=== PATIENT | male | born 1950 | race Hispanic/Latino ===

== ENCOUNTER 2016-08-02 21:54 | Inpatient (IN) | payer MEDICAID ==
[2016-08-02] MEDS ORDERED: Meropenem 1g/NS 100mL IVPB 1 GM/100 ML PIGGYBACK IVPB STA (22:46)
[2016-08-02 23:01] LABS: ADD MANUAL DIFF? NO
[2016-08-02 23:03] LABS: VENOUS BLOOD GAS BASE EXCESS 1.4 mmol/L (0.0-2.0); VENOUS BLOOD PH 7.46 (7.32-7.43)
[2016-08-02 23:09] LABS: BASO # 0.04 K/mm3 (0.0-2.0); BASO % 0.5 % (0.0-3.0); EOS # 0.2 (0.0-0.7); EOS % 2.4 % (1.5-5.0); GRAN % 70.4 % (50.0-68.0); HEMATOCRIT 39.2 % (42.0-52.0); LYMPH # 1.7 (1.2-3.4); LYMPH % 19.7 % (22.0-35.0); MEAN CELL VOLUME 86.9 fL (80.0-105.0); MEAN CORPUSCULAR HEMOGLOBIN 29.3 pg (25.0-35.0); MEAN CORPUSCULAR HGB CONC 33.7 g/dl (31.0-37.0); MEAN PLATELET VOLUME 9.8 fl (7.0-11.0); MONO # 0.6 (0.1-0.6); PLATELET COUNT 282 10^3/uL (120.0-450.0); RED CELL DISTRIBUTION WIDTH 14.2 % (11.5-14.5); WHITE BLOOD COUNT 8.4 10^3/ul (4.5-11.0)
[2016-08-02 23:27] LABS: INR 1.07 (0.93-1.08)
[2016-08-02 23:31] LABS: PH,URINE 6.5 (4.7-8.0); URINE BILIRUBIN NEGATIVE (NEGATIVE); URINE BLOOD MODERATE (NEGATIVE); URINE GLUCOSE (UA) NEGATIVE (NEGATIVE); URINE KETONE NEGATIVE (NEGATIVE); URINE LEUKOCYTE ESTERASE MODERATE Leu/uL (NEGATIVE); URINE PROTEIN 100 mg/dL (<30 mg/dL); URINE UROBILINOGEN 0.2 E.U./dL (<1 E.U./dL)
[2016-08-02 23:34] LABS: ALB/GLOB RATIO 1.1 (1.1-1.8); ALKALINE PHOSPHATASE 83 U/L (38-133); ALT/SGPT 35 U/L (7-56); AST/SGOT 35 U/L (15-59); BILIRUBIN,TOTAL 1.6 mg/dL (0.2-1.3); BLOOD UREA NITROGEN 9 mg/dL (7-21); CALCIUM 9.1 mg/dL (8.4-10.5); CARBON DIOXIDE 23 mmol/L (21-33); CHLORIDE 97 mmol/L (98-107); GFR AFRICAN-AMERICAN > 60; GLUCOSE,RANDOM 152 mg/dL (70-110); MAGNESIUM 1.5 mg/dL (1.7-2.2); POTASSIUM 3.1 mmol/L (3.6-5.0); SODIUM 131 mmol/L (132-148); TOTAL PROTEIN 7.6 g/dL (5.8-8.3)
[2016-08-02 23:39] LABS: URINE APPEARANCE CLOUDY (CLEAR); URINE COLOR YELLOW (YELLOW)
[2016-08-03 00:06] LABS: TROPONIN I 0.21 ng/mL
[2016-08-03 00:07] LABS: PHOSPHOROUS 1.4 mg/dL (2.5-4.5)
[2016-08-03 00:10] LABS: URINE BACTERIA MOD (NEG); URINE EPITHELIAL CELLS 0 - 2 /hpf (0-5); URINE WBC TNTC /hpf (0-6)
--- NOTE | 2016-08-03 00:38 | ED PDOC ---
Arrival/HPI - General Chief Complaint: Fever Time Seen by Provider: 08/02/16 22:39 Historian: Patient - History of Present Illness Narrative History of Present Illness (Text): 08/02/16 22:48 This 66 yo male with pmh chf, cardiomyopathy, htn, stroke, sepsis, presents to this ED c/o feeling very weak since last night. Symptoms worsen this morning, which he was not able to walk due to increasing tiredness. Patient stated he developed a fever. Denies sob, cp, abdominal pain, rash, recet travel, or sick contact. Time/Duration: Other (since last night) Context: Home Past Medical History - Provider Review Nursing Documentation Reviewed: Yes - Infectious Disease Hx of Infectious Diseases: None - Tetanus Immunization Tetanus Immunization: Unknown - Cardiac Hx Cardiac Disorders: Yes Hx Hypertension: Yes - Pulmonary Hx Chronic Obstructive Pulmonary Disease (COPD): No - Neurological Hx Neurological Disorder: Yes HX Cerebrovascular Accident: Yes (CVA/TIA with residual R sided weakness) - HEENT Hx HEENT Disorder: Yes Hx Blind: No Hx Cataracts: No Hx Deafness: Yes (left ear, hearing aid) Hx Difficulty Chewing: No Hx Epistaxis: No Hx Glaucoma: No Hx Macular Degeneration: No Other/Comment: uses eye glasses - Renal Hx Renal Disorder: Yes Hx Renal Failure: Yes - Endocrine/Metabolic Hx Endocrine Disorders: Yes Hx Diabetes Mellitus Type 2: Yes - Hematological/Oncological Hx Blood Disorders: Yes Hx Blood Transfusions: Yes Hx Blood Transfusion Reaction: No - Integumentary Hx Dermatological Disorder: No - Musculoskeletal/Rheumatological Hx Musculoskeletal Disorders: Yes Hx Arthritis: Yes - Gastrointestinal Hx Gastrointestinal Disorders: No Other/Comment: umbilical hernia - Genitourinary/Gynecological Hx Genitourinary Disorders: Yes Hx Hematuria: Yes Hx Incontinence: Yes Hx Prostate Problems: Yes Hx Sexually Transmitted Diseases: No Hx Urinary Tract Infection: Yes - Psychiatric Hx Psychophysiologic Disorder: No Hx Emotional Abuse: No Hx Physical Abuse: No Hx Substance Use: No - Past Surgical History Past Surgical History: Unable to Obtain - Surgical History Hx Cardiac Catheterization: No Hx Coronary Stent: No Hx Orthopedic Surgery: Yes Other/Comment: rt.knee surgery - Anesthesia Hx Anesthesia Reactions: No Hx Malignant Hyperthermia: No - Suicidal Assessment Feels Threatened In Home Enviroment: No Family/Social History - Physician Review Nursing Documentation Reviewed: Yes Family/Social History: No Known Family HX Smoking Status: Former Smoker Hx Alcohol Use: No Hx Substance Use: No Hx Substance Use Treatment: No Allergies/Home Meds Allergies/Adverse Reactions: Allergies salmon Adverse Reaction (Uncoded 01/28/16 15:22) RASH Home Medications: Home Meds Medication Instructions Recorded Confirmed Tamsulosin [Flomax] 0.4 mg PO DAILY 03/08/13 08/03/16 levETIRAcetam [Keppra] 250 mg PO Q12 03/08/13 08/03/16 Sertraline [Zoloft] 100 mg PO DAILY 05/10/15 08/03/16 amLODIPine [Norvasc] 5 mg PO QAM 05/10/15 08/03/16 Review of Systems - Review of Systems Constitutional: Fatigue, Fevers Eyes: Normal. absent: Vision Changes ENT: Normal. absent: Sore Throat Respiratory: Normal. absent: SOB, Cough Cardiovascular: Normal. absent: Chest Pain, Palpitations Gastrointestinal: absent: Abdominal Pain, Nausea, Vomiting Genitourinary Male: Frequency Musculoskeletal: Normal Skin: Normal Neurological: Normal. absent: Headache, Dizziness, Focal Weakness, Gait Changes Endocrine: Normal Hemo/Lymphatic: Normal Psychiatric: Normal Physical Exam Vital Signs Temp Pulse Resp BP Pulse Ox 08/03/16 02:22 100.3 F H 85 16 117/65 93 L 08/03/16 00:45 102.8 F H 08/03/16 00:00 89 16 92 L 08/02/16 23:09 102.8 F H 08/02/16 22:16 100.2 F H 102 H 18 139/104 H 92 L 08/02/16 22:13 100.2 F H 102 H 18 139/104 H 92 L Temperature: Febrile Blood Pressure: Hypertensive Pulse: Tachycardic Respiratory Rate: Normal Appearance: Positive for: Well-Appearing, Non-Toxic, Comfortable Pain Distress: None Mental Status: Positive for: Alert and Oriented X 3 - Systems Exam Head: Present: Atraumatic, Normocephalic Pupils: Present: PERRL Extroacular Muscles: Present: EOMI Conjunctiva: Present: Normal Mouth: Present: Moist Mucous Membranes Neck: Present: Normal Range of Motion Respiratory/Chest: Present: Clear to Auscultation, Good Air Exchange. No: Respiratory Distress, Accessory Muscle Use Cardiovascular: Present: Regular Rate and Rhythm, Normal S1, S2. No: Murmurs Abdomen: Present: Normal Bowel Sounds. No: Tenderness, Distention, Peritoneal Signs Back: Present: Normal Inspection. No: CVA Tenderness Upper Extremity: Present: Normal Inspection, Normal ROM, NORMAL PULSES, Neurovascularly Intact, Capillary Refill < 2s. No: Cyanosis, Edema Lower Extremity: Present: Normal Inspection, NORMAL PULSES, Normal ROM, Capillary Refill < 2 s. No: Edema, CALF TENDERNESS Neurological: Present: GCS=15, CN II-XII Intact, Speech Normal, Motor Func Grossly Intact, Normal Sensory Function Skin: Present: Warm, Dry, Normal Color. No: Rashes Psychiatric: Present: Alert, Oriented x 3 Medical Decision Making ED Course and Treatment: 08/03/16 00:[address] Jesus Pereira regarding symptoms, and labs result. He agrees with admission. Re-evaluation Time: 01:16 Reassessment Condition: Re-examined, Improving,but remains with symptoms - Lab Interpretations Microbiology Results: Microbiology Results 08/02/16 23:00 Blood Blood Culture - Final NO GROWTH AFTER 5 DAYS 08/02/16 23:00 Blood Gram Stain - Final TEST NOT PERFORMED 08/02/16 22:35 Blood Blood Culture - Final NO GROWTH AFTER 5 DAYS 08/02/16 22:35 Blood Gram Stain - Final TEST NOT PERFORMED 08/02/16 23:20 Urine Urine Culture - Final 10-50,000 CFU/ML. MULTIPLE SPECIES. PROBABLE CONTAMINATION. Lab Results: 08/02/16 22:35 08/02/16 22:35 Lab Results 08/02/16 23:20: Urine Color Yellow, Urine Appearance Cloudy, Urine pH 6.5, Ur Specific Pray 1.015, Urine Protein 100 H, Urine Glucose (UA) Negative, Urine Ketones Negative, Urine Blood Moderate H, Urine Nitrate Positive H, Urine Bilirubin Negative, Urine Urobilinogen 0.2, Ur Leukocyte Esterase Moderate H, Urine RBC 2 - 5, Urine WBC Tntc, Ur Epithelial Cells 0 - 2, Urine Bacteria Mod 08/02/16 22:58: pO2 155 H, VBG pH 7.46 H, VBG pCO2 35.0 L, VBG HCO3 24.9, VBG Total CO2 26.0, VBG O2 Sat (Calc) 99.9 H, VBG Base Excess 1.4, VBG Potassium 3.1 L, Glucose 156 H, Lactate 1.5, FiO2 21.0, Sodium 133.0, Chloride 101.0, Venous Blood Potassium 3.1 L 08/02/16 22:35: Sodium 131 L, Potassium 3.1 L, Chloride 97 L, Carbon Dioxide 23 , Anion Gap 14, BUN 9, Creatinine 1.2, Est GFR ( Amer) > 60, Est GFR (Non -Af Amer) > 60, Random Glucose 152 H, Calcium 9.1, Phosphorus 1.4 L*, Magnesium 1.5 L, Total Bilirubin 1.6 H, AST 35, ALT 35, Alkaline Phosphatase 83, Troponin I 0.21 H* D, NT-Pro-B Natriuret Pep 1260 H, Total Protein 7.6, Albumin 4.0, Globulin 3.5, Albumin/Globulin Ratio 1.1 08/02/16 22:35: PT 11.6, INR 1.07, APTT 28.0 08/02/16 22:35: WBC 8.4, RBC 4.51, Hgb 13.2 L, Hct 39.2 L, MCV 86.9, MCH 29.3, MCHC 33.7, RDW 14.2, Plt Count 282, MPV 9.8, Gran % 70.4 H, Lymph % (Auto) 19.7 L, Cameron % (Auto) 7.0 H, Eos % (Auto) 2.4, Baso % (Auto) 0.5, Gran # 5.90, Lymph # 1.7, Cameron # 0.6, Eos # 0.2, Baso # 0.04 I have reviewed the lab results: Yes Interpretation: Abnormal lab values - RAD Interpretation Radiology Orders: 08/02/16 22:40 CHEST PORTABLE [RAD] Stat - EKG Interpretation Interpreted by ED Physician: Yes (Sinus tachycardia with fusion @ 104. LBBB) Type: 12 lead EKG Comparison: No previous EKG avail. - Medication Orders Current Medication Orders: Acetaminophen (Tylenol 325mg Tab) 650 mg PO Q4H PRN PRN Reason: Temp >100.4*F Albuterol Sulfate (Albuterol 0.083% Inhal Nini (2.5 Mg/3 Ml) Ud) 2.5 mg IH [id number] PRN PRN Reason: Shortness of Breath Amlodipine Besylate (Norvasc) 5 mg PO DAILY [facility] Last Admin: 08/07/16 09:50 Dose: 5 mg Aspirin (Aspirin Chewable) 81 mg PO DAILY [facility] Last Admin: 08/07/16 09:49 Dose: 81 mg Atorvastatin Calcium (Lipitor) 40 mg PO DAILY [facility] Last Admin: 08/07/16 09:49 Dose: 40 mg Benzonatate (Tessalon Perles) 100 mg PO TID [facility] Last Admin: 08/07/16 18:11 Dose: 100 mg Carvedilol (Coreg) 3.125 mg PO BID [facility] Last Admin: 08/07/16 18:11 Dose: 3.125 mg Clopidogrel Bisulfate (Plavix) 75 mg PO DAILY [facility] Last Admin: 08/07/16 09:50 Dose: 75 mg Digoxin (Lanoxin) 0.25 mg PO 1400 [facility] Last Admin: 08/07/16 13:28 Dose: 0.25 mg Diphenhydramine HCl (Benadryl) 25 mg IVP Q4H PRN PRN Reason: Allergy symptoms Last Admin: 08/07/16 21:19 Dose: 25 mg Enoxaparin Sodium (Lovenox) 40 mg SC DAILY [facility] PRN Reason: Protocol Last Admin: 08/07/16 09:49 Dose: 40 mg Finasteride (Proscar) 5 mg PO DAILY [facility] Last Admin: 08/07/16 09:50 Dose: 5 mg Furosemide (Lasix) 40 mg PO DAILY [facility] Last Admin: 08/07/16 09:49 Dose: 40 mg Meropenem 1g/NS 100mL IVPB (Meropenem 1g/Ns 100ml Ivpb) 1 gm in 100 mls @ 100 mls/hr IVPB Q12 [facility] PRN Reason: Protocol Stop: 08/10/16 10:01 Last Admin: 08/07/16 21:19 Dose: 100 mls/hr Levetiracetam (Keppra) 250 mg PO Q12 [facility] Last Admin: 08/07/16 21:19 Dose: 250 mg Lisinopril (Zestril) 2.5 mg PO DAILY [facility] Last Admin: 08/07/16 09:50 Dose: 2.5 mg Pantoprazole Sodium (Protonix Ec Tab) 40 mg PO 0630 [facility] Last Admin: 08/08/16 05:41 Dose: 40 mg Potassium Chloride (Klor-Con 10) 10 meq PO BRK [facility] Last Admin: 08/07/16 09:48 Dose: 10 meq Sertraline HCl (Zoloft) 100 mg PO DAILY [facility] Last Admin: 08/07/16 09:50 Dose: 100 mg Discontinued Medications Acetaminophen (Tylenol 325mg Tab) 650 mg PO STAT STA Stop: 08/03/16 00:07 Last Admin: 08/03/16 00:45 Dose: 650 mg Acetaminophen (Tylenol 325mg Tab) 650 mg PO STAT STA Stop: 08/03/16 03:10 Last Admin: 08/03/16 06:35 Dose: Atorvastatin Calcium (Lipitor) 80 mg PO DAILY [facility] Last Admin: 08/06/16 10:09 Dose: 80 mg Clopidogrel Bisulfate (Plavix) Confirm Administered Dose 300 mg .ROUTE .STK-MED ONE Stop: 08/05/16 11:39 Last Admin: 08/05/16 12:03 Dose: 300 mg Diphenhydramine HCl (Benadryl) 25 mg PO ONCE ONE Stop: 08/04/16 00:32 Last Admin: 08/04/16 00:46 Dose: 25 mg Diphenhydramine HCl (Benadryl) 25 mg PO ONCE ONE Stop: 08/04/16 07:17 Last Admin: 08/04/16 07:21 Dose: 25 mg Enoxaparin Sodium (Lovenox) 92 mg SC Q12H [facility] PRN Reason: Protocol Last Admin: 08/05/16 09:40 Dose: 92 mg Enoxaparin Sodium (Lovenox) 30 mg IV STAT STA PRN Reason: Protocol Stop: 08/05/16 11:47 Eptifibatide (Integrilin Bolus) Confirm Administered Dose 40 mg IVP .STK-MED ONE Stop: 08/05/16 11:39 Last Admin: 08/05/16 11:39 Dose: 40 mg Comments: 9ml iv given and 2nd dose 11:49 9ml iv given Fentanyl (Fentanyl) Confirm Administered Dose 100 mcg .ROUTE .STK-MED ONE Stop: 08/05/16 11:03 Last Admin: 08/05/16 11:21 Dose: 100 mcg Comments: 50mcg iv given by dr ayon Meropenem 1g/NS 100mL IVPB (Meropenem 1g/Ns 100ml Ivpb) 1 gm in 100 mls @ 100 mls/hr IVPB STAT STA PRN Reason: Protocol Stop: 08/02/16 23:45 Last Admin: 08/02/16 22:55 Dose: 100 mls/hr Magnesium Sulfate 2 gm/ Sodium (Chloride) 104 mls @ 102 mls/hr IVPB ONCE ONE Stop: 08/03/16 01:53 Last Admin: 08/03/16 02:21 Dose: 102 mls/hr Potassium Phosphate 15 mmole/ (Sodium Chloride) 255 mls @ 42.5 mls/hr IVPB ONCE ONE Stop: 08/03/16 16:27 Last Admin: 08/03/16 11:33 Dose: 42.5 mls/hr Heparin Sodium (Porcine) (Heparin 1000 Units/500 Ml Ns) Confirm Administered Dose 1,500 mls @ ud IV .STK-MED ONE Stop: 08/05/16 10:44 Sodium Chloride (Sodium Chloride 0.9%) 1,000 mls @ 50 mls/hr IV .Q20H [facility] Stop: 08/05/16 22:00 Last Admin: 08/05/16 12:55 Dose: 50 mls/hr Iodixanol (Visipaque 320 Mg/Ml 100 Ml) Confirm Administered Dose 100 ml IV .STK- MED ONE Stop: 08/05/16 12:06 Iohexol (Omnipaque 350 150 Ml) Confirm Administered Dose 150 ml .ROUTE .STK-MED ONE Stop: 08/05/16 10:45 Iohexol (Omnipaque 350mg/Ml 50 Ml) Confirm Administered Dose 50 ml .ROUTE .STK- MED ONE Stop: 08/05/16 12:06 Lidocaine HCl (Lidocaine 2% 20ml Vial) Confirm Administered Dose 20 ml .ROUTE .STK-MED ONE Stop: 08/05/16 10:44 Midazolam HCl (Versed Inj) Confirm Administered Dose 2 mg .ROUTE .STK-MED ONE Stop: 08/05/16 11:03 Last Admin: 08/05/16 11:21 Dose: 2 mg Comments: 1mg iv given by dr ayon Potassium Chloride (Potassium Chloride Oral Soln) 60 meq PO STAT STA Stop: 08/03/16 00:52 Last Admin: 08/03/16 01:30 Dose: 60 meq Potassium Chloride (K-Dur 20 Meq Er Tab) 20 meq PO ONCE ONE Stop: 08/03/16 11:42 Last Admin: 08/03/16 11:51 Dose: 20 meq Potassium Chloride (K-Dur 20 Meq Er Tab) 40 meq PO ONCE ONE Stop: 08/04/16 08:04 Last Admin: 08/04/16 10:44 Dose: 40 meq Potassium Chloride (K-Dur 20 Meq Er Tab) 40 meq PO ONCE ONE Stop: 08/06/16 11:25 Last Admin: 08/06/16 14:08 Dose: 40 meq Disposition/Present on Arrival - Present on Arrival Any Indicators Present on Arrival: No History of DVT/PE: No History of Uncontrolled Diabetes: No Urinary Catheter: No History of Decub. Ulcer: No History Surgical Site Infection Following: None - Disposition Have Diagnosis and Disposition been Completed?: Yes Diagnosis: SIRS (systemic inflammatory response syndrome), Acute cystitis Disposition: HOSPITALIZED Disposition Time: 00:50 Patient Plan: Admission Patient Problems: Current Active Problems Problem Status Onset Acute cystitis Acute SIRS (systemic inflammatory response syndrome) Acute Condition: STABLE
[2016-08-03] MEDS ORDERED: Potassium Chloride 40 mEq/30 ml LIQ UD PO STA (00:51)
[2016-08-03] MEDS ORDERED: Magnesium Sulfate 2 GM in Sodium Chloride 0.9% 100 ML IVPB ONE (00:52)
--- NOTE | 2016-08-03 03:13 | CP.PCM.PN ---
Subjective - Date & Time of Evaluation Date of Evaluation: 08/03/16 Time of Evaluation: 03:10 - Subjective Subjective: S: Patient was seen because Temp was 100.4* down from 101*F, tylenol was requested. He is awake, alert, not in distress. Has no complaints. Medical record was reviewed. O: Last Vital Signs 3 Temp 100.3 F H 08/03/16 02:22 Pulse 85 08/03/16 02:22 Resp 16 08/03/16 02:22 BP 117/65 08/03/16 02:22 Pulse Ox 93 L 08/03/16 02:22 Awake, not in distress. HEENT: both pupils pinpoint unequal. LUNGS:Normal breathing pattern. A:Fever P:Fever w/u has been done. On antibiotic. Tylenol 650 mg PO x 1 and prn q4h. Objective - Vital Signs/Intake and Output Vital Signs (last 24 hours): Temp Pulse Resp BP Pulse Ox 100.3 F H 85 16 117/65 93 L 08/03/16 02:22 08/03/16 02:22 08/03/16 02:22 08/03/16 02:22 08/03/16 02:22 - Labs Labs: PT 11.6 Seconds (9.9-11.8) 08/02/16 22:35 INR 1.07 (0.93-1.08) 08/02/16 22:35 APTT 28.0 Seconds (23.7-30.8) 08/02/16 22:35
[2016-08-03 03:37] VITALS: BMI 29.1
[2016-08-03] MEDS: Meropenem 1g/NS 100mL IVPB 1 GM/100 ML PIGGYBACK IVPB SCH ×2 (09:32→21:38)
[2016-08-03] MEDS: Enoxaparin 100 mg Syringe SC SCH ×2 (09:32→21:36)
--- NOTE | 2016-08-03 09:47 | CON ---
DATE: 08/03/2016 Cardiology consultation (for Dr. House). HISTORY OF PRESENT ILLNESS: The patient is a 66-year-old male who presents with fatigue and inabilit y to stand. PAST MEDICAL HISTORY: Notable for severe dilated cardiomyopathy. His ejection fraction last measured was 22%. Stress test done last year revealed multiple defects consistent with coronary artery disease. In addition, he suffers from hypertension as well as hypercholesterolemia. He denies chest pain, denies shortness of breath. SOCIAL HISTORY: The patient lives at home with his daughter. REVIEW OF SYSTEMS: Reviewed in detail. Other than his fatigue and inability to stand, no other card iac symptomatology is noted. The patient does have a history of CVA. PHYSICAL EXAMINATION: VITAL SIGNS: Blood pressure is 110/67, heart rate is in the 70s, temperature is 100.4. NECK: Negative JVD. LUNGS: Decreased breath sounds bilaterally. HEART: Reveals S1, S2. EXTREMITIES: Without edema. EKG shows left bundle branch block. LABORATORY DATA: Hemoglobin is 13. Chemistries: Troponin is 0.21. ProBNP is greater than 1000. IMPRESSION: 1. Non-ST elevation myocardial infarction. 2. Ischemic dilated cardiomyopathy. 3. Diabetes mellitus. 4. History of cerebrovascular accident. 5. Hypokalemia. PLAN: 1. Given these findings, we will start the patient on subcutaneous full dose Lovenox. 2. Aspirin has been added to his regimen. 3. Given his elevated temperature, infection needs to be ruled out. Once his infection is under con trol, will discuss with Dr. House about the patient's need for possible cardiac catheterization. Luis Hdez MD cc: [id number] TT: 08/03/2016 09:46:46 Confirmation # [id number] Dictation # [id number] [place]
[2016-08-03] MEDS ORDERED: Potassium Phosphate 15 MMOLE in Sodium Chloride 0.9% 250 ML IVPB ONE (10:28)
[2016-08-03] MEDS ORDERED: Albuterol 0.083% Inhal Sol (2.5 mg/3 mL) UD IH PRN (10:46)
[2016-08-03 10:50] LABS: ADD MANUAL DIFF? NO
[2016-08-03 10:54] LABS: BASO # 0.06 K/mm3 (0.0-2.0); BASO % 0.7 % (0.0-3.0); EOS # 0.3 (0.0-0.7); EOS % 3.5 % (1.5-5.0); GRAN # 5.69 (1.4-6.5); GRAN % 61.8 % (50.0-68.0); LYMPH # 1.9 (1.2-3.4); LYMPH % 21.1 % (22.0-35.0); MEAN CELL VOLUME 88.5 fL (80.0-105.0); MEAN CORPUSCULAR HEMOGLOBIN 29.6 pg (25.0-35.0); MEAN CORPUSCULAR HGB CONC 33.5 g/dl (31.0-37.0); MEAN PLATELET VOLUME 9.7 fl (7.0-11.0); MONO # 1.2 (0.1-0.6); MONO % 12.9 % (1.0-6.0); PLATELET COUNT 260 10^3/uL (120.0-450.0); RED CELL DISTRIBUTION WIDTH 14.5 % (11.5-14.5); WHITE BLOOD COUNT 9.2 10^3/ul (4.5-11.0)
[2016-08-03 11:03] LABS: ALB/GLOB RATIO 1.2 (1.1-1.8); ALKALINE PHOSPHATASE 73 U/L (38-133); ALT/SGPT 37 U/L (7-56); AST/SGOT 34 U/L (15-59); BILIRUBIN,TOTAL 1.4 mg/dL (0.2-1.3); BLOOD UREA NITROGEN 11 mg/dL (7-21); CALCIUM 9.1 mg/dL (8.4-10.5); CARBON DIOXIDE 25 mmol/L (21-33); CHLORIDE 102 mmol/L (98-107); GFR AFRICAN-AMERICAN > 60; GLUCOSE,RANDOM 150 mg/dL (70-110); MAGNESIUM 2.1 mg/dL (1.7-2.2); PHOSPHOROUS 2.5 mg/dL (2.5-4.5); POTASSIUM 3.4 mmol/L (3.6-5.0); SODIUM 135 mmol/L (132-148); TOTAL PROTEIN 6.9 g/dL (5.8-8.3)
--- NOTE | 2016-08-03 11:15 | CP.PCM.CON ---
History of Present Illness - History of Present Illness History of Present Illness: 66 year old male with PMH of HTN, CVA, DM, obesity with BMI 32, history of prostate problems, history of UTI's, arthritis, S/P right knee surgery was brought in to [facility] because of fatigue and generalized weakness for the past 2 days. The patient also developed subjective fever and chills yesterday. He complains of increased urinary frequency and suprapubic tenderness, no flank tenderness, no abdominal pain, no nausea or vomiting, no headache or dizziness, no chest pain, no SOB, no cough or rhinorrhea, no sore throat. In the ED, urinalysis showed pyuria and patient also was febrile - Infectious diseases consult is requested to further evaluate and manage. Review of Systems - Review of Systems All systems: reviewed and no additional remarkable complaints except (as per HPI ) Past Patient History - Infectious Disease Hx of Infectious Diseases: None - Tetanus Immunizations Tetanus Immunization: Unknown - Past Medical History & Family History Past Medical History?: Yes - Past Social History Smoking Status: Former Smoker - CARDIAC Hx Cardiac Disorders: Yes Hx Hypertension: Yes - PULMONARY Hx Chronic Obstructive Pulmonary Disease (COPD): No - NEUROLOGICAL Hx Neurological Disorder: Yes HX Cerebrovascular Accident: Yes (CVA/TIA with residual R sided weakness) - HEENT Hx HEENT Problems: Yes Hx Blind: No Hx Cataracts: No Hx Deafness: Yes (left ear, hearing aid) Hx Difficulty Chewing: No Hx Epistaxis: No Hx Glaucoma: No Hx Macular Degeneration: No Other/Comment: uses eye glasses - RENAL Hx Chronic Kidney Disease: Yes Hx Pyelonephritis: Yes Hx Renal Failure: Yes - ENDOCRINE/METABOLIC Hx Endocrine Disorders: Yes Hx Diabetes Mellitus Type 2: No - HEMATOLOGICAL/ONCOLOGICAL Hx Blood Disorders: Yes - INTEGUMENTARY Hx Dermatological Problems: No - MUSCULOSKELETAL/RHEUMATOLOGICAL Hx Falls: Yes - GASTROINTESTINAL Hx Gastrointestinal Disorders: No Other/Comment: umbilical hernia - GENITOURINARY/GYNECOLOGICAL Hx Genitourinary Disorders: Yes Hx Hematuria: Yes Hx Incontinence: Yes Hx Prostate Problems: Yes Hx Sexually Transmitted Disorders: No Hx Urinary Tract Infection: Yes - PSYCHIATRIC Hx Psychophysiologic Disorder: No Hx Emotional Abuse: No Hx Physical Abuse: No - SURGICAL HISTORY Hx Surgeries: Yes Hx Cardiac Catheterization: No Hx Coronary Stent: No Hx Orthopedic Surgery: Yes Other/Comment: rt.knee surgery - ANESTHESIA Hx Anesthesia Reactions: No Hx Malignant Hyperthermia: No Meds Allergies/Adverse Reactions: Allergies Allergy/AdvReac Type Severity Reaction Status Date / Time salmon AdvReac RASH Uncoded 01/28/16 15:22 - Medications Medications: Current Medications Acetaminophen (Tylenol 325mg Tab) 650 mg PO Q4H PRN PRN Reason: Temp >100.4*F Aspirin (Aspirin Chewable) 81 mg PO DAILY [facility] Enoxaparin Sodium (Lovenox) 92 mg SC Q12H [facility] PRN Reason: Protocol Physical Exam - Constitutional Appears: Non-toxic, No Acute Distress - Head Exam Head Exam: NORMAL INSPECTION - ENT Exam ENT Exam: Mucous Membranes Moist - Neck Exam Neck exam: Negative for: Lymphadenopathy, Meningismus - Respiratory Exam Respiratory Exam: Decreased Breath Sounds - Cardiovascular Exam Cardiovascular Exam: +S1, +S2 - GI/Abdominal Exam GI & Abdominal Exam: Soft, Tenderness (over the suprapubic area). absent: Distended, Firm, Guarding, Rigid Results - Vital Signs Recent Vital Signs: Last Vital Signs Temp 99.0 F 08/03/16 06:52 Pulse 71 08/03/16 06:53 Resp 20 08/03/16 06:52 BP 110/67 08/03/16 06:52 Pulse Ox 94 L 08/03/16 06:52 - Labs Result Diagrams: 08/03/16 10:49 08/02/16 22:35 Assessment & Plan - Assessment and Plan (Free Text) Plan: Assessment Systemic Inflammatory Response Syndrome (fever and tachycardia), consider sepsis secondary to urinary tract infection HTN CVA DM obesity with BMI 32 history of prostate problems history of UTI's arthritis S/P right knee surgery Plan Started patient on Merrem pending blood cx, urine cx; will also check PCT and PSA levels Will follow clinically
--- NOTE | 2016-08-03 11:31 | CP.PCM.HP ---
<Kalie Bennett - Last Filed: 08/03/16 12:02> History of Present Illness - History of Present Illness History of Present Illness: cc: cannot get up to walk 66 yo M w/ PMHx of CVA, cardiomyopathy, HTN, sepsis, nephrolithiasis, seizure, presents with 2 days of global weakness, with weakness worsening this morning. Pt usually walks with a cane. Also reports fever at home which measured 102 F. Pt denies LOU, cough, chest pain, sore throat, neck pain, SOB, abdominal pain. Reports non-bloody vomiting three times over past two days, diarrhea the past few days, with a frequency of twice per day, and is unable to say if said stools were bloody. Reports pain with voiding. PMHx: CVA, cardiomyopathy, HTN, sepsis, nephrolithiasis, Anxiety, and seizure Sxhx: bladder stone removal Allergies: NKDA, salmon allergy medicatons: As per MAR social: former smoker, denies ETOH and illicit drugs Present on Admission - Present on Admission Any Indicators Present on Admission: No Review of Systems - Review of Systems All systems: reviewed and no additional remarkable complaints except - Constitutional Constitutional: Fatigue, Fever - Cardiovascular Cardiovascular: absent: Chest Pain, Chest Pain at Rest - Respiratory Respiratory: absent: Cough, Dyspnea - Gastrointestinal Gastrointestinal: Diarrhea, Vomiting. absent: Abdominal Pain - Genitourinary Genitourinary: Dysuria Past Patient History - Infectious Disease Hx of Infectious Diseases: None - Tetanus Immunizations Tetanus Immunization: Unknown - Past Medical History & Family History Past Medical History?: Yes - Past Social History Smoking Status: Former Smoker - CARDIAC Hx Cardiac Disorders: Yes Hx Hypertension: Yes - PULMONARY Hx Chronic Obstructive Pulmonary Disease (COPD): No - NEUROLOGICAL Hx Neurological Disorder: Yes HX Cerebrovascular Accident: Yes (CVA/TIA with residual R sided weakness) - HEENT Hx HEENT Problems: Yes Hx Blind: No Hx Cataracts: No Hx Deafness: Yes (left ear, hearing aid) Hx Difficulty Chewing: No Hx Epistaxis: No Hx Glaucoma: No Hx Macular Degeneration: No Other/Comment: uses eye glasses - RENAL Hx Chronic Kidney Disease: Yes Hx Pyelonephritis: Yes Hx Renal Failure: Yes - ENDOCRINE/METABOLIC Hx Endocrine Disorders: Yes Hx Diabetes Mellitus Type 2: No - HEMATOLOGICAL/ONCOLOGICAL Hx Blood Disorders: Yes - INTEGUMENTARY Hx Dermatological Problems: No - MUSCULOSKELETAL/RHEUMATOLOGICAL Hx Falls: Yes - GASTROINTESTINAL Hx Gastrointestinal Disorders: No Other/Comment: umbilical hernia - GENITOURINARY/GYNECOLOGICAL Hx Genitourinary Disorders: Yes Hx Hematuria: Yes Hx Incontinence: Yes Hx Prostate Problems: Yes Hx Sexually Transmitted Disorders: No Hx Urinary Tract Infection: Yes - PSYCHIATRIC Hx Psychophysiologic Disorder: No Hx Emotional Abuse: No Hx Physical Abuse: No - SURGICAL HISTORY Hx Surgeries: Yes Hx Cardiac Catheterization: No Hx Coronary Stent: No Hx Orthopedic Surgery: Yes Other/Comment: rt.knee surgery - ANESTHESIA Hx Anesthesia Reactions: No Hx Malignant Hyperthermia: No Meds Allergies/Adverse Reactions: Allergies Allergy/AdvReac Type Severity Reaction Status Date / Time salmon AdvReac RASH Uncoded 01/28/16 15:22 Physical Exam - Constitutional Appears: No Acute Distress - Head Exam Head Exam: ATRAUMATIC, NORMOCEPHALIC - Eye Exam Eye Exam: EOMI, Normal appearance Pupil Exam: NORMAL ACCOMODATION, PERRL - ENT Exam ENT Exam: Mucous Membranes Moist, Normal Exam - Respiratory Exam Respiratory Exam: Clear to Auscultation Bilateral, NORMAL BREATHING PATTERN - Cardiovascular Exam Cardiovascular Exam: +S1, +S2. absent: Bradycardia - GI/Abdominal Exam GI & Abdominal Exam: Soft. absent: Tenderness - Exam External exam: absent: Ecchymosis, Erythema - Extremities Exam Extremities exam: Positive for: pedal pulses present. Negative for: pedal edema - Back Exam Back exam: absent: CVA tenderness (L), CVA tenderness (R) - Neurological Exam Neurological exam: Alert - Skin Skin Exam: Intact, Normal Color Results - Vital Signs Recent Vital Signs: Last Vital Signs Temp 99.0 F 08/03/16 06:52 Pulse 71 08/03/16 06:53 Resp 20 08/03/16 06:52 BP 110/67 08/03/16 06:52 Pulse Ox 94 L 08/03/16 06:52 - Labs Result Diagrams: 08/03/16 10:49 08/03/16 10:49 Labs: Laboratory Results - last 24 hr 08/03/16 08/03/16 09:04 10:49 WBC 9.2 RBC 4.52 Hgb 13.4 L Hct 40.0 L MCV 88.5 MCH 29.6 MCHC 33.5 RDW 14.5 Plt Count 260 MPV 9.7 Gran % 61.8 Lymph % (Auto) 21.1 L Humphreys % (Auto) 12.9 H Eos % (Auto) 3.5 Baso % (Auto) 0.7 Gran # 5.69 Lymph # 1.9 Humphreys # 1.2 H Eos # 0.3 Baso # 0.06 Influenza Typ A,B (EIA) Negative for flu a/b Assessment & Plan - Assessment and Plan (Free Text) Plan: 66 yo M w/ PMHx of CVA, cardiomyopathy, HTN, sepsis, nephrolithiasis, seizure, presented with 2 days of weakness, fever, and pain upon urination. U/A is positive for leukocyte esterase and nitrites, CXR is clear. Initial troponin is .21, and EKG is with L axis deviation and widened qrs intervals. Sepsis 2/2 UTI: tachycardia of 102 initially, and tmax of 102.8 F overnight. No leukocytosis present U/A is positive for leukocyte esterase and nitrites merropenem q12 Pending Ucx and Bcx ID consult, help appreciated NSTEMI vs demand ischemia Previous ECHO with EF of 22 on 01/30/2016 ECHO ordered initial troponin .21, and two following ASA 81 lovenox 92 mg sc q 12 Cardiology consult, help appreciated cardiomyopathy: digoxin .25, CVA: clopidogrel 75 HTN: Home medications continued: norvasc 5, coreg 3.125, lisinopril 2.5 mg HLD: Lipitor 80 BPH: procar 5 Pt indicated his wish to not be resuscitated nor intubated, and indicated understanding of the outcomes of such a decision. PPx measures: tylenol PRN, protonix, ASA and lovenox <Breonna IBARRA,[facility] - Last Filed: 08/03/16 15:15> Results - Vital Signs Recent Vital Signs: Last Vital Signs Temp 97.4 F L 08/03/16 12:00 Pulse 67 08/03/16 12:00 Resp 19 08/03/16 12:00 BP 123/76 08/03/16 12:00 Pulse Ox 94 L 08/03/16 06:52 - Labs Result Diagrams: 08/03/16 10:49 08/03/16 10:49 Labs: Laboratory Results - last 24 hr 08/03/16 08/03/16 08/03/16 09:04 10:49 10:49 WBC 9.2 RBC 4.52 Hgb 13.4 L Hct 40.0 L MCV 88.5 MCH 29.6 MCHC 33.5 RDW 14.5 Plt Count 260 MPV 9.7 Gran % 61.8 Lymph % (Auto) 21.1 L Humphreys % (Auto) 12.9 H Eos % (Auto) 3.5 Baso % (Auto) 0.7 Gran # 5.69 Lymph # 1.9 Humphreys # 1.2 H Eos # 0.3 Baso # 0.06 Sodium 135 Potassium 3.4 L Chloride 102 Carbon Dioxide 25 Anion Gap 11 BUN 11 Creatinine 1.1 Est GFR ( Amer) > 60 Est GFR (Non-Af Amer) > 60 Random Glucose 150 H Calcium 9.1 Phosphorus 2.5 Magnesium 2.1 Total Bilirubin 1.4 H AST 34 ALT 37 Alkaline Phosphatase 73 Lactate Dehydrogenase Total Creatine Kinase Total Protein 6.9 Albumin 3.7 Globulin 3.2 Albumin/Globulin Ratio 1.2 Prostate Specific Ag Digoxin Influenza Typ A,B (EIA) Negative for flu a/b 08/03/16 08/03/16 08/03/16 10:49 11:56 14:15 WBC RBC Hgb Hct MCV MCH MCHC RDW Plt Count MPV Gran % Lymph % (Auto) Humphreys % (Auto) Eos % (Auto) Baso % (Auto) Gran # Lymph # Humphreys # Eos # Baso # Sodium Potassium Chloride Carbon Dioxide Anion Gap BUN Creatinine Est GFR ( Amer) Est GFR (Non-Af Amer) Random Glucose Calcium Phosphorus Magnesium Total Bilirubin AST ALT Alkaline Phosphatase Lactate Dehydrogenase 380 Total Creatine Kinase 136 Total Protein Albumin Globulin Albumin/Globulin Ratio Prostate Specific Ag 0.2 Digoxin 1.2 Influenza Typ A,B (EIA) Attending/Attestation - Attestation I have personally seen and examined this patient.: Yes I have fully participated in the care of the patient.: Yes I have reviewed all pertinent clinical information: Yes Notes (Text): 08/03/16 15:06 Patient was seen and examined with center medical and lab director .Agreed with resident assessment and plan. 65 year old male with past medical history of Anxiety, CVA, CHF,Cardiomyopathy EF 22%, PVD, Nephrolithiasis HTN, and seizure is admitted with fever , weakness found to have sepsis due to UTI and elevated troponin, no chest pain suggestive of NSEMI due to demand ischemia.Patient has been started on anticoagulation by cardiology, we will restart ASA/Plavix/Statin and coreg, we will monitor in tele, we will get serial troponin and 2D Echo.Patient is euvolemic at this time, will continue current medication for systolic CHF. Issue of DNR and DNI was discussed with him.Patient wants to be DNR and DNI.He will be DNR and DNI during his stay in the hospital. Management plan was discussed in detail with patient Education was provided.
[2016-08-03] MEDS ORDERED: Potassium Chloride 20 mEq ER Tab PO ONE (11:41)
--- NOTE | 2016-08-03 12:57 | CARD ---
APPROVED REPORT EKG Measurement Heart [id number] <Conclusion> Sinus tachycardia with fusion complexes Possible Left atrial enlargement Left axis deviation Left bundle branch block Abnormal ECG
[2016-08-03] MEDS: Digoxin 250 mcg (0.25 mg) Tab PO SCH (14:17)
--- NOTE | 2016-08-03 14:35 | RAD ---
HISTORY: Sepsis Patient COMPARISON: 01/28/2016 FINDINGS: LUNGS: No active pulmonary disease. PLEURA: No significant pleural effusion identified, no pneumothorax apparent. CARDIOVASCULAR: Normal. OSSEOUS STRUCTURES: No significant abnormalities. VISUALIZED UPPER ABDOMEN: Normal. OTHER FINDINGS: None. IMPRESSION: No active disease.
[2016-08-03 15:06] LABS: TROPONIN I 1.09 ng/mL
[2016-08-03 22:43] LABS: TROPONIN I 0.86 ng/mL
[2016-08-04] MEDS: Pantoprazole 40 mg EC Tab PO SCH (06:24)
[2016-08-04 06:44] LABS: ADD MANUAL DIFF? NO
[2016-08-04 06:52] LABS: BASO # 0.05 K/mm3 (0.0-2.0); BASO % 0.6 % (0.0-3.0); EOS # 0.6 (0.0-0.7); EOS % 6.4 % (1.5-5.0); GRAN # 6.02 (1.4-6.5); GRAN % 69.4 % (50.0-68.0); HEMATOCRIT 38.6 % (42.0-52.0); LYMPH # 1.3 (1.2-3.4); LYMPH % 15.4 % (22.0-35.0); MEAN CELL VOLUME 88.5 fL (80.0-105.0); MEAN CORPUSCULAR HEMOGLOBIN 28.9 pg (25.0-35.0); MEAN CORPUSCULAR HGB CONC 32.6 g/dl (31.0-37.0); MEAN PLATELET VOLUME 9.7 fl (7.0-11.0); MONO # 0.7 (0.1-0.6); MONO % 8.2 % (1.0-6.0); PLATELET COUNT 238 10^3/uL (120.0-450.0); RED CELL DISTRIBUTION WIDTH 14.6 % (11.5-14.5); WHITE BLOOD COUNT 8.7 10^3/ul (4.5-11.0)
[2016-08-04 07:00] LABS: ALB/GLOB RATIO 1.1 (1.1-1.8); ALKALINE PHOSPHATASE 75 U/L (38-133); ALT/SGPT 36 U/L (7-56); AST/SGOT 41 U/L (15-59); BILIRUBIN,TOTAL 1.3 mg/dL (0.2-1.3); BLOOD UREA NITROGEN 10 mg/dL (7-21); CALCIUM 8.9 mg/dL (8.4-10.5); CARBON DIOXIDE 27 mmol/L (21-33); CHLORIDE 104 mmol/L (98-107); GFR AFRICAN-AMERICAN > 60; GLUCOSE,RANDOM 104 mg/dL (70-110); PHOSPHOROUS 2.7 mg/dL (2.5-4.5); POTASSIUM 3.5 mmol/L (3.6-5.0); SODIUM 138 mmol/L (132-148)
[2016-08-04] MEDS ORDERED: Potassium Chloride 20 mEq ER Tab PO ONE (08:03)
--- NOTE | 2016-08-04 08:05 | CP.PCM.PN ---
<Jesus Luna - Last Filed: 08/04/16 13:41> Subjective - Date & Time of Evaluation Date of Evaluation: 08/04/16 Time of Evaluation: 08:05 - Subjective Subjective: Medicine Progress note. Dr. Ravi Pt seen and examined at bedside. Febrile overnight with Tmax 102.8F. Denies any current complaints. Also c/o itchiness. No CP/SOB. No N/V/D, no abd pain. No new complaints. Tolerating diet. Objective - Vital Signs/Intake and Output Vital Signs (last 24 hours): Temp Pulse Resp BP Pulse Ox 97.6 F 70 20 129/90 95 08/04/16 06:00 08/04/16 06:00 08/04/16 06:00 08/04/16 06:00 08/04/16 06:00 Intake and Output: 08/04/16 08/04/16 06:59 18:59 Intake Total 1550 Output Total 1350 Balance 200 - Medications Medications: Current Medications Acetaminophen (Tylenol 325mg Tab) 650 mg PO Q4H PRN PRN Reason: Temp >100.4*F Albuterol Sulfate (Albuterol 0.083% Inhal Nini (2.5 Mg/3 Ml) Ud) 2.5 mg IH [id number] PRN PRN Reason: Shortness of Breath Amlodipine Besylate (Norvasc) 5 mg PO DAILY [facility] Last Admin: 08/03/16 11:46 Dose: 5 mg Aspirin (Aspirin Chewable) 81 mg PO DAILY [facility] Last Admin: 08/03/16 09:32 Dose: 81 mg Atorvastatin Calcium (Lipitor) 80 mg PO DAILY [facility] Benzonatate (Tessalon Perles) 100 mg PO TID [facility] Last Admin: 08/03/16 17:40 Dose: 100 mg Carvedilol (Coreg) 3.125 mg PO BID [facility] Last Admin: 08/03/16 17:41 Dose: 3.125 mg Clopidogrel Bisulfate (Plavix) 75 mg PO DAILY [facility] Digoxin (Lanoxin) 0.25 mg PO 1400 [facility] Last Admin: 08/03/16 14:17 Dose: 0.25 mg Enoxaparin Sodium (Lovenox) 92 mg SC Q12H [facility] PRN Reason: Protocol Last Admin: 08/03/16 21:36 Dose: 92 mg Finasteride (Proscar) 5 mg PO DAILY [facility] Last Admin: 08/03/16 11:47 Dose: 5 mg Furosemide (Lasix) 40 mg PO DAILY [facility] Meropenem 1g/NS 100mL IVPB (Meropenem 1g/Ns 100ml Ivpb) 1 gm in 100 mls @ 100 mls/hr IVPB Q12 [facility] PRN Reason: Protocol Stop: 08/10/16 10:01 Last Admin: 08/03/16 21:38 Dose: 100 mls/hr Levetiracetam (Keppra) 250 mg PO Q12 [facility] Last Admin: 08/03/16 21:36 Dose: 250 mg Lisinopril (Zestril) 2.5 mg PO DAILY [facility] Pantoprazole Sodium (Protonix Ec Tab) 40 mg PO 0630 [facility] Last Admin: 08/04/16 06:24 Dose: 40 mg Potassium Chloride (K-Dur 20 Meq Er Tab) 40 meq PO ONCE ONE Stop: 08/04/16 08:04 Sertraline HCl (Zoloft) 100 mg PO DAILY [facility] - Labs Labs: 08/04/16 06:00 08/04/16 06:00 PT 11.6 Seconds (9.9-11.8) 08/02/16 22:35 INR 1.07 (0.93-1.08) 08/02/16 22:35 APTT 28.0 Seconds (23.7-30.8) 08/02/16 22:35 - Constitutional Appears: Well, No Acute Distress - Head Exam Head Exam: ATRAUMATIC, NORMAL INSPECTION, NORMOCEPHALIC - Eye Exam Eye Exam: EOMI, Normal appearance. absent: Scleral icterus - ENT Exam ENT Exam: Mucous Membranes Moist - Respiratory Exam Respiratory Exam: Clear to Ausculation Bilateral, NORMAL BREATHING PATTERN. absent: Wheezes - Cardiovascular Exam Cardiovascular Exam: RRR, +S1, +S2. absent: JVD - GI/Abdominal Exam GI & Abdominal Exam: Soft. absent: Distended, Guarding, Tenderness - Extremities Exam Extremities Exam: Normal Inspection. absent: Calf Tenderness - Neurological Exam Neurological Exam: Alert, Awake, Oriented x3 - Psychiatric Exam Psychiatric exam: Normal Affect, Normal Mood - Skin Skin Exam: Dry, Intact, Normal Color, Warm Additional comments: Dry, scaly skin noted throughout Assessment and Plan - Assessment and Plan (Free Text) Assessment: 66yo M with PMHx of CVA, cardiomyopathy, HTN, nephrolithiasis, seizure, presented with 2 days of weakness, fever, and pain upon urination. 1. Sepsis 2/2 UTI Tmax 102.8F No Leukocytosis UA is positive for leukocyte esterase and nitrites meropenem q12 Urine Cx NGTD Blood Cx NGTD ID Following, Dr. Todd, help appreciated 2. NSTEMI Previous ECHO with EF of 22 on 01/30/2016 f/u ECHO ordered Troponin with high of 1.09 ASA 81 lovenox 92 mg sc q 12 Plavix 75 Daily Cardiology consult, Dr. Hdez, help appreciated 3. Hx of Cardiomyopathy Previous ECHO w/ EF 22% digoxin .25 Amlodipine 4. hx of HTN Home medications continued: norvasc 5, coreg 3.125, lisinopril 2.5 mg 5. Hx of HLD Lipitor 80 6. Hx of BPH procar 5 7. PPx protonix lovenox Discussed case with Dr. Breonna Luna PGY1 [phone] <Breonna IBARRA,[facility] - Last Filed: 08/04/16 13:59> Objective - Vital Signs/Intake and Output Vital Signs (last 24 hours): Temp Pulse Resp BP Pulse Ox 97.5 F L 54 L 20 122/70 95 08/04/16 12:00 08/04/16 12:00 08/04/16 12:00 08/04/16 12:00 08/04/16 06:00 Intake and Output: 08/04/16 08/04/16 06:59 18:59 Intake Total 1550 Output Total 1350 Balance 200 - Medications Medications: Current Medications Acetaminophen (Tylenol 325mg Tab) 650 mg PO Q4H PRN PRN Reason: Temp >100.4*F Albuterol Sulfate (Albuterol 0.083% Inhal Nini (2.5 Mg/3 Ml) Ud) 2.5 mg IH [id number] PRN PRN Reason: Shortness of Breath Amlodipine Besylate (Norvasc) 5 mg PO DAILY [facility] Last Admin: 08/04/16 10:42 Dose: 5 mg Aspirin (Aspirin Chewable) 81 mg PO DAILY [facility] Last Admin: 08/04/16 10:39 Dose: 81 mg Atorvastatin Calcium (Lipitor) 80 mg PO DAILY [facility] Last Admin: 08/04/16 10:41 Dose: 80 mg Benzonatate (Tessalon Perles) 100 mg PO TID [facility] Last Admin: 08/04/16 13:40 Dose: 100 mg Carvedilol (Coreg) 3.125 mg PO BID [facility] Last Admin: 08/04/16 10:39 Dose: 3.125 mg Clopidogrel Bisulfate (Plavix) 75 mg PO DAILY [facility] Last Admin: 08/04/16 10:42 Dose: 75 mg Digoxin (Lanoxin) 0.25 mg PO 1400 [facility] Last Admin: 08/04/16 13:40 Dose: Not Given Enoxaparin Sodium (Lovenox) 92 mg SC Q12H [facility] PRN Reason: Protocol Last Admin: 08/04/16 10:41 Dose: 92 mg Finasteride (Proscar) 5 mg PO DAILY [facility] Last Admin: 08/04/16 10:42 Dose: 5 mg Furosemide (Lasix) 40 mg PO DAILY [facility] Last Admin: 08/04/16 10:40 Dose: 40 mg Meropenem 1g/NS 100mL IVPB (Meropenem 1g/Ns 100ml Ivpb) 1 gm in 100 mls @ 100 mls/hr IVPB Q12 [facility] PRN Reason: Protocol Stop: 08/10/16 10:01 Last Admin: 08/04/16 10:41 Dose: 100 mls/hr Levetiracetam (Keppra) 250 mg PO Q12 [facility] Last Admin: 08/04/16 10:40 Dose: 250 mg Lisinopril (Zestril) 2.5 mg PO DAILY [facility] Last Admin: 08/04/16 10:42 Dose: 2.5 mg Pantoprazole Sodium (Protonix Ec Tab) 40 mg PO 0630 [facility] Last Admin: 08/04/16 06:24 Dose: 40 mg Potassium Chloride (Klor-Con 10) 10 meq PO BRK [facility] Last Admin: 08/04/16 13:40 Dose: 10 meq Sertraline HCl (Zoloft) 100 mg PO DAILY [facility] Last Admin: 08/04/16 10:43 Dose: 100 mg - Labs Labs: 08/04/16 06:00 08/04/16 06:00 PT 11.6 Seconds (9.9-11.8) 08/02/16 22:35 INR 1.07 (0.93-1.08) 08/02/16 22:35 APTT 28.0 Seconds (23.7-30.8) 08/02/16 22:35 Attending/Attestation - Attestation I have personally seen and examined this patient.: Yes I have fully participated in the care of the patient.: Yes I have reviewed all pertinent clinical information, including history, physical exam and plan: Yes Notes (Text): 08/04/16 13:55 Patient was seen and examined with medical coordinator pesticide use .Agreed with resident assessment and plan. 65 year old male with past medical history of Anxiety, CVA, CHF,Cardiomyopathy EF 22%, PVD, Nephrolithiasis HTN, and seizure was admitted yesterday with fever , weakness found to have sepsis due to UTI and elevated troponin, never had any chest pain , suggestive of NSEMI due to demand ischemia. Patient has been started on anticoagulation by cardiology, Patient is also on ASA/Plavix/Statin and coreg, Patient is on Meropenem, for Sepsis due to UTI as per ID.Cultures are negative so far. Patient is DNR/DNI Prognosis is poor. Management plan was discussed in detail with patient Education was provided.
[2016-08-04] MEDS: Enoxaparin 100 mg Syringe SC SCH ×2 (10:41→21:23)
[2016-08-04] MEDS: Meropenem 1g/NS 100mL IVPB 1 GM/100 ML PIGGYBACK IVPB SCH ×2 (10:41→21:23)
[2016-08-04] MEDS: Digoxin 250 mcg (0.25 mg) Tab PO SCH (13:40)
[2016-08-04] MEDS: Potassium Chloride 10 mEq ER Tab PO SCH (13:40)
--- NOTE | 2016-08-04 19:06 | CP.PCM.PN ---
Subjective - Date & Time of Evaluation Date of Evaluation: 08/04/16 Time of Evaluation: 09:50 - Subjective Subjective: Comfortable in bed, not in distress, afebrile, no fevers overnight. Objective - Vital Signs/Intake and Output Vital Signs (last 24 hours): Temp Pulse Resp BP Pulse Ox 97.4 F L 65 19 113/74 93 L 08/04/16 16:38 08/04/16 18:00 08/04/16 16:38 08/04/16 17:26 08/04/16 16:38 Intake and Output: 08/04/16 08/05/16 18:59 06:59 Intake Total 560 Output Total 1850 Balance -1290 - Medications Medications: Current Medications Acetaminophen (Tylenol 325mg Tab) 650 mg PO Q4H PRN PRN Reason: Temp >100.4*F Albuterol Sulfate (Albuterol 0.083% Inhal Nini (2.5 Mg/3 Ml) Ud) 2.5 mg IH [id number] PRN PRN Reason: Shortness of Breath Amlodipine Besylate (Norvasc) 5 mg PO DAILY [facility] Last Admin: 08/04/16 10:42 Dose: 5 mg Aspirin (Aspirin Chewable) 81 mg PO DAILY [facility] Last Admin: 08/04/16 10:39 Dose: 81 mg Atorvastatin Calcium (Lipitor) 80 mg PO DAILY [facility] Last Admin: 08/04/16 10:41 Dose: 80 mg Benzonatate (Tessalon Perles) 100 mg PO TID [facility] Last Admin: 08/04/16 17:28 Dose: 100 mg Carvedilol (Coreg) 3.125 mg PO BID [facility] Last Admin: 08/04/16 17:26 Dose: Not Given Clopidogrel Bisulfate (Plavix) 75 mg PO DAILY [facility] Last Admin: 08/04/16 10:42 Dose: 75 mg Digoxin (Lanoxin) 0.25 mg PO 1400 [facility] Last Admin: 08/04/16 13:40 Dose: Not Given Enoxaparin Sodium (Lovenox) 92 mg SC Q12H [facility] PRN Reason: Protocol Last Admin: 08/04/16 10:41 Dose: 92 mg Finasteride (Proscar) 5 mg PO DAILY [facility] Last Admin: 08/04/16 10:42 Dose: 5 mg Furosemide (Lasix) 40 mg PO DAILY [facility] Last Admin: 08/04/16 10:40 Dose: 40 mg Meropenem 1g/NS 100mL IVPB (Meropenem 1g/Ns 100ml Ivpb) 1 gm in 100 mls @ 100 mls/hr IVPB Q12 [facility] PRN Reason: Protocol Stop: 08/10/16 10:01 Last Admin: 08/04/16 10:41 Dose: 100 mls/hr Levetiracetam (Keppra) 250 mg PO Q12 [facility] Last Admin: 08/04/16 10:40 Dose: 250 mg Lisinopril (Zestril) 2.5 mg PO DAILY [facility] Last Admin: 08/04/16 10:42 Dose: 2.5 mg Pantoprazole Sodium (Protonix Ec Tab) 40 mg PO 0630 [facility] Last Admin: 08/04/16 06:24 Dose: 40 mg Potassium Chloride (Klor-Con 10) 10 meq PO BRK [facility] Last Admin: 08/04/16 13:40 Dose: 10 meq Sertraline HCl (Zoloft) 100 mg PO DAILY [facility] Last Admin: 08/04/16 10:43 Dose: 100 mg - Labs Labs: 08/04/16 06:00 08/04/16 06:00 PT 11.6 Seconds (9.9-11.8) 08/02/16 22:35 INR 1.07 (0.93-1.08) 08/02/16 22:35 APTT 28.0 Seconds (23.7-30.8) 08/02/16 22:35 - Constitutional Appears: Non-toxic, No Acute Distress - Head Exam Head Exam: NORMAL INSPECTION - ENT Exam ENT Exam: Mucous Membranes Moist - Neck Exam Neck Exam: absent: Lymphadenopathy, Meningismus - Respiratory Exam Respiratory Exam: Decreased Breath Sounds - Cardiovascular Exam Cardiovascular Exam: +S1, +S2 - GI/Abdominal Exam GI & Abdominal Exam: Soft. absent: Tenderness Assessment and Plan - Assessment and Plan (Free Text) Plan: Assessment Systemic Inflammatory Response Syndrome (fever and tachycardia), consider sepsis secondary to urinary tract infection HTN CVA DM obesity with BMI 32 history of prostate problems history of UTI's arthritis S/P right knee surgery Plan continue Merrem pending final blood cx, urine cx results (so far negative); PCT and PSA levels are normal Will follow clinically
--- NOTE | 2016-08-04 23:31 | PN ---
DATE: 08/04/2016 FOLLOWUP The patient denies chest pain at this time. PHYSICAL EXAMINATION: VITAL SIGNS: Blood pressure 122/70, heart rate ____4, temperature 97.5, respirations 20. HEENT: Normocephalic. NECK: No JVD. CHEST: Absent breath sounds at the bases. HEART: S1, S2 regular. EXTREMITIES: 1-2+ pitting edema. LABORATORIES: Hemoglobin and hematocrit 12.6 and 38.6. White count and platelet counts are within n ormal limits. Today's SMA-7 is within normal limits except for potassium of 3.5. Two troponins are elevated at 1.09 and 0.86. EKG revealed sinus tachycardia with left bundle-branch block. Echocardiographic study in 01/2016 revealed severely impaired ejection fraction with anteroapical hyp okinesis. Ejection fraction estimated at 22%. ASSESSMENT: 1. Status post myocardial infarction. 2. Ischemic cardiomyopathy. 3. History of cerebrovascular accident. 4. Mild anemia. 5. Hypokalemia. RECOMMENDATIONS: Continue current aspirin 81 mg once a day, Coreg 3.125 mg ____ a day, Keppra 250 mg twice a day, Lanoxin 0.25 mg once a day, Lasix at 40 mg intravenously ____ a day, Lipitor at 80 mg o nce a day, therapeutic subcutaneous Lovenox at 92 mg twice a day, IV ____ at 1 gram q. 12 hours, Norv asc 5 mg once a day, Plavix 75 mg once a day. The case will be transferred to Dr. House by tomorrow, and decision of coronary intervention will be discussed with the primary car construction superintendent. Jesus Ramey MD cc: [id number] TT: 08/04/2016 14:05:24 Confirmation # [id number] Dictation # [id number]
[2016-08-04] MEDS: DiphenhydrAMINE 50 mg/ml Inj IVP PRN (23:52)
[2016-08-05 06:19] LABS: ADD MANUAL DIFF? NO
[2016-08-05 06:27] LABS: BASO # 0.03 K/mm3 (0.0-2.0); BASO % 0.4 % (0.0-3.0); EOS # 0.5 (0.0-0.7); EOS % 6.7 % (1.5-5.0); GRAN # 4.91 (1.4-6.5); GRAN % 65.8 % (50.0-68.0); LYMPH # 1.3 (1.2-3.4); MEAN CELL VOLUME 89.4 fL (80.0-105.0); MEAN CORPUSCULAR HEMOGLOBIN 29.2 pg (25.0-35.0); MEAN CORPUSCULAR HGB CONC 32.6 g/dl (31.0-37.0); MEAN PLATELET VOLUME 9.9 fl (7.0-11.0); MONO # 0.7 (0.1-0.6); MONO % 9.1 % (1.0-6.0); PLATELET COUNT 251 10^3/uL (120.0-450.0); RED CELL DISTRIBUTION WIDTH 14.9 % (11.5-14.5); WHITE BLOOD COUNT 7.5 10^3/ul (4.5-11.0)
[2016-08-05] MEDS: Pantoprazole 40 mg EC Tab PO SCH (06:45)
[2016-08-05 07:10] LABS: ALB/GLOB RATIO 1.1 (1.1-1.8); ALKALINE PHOSPHATASE 76 U/L (38-133); ALT/SGPT 37 U/L (7-56); AST/SGOT 36 U/L (15-59); BILIRUBIN,TOTAL 1.3 mg/dL (0.2-1.3); BLOOD UREA NITROGEN 11 mg/dL (7-21); CALCIUM 8.8 mg/dL (8.4-10.5); CARBON DIOXIDE 26 mmol/L (21-33); CHLORIDE 103 mmol/L (98-107); GFR AFRICAN-AMERICAN > 60; GLUCOSE,RANDOM 105 mg/dL (70-110); MAGNESIUM 1.9 mg/dL (1.7-2.2); PHOSPHOROUS 2.6 mg/dL (2.5-4.5); POTASSIUM 3.7 mmol/L (3.6-5.0); SODIUM 138 mmol/L (132-148); TOTAL PROTEIN 6.8 g/dL (5.8-8.3)
[2016-08-05] MEDS: Potassium Chloride 10 mEq ER Tab PO SCH (08:54)
[2016-08-05] MEDS: Meropenem 1g/NS 100mL IVPB 1 GM/100 ML PIGGYBACK IVPB SCH ×2 (09:30→21:44)
[2016-08-05] MEDS: Enoxaparin 100 mg Syringe SC SCH (09:40)
[2016-08-05] MEDS ORDERED: Lidocaine 2% Inj (20ml) ONE (10:43)
[2016-08-05] MEDS ORDERED: Midazolam 2 MG/2 ML VIAL ONE (11:02)
[2016-08-05] MEDS ORDERED: Eptifibatide 20 mg/10mL Inj IVP ONE (11:38)
[2016-08-05] MEDS ORDERED: Enoxaparin 30 mg Syringe IV STA (11:46)
[2016-08-05] MEDS ORDERED: Iodixanol 320 MG/ML 100 ML BOTTLE IV ONE (12:05)
[2016-08-05] MEDS ORDERED: Iohexol 350mgl/ml 50 ML ONE (12:05)
[2016-08-05] MEDS ORDERED: Sodium Chloride 0.9% 1,000 ML IV SCH (12:15)
[2016-08-05] MEDS: Digoxin 250 mcg (0.25 mg) Tab PO SCH (13:22)
--- NOTE | 2016-08-05 13:26 | PN ---
DATE: 08/05/2016 REASON FOR CONSULTATION AND FOLLOWUP: Cardiac evaluation, positive troponin, history of CVA, history of CHF, history of cardiomyopathy, history of carotid artery stenosis, admitted with sepsis syndrome, 102 fever, generalized weakness , and positive troponin, [id number] myocardial infarction. BRIEF CLINICAL HISTORY: This is a 66-year-old male with a past medical history of CVA with right-sided weakness, cardiomyopathy, walks with a cane, history of hypertension, history of obesity, admitted with feeling weak, generalized weakness, walks with a cane and also 102 fever. The patient also made troponin positive, multiple troponin samples positive, and admission showed 0.21, ____ 1.09, 0.86 with a normal BUN and creatinine. So far, blood cultures are negative. Family was informed. Discussed with the patient risks and benefits. The patient will proceed for cardiac catheterization. PHYSICAL EXAMINATION: VITAL SIGNS: Temperature afebrile, heart 76, blood pressure 120 /76. HEENT: PERRLA. Extraocular muscles intact. NECK: Supple. No carotid bruits. No thyromegaly. CHEST: Clear to auscultation. HEART: S1, S2 regular. ABDOMEN: Soft. EXTREMITIES: Clubbing and cyanosis negative. LABORATORY DATA: Blood workup as follows: WBC 7.5, hemoglobin 12.4, hematocrit 38.0, platelet count 251. Chemistry shows sodium 130, potassium 3.7 , chloride 103, carbon dioxide 26, anion gap of 13, BUN 11, creatinine 1.1. IMPRESSION: Non-ST segment myocardial infarction, coronary artery disease, history of cerebrovascular accident, history of carotid artery duplex scan on shows occluded left carotid artery 40-59%. Right coronary artery is totally occluded. The patient was seen at the last time, and medical treatment recommended. The patient's last echo 06/26/2015 shows ejection fraction 55%, atrial septal aneurysm, hyperlipidemia, hypertension, obesity, [id number] myocardial infarction. The patient underwent left heart catheterization after a lengthy discussion done with the daughter risks, benefits, alternatives. High risk because of the stroke and plaque in the aorta. So the patient underwent left heart and stenting of the mid LAD with a drug-eluting stent. Hospital course remained uneventful. RECOMMENDATION: Continue aspirin, continue Plavix, continue Coreg, continue dig , continue atorvastatin. We will continue ROYCE inhibitor. We will get echo to assess LV function. We will follow with you. Thank you, Dr. López/ for providing the opportunity in taking care of the patient. Irma Bedoya MD cc: [id number] TT: 08/05/2016 13:03:53 Confirmation # [id number] Dictation # [id number] 08/05/2016 12:24:47 ROMAN
--- NOTE | 2016-08-05 15:13 | CP.PCM.PN ---
Subjective - Date & Time of Evaluation Date of Evaluation: 08/05/16 Time of Evaluation: 09:20 - Subjective Subjective: Comfortable in bed, not in distress, no dysuria currently. Objective - Vital Signs/Intake and Output Vital Signs (last 24 hours): Temp Pulse Resp BP Pulse Ox 97.5 F L 45 L 187 H 118/64 93 L 08/05/16 06:00 08/05/16 14:38 08/05/16 13:05 08/05/16 13:05 08/04/16 16:38 Intake and Output: 08/05/16 08/05/16 06:59 18:59 Intake Total 240 0 Output Total 600 1300 Balance -360 -1300 - Medications Medications: Current Medications Acetaminophen (Tylenol 325mg Tab) 650 mg PO Q4H PRN PRN Reason: Temp >100.4*F Albuterol Sulfate (Albuterol 0.083% Inhal Nini (2.5 Mg/3 Ml) Ud) 2.5 mg IH [id number] PRN PRN Reason: Shortness of Breath Amlodipine Besylate (Norvasc) 5 mg PO DAILY [facility] Last Admin: 08/05/16 09:28 Dose: 5 mg Aspirin (Aspirin Chewable) 81 mg PO DAILY [facility] Last Admin: 08/05/16 09:28 Dose: 81 mg Atorvastatin Calcium (Lipitor) 80 mg PO DAILY [facility] Last Admin: 08/05/16 09:31 Dose: 80 mg Benzonatate (Tessalon Perles) 100 mg PO TID [facility] Last Admin: 08/05/16 13:22 Dose: 100 mg Carvedilol (Coreg) 3.125 mg PO BID [facility] Last Admin: 08/05/16 09:31 Dose: 3.125 mg Clopidogrel Bisulfate (Plavix) 75 mg PO DAILY [facility] Last Admin: 08/05/16 09:28 Dose: 75 mg Digoxin (Lanoxin) 0.25 mg PO 1400 [facility] Last Admin: 08/05/16 13:22 Dose: Not Given Diphenhydramine HCl (Benadryl) 25 mg IVP Q4H PRN PRN Reason: Allergy symptoms Last Admin: 08/04/16 23:52 Dose: 25 mg Enoxaparin Sodium (Lovenox) 40 mg SC DAILY [facility] PRN Reason: Protocol Finasteride (Proscar) 5 mg PO DAILY [facility] Last Admin: 08/05/16 09:31 Dose: 5 mg Furosemide (Lasix) 40 mg PO DAILY [facility] Last Admin: 08/05/16 09:31 Dose: 40 mg Meropenem 1g/NS 100mL IVPB (Meropenem 1g/Ns 100ml Ivpb) 1 gm in 100 mls @ 100 mls/hr IVPB Q12 [facility] PRN Reason: Protocol Stop: 08/10/16 10:01 Last Admin: 08/05/16 09:30 Dose: 100 mls/hr Sodium Chloride (Sodium Chloride 0.9%) 1,000 mls @ 50 mls/hr IV .Q20H [facility] Stop: 08/05/16 22:00 Last Admin: 08/05/16 12:55 Dose: 50 mls/hr Levetiracetam (Keppra) 250 mg PO Q12 [facility] Last Admin: 08/05/16 09:31 Dose: 250 mg Lisinopril (Zestril) 2.5 mg PO DAILY [facility] Last Admin: 08/05/16 09:32 Dose: 2.5 mg Pantoprazole Sodium (Protonix Ec Tab) 40 mg PO 0630 [facility] Last Admin: 08/05/16 06:45 Dose: 40 mg Potassium Chloride (Klor-Con 10) 10 meq PO BRK [facility] Last Admin: 08/05/16 08:54 Dose: 10 meq Sertraline HCl (Zoloft) 100 mg PO DAILY [facility] Last Admin: 08/04/16 10:43 Dose: 100 mg - Labs Labs: 08/05/16 06:00 08/05/16 06:00 PT 11.6 Seconds (9.9-11.8) 08/02/16 22:35 INR 1.07 (0.93-1.08) 08/02/16 22:35 APTT 28.0 Seconds (23.7-30.8) 08/02/16 22:35 - Constitutional Appears: Non-toxic, No Acute Distress - Head Exam Head Exam: NORMAL INSPECTION - ENT Exam ENT Exam: Mucous Membranes Moist - Neck Exam Neck Exam: absent: Lymphadenopathy, Meningismus - Respiratory Exam Respiratory Exam: Decreased Breath Sounds - Cardiovascular Exam Cardiovascular Exam: +S1, +S2 - GI/Abdominal Exam GI & Abdominal Exam: Soft. absent: Tenderness Assessment and Plan - Assessment and Plan (Free Text) Plan: Assessment Systemic Inflammatory Response Syndrome (fever and tachycardia), consider sepsis secondary to urinary tract infection HTN CVA DM obesity with BMI 32 history of prostate problems history of UTI's arthritis S/P right knee surgery Plan continue Merrem day 3; urine cx show probable contamination, blood cx are negative; PCT and PSA levels are normal; should complete 5-7 days of antibiotics Will follow clinically
--- NOTE | 2016-08-05 16:22 | CP.PCM.PN ---
<Kalie Bennett - Last Filed: 08/05/16 18:13> Subjective - Date & Time of Evaluation Date of Evaluation: 08/05/16 Time of Evaluation: 07:40 - Subjective Subjective: Pt seen and evaluated at bedside. Pt denies current chest pain, SOB, fever, urinary changes. Afebrile overnight. Objective - Vital Signs/Intake and Output Vital Signs (last 24 hours): Temp Pulse Resp BP Pulse Ox 97.5 F L 54 L 18 118/70 93 L 08/05/16 06:00 08/05/16 15:50 08/05/16 15:50 08/05/16 15:50 08/04/16 16:38 Intake and Output: 08/05/16 08/05/16 06:59 18:59 Intake Total 240 0 Output Total 600 1300 Balance -360 -1300 - Medications Medications: Current Medications Acetaminophen (Tylenol 325mg Tab) 650 mg PO Q4H PRN PRN Reason: Temp >100.4*F Albuterol Sulfate (Albuterol 0.083% Inhal Nini (2.5 Mg/3 Ml) Ud) 2.5 mg IH [id number] PRN PRN Reason: Shortness of Breath Amlodipine Besylate (Norvasc) 5 mg PO DAILY [facility] Last Admin: 08/05/16 09:28 Dose: 5 mg Aspirin (Aspirin Chewable) 81 mg PO DAILY [facility] Last Admin: 08/05/16 09:28 Dose: 81 mg Atorvastatin Calcium (Lipitor) 80 mg PO DAILY [facility] Last Admin: 08/05/16 09:31 Dose: 80 mg Benzonatate (Tessalon Perles) 100 mg PO TID [facility] Last Admin: 08/05/16 13:22 Dose: 100 mg Carvedilol (Coreg) 3.125 mg PO BID [facility] Last Admin: 08/05/16 09:31 Dose: 3.125 mg Clopidogrel Bisulfate (Plavix) 75 mg PO DAILY [facility] Last Admin: 08/05/16 09:28 Dose: 75 mg Digoxin (Lanoxin) 0.25 mg PO 1400 [facility] Last Admin: 08/05/16 13:22 Dose: Not Given Diphenhydramine HCl (Benadryl) 25 mg IVP Q4H PRN PRN Reason: Allergy symptoms Last Admin: 08/04/16 23:52 Dose: 25 mg Enoxaparin Sodium (Lovenox) 40 mg SC DAILY [facility] PRN Reason: Protocol Finasteride (Proscar) 5 mg PO DAILY [facility] Last Admin: 08/05/16 09:31 Dose: 5 mg Furosemide (Lasix) 40 mg PO DAILY [facility] Last Admin: 08/05/16 09:31 Dose: 40 mg Meropenem 1g/NS 100mL IVPB (Meropenem 1g/Ns 100ml Ivpb) 1 gm in 100 mls @ 100 mls/hr IVPB Q12 [facility] PRN Reason: Protocol Stop: 08/10/16 10:01 Last Admin: 08/05/16 09:30 Dose: 100 mls/hr Sodium Chloride (Sodium Chloride 0.9%) 1,000 mls @ 50 mls/hr IV .Q20H [facility] Stop: 08/05/16 22:00 Last Admin: 08/05/16 12:55 Dose: 50 mls/hr Levetiracetam (Keppra) 250 mg PO Q12 [facility] Last Admin: 08/05/16 09:31 Dose: 250 mg Lisinopril (Zestril) 2.5 mg PO DAILY [facility] Last Admin: 08/05/16 09:32 Dose: 2.5 mg Pantoprazole Sodium (Protonix Ec Tab) 40 mg PO 0630 [facility] Last Admin: 08/05/16 06:45 Dose: 40 mg Potassium Chloride (Klor-Con 10) 10 meq PO BRK [facility] Last Admin: 08/05/16 08:54 Dose: 10 meq Sertraline HCl (Zoloft) 100 mg PO DAILY [facility] Last Admin: 08/04/16 10:43 Dose: 100 mg - Labs Labs: 08/05/16 06:00 08/05/16 06:00 PT 11.6 Seconds (9.9-11.8) 08/02/16 22:35 INR 1.07 (0.93-1.08) 08/02/16 22:35 APTT 28.0 Seconds (23.7-30.8) 08/02/16 22:35 - Constitutional Appears: Non-toxic, No Acute Distress - Head Exam Head Exam: ATRAUMATIC, NORMOCEPHALIC - Eye Exam Eye Exam: EOMI, Normal appearance - ENT Exam ENT Exam: Mucous Membranes Moist, Normal Exam - Respiratory Exam Respiratory Exam: Clear to Ausculation Bilateral, NORMAL BREATHING PATTERN - Cardiovascular Exam Cardiovascular Exam: Bradycardia, +S1, +S2 - GI/Abdominal Exam GI & Abdominal Exam: Soft. absent: Tenderness - Exam External exam: absent: Ecchymosis, Erythema - Extremities Exam Extremities Exam: absent: Pedal Edema, Tenderness - Back Exam Back Exam: absent: CVA tenderness (L), CVA tenderness (R) - Skin Skin Exam: Intact, Normal Color Assessment and Plan - Assessment and Plan (Free Text) Plan: 66yo M with PMHx of CVA, cardiomyopathy, HTN, nephrolithiasis, seizure, presented with 2 days of weakness, fever, and pain upon urination. Sepsis 2/2 UTI afebrile overnight No Leukocytosis UA is positive for leukocyte esterase and nitrites meropenem q12 Urine Cx NG 48h Blood Cx NG 48h ID Following, Dr. Todd, help appreciated NSTEMI Previous ECHO with EF of 22 on 01/30/2016 f/u ECHO ordered Troponin with high of 1.09 ASA 81 lovenox 92 mg sc q 12 Plavix 75 Daily Cardiology consult cardiac cath today Hx of Cardiomyopathy Previous ECHO w/ EF 22% digoxin .25 Amlodipine hx of HTN Home medications continued: norvasc 5, coreg 3.125, lisinopril 2.5 mg Hx of HLD Lipitor 80 Hx of BPH procar 5 Possible sleep apnea Bipap prn during HS PPx protonix lovenox <Carmella López - Last Filed: 08/06/16 06:44> Objective - Vital Signs/Intake and Output Vital Signs (last 24 hours): Temp Pulse Resp BP Pulse Ox 98.6 F 64 18 102/63 94 L 08/06/16 06:00 08/06/16 06:00 08/06/16 06:00 08/06/16 06:00 08/06/16 06:00 Intake and Output: 08/05/16 08/06/16 18:59 06:59 Intake Total 0 150 Output Total 1300 600 Balance -1300 -450 - Medications Medications: Current Medications Acetaminophen (Tylenol 325mg Tab) 650 mg PO Q4H PRN PRN Reason: Temp >100.4*F Albuterol Sulfate (Albuterol 0.083% Inhal Nini (2.5 Mg/3 Ml) Ud) 2.5 mg IH [id number] PRN PRN Reason: Shortness of Breath Amlodipine Besylate (Norvasc) 5 mg PO DAILY [facility] Last Admin: 08/05/16 09:28 Dose: 5 mg Aspirin (Aspirin Chewable) 81 mg PO DAILY [facility] Last Admin: 08/05/16 09:28 Dose: 81 mg Atorvastatin Calcium (Lipitor) 80 mg PO DAILY [facility] Last Admin: 08/05/16 09:31 Dose: 80 mg Benzonatate (Tessalon Perles) 100 mg PO TID [facility] Last Admin: 08/05/16 17:44 Dose: 100 mg Carvedilol (Coreg) 3.125 mg PO BID [facility] Last Admin: 08/05/16 17:43 Dose: 3.125 mg Clopidogrel Bisulfate (Plavix) 75 mg PO DAILY [facility] Last Admin: 08/05/16 09:28 Dose: 75 mg Digoxin (Lanoxin) 0.25 mg PO 1400 [facility] Last Admin: 08/05/16 13:22 Dose: Not Given Diphenhydramine HCl (Benadryl) 25 mg IVP Q4H PRN PRN Reason: Allergy symptoms Last Admin: 08/04/16 23:52 Dose: 25 mg Enoxaparin Sodium (Lovenox) 40 mg SC DAILY [facility] PRN Reason: Protocol Finasteride (Proscar) 5 mg PO DAILY [facility] Last Admin: 08/05/16 09:31 Dose: 5 mg Furosemide (Lasix) 40 mg PO DAILY [facility] Last Admin: 08/05/16 09:31 Dose: 40 mg Meropenem 1g/NS 100mL IVPB (Meropenem 1g/Ns 100ml Ivpb) 1 gm in 100 mls @ 100 mls/hr IVPB Q12 [facility] PRN Reason: Protocol Stop: 08/10/16 10:01 Last Admin: 08/05/16 21:44 Dose: 100 mls/hr Levetiracetam (Keppra) 250 mg PO Q12 [facility] Last Admin: 08/05/16 21:44 Dose: 250 mg Lisinopril (Zestril) 2.5 mg PO DAILY [facility] Last Admin: 08/05/16 09:32 Dose: 2.5 mg Pantoprazole Sodium (Protonix Ec Tab) 40 mg PO 0630 [facility] Last Admin: 08/06/16 05:31 Dose: 40 mg Potassium Chloride (Klor-Con 10) 10 meq PO BRK [facility] Last Admin: 08/05/16 08:54 Dose: 10 meq Sertraline HCl (Zoloft) 100 mg PO DAILY [facility] Last Admin: 08/04/16 10:43 Dose: 100 mg - Labs Labs: 08/05/16 18:25 08/05/16 18:25 PT 11.6 Seconds (9.9-11.8) 08/02/16 22:35 INR 1.07 (0.93-1.08) 08/02/16 22:35 APTT 28.0 Seconds (23.7-30.8) 08/02/16 22:35 Attending/Attestation - Attestation I have personally seen and examined this patient.: Yes I have fully participated in the care of the patient.: Yes I have reviewed all pertinent clinical information, including history, physical exam and plan: Yes Notes (Text): 08/05/16 66 year old male with past medical history of CVA, CHF, nephrolithiasis, hypertension and recurrent UTI who presented with fever. He was admitted for sepsis secondary to UTI. Continue with iv antibiotics as per ID. He was also found to have NSTEMI with elevated cardiac enzymes. Cardiology is following the patient and plan is for cardiac cath today. Continue with aspirin, plavix, statin and coreg. Continue with bipap hs at night. Recommend outpatient sleep study. Patient is DNR/DNI. Carmella López MD Hospitalist.
--- NOTE | 2016-08-05 17:47 | CARD ---
APPROVED REPORT Procedure(s) performed: Left Heart Catheterization PTCA with Stenting of Mid LAD with HUMA HISTORY The patient is a 66 year-old male with a history of : previous CHF, renal failure without dialysis, previous CVA remote >= 2 weeks, peripheral vascular disease, tobacco history() : The patient is a former smoker , hypertension , cerebrovascular disease remote >= 2 weeks, Hx of of multiple CVAs right sided weakness, occluded right Internal carotid artery, heavy atheromatous plaque in arch of aorta by MAURICIO 2012, admitted with sepsis and NSTEMI.. INDICATION The indication(s) include : non-STEMI . CASE TECHNIQUE The patient was brought urgently to the Cardiac Catheterization Laboratory in a fasting state and was prepped and draped in a sterile manner. The right femoral groin was infiltrated with 2% Lidocaine subcutaneous anesthesia. A 6 Fr x 11 cm Peyton sheath was inserted into the right femoral artery without difficulty. Coronary angiography was performed using coronary diagnostic catheters. The left coronary system was accessed and visualized with a Diagnostic ,6 Fr JL 4 catheter. The right coronary system was accessed and visualized with a Diagnostic ,6 Fr JR 4 catheter. The left ventricle was accessed and visualized with a 6 Fr Pigtail catheter. Left ventricular/Aortic Valve gradient assessed on pullback. Left ventriculogram was performed in SUAZO projection. Closure device was deployed with a 6 Fr Angio-Seal without any complications. The patient tolerated the procedure well and there were no complications associated with the procedure. Vessel Analysis The patient's coronary anatomy is co-dominant. The left main coronary artery is a medium size vessel with diffuse calcification noted throughout this vessel and without significant stenosis. The left main bifurcates to the left anterior descending and circumflex. The left anterior descending artery is a medium size vessel with diffuse calcification noted throughout this vessel and with significant stenosis. There is a 80% stenosis in the mid segment. with ulcerated plaque The first diagonal branch is a medium size vessel with diffuse calcification noted throughout this vessel and without significant stenosis. The circumflex artery is a large size vessel with diffuse calcification noted throughout this vessel and without significant stenosis. There is a 40% stenosis in the proximal segment. The first obtuse marginal branch is a size vessel with diffuse calcification noted throughout this vessel and without significant stenosis. The second obtuse marginal branch is a small size vessel with diffuse calcification noted throughout this vessel and without significant stenosis. The third obtuse marginal branch is a medium size vessel with diffuse calcification noted throughout this vessel and without significant stenosis. The left posterior descending artery is a medium size vessel with diffuse calcification noted throughout this vessel and without significant stenosis. The right coronary artery is a medium size vessel with diffuse calcification noted throughout this vessel and without significant stenosis. There is a 40-50% stenosis in the proximal segment. Two stenoses The right posterior descending artery is a large size vessel with diffuse calcification noted throughout this vessel and without significant stenosis. Left Ventricle The left ventricle is mild to moderately enlarged in size with mild to moderately decreased contractility. Ischemic and Non-Ischemic cardiomyopathy. The left ventricular ejection fraction is estimated to be 40%. The left ventricular end diastolic pressure is 15 mmHg. There was no gradient across the aortic valve upon pullback. PCI Technique Lesion Anticoagulation was achieved with Lovenox. 30 mg IV, as pt got 92 mg of SQ 2 hours before. Percutaneous coronary intervention was performed on the mid left anterior descending artery segment. The lesion stenosis prior to intervention was 80% with CORETTA 2 flow. A 6 Fr XB 4 Guide Catheter was used to engage the ostium. BALLOON DILATION A Balloon catheter 2.0 x 10 mm Sprinter RX was inserted and inflated up to 10.00atm for 19seconds. STENT DEPLOYMENT A drug-eluting stent 2.75 x 12 mm Resolute HUMA was inserted and inflated up to 11.00atm for 12seconds. Final angiography reveals 0 % stenosis with CORETTA 3 flow. Conclusion Single vessel involving Mid LAD 80%, with ulcerated plaque. Ischemic and Non Ischemic CMP LVEF-40%, EDP-15 mmof Hg. Successful PTCA with HUMA of MId LAD Recommendations Cardiac Rehabilitation Referral Aggressive Medical TherapyCardiac Risk Reduction Program Weight Loss Reduction Program F/U LV Fx assessment in 3-6 months and if remains less than 35% would consider AICD. CC; Dr. Ariana Walker MD.
[2016-08-05 18:28] LABS: ADD MANUAL DIFF? NO
[2016-08-05 18:34] LABS: BASO # 0.04 K/mm3 (0.0-2.0); BASO % 0.6 % (0.0-3.0); EOS # 0.5 (0.0-0.7); EOS % 7.5 % (1.5-5.0); GRAN % 62.8 % (50.0-68.0); HEMATOCRIT 38.6 % (42.0-52.0); LYMPH # 1.3 (1.2-3.4); LYMPH % 19.9 % (22.0-35.0); MEAN CELL VOLUME 89.1 fL (80.0-105.0); MEAN CORPUSCULAR HEMOGLOBIN 29.1 pg (25.0-35.0); MEAN CORPUSCULAR HGB CONC 32.6 g/dl (31.0-37.0); MEAN PLATELET VOLUME 9.5 fl (7.0-11.0); MONO # 0.6 (0.1-0.6); MONO % 9.2 % (1.0-6.0); PLATELET COUNT 240 10^3/uL (120.0-450.0); RED CELL DISTRIBUTION WIDTH 14.7 % (11.5-14.5); WHITE BLOOD COUNT 6.4 10^3/ul (4.5-11.0)
[2016-08-05 18:43] LABS: BLOOD UREA NITROGEN 10 mg/dL (7-21); CARBON DIOXIDE 27 mmol/L (21-33); CHLORIDE 100 mmol/L (98-107); GFR AFRICAN-AMERICAN > 60; GLUCOSE,RANDOM 159 mg/dL (70-110); SODIUM 136 mmol/L (132-148)
--- NOTE | 2016-08-05 20:20 | CARD ---
APPROVED REPORT EKG Measurement Heart [id number] <Conclusion> Sinus bradycardia Left axis deviation Left bundle branch block Abnormal ECG
[2016-08-06] MEDS: Pantoprazole 40 mg EC Tab PO SCH (05:31)
[2016-08-06 06:57] LABS: ADD MANUAL DIFF? NO
[2016-08-06 07:06] LABS: BASO # 0.03 K/mm3 (0.0-2.0); BASO % 0.4 % (0.0-3.0); EOS # 0.5 (0.0-0.7); EOS % 5.9 % (1.5-5.0); GRAN # 5.42 (1.4-6.5); GRAN % 69.4 % (50.0-68.0); HEMATOCRIT 38.1 % (42.0-52.0); LYMPH # 1.2 (1.2-3.4); MEAN CELL VOLUME 89.2 fL (80.0-105.0); MEAN CORPUSCULAR HEMOGLOBIN 29.3 pg (25.0-35.0); MEAN CORPUSCULAR HGB CONC 32.8 g/dl (31.0-37.0); MEAN PLATELET VOLUME 9.9 fl (7.0-11.0); MONO # 0.7 (0.1-0.6); MONO % 9.3 % (1.0-6.0); PLATELET COUNT 259 10^3/uL (120.0-450.0); RED CELL DISTRIBUTION WIDTH 14.9 % (11.5-14.5); WHITE BLOOD COUNT 7.8 10^3/ul (4.5-11.0)
[2016-08-06 07:15] LABS: ALB/GLOB RATIO 1.2 (1.1-1.8); ALKALINE PHOSPHATASE 79 U/L (38-133); ALT/SGPT 40 U/L (7-56); AST/SGOT 44 U/L (15-59); BLOOD UREA NITROGEN 10 mg/dL (7-21); CALCIUM 8.9 mg/dL (8.4-10.5); CARBON DIOXIDE 27 mmol/L (21-33); CHLORIDE 101 mmol/L (95-110); CHOLESTEROL 103 mg/dL (130-200); GFR AFRICAN-AMERICAN > 60; GLUCOSE,RANDOM 107 mg/dL (70-110); MAGNESIUM 1.9 mg/dL (1.7-2.2); PHOSPHOROUS 3.1 mg/dL (2.5-4.5); POTASSIUM 3.8 mmol/L (3.6-5.0); SODIUM 137 mmol/L (132-148); TOTAL PROTEIN 6.9 g/dL (5.8-8.3)
[2016-08-06] MEDS: Potassium Chloride 10 mEq ER Tab PO SCH (08:17)
[2016-08-06] MEDS: DiphenhydrAMINE 50 mg/ml Inj IVP PRN (08:30)
[2016-08-06] MEDS: Meropenem 1g/NS 100mL IVPB 1 GM/100 ML PIGGYBACK IVPB SCH (10:09)
[2016-08-06] MEDS ORDERED: Potassium Chloride 20 mEq ER Tab PO ONE (11:24)
--- NOTE | 2016-08-06 12:01 | PN ---
DATE: 08/06/2016 REASON FOR CONSULTATION AND FOLLOWUP: Cardiac evaluation, troponin, [id number] myocardial infarc tion, status post PTCA of left anterior descending. BRIEF CLINICAL HISTORY: A 66-year-old male with past medical history significant with right-sided we akness who walks with a walker, admitted with generalized weakness, fever, sepsis and [id number] myocardial infarction. Yesterday, patient underwent cardiac catheterization that revealed mid LAD 80 % with ulcerated plaque. The patient underwent PTCA with a drug-eluting stent, laying flat today. D enies any chest pain, shortness of breath, any palpitation. PHYSICAL EXAMINATION: VITAL SIGNS: Temperature afebrile, heart rate 60, blood pressure 111/57. HEENT: PERRLA. Extraocular muscles intact. NECK: Supple. No carotid bruits. No thyromegaly. CHEST: Clear to auscultation. HEART: S1, S2 regular. ABDOMEN: Soft. EXTREMITIES: Clubbing and cyanosis negative. LABORATORY DATA: Blood workup as follows: WBC 7.8, hemoglobin 12.5, hematocrit 38.1, platelet count 259. Chemistry shows sodium , potassium 3.8, chloride 101, carbon dioxide 27, anion gap of 13, BUN 10, creatinine 1.1. Total triglyceride 201, cholesterol 103, LDL 43, HDL 20. TSH 1.0. IMPRESSION: Non-ST segment myocardial infarction, coronary artery disease, acute coronary syndrome, status post percutaneous transluminal coronary angioplasty with a drug-eluting stent of mid left ante rior descending with ulcerated plaque 80% stenosis, history of cerebrovascular accident with right-si ded weakness in 01/2013. At that time, transesophageal echo was done, found to be atherosclerotic pl aque in the arch of aorta, ejection fraction 65%, intraatrial septum was intact. No PFO noted. Brown sesophageal echo dated 01/12/2013. The patient remains on anticoagulation for awhile, 1-2 years. Hi story of hypertension, history of CVA, walks with cane as mentioned, history of occlusion of right in ternal carotid artery and left internal carotid, % stenosis. Medical treatment recommended by Travis Christian. Repeat echo in 11/2015, ejection fraction 55%. Hypertension, hyperlipidemia. RECOMMENDATION: Continue aggressive control of cholesterol. Goal is to keep LDL less than 70, which is now 43. Continue Coreg. Continue digoxin. Continue DVT prophylaxis. Continue aspirin, continue Plavix. We will discontinue telemetry. Continue rehabilitation. Discussed with the daughter. Ajit maoue low dose of ROYCE inhibitor. Upon discharge, patient will be followed as outpatient as well as w [facility] Dr. Temo Pereira. Will follow with you. We will discontinue telemetry. Thank you, Dr. Temo Pereira and Dr. López, for providing the opportunity in taking care of this p atient. Will supplement potassium. Irma Bedoya MD cc: [id number] TT: 08/06/2016 12:01:21 Confirmation # [id number] Dictation # [id number]
--- NOTE | 2016-08-06 13:02 | CARD ---
APPROVED REPORT EXAM: Two-dimensional and M-mode echocardiogram with Doppler and color Doppler. INDICATION MN 2D DIMENSIONS Left Atrium (2D)4.5 (1.6-4.0cm)IVSd1.6 (0.7-1.1cm) LVDd5.6 (3.9-5.9cm)PWd1.5 (0.7-1.1cm) LVDs5.0 (2.5-4.0cm)FS (%) 9.7 % LVEF (%)21.2 (>50%) M-Mode DIMENSIONS Aortic Root3.60 (2.2-3.7cm)Aortic Cusp Exc.1.80 (1.5-2.0cm) Aortic Valve AoV Peak Dwwhtebd450.0cm/Ángela Peak GR.8mmHg Mitral Valve MV E Kyctnlpb22.0cm/sMV A Mlldxwrr60.3cm/sE/A ratio0.5 TDI Lateral E' Peak V7.41cm/sMedial E' Peak V4.29cm/sE/Lateral E'5.5 E/Medial E'9.6 Pulmonary Valve PV Peak Rsjclfti87.4cm/sPV Peak Grad.3mmHg Tricuspid Valve TR Peak Rjkklecc170oi/sRAP FHPEAJSW21ydGsMR Peak Gr.19mmHg [id number] LEFT VENTRICLE The Left Ventricle is borderline dilated. There is mild concentric left ventricular hypertrophy. The systolic function is moderately to severely impaired.EF-20-25% There is Moderate to severe global hypokinesis of the left ventricle. Transmitral Doppler flow pattern is Grade III-reversible restrictive diastolic dysfunction. No left ventricle thrombus noted on this study. There is no ventricular septal defect visualized. There is no left ventricular aneurysm. There is no mass noted in the left ventricle. RIGHT VENTRICLE The right ventricle is normal size. There is normal right ventricular wall thickness. The right ventricular systolic function is normal. ATRIA The left atrium is mildly dilated. The right atrium size is normal. The interatrial septum is intact with no evidence for an atrial septal defect. AORTIC VALVE The aortic valve is normal in structure. No aortic regurgitation is present. There is no aortic valvular stenosis. There is no aortic valvular vegetation. MITRAL VALVE The mitral valve is thickened but opens well. Mitral regurgitation is mild. There is no mitral valve stenosis. There is no evidence of mitral valve prolapse. TRICUSPID VALVE The tricuspid valve leaflets are thickened , but open well. There is mild tricuspid regurgitation.RVSP-29 mmof hg. There is no tricuspid valve stenosis. There is no tricuspid valve prolapse or vegetation. PULMONIC VALVE The pulmonary valve is normal in structure. There is no pulmonic valvular regurgitation. There is no pulmonic valvular stenosis. GREAT VESSELS The aortic root is normal in size. The ascending aorta is normal in size. The pulmonary artery is normal. The IVC is normal in size and collapses >50% with inspiration. PERICARDIAL EFFUSION There is no pleural effusion. There is no pericardial effusion. <Conclusion> The Left Ventricle is borderline dilated. There is mild concentric left ventricular hypertrophy. The systolic function is moderately to severely impaired.EF-20-25% Mitral regurgitation is mild. There is mild tricuspid regurgitation.RVSP-29 mmof hg. The IVC is normal in size and collapses >50% with inspiration. There is no pericardial effusion.
[2016-08-06] MEDS: Digoxin 250 mcg (0.25 mg) Tab PO SCH (13:43)
--- NOTE | 2016-08-06 15:57 | CP.PCM.PN ---
<Kalie Bennett - Last Filed: 08/06/16 16:10> Subjective - Date & Time of Evaluation Date of Evaluation: 08/06/16 Time of Evaluation: 08:50 - Subjective Subjective: Pt seen and evaluated at bedside. Pt currently denies chest pain, palpitations , cough, abdominal pain, N/V. Afebrile overnight. Objective - Vital Signs/Intake and Output Vital Signs (last 24 hours): Temp Pulse Resp BP Pulse Ox 97 F L 56 L 16 98/59 L 94 L 08/06/16 12:00 08/06/16 12:00 08/06/16 12:00 08/06/16 12:00 08/06/16 06:00 Intake and Output: 08/06/16 08/06/16 06:59 18:59 Intake Total 150 Output Total 600 Balance -450 - Medications Medications: Current Medications Acetaminophen (Tylenol 325mg Tab) 650 mg PO Q4H PRN PRN Reason: Temp >100.4*F Albuterol Sulfate (Albuterol 0.083% Inhal Nini (2.5 Mg/3 Ml) Ud) 2.5 mg IH [id number] PRN PRN Reason: Shortness of Breath Amlodipine Besylate (Norvasc) 5 mg PO DAILY [facility] Last Admin: 08/06/16 10:09 Dose: 5 mg Aspirin (Aspirin Chewable) 81 mg PO DAILY [facility] Last Admin: 08/06/16 10:08 Dose: 81 mg Atorvastatin Calcium (Lipitor) 40 mg PO DAILY [facility] Benzonatate (Tessalon Perles) 100 mg PO TID [facility] Last Admin: 08/06/16 13:40 Dose: 100 mg Carvedilol (Coreg) 3.125 mg PO BID [facility] Last Admin: 08/06/16 10:08 Dose: 3.125 mg Clopidogrel Bisulfate (Plavix) 75 mg PO DAILY [facility] Last Admin: 08/06/16 10:10 Dose: 75 mg Digoxin (Lanoxin) 0.25 mg PO 1400 [facility] Last Admin: 08/06/16 13:43 Dose: Not Given Diphenhydramine HCl (Benadryl) 25 mg IVP Q4H PRN PRN Reason: Allergy symptoms Last Admin: 08/06/16 08:30 Dose: 25 mg Enoxaparin Sodium (Lovenox) 40 mg SC DAILY [facility] PRN Reason: Protocol Finasteride (Proscar) 5 mg PO DAILY [facility] Last Admin: 08/06/16 10:10 Dose: 5 mg Furosemide (Lasix) 40 mg PO DAILY [facility] Last Admin: 08/06/16 10:14 Dose: 40 mg Meropenem 1g/NS 100mL IVPB (Meropenem 1g/Ns 100ml Ivpb) 1 gm in 100 mls @ 100 mls/hr IVPB Q12 [facility] PRN Reason: Protocol Stop: 08/10/16 10:01 Last Admin: 08/06/16 10:09 Dose: 100 mls/hr Levetiracetam (Keppra) 250 mg PO Q12 [facility] Last Admin: 08/06/16 10:14 Dose: 250 mg Lisinopril (Zestril) 2.5 mg PO DAILY [facility] Last Admin: 08/06/16 10:10 Dose: 2.5 mg Pantoprazole Sodium (Protonix Ec Tab) 40 mg PO 0630 [facility] Last Admin: 08/06/16 05:31 Dose: 40 mg Potassium Chloride (Klor-Con 10) 10 meq PO BRK [facility] Last Admin: 08/06/16 08:17 Dose: 10 meq Sertraline HCl (Zoloft) 100 mg PO DAILY [facility] Last Admin: 08/06/16 10:11 Dose: 100 mg - Labs Labs: 08/06/16 06:15 08/06/16 06:15 PT 11.6 Seconds (9.9-11.8) 08/02/16 22:35 INR 1.07 (0.93-1.08) 08/02/16 22:35 APTT 28.0 Seconds (23.7-30.8) 08/02/16 22:35 - Constitutional Appears: Non-toxic, No Acute Distress - Head Exam Head Exam: ATRAUMATIC, NORMOCEPHALIC - Eye Exam Eye Exam: EOMI, Normal appearance - Respiratory Exam Respiratory Exam: Clear to Ausculation Bilateral, NORMAL BREATHING PATTERN - Cardiovascular Exam Cardiovascular Exam: +S1, +S2. absent: Tachycardia - GI/Abdominal Exam GI & Abdominal Exam: Soft. absent: Tenderness - Exam External exam: absent: Erythema, Lesions - Extremities Exam Extremities Exam: absent: Pedal Edema, Tenderness - Back Exam Back Exam: absent: CVA tenderness (L), CVA tenderness (R) - Neurological Exam Neurological Exam: Alert, Awake - Skin Skin Exam: Normal Color, Warm Assessment and Plan - Assessment and Plan (Free Text) Plan: 66yo M with PMHx of CVA, cardiomyopathy, HTN, nephrolithiasis, seizure, presented with 2 days of weakness, fever, and pain upon urination. Sepsis 2/2 UTI afebrile overnight No Leukocytosis UA is positive for leukocyte esterase and nitrites meropenem q12 with plan for one week of vantin 200mg PO bid upon D/C, as per discussion with ID Urine Cx NG 72h Blood Cx NG 72h ID Following, Dr. Todd, help appreciated NSTEMI Previous ECHO with EF of 22 on 01/30/2016 Recent ECHO 08/05: mildly dilated LV, mild LVH, EF 20-25, MR mild, mild TR, RSVP 29. IVC collapses 50% w/inspiriation Troponin with high of 1.09 ASA 81 lovenox 40 sc qd Plavix 75 Daily Cardiology consult cardiac cath on 08/05/2016 with new HUMA in mid LAD Hx of Cardiomyopathy Previous ECHO w/ EF 22% Recent ECHO 08/05: mildly dilated LV, mild LVH, EF 20-25, MR mild, mild TR, RSVP 29. IVC collapses 50% w/inspiriation digoxin .25 Amlodipine hx of HTN Home medications continued: norvasc 5, coreg 3.125, lisinopril 2.5 mg Hx of HLD Lipitor 80 Hx of BPH procar 5 Possible sleep apnea Bipap prn during HS PPx protonix lovenox <Carmella López - Last Filed: 08/06/16 16:43> Objective - Vital Signs/Intake and Output Vital Signs (last 24 hours): Temp Pulse Resp BP Pulse Ox 97 F L 56 L 16 98/59 L 94 L 08/06/16 12:00 08/06/16 12:00 08/06/16 12:00 08/06/16 12:00 08/06/16 06:00 Intake and Output: 08/06/16 08/06/16 06:59 18:59 Intake Total 150 Output Total 600 Balance -450 - Medications Medications: Current Medications Acetaminophen (Tylenol 325mg Tab) 650 mg PO Q4H PRN PRN Reason: Temp >100.4*F Albuterol Sulfate (Albuterol 0.083% Inhal Nini (2.5 Mg/3 Ml) Ud) 2.5 mg IH [id number] PRN PRN Reason: Shortness of Breath Amlodipine Besylate (Norvasc) 5 mg PO DAILY [facility] Last Admin: 08/06/16 10:09 Dose: 5 mg Aspirin (Aspirin Chewable) 81 mg PO DAILY [facility] Last Admin: 08/06/16 10:08 Dose: 81 mg Atorvastatin Calcium (Lipitor) 40 mg PO DAILY [facility] Benzonatate (Tessalon Perles) 100 mg PO TID [facility] Last Admin: 08/06/16 13:40 Dose: 100 mg Carvedilol (Coreg) 3.125 mg PO BID [facility] Last Admin: 08/06/16 10:08 Dose: 3.125 mg Clopidogrel Bisulfate (Plavix) 75 mg PO DAILY [facility] Last Admin: 08/06/16 10:10 Dose: 75 mg Digoxin (Lanoxin) 0.25 mg PO 1400 [facility] Last Admin: 08/06/16 13:43 Dose: Not Given Diphenhydramine HCl (Benadryl) 25 mg IVP Q4H PRN PRN Reason: Allergy symptoms Last Admin: 08/06/16 08:30 Dose: 25 mg Enoxaparin Sodium (Lovenox) 40 mg SC DAILY [facility] PRN Reason: Protocol Finasteride (Proscar) 5 mg PO DAILY [facility] Last Admin: 08/06/16 10:10 Dose: 5 mg Furosemide (Lasix) 40 mg PO DAILY [facility] Last Admin: 08/06/16 10:14 Dose: 40 mg Meropenem 1g/NS 100mL IVPB (Meropenem 1g/Ns 100ml Ivpb) 1 gm in 100 mls @ 100 mls/hr IVPB Q12 [facility] PRN Reason: Protocol Stop: 08/10/16 10:01 Last Admin: 08/06/16 10:09 Dose: 100 mls/hr Levetiracetam (Keppra) 250 mg PO Q12 [facility] Last Admin: 08/06/16 10:14 Dose: 250 mg Lisinopril (Zestril) 2.5 mg PO DAILY [facility] Last Admin: 08/06/16 10:10 Dose: 2.5 mg Pantoprazole Sodium (Protonix Ec Tab) 40 mg PO 0630 [facility] Last Admin: 08/06/16 05:31 Dose: 40 mg Potassium Chloride (Klor-Con 10) 10 meq PO BRK [facility] Last Admin: 08/06/16 08:17 Dose: 10 meq Sertraline HCl (Zoloft) 100 mg PO DAILY [facility] Last Admin: 08/06/16 10:11 Dose: 100 mg - Labs Labs: 08/06/16 06:15 08/06/16 06:15 PT 11.6 Seconds (9.9-11.8) 08/02/16 22:35 INR 1.07 (0.93-1.08) 08/02/16 22:35 APTT 28.0 Seconds (23.7-30.8) 08/02/16 22:35 Attending/Attestation - Attestation I have personally seen and examined this patient.: Yes I have fully participated in the care of the patient.: Yes I have reviewed all pertinent clinical information, including history, physical exam and plan: Yes Notes (Text): 08/06/16 16:39 66 year old male with past medical history of CVA, CHF, nephrolithiasis, hypertension and recurrent UTI who presented with fever secondary to UTI sepsis. He was started on iv antibiotics. He has been afebrile now without leukocytosis. Case was discussed with ID; can switch to po vantin upon discharge. He was also found to have NSTEMI. He is on aspirin, plavix, statin and coreg. He is s/p cardiac cath with stent in LAD. Echocardiogram today was reviewed. Will follow up with cardiology recommendations. Continue with bipap hs at night. Recommend outpatient sleep study. PT evaluation was requested today for d/c planning. Patient is DNR/DNI. Carmella López MD Hospitalist.
--- NOTE | 2016-08-06 19:10 | CP.PCM.PN ---
Subjective - Date & Time of Evaluation Date of Evaluation: 08/06/16 Time of Evaluation: 11:00 - Subjective Subjective: Comfortable, afebrile, not in distress. Objective - Vital Signs/Intake and Output Vital Signs (last 24 hours): Temp Pulse Resp BP Pulse Ox 98.6 F 64 18 102/63 94 L 08/06/16 06:00 08/06/16 06:00 08/06/16 06:00 08/06/16 06:00 08/06/16 06:00 Intake and Output: 08/06/16 08/06/16 06:59 18:59 Intake Total 150 Output Total 600 Balance -450 - Medications Medications: Current Medications Acetaminophen (Tylenol 325mg Tab) 650 mg PO Q4H PRN PRN Reason: Temp >100.4*F Albuterol Sulfate (Albuterol 0.083% Inhal Nini (2.5 Mg/3 Ml) Ud) 2.5 mg IH [id number] PRN PRN Reason: Shortness of Breath Amlodipine Besylate (Norvasc) 5 mg PO DAILY [facility] Last Admin: 08/05/16 09:28 Dose: 5 mg Aspirin (Aspirin Chewable) 81 mg PO DAILY [facility] Last Admin: 08/05/16 09:28 Dose: 81 mg Atorvastatin Calcium (Lipitor) 80 mg PO DAILY [facility] Last Admin: 08/05/16 09:31 Dose: 80 mg Benzonatate (Tessalon Perles) 100 mg PO TID [facility] Last Admin: 08/05/16 17:44 Dose: 100 mg Carvedilol (Coreg) 3.125 mg PO BID [facility] Last Admin: 08/05/16 17:43 Dose: 3.125 mg Clopidogrel Bisulfate (Plavix) 75 mg PO DAILY [facility] Last Admin: 08/05/16 09:28 Dose: 75 mg Digoxin (Lanoxin) 0.25 mg PO 1400 [facility] Last Admin: 08/05/16 13:22 Dose: Not Given Diphenhydramine HCl (Benadryl) 25 mg IVP Q4H PRN PRN Reason: Allergy symptoms Last Admin: 08/06/16 08:30 Dose: 25 mg Enoxaparin Sodium (Lovenox) 40 mg SC DAILY [facility] PRN Reason: Protocol Finasteride (Proscar) 5 mg PO DAILY [facility] Last Admin: 08/05/16 09:31 Dose: 5 mg Furosemide (Lasix) 40 mg PO DAILY [facility] Last Admin: 08/05/16 09:31 Dose: 40 mg Meropenem 1g/NS 100mL IVPB (Meropenem 1g/Ns 100ml Ivpb) 1 gm in 100 mls @ 100 mls/hr IVPB Q12 [facility] PRN Reason: Protocol Stop: 08/10/16 10:01 Last Admin: 08/05/16 21:44 Dose: 100 mls/hr Levetiracetam (Keppra) 250 mg PO Q12 [facility] Last Admin: 08/05/16 21:44 Dose: 250 mg Lisinopril (Zestril) 2.5 mg PO DAILY [facility] Last Admin: 08/05/16 09:32 Dose: 2.5 mg Pantoprazole Sodium (Protonix Ec Tab) 40 mg PO 0630 [facility] Last Admin: 08/06/16 05:31 Dose: 40 mg Potassium Chloride (Klor-Con 10) 10 meq PO BRK [facility] Last Admin: 08/06/16 08:17 Dose: 10 meq Sertraline HCl (Zoloft) 100 mg PO DAILY [facility] Last Admin: 08/04/16 10:43 Dose: 100 mg - Labs Labs: 08/06/16 06:15 08/06/16 06:15 PT 11.6 Seconds (9.9-11.8) 08/02/16 22:35 INR 1.07 (0.93-1.08) 08/02/16 22:35 APTT 28.0 Seconds (23.7-30.8) 08/02/16 22:35 - Constitutional Appears: Non-toxic, No Acute Distress - Head Exam Head Exam: NORMAL INSPECTION - Respiratory Exam Respiratory Exam: Decreased Breath Sounds - Cardiovascular Exam Cardiovascular Exam: +S1, +S2 - GI/Abdominal Exam GI & Abdominal Exam: Soft. absent: Tenderness Assessment and Plan - Assessment and Plan (Free Text) Plan: Assessment Systemic Inflammatory Response Syndrome (fever and tachycardia), consider sepsis secondary to urinary tract infection, clinically improving HTN CVA DM obesity with BMI 32 history of prostate problems history of UTI's arthritis S/P right knee surgery Plan continue Merrem day 4; urine cx show probable contamination, blood cx are negative; PCT and PSA levels are normal; should complete 5-7 days of antibiotics - when ready for discharge, can be switched to PO Vantin - discussed with Dr. López
--- NOTE | 2016-08-06 21:35 | CARD ---
APPROVED REPORT EKG Measurement Heart [id number] <Conclusion> Sinus bradycardia Left axis deviation Left bundle branch block Abnormal ECG
[2016-08-07] MEDS: Meropenem 1g/NS 100mL IVPB 1 GM/100 ML PIGGYBACK IVPB SCH ×3 (00:27→21:19)
[2016-08-07] MEDS: DiphenhydrAMINE 50 mg/ml Inj IVP PRN ×2 (00:31→21:19)
[2016-08-07] MEDS: Pantoprazole 40 mg EC Tab PO SCH (05:34)
[2016-08-07 09:02] LABS: ADD MANUAL DIFF? NO
[2016-08-07 09:05] LABS: BASO # 0.03 K/mm3 (0.0-2.0); BASO % 0.4 % (0.0-3.0); EOS # 0.4 (0.0-0.7); EOS % 4.9 % (1.5-5.0); GRAN # 5.31 (1.4-6.5); GRAN % 66.5 % (50.0-68.0); HEMATOCRIT 38.5 % (42.0-52.0); LYMPH # 1.5 (1.2-3.4); LYMPH % 19.3 % (22.0-35.0); MEAN CELL VOLUME 88.9 fL (80.0-105.0); MEAN CORPUSCULAR HEMOGLOBIN 29.6 pg (25.0-35.0); MEAN CORPUSCULAR HGB CONC 33.2 g/dl (31.0-37.0); MEAN PLATELET VOLUME 9.6 fl (7.0-11.0); MONO # 0.7 (0.1-0.6); MONO % 8.9 % (1.0-6.0); PLATELET COUNT 240 10^3/uL (120.0-450.0); RED CELL DISTRIBUTION WIDTH 14.7 % (11.5-14.5)
[2016-08-07 09:16] LABS: ALB/GLOB RATIO 1.1 (1.1-1.8); ALKALINE PHOSPHATASE 79 U/L (38-133); ALT/SGPT 41 U/L (7-56); AST/SGOT 41 U/L (15-59); BLOOD UREA NITROGEN 11 mg/dL (7-21); CALCIUM 9.2 mg/dL (8.4-10.5); CARBON DIOXIDE 25 mmol/L (21-33); CHLORIDE 103 mmol/L (95-110); GFR AFRICAN-AMERICAN > 60; GLUCOSE,RANDOM 111 mg/dL (70-110); PHOSPHOROUS 3.2 mg/dL (2.5-4.5); POTASSIUM 3.9 mmol/L (3.6-5.0); SODIUM 136 mmol/L (132-148); TOTAL PROTEIN 7.3 g/dL (5.8-8.3)
[2016-08-07] MEDS: Potassium Chloride 10 mEq ER Tab PO SCH (09:48)
[2016-08-07] MEDS ORDERED: Enoxaparin 40 mg Syringe SC SCH (10:00)
[2016-08-07] MEDS: Digoxin 250 mcg (0.25 mg) Tab PO SCH (13:28)
[2016-08-07 13:31] VITALS: PULSE 62
--- NOTE | 2016-08-07 14:15 | PN ---
DATE: 08/07/2016 The patient in room 369, bed 2. REASON FOR CONSULTATION AND FOLLOWUP: Non-ST segment elevation myocardial infarction, status post PT CA and stent insertion. HISTORY OF PRESENT ILLNESS: The patient is a 66-year-old male with past medical history significant for right-sided weakness with CVA, walks with a walker, admitted with generalized weakness, fever, se psis, found to have a non-ST segment elevation myocardial infarction. On 08/05 patient had cardiac ca theterization, showed 80% narrowing of LAD with ulcerative plaque for which a drug-eluting stent was inserted. Ejection fraction on cath showed 40%. The patient had echo on 08/06/2016, which showed eje ction fraction of 20%-25% with left ventricular hypertrophy, mild mitral regurgitation, mild tricuspi d regurgitation, RVSP 29 mmHg. The patient lying flat in bed without chest pain, shortness of breath , or palpitation. The patient's detailed cardiovascular history is mentioned in our previous notes a nd consultation, so please refer to that. PHYSICAL EXAMINATION: VITAL SIGNS: Blood pressure 141/71, respirations 20, pulse 58. The patient is afebrile. HEAD: Normocephalic. EYES: Pupils normal. Conjunctivae are normal. NECK: JVP low. Carotids equal. THORAX: AP diameter normal. LUNGS: Clear. CARDIOVASCULAR: S1, S2. ABDOMEN: Soft, nontender, no organomegaly. Bowel sounds normal. EXTREMITIES: No clubbing, no cyanosis. LABORATORY DATA: WBC 8.0, hemoglobin 12.8, hematocrit 38.5, platelets 240. Sodium 136, potassium 3. 9, BUN 11, creatinine 1.0. AST, ALT normal. Total protein and albumin normal. Random glucose 111. 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 PLAN: Measure his ejection fraction. The patient will go for MUGA scan today. In the meantime, he will continue medications, Coreg 3.125 b.i.d., potassium 10 mEq p.o. daily, digoxin 0.25 daily, Lasix 40 mg p.o. daily, Lipitor 40 p.o. daily, Lovenox 40 mg subQ daily, meropenem 1 gram IV q. 12 hours, amlodipine 5 mg daily, Plavix 75 mg daily, lisinopril 2.5 mg daily, aspirin 81 mg daily. We will fol low with you. Irma House MD cc: [id number] TT: 08/07/2016 14:13:58 Confirmation # [id number] Dictation # [id number] rn
--- NOTE | 2016-08-07 15:20 | CARD ---
APPROVED REPORT INDICATION Acute Cystitis,Hypokalemia,Evaluate LV and RV EF PROCEDURE The above named patient recieved 28.4 millicuries of Tc99m tagged red blood cells intravenously. After achieving equilibrium, gated imaging of 16/frame/cycle was performed utillizing Gamma camera interfaced with a digital computer and gated device. Gated imaging was then performed in the left anterior oblique, anterior, and the left lateral projections. Findings Left Ventricle: The quality of the study is good. The left ventricle is mildly enlarged. The right ventricle is normal in size. Wall motion study shows moderate diffuse hypokinesis of the left ventricle. RV wall motion is normal. The right atrium is dynamic. The remainder of the study is unremarkable. Impressions Mild LV dysfunction with diffuse hypokinesis. LVEF = 46%. Normal RV wall motion.
--- NOTE | 2016-08-07 16:02 | CP.PCM.PN ---
<DonaldKalie - Last Filed: 08/07/16 16:04> Subjective - Date & Time of Evaluation Date of Evaluation: 08/07/16 Time of Evaluation: 07:35 - Subjective Subjective: Pt seen and evaluated at bedside. Pt denies any current chest or abdominal pain. Afebrile overnight. Objective - Vital Signs/Intake and Output Vital Signs (last 24 hours): Temp Pulse Resp BP Pulse Ox 97.9 F 58 L 20 141/71 94 L 08/07/16 00:01 08/07/16 09:50 08/07/16 00:01 08/07/16 09:50 08/07/16 00:01 Intake and Output: 08/07/16 08/07/16 06:59 18:59 Intake Total 0 Output Total 400 Balance -400 - Medications Medications: Current Medications Acetaminophen (Tylenol 325mg Tab) 650 mg PO Q4H PRN PRN Reason: Temp >100.4*F Albuterol Sulfate (Albuterol 0.083% Inhal Nini (2.5 Mg/3 Ml) Ud) 2.5 mg IH [id number] PRN PRN Reason: Shortness of Breath Amlodipine Besylate (Norvasc) 5 mg PO DAILY [facility] Last Admin: 08/07/16 09:50 Dose: 5 mg Aspirin (Aspirin Chewable) 81 mg PO DAILY [facility] Last Admin: 08/07/16 09:49 Dose: 81 mg Atorvastatin Calcium (Lipitor) 40 mg PO DAILY [facility] Last Admin: 08/07/16 09:49 Dose: 40 mg Benzonatate (Tessalon Perles) 100 mg PO TID [facility] Last Admin: 08/07/16 13:30 Dose: 100 mg Carvedilol (Coreg) 3.125 mg PO BID [facility] Last Admin: 08/07/16 09:48 Dose: 3.125 mg Clopidogrel Bisulfate (Plavix) 75 mg PO DAILY [facility] Last Admin: 08/07/16 09:50 Dose: 75 mg Digoxin (Lanoxin) 0.25 mg PO 1400 [facility] Last Admin: 08/07/16 13:28 Dose: 0.25 mg Diphenhydramine HCl (Benadryl) 25 mg IVP Q4H PRN PRN Reason: Allergy symptoms Last Admin: 08/07/16 00:31 Dose: 25 mg Enoxaparin Sodium (Lovenox) 40 mg SC DAILY [facility] PRN Reason: Protocol Last Admin: 08/07/16 09:49 Dose: 40 mg Finasteride (Proscar) 5 mg PO DAILY [facility] Last Admin: 08/07/16 09:50 Dose: 5 mg Furosemide (Lasix) 40 mg PO DAILY [facility] Last Admin: 08/07/16 09:49 Dose: 40 mg Meropenem 1g/NS 100mL IVPB (Meropenem 1g/Ns 100ml Ivpb) 1 gm in 100 mls @ 100 mls/hr IVPB Q12 [facility] PRN Reason: Protocol Stop: 08/10/16 10:01 Last Admin: 08/07/16 09:49 Dose: 100 mls/hr Levetiracetam (Keppra) 250 mg PO Q12 [facility] Last Admin: 08/07/16 10:02 Dose: 250 mg Lisinopril (Zestril) 2.5 mg PO DAILY [facility] Last Admin: 08/07/16 09:50 Dose: 2.5 mg Pantoprazole Sodium (Protonix Ec Tab) 40 mg PO 0630 [facility] Last Admin: 08/07/16 05:34 Dose: 40 mg Potassium Chloride (Klor-Con 10) 10 meq PO BRK [facility] Last Admin: 08/07/16 09:48 Dose: 10 meq Sertraline HCl (Zoloft) 100 mg PO DAILY [facility] Last Admin: 08/07/16 09:50 Dose: 100 mg - Labs Labs: 08/07/16 08:45 08/07/16 08:45 PT 11.6 Seconds (9.9-11.8) 08/02/16 22:35 INR 1.07 (0.93-1.08) 08/02/16 22:35 APTT 28.0 Seconds (23.7-30.8) 08/02/16 22:35 - Constitutional Appears: Non-toxic, No Acute Distress - Head Exam Head Exam: ATRAUMATIC, NORMOCEPHALIC - Eye Exam Eye Exam: EOMI, Normal appearance - Respiratory Exam Respiratory Exam: Clear to Ausculation Bilateral, NORMAL BREATHING PATTERN - Cardiovascular Exam Cardiovascular Exam: Bradycardia, +S1, +S2 - GI/Abdominal Exam GI & Abdominal Exam: Soft. absent: Tenderness - Exam External exam: absent: Ecchymosis, Erythema - Extremities Exam Extremities Exam: absent: Pedal Edema, Tenderness - Back Exam Back Exam: absent: CVA tenderness (L), CVA tenderness (R) - Neurological Exam Neurological Exam: Alert, Awake - Skin Skin Exam: Intact, Normal Color Assessment and Plan - Assessment and Plan (Free Text) Plan: 66yo M with PMHx of CVA, cardiomyopathy, HTN, nephrolithiasis, seizure, presented with 2 days of weakness, fever, and pain upon urination. Sepsis 2/2 UTI afebrile overnight No Leukocytosis UA is positive for leukocyte esterase and nitrites meropenem q12 with plan for one week of vantin 200mg PO bid upon D/C, as per discussion with ID Urine Cx NG 96h Blood Cx NG 96h ID Following, Dr. Todd, help appreciated NSTEMI Previous ECHO with EF of 22 on 01/30/2016 Recent ECHO 08/05: mildly dilated LV, mild LVH, EF 20-25, MR mild, mild TR, RSVP 29. IVC collapses 50% w/inspiriation Troponin with high of 1.09 ASA 81 lovenox 40 sc qd Plavix 75 Daily Cardiology consult cardiac cath on 08/05/2016 with new HUMA in mid LAD MUGA scan 08/07: mild LV dysfunction w/ diffuse hypokinesis, LVEF 46% Hx of Cardiomyopathy Previous ECHO w/ EF 22% Recent ECHO 08/05: mildly dilated LV, mild LVH, EF 20-25, MR mild, mild TR, RSVP 29. IVC collapses 50% w/inspiriation digoxin .25 Amlodipine hx of HTN Home medications continued: norvasc 5, coreg 3.125, lisinopril 2.5 mg Hx of HLD Lipitor 80 Hx of BPH procar 5 Possible sleep apnea Bipap prn during HS PPx protonix lovenox <Carmella López - Last Filed: 08/07/16 16:50> Objective - Vital Signs/Intake and Output Vital Signs (last 24 hours): Temp Pulse Resp BP Pulse Ox 97.9 F 58 L 20 141/71 94 L 08/07/16 00:01 08/07/16 09:50 08/07/16 00:01 08/07/16 09:50 08/07/16 00:01 Intake and Output: 08/07/16 08/07/16 06:59 18:59 Intake Total 0 Output Total 400 Balance -400 - Medications Medications: Current Medications Acetaminophen (Tylenol 325mg Tab) 650 mg PO Q4H PRN PRN Reason: Temp >100.4*F Albuterol Sulfate (Albuterol 0.083% Inhal Nini (2.5 Mg/3 Ml) Ud) 2.5 mg IH [id number] PRN PRN Reason: Shortness of Breath Amlodipine Besylate (Norvasc) 5 mg PO DAILY [facility] Last Admin: 08/07/16 09:50 Dose: 5 mg Aspirin (Aspirin Chewable) 81 mg PO DAILY [facility] Last Admin: 08/07/16 09:49 Dose: 81 mg Atorvastatin Calcium (Lipitor) 40 mg PO DAILY [facility] Last Admin: 08/07/16 09:49 Dose: 40 mg Benzonatate (Tessalon Perles) 100 mg PO TID [facility] Last Admin: 08/07/16 13:30 Dose: 100 mg Carvedilol (Coreg) 3.125 mg PO BID [facility] Last Admin: 08/07/16 09:48 Dose: 3.125 mg Clopidogrel Bisulfate (Plavix) 75 mg PO DAILY [facility] Last Admin: 08/07/16 09:50 Dose: 75 mg Digoxin (Lanoxin) 0.25 mg PO 1400 [facility] Last Admin: 08/07/16 13:28 Dose: 0.25 mg Diphenhydramine HCl (Benadryl) 25 mg IVP Q4H PRN PRN Reason: Allergy symptoms Last Admin: 08/07/16 00:31 Dose: 25 mg Enoxaparin Sodium (Lovenox) 40 mg SC DAILY [facility] PRN Reason: Protocol Last Admin: 08/07/16 09:49 Dose: 40 mg Finasteride (Proscar) 5 mg PO DAILY [facility] Last Admin: 08/07/16 09:50 Dose: 5 mg Furosemide (Lasix) 40 mg PO DAILY [facility] Last Admin: 08/07/16 09:49 Dose: 40 mg Meropenem 1g/NS 100mL IVPB (Meropenem 1g/Ns 100ml Ivpb) 1 gm in 100 mls @ 100 mls/hr IVPB Q12 [facility] PRN Reason: Protocol Stop: 08/10/16 10:01 Last Admin: 08/07/16 09:49 Dose: 100 mls/hr Levetiracetam (Keppra) 250 mg PO Q12 [facility] Last Admin: 08/07/16 10:02 Dose: 250 mg Lisinopril (Zestril) 2.5 mg PO DAILY [facility] Last Admin: 08/07/16 09:50 Dose: 2.5 mg Pantoprazole Sodium (Protonix Ec Tab) 40 mg PO 0630 [facility] Last Admin: 08/07/16 05:34 Dose: 40 mg Potassium Chloride (Klor-Con 10) 10 meq PO BRK [facility] Last Admin: 08/07/16 09:48 Dose: 10 meq Sertraline HCl (Zoloft) 100 mg PO DAILY [facility] Last Admin: 08/07/16 09:50 Dose: 100 mg - Labs Labs: 08/07/16 08:45 08/07/16 08:45 PT 11.6 Seconds (9.9-11.8) 08/02/16 22:35 INR 1.07 (0.93-1.08) 08/02/16 22:35 APTT 28.0 Seconds (23.7-30.8) 08/02/16 22:35 Attending/Attestation - Attestation I have personally seen and examined this patient.: Yes I have fully participated in the care of the patient.: Yes I have reviewed all pertinent clinical information, including history, physical exam and plan: Yes Notes (Text): 08/07/16 16:46 66 year old male with past medical history of CVA, CHF, nephrolithiasis, hypertension and recurrent UTI who presented with fever secondary to UTI sepsis. He was started on iv antibiotics and is now afebrile without leukocytosis. She is on meropenem which can be switched to po vantin upon discharge as per ID. He was also found to have NSTEMI. He is on aspirin, plavix, statin and coreg. He is s/p cardiac cath with stent in LAD. Echocardiogram was reviewed. MUGA scan was ordered for today. Cardiology is following. Continue with bipap hs at night. Recommend outpatient sleep study. PT is following the patient for deconditioned state. Currently they are recommending DORA/TCU. However patient and daughter are requesting home w/ services. Continue with physical therapy. D/c planning if cleared by cardiology and PT. Patient is DNR/DNI. Carmella López MD Hospitalist.
[2016-08-08] MEDS: Pantoprazole 40 mg EC Tab PO SCH (05:41)
[2016-08-08 08:08] VITALS: BP 124/74; PULSE 50; RESP 18; TEMP 97.6; O2SAT 96
--- NOTE | 2016-08-08 11:40 | PN ---
DATE: 08/08/2016 The patient in room 369, bed 2. REASON FOR CONSULTATION AND FOLLOWUP: [id number] elevation myocardial infarction, status post PT CA and stent insertion. HISTORY OF PRESENT ILLNESS: The patient is a 66-year-old male with past medical history significant for right-sided weakness with CVA, walks with a walker, admitted with generalized weakness, fever, se psis. Found to have [id number] elevation myocardial infarction. On 08/05/2016, patient had cardiac catheterization that showed 80% narrowing of LAD with ulcerated pl aque for which a drug-eluting stent was inserted. Ejection fraction on cath showed 40%. The patient had echo on 08/06/2016 which showed ejection fraction of 20-25% with left ventricular hyp ertrophy, mild mitral regurgitation, mild tricuspid regurgitation, RVSP 29 mmHg. The patient had MUGA scan 08/07/2016 which showed LV ejection fraction of 46%, which is more close to what we saw on the cardiac catheterization. The patient lying flat in bed without chest pain, shortness of breath, or palpitation. The patient's detailed cardiac workup and history is mentioned in our consult and previous notes, so please refer to them. PHYSICAL EXAMINATION: VITAL SIGNS: Blood pressure 124/74, respirations 18, pulse 50, temperature 97.6. HEAD: Normocephalic. EYES: Pupils normal. Conjunctivae are slightly pale. NECK: JVP low. Carotid equal. THORAX: AP diameter normal. LUNGS: Clear. CARDIOVASCULAR: S1, S2. ABDOMEN: Soft. No tenderness, no organomegaly. Bowel sounds normal. EXTREMITIES: No clubbing, no cyanosis. LABORATORY DATA: WBC 8.0, hemoglobin 12.8, hematocrit 38.5, platelet 240. Sodium 136, potassium 3.9 , BUN 11, creatinine 1.0. Calcium, phosphorus, magnesium, total bilirubin, AST, ALT normal. Total p rotein and albumin normal. DIAGNOSES: [id number] elevation myocardial infarction, status post drug-eluting stent in left an terior descending coronary artery; cardiomyopathy. MUGA scan 08/07/2016 showed LV ejection fraction 46%, while on cardiac catheterization ejection fraction of 40%. History of atherosclerotic plaque in the arch of aorta, transesophageal echocardiogram on 01/12/2013. Hypertension, history of occlusion of right internal carotid artery, old cerebrovascular accident, cardiomyopathy with mildly reduced l eft ventricular systolic function. PLAN: To continue present therapy with Coreg 3.125 b.i.d., digoxin 0.25 daily, potassium 10 mEq doreen y, Lasix 40 mg p.o. daily, Lipitor 40 daily, Lovenox 40 mg subQ daily. The patient also getting anti biotic, Plavix 75 mg daily, lisinopril 2.5 mg daily, aspirin 81 mg daily. Irma House MD cc: [phone] TT: 08/08/2016 11:39:41 Confirmation # [id number] Dictation # [id number] mn
--- NOTE | 2016-08-08 16:37 | CP.PCM.DIS ---
<DonaldKalie - Last Filed: 09/02/16 06:06> Provider - Provider Date of Admission: 08/03/16 01:10 Attending physician: Carmella López MD Primary care physician: Jesus Pereira MD Consults: DRs. Campos and Harsh Time Spent in preparation of Discharge (in minutes): 35 Hospital Course - Lab Results Lab Results: Micro Results 08/05/16 20:42 Urine Urine Culture - Final No Growth (<1,000 CFU/ML) Most Recent Lab Values WBC 8.0 10^3/ul (4.5-11.0) 08/07/16 08:45 RBC 4.33 10^6/uL (3.5-6.1) 08/07/16 08:45 Hgb 12.8 gm/dL (14.0-18.0) L 08/07/16 08:45 Hct 38.5 % (42.0-52.0) L 08/07/16 08:45 MCV 88.9 fL (80.0-105.0) 08/07/16 08:45 MCH 29.6 pg (25.0-35.0) 08/07/16 08:45 MCHC 33.2 g/dl (31.0-37.0) 08/07/16 08:45 RDW 14.7 % (11.5-14.5) H 08/07/16 08:45 Plt Count 240 10^3/uL (120.0-450.0) 08/07/16 08:45 MPV 9.6 fl (7.0-11.0) 08/07/16 08:45 Gran % 66.5 % (50.0-68.0) 08/07/16 08:45 Lymph % (Auto) 19.3 % (22.0-35.0) L 08/07/16 08:45 [place] % (Auto) 8.9 % (1.0-6.0) H 08/07/16 08:45 Eos % (Auto) 4.9 % (1.5-5.0) 08/07/16 08:45 Baso % (Auto) 0.4 % (0.0-3.0) 08/07/16 08:45 Gran # 5.31 (1.4-6.5) 08/07/16 08:45 Lymph # 1.5 (1.2-3.4) 08/07/16 08:45 [place] # 0.7 (0.1-0.6) H 08/07/16 08:45 Eos # 0.4 (0.0-0.7) 08/07/16 08:45 Baso # 0.03 K/mm3 (0.0-2.0) 08/07/16 08:45 PT 11.6 Seconds (9.9-11.8) 08/02/16 22:35 INR 1.07 (0.93-1.08) 08/02/16 22:35 APTT 28.0 Seconds (23.7-30.8) 08/02/16 22:35 pO2 155 mm/Hg (30-55) H 08/02/16 22:58 VBG pH 7.46 (7.32-7.43) H 08/02/16 22:58 VBG pCO2 35.0 (40-60) L 08/02/16 22:58 VBG HCO3 24.9 mmol/l (21-28) 08/02/16 22:58 VBG Total CO2 26.0 mmol.L (22-28) 08/02/16 22:58 VBG O2 Sat (Calc) 99.9 % (40-65) H 08/02/16 22:58 VBG Base Excess 1.4 mmol/L (0.0-2.0) 08/02/16 22:58 VBG Potassium 3.1 mmol/L (3.6-5.2) L 08/02/16 22:58 Sodium 133.0 mmol/L (132-148) 08/02/16 22:58 Chloride 101.0 mmol/L (98-107) 08/02/16 22:58 Glucose 156 mg/dl (75-110) H 08/02/16 22:58 Lactate 1.5 mmol/L (0.7-2.1) 08/02/16 22:58 FiO2 21.0 % 08/02/16 22:58 Sodium 136 mmol/L (132-148) 08/07/16 08:45 Potassium 3.9 mmol/L (3.6-5.0) 08/07/16 08:45 Chloride 103 mmol/L (95-110) 08/07/16 08:45 Carbon Dioxide 25 mmol/L (21-33) 08/07/16 08:45 Anion Gap 12 (10-20) 08/07/16 08:45 BUN 11 mg/dL (7-21) 08/07/16 08:45 Creatinine 1.0 mg/dL (0.5-1.4) 08/07/16 08:45 Est GFR ( Amer) > 60 08/07/16 08:45 Est GFR (Non-Af Amer) > 60 08/07/16 08:45 Random Glucose 111 mg/dL (70-110) H 08/07/16 08:45 Hemoglobin A1c 8.4 % (4.2-6.5) H D 08/06/16 06:15 Calcium 9.2 mg/dL (8.4-10.5) 08/07/16 08:45 Phosphorus 3.2 mg/dL (2.5-4.5) 08/07/16 08:45 Magnesium 2.0 mg/dL (1.7-2.2) 08/07/16 08:45 Total Bilirubin 1.0 mg/dL (0.2-1.3) 08/07/16 08:45 AST 41 U/L (15-59) 08/07/16 08:45 ALT 41 U/L (7-56) 08/07/16 08:45 Alkaline Phosphatase 79 U/L (38-133) 08/07/16 08:45 Lactate Dehydrogenase 371 U/L (333-699) 08/03/16 22:00 Total Creatine Kinase 127 U/L (35-230) 08/03/16 22:00 Troponin I 0.86 ng/mL H* D 08/03/16 22:00 NT-Pro-B Natriuret Pep 1260 pg/mL (0-450) H 08/02/16 22:35 Total Protein 7.3 g/dL (5.8-8.3) 08/07/16 08:45 Albumin 3.9 g/dL (3.0-4.8) 08/07/16 08:45 Globulin 3.4 gm/dL 08/07/16 08:45 Albumin/Globulin Ratio 1.1 (1.1-1.8) 08/07/16 08:45 Triglycerides 201 mg/dL (35-160) H 08/06/16 06:15 Cholesterol 103 mg/dL (130-200) L 08/06/16 06:15 LDL Cholesterol Direct 43 mg/dL (0-129) 08/06/16 06:15 HDL Cholesterol 20 mg/dL (29-60) L 08/06/16 06:15 Prostate Specific Ag 0.2 ng/mL (0.00-2.5) 08/03/16 11:56 Procalcitonin 0.14 NG/ML (0.19-0.49) L 08/03/16 09:51 TSH 3rd Generation 1.0 MIU/ml (0.46-4.68) 08/06/16 06:15 Venous Blood Potassium 3.1 mmol/L (3.6-5.2) L 08/02/16 22:58 Urine Color Yellow (YELLOW) 08/02/16 23:20 Urine Appearance Cloudy (CLEAR) 08/02/16 23:20 Urine pH 6.5 (4.7-8.0) 08/02/16 23:20 Ur Specific [place] 1.015 (1.005-1.035) 08/02/16 23:20 Urine Protein 100 mg/dL (<30 mg/dL) H 08/02/16 23:20 Urine Glucose (UA) Negative mg/dL (NEGATIVE) 08/02/16 23:20 Urine Ketones Negative mg/dL (NEGATIVE) 08/02/16 23:20 Urine Blood Moderate (NEGATIVE) H 08/02/16 23:20 Urine Nitrate Positive (NEGATIVE) H 08/02/16 23:20 Urine Bilirubin Negative (NEGATIVE) 08/02/16 23:20 Urine Urobilinogen 0.2 E.U./dL (<1 E.U./dL) 08/02/16 23:20 Ur Leukocyte Esterase Moderate [place]/uL (NEGATIVE) H 08/02/16 23:20 Urine RBC 2 - 5 /hpf (0-2) 08/02/16 23:20 Urine WBC Tntc /hpf (0-6) 08/02/16 23:20 Ur Epithelial Cells 0 - 2 /hpf (0-5) 08/02/16 23:20 Urine Bacteria Mod (NEG) 08/02/16 23:20 Digoxin 1.2 ng/mL (0.8-2.0) 08/03/16 10:49 Influenza Typ A,B (EIA) Negative for flu a/b (NEGATIVE) 08/03/16 09:04 - Hospital Course Hospital Course: 66 year old male with past medical history of CVA, CHF, nephrolithiasis, hypertension and recurrent UTI who presented with fever secondary to UTI sepsis. Initial pulse of 102. On U/A, moderate urine bacteria, and leukocyte esterase. Tmax 102.8F. Telemetry inpatient admission for SIRS, acute cystitis , hypokalemia, and hypomagnesemia. Pt administered iv antibiotics, and patient was afebrile without leukocytosis most of admission except initial period. Bcxs negative and Ucx negative. NSTEMI diagnosed, with troponin series having a high of 1.09. Pt adminstered aspirin, plavix, statin and coreg, and cardiology consulted. Echocardiogram was reviewed from 01/2016, EF 22. Repeat echo showed EF of 20-25% with mild MR , TR, IVC collapsing 50+% with inspiration. Underwent cardiac cath with stent in LAD. MUGA scan showed EF of 40%. Pt discharged in stable condition with following instructions: You are discharged home to have home physical therapy. Please see you primary care provider within a week. Outpatient sleep study is recommended. Please continue your home medications with the exception of lipitor; the dose of lipitor was changed to 40 mg by mouth daily. New medication of Vantin 200 mg by mouth twice daily for one week is also given as a prescription. Please return to the emergency department for worsening of symptoms. Discharge Exam - Additional Findings Additional findings: - Constitutional Appears: Non-toxic, No Acute Distress - Head Exam Head Exam: ATRAUMATIC, NORMOCEPHALIC - Eye Exam Eye Exam: EOMI, Normal appearance - Respiratory Exam Respiratory Exam: Clear to Ausculation Bilateral, NORMAL BREATHING PATTERN - Cardiovascular Exam Cardiovascular Exam: Bradycardia, +S1, +S2 - GI/Abdominal Exam GI & Abdominal Exam: Soft. absent: Tenderness - Exam External exam: absent: Ecchymosis, Erythema - Extremities Exam Extremities Exam: absent: Pedal Edema, Tenderness - Back Exam Back Exam: absent: CVA tenderness (L), CVA tenderness (R) - Neurological Exam Neurological Exam: Alert, Awake - Skin Skin Exam: Intact, Normal Color Discharge Plan - Discharge Medications Prescriptions: Atorvastatin [Lipitor] 40 mg PO DAILY #14 tab Cefpodoxime [Vantin] 200 mg PO BID #14 tab - Follow Up Plan Condition: STABLE Disposition: HOME/ ROUTINE Instructions: Urinary Tract Infection in Children (DC), Sepsis (GEN) Additional Instructions: You are discharged home to have home physical therapy. Please see you primary care provider within a week. Outpatient sleep study is recommended. Please continue your home medications with the exception of lipitor; the dose of lipitor was changed to 40 mg by mouth daily. New medication of Vantin 200 mg by mouth twice daily for one week is also given as a prescription. Please return to the emergency department for worsening of symptoms. Referrals: Jesus Pereira MD [Primary Care Provider] - <Carmella López - Last Filed: 09/02/16 06:59> Provider - Provider Date of Admission: 08/03/16 01:10 Attending physician: Carmella López MD Primary care physician: Jesus Pereira MD Hospital Course - Lab Results Lab Results: Micro Results 08/05/16 20:42 Urine Urine Culture - Final No Growth (<1,000 CFU/ML) Most Recent Lab Values WBC 8.0 10^3/ul (4.5-11.0) 08/07/16 08:45 RBC 4.33 10^6/uL (3.5-6.1) 08/07/16 08:45 Hgb 12.8 gm/dL (14.0-18.0) L 08/07/16 08:45 Hct 38.5 % (42.0-52.0) L 08/07/16 08:45 MCV 88.9 fL (80.0-105.0) 08/07/16 08:45 MCH 29.6 pg (25.0-35.0) 08/07/16 08:45 MCHC 33.2 g/dl (31.0-37.0) 08/07/16 08:45 RDW 14.7 % (11.5-14.5) H 08/07/16 08:45 Plt Count 240 10^3/uL (120.0-450.0) 08/07/16 08:45 MPV 9.6 fl (7.0-11.0) 08/07/16 08:45 Gran % 66.5 % (50.0-68.0) 08/07/16 08:45 Lymph % (Auto) 19.3 % (22.0-35.0) L 08/07/16 08:45 [place] % (Auto) 8.9 % (1.0-6.0) H 08/07/16 08:45 Eos % (Auto) 4.9 % (1.5-5.0) 08/07/16 08:45 Baso % (Auto) 0.4 % (0.0-3.0) 08/07/16 08:45 Gran # 5.31 (1.4-6.5) 08/07/16 08:45 Lymph # 1.5 (1.2-3.4) 08/07/16 08:45 [place] # 0.7 (0.1-0.6) H 08/07/16 08:45 Eos # 0.4 (0.0-0.7) 08/07/16 08:45 Baso # 0.03 K/mm3 (0.0-2.0) 08/07/16 08:45 PT 11.6 Seconds (9.9-11.8) 08/02/16 22:35 INR 1.07 (0.93-1.08) 08/02/16 22:35 APTT 28.0 Seconds (23.7-30.8) 08/02/16 22:35 pO2 155 mm/Hg (30-55) H 08/02/16 22:58 VBG pH 7.46 (7.32-7.43) H 08/02/16 22:58 VBG pCO2 35.0 (40-60) L 08/02/16 22:58 VBG HCO3 24.9 mmol/l (21-28) 08/02/16 22:58 VBG Total CO2 26.0 mmol.L (22-28) 08/02/16 22:58 VBG O2 Sat (Calc) 99.9 % (40-65) H 08/02/16 22:58 VBG Base Excess 1.4 mmol/L (0.0-2.0) 08/02/16 22:58 VBG Potassium 3.1 mmol/L (3.6-5.2) L 08/02/16 22:58 Sodium 133.0 mmol/L (132-148) 08/02/16 22:58 Chloride 101.0 mmol/L (98-107) 08/02/16 22:58 Glucose 156 mg/dl (75-110) H 08/02/16 22:58 Lactate 1.5 mmol/L (0.7-2.1) 08/02/16 22:58 FiO2 21.0 % 08/02/16 22:58 Sodium 136 mmol/L (132-148) 08/07/16 08:45 Potassium 3.9 mmol/L (3.6-5.0) 08/07/16 08:45 Chloride 103 mmol/L (95-110) 08/07/16 08:45 Carbon Dioxide 25 mmol/L (21-33) 08/07/16 08:45 Anion Gap 12 (10-20) 08/07/16 08:45 BUN 11 mg/dL (7-21) 08/07/16 08:45 Creatinine 1.0 mg/dL (0.5-1.4) 08/07/16 08:45 Est GFR ( Amer) > 60 08/07/16 08:45 Est GFR (Non-Af Amer) > 60 08/07/16 08:45 Random Glucose 111 mg/dL (70-110) H 08/07/16 08:45 Hemoglobin A1c 8.4 % (4.2-6.5) H D 08/06/16 06:15 Calcium 9.2 mg/dL (8.4-10.5) 08/07/16 08:45 Phosphorus 3.2 mg/dL (2.5-4.5) 08/07/16 08:45 Magnesium 2.0 mg/dL (1.7-2.2) 08/07/16 08:45 Total Bilirubin 1.0 mg/dL (0.2-1.3) 08/07/16 08:45 AST 41 U/L (15-59) 08/07/16 08:45 ALT 41 U/L (7-56) 08/07/16 08:45 Alkaline Phosphatase 79 U/L (38-133) 08/07/16 08:45 Lactate Dehydrogenase 371 U/L (333-699) 08/03/16 22:00 Total Creatine Kinase 127 U/L (35-230) 08/03/16 22:00 Troponin I 0.86 ng/mL H* D 08/03/16 22:00 NT-Pro-B Natriuret Pep 1260 pg/mL (0-450) H 08/02/16 22:35 Total Protein 7.3 g/dL (5.8-8.3) 08/07/16 08:45 Albumin 3.9 g/dL (3.0-4.8) 08/07/16 08:45 Globulin 3.4 gm/dL 08/07/16 08:45 Albumin/Globulin Ratio 1.1 (1.1-1.8) 08/07/16 08:45 Triglycerides 201 mg/dL (35-160) H 08/06/16 06:15 Cholesterol 103 mg/dL (130-200) L 08/06/16 06:15 LDL Cholesterol Direct 43 mg/dL (0-129) 08/06/16 06:15 HDL Cholesterol 20 mg/dL (29-60) L 08/06/16 06:15 Prostate Specific Ag 0.2 ng/mL (0.00-2.5) 08/03/16 11:56 Procalcitonin 0.14 NG/ML (0.19-0.49) L 08/03/16 09:51 TSH 3rd Generation 1.0 MIU/ml (0.46-4.68) 08/06/16 06:15 Venous Blood Potassium 3.1 mmol/L (3.6-5.2) L 08/02/16 22:58 Urine Color Yellow (YELLOW) 08/02/16 23:20 Urine Appearance Cloudy (CLEAR) 08/02/16 23:20 Urine pH 6.5 (4.7-8.0) 08/02/16 23:20 Ur Specific [place] 1.015 (1.005-1.035) 08/02/16 23:20 Urine Protein 100 mg/dL (<30 mg/dL) H 08/02/16 23:20 Urine Glucose (UA) Negative mg/dL (NEGATIVE) 08/02/16 23:20 Urine Ketones Negative mg/dL (NEGATIVE) 08/02/16 23:20 Urine Blood Moderate (NEGATIVE) H 08/02/16 23:20 Urine Nitrate Positive (NEGATIVE) H 08/02/16 23:20 Urine Bilirubin Negative (NEGATIVE) 08/02/16 23:20 Urine Urobilinogen 0.2 E.U./dL (<1 E.U./dL) 08/02/16 23:20 Ur Leukocyte Esterase Moderate [place]/uL (NEGATIVE) H 08/02/16 23:20 Urine RBC 2 - 5 /hpf (0-2) 08/02/16 23:20 Urine WBC Tntc /hpf (0-6) 08/02/16 23:20 Ur Epithelial Cells 0 - 2 /hpf (0-5) 08/02/16 23:20 Urine Bacteria Mod (NEG) 08/02/16 23:20 Digoxin 1.2 ng/mL (0.8-2.0) 08/03/16 10:49 Influenza Typ A,B (EIA) Negative for flu a/b (NEGATIVE) 08/03/16 09:04 Attending/Attestation - Attestation I have personally seen and examined this patient.: Yes I have fully participated in the care of the patient.: Yes I have reviewed all pertinent clinical information, including history, physical exam and plan: Yes Notes (Text): 09/02/16 06:56 66 year old male with past medical history of CVA, CHF, nephrolithiasis, hypertension and recurrent UTI who presented with fever secondary to UTI sepsis. He was started on iv antibiotics. His symptoms improved and he was cleared for discharge on po vantin as per ID. He was also found to have NSTEMI. He was on aspirin, plavix, statin and coreg. He was followed by cardiology. He had cardiac cath with stent in LAD. Echocardiogram was reviewed which was then followed up with a MUGA scan which were reviewed. PT had recommended DORA/TCU. However patient and daughter refused and wanted to be discharged home with home services. Patient is discharged home with home services to follow up with his pmd. Recommend outpatient sleep study. Carmella Lóepz MD Hospitalist.
--- NOTE | 2016-08-08 18:01 | CP.PCM.PN ---
Subjective - Date & Time of Evaluation Date of Evaluation: 08/08/16 Time of Evaluation: 11:40 - Subjective Subjective: Comfortable, afebrile, not in distress. Objective - Vital Signs/Intake and Output Vital Signs (last 24 hours): Temp Pulse Resp BP Pulse Ox 97.6 F 50 L 18 124/74 96 08/08/16 08:06 08/08/16 08:06 08/08/16 08:06 08/08/16 08:06 08/08/16 08:06 Intake and Output: 08/08/16 08/08/16 06:59 18:59 Intake Total 780 700 Output Total 700 1000 Balance 80 -300 - Medications Medications: Current Medications Acetaminophen (Tylenol 325mg Tab) 650 mg PO Q4H PRN PRN Reason: Temp >100.4*F Albuterol Sulfate (Albuterol 0.083% Inhal Nini (2.5 Mg/3 Ml) Ud) 2.5 mg IH [id number] PRN PRN Reason: Shortness of Breath Amlodipine Besylate (Norvasc) 5 mg PO DAILY [facility] Last Admin: 08/07/16 09:50 Dose: 5 mg Aspirin (Aspirin Chewable) 81 mg PO DAILY [facility] Last Admin: 08/07/16 09:49 Dose: 81 mg Atorvastatin Calcium (Lipitor) 40 mg PO DAILY [facility] Last Admin: 08/07/16 09:49 Dose: 40 mg Benzonatate (Tessalon Perles) 100 mg PO TID [facility] Last Admin: 08/07/16 18:11 Dose: 100 mg Carvedilol (Coreg) 3.125 mg PO BID [facility] Last Admin: 08/07/16 18:11 Dose: 3.125 mg Clopidogrel Bisulfate (Plavix) 75 mg PO DAILY [facility] Last Admin: 08/07/16 09:50 Dose: 75 mg Digoxin (Lanoxin) 0.25 mg PO 1400 [facility] Last Admin: 08/07/16 13:28 Dose: 0.25 mg Diphenhydramine HCl (Benadryl) 25 mg IVP Q4H PRN PRN Reason: Allergy symptoms Last Admin: 08/07/16 21:19 Dose: 25 mg Enoxaparin Sodium (Lovenox) 40 mg SC DAILY [facility] PRN Reason: Protocol Last Admin: 08/07/16 09:49 Dose: 40 mg Finasteride (Proscar) 5 mg PO DAILY [facility] Last Admin: 08/07/16 09:50 Dose: 5 mg Furosemide (Lasix) 40 mg PO DAILY [facility] Last Admin: 08/07/16 09:49 Dose: 40 mg Meropenem 1g/NS 100mL IVPB (Meropenem 1g/Ns 100ml Ivpb) 1 gm in 100 mls @ 100 mls/hr IVPB Q12 [facility] PRN Reason: Protocol Stop: 08/10/16 10:01 Last Admin: 08/07/16 21:19 Dose: 100 mls/hr Levetiracetam (Keppra) 250 mg PO Q12 [facility] Last Admin: 08/07/16 21:19 Dose: 250 mg Lisinopril (Zestril) 2.5 mg PO DAILY [facility] Last Admin: 08/07/16 09:50 Dose: 2.5 mg Pantoprazole Sodium (Protonix Ec Tab) 40 mg PO 0630 [facility] Last Admin: 08/08/16 05:41 Dose: 40 mg Potassium Chloride (Klor-Con 10) 10 meq PO BRK [facility] Last Admin: 08/07/16 09:48 Dose: 10 meq Sertraline HCl (Zoloft) 100 mg PO DAILY [facility] Last Admin: 08/07/16 09:50 Dose: 100 mg - Labs Labs: 08/07/16 08:45 08/07/16 08:45 PT 11.6 Seconds (9.9-11.8) 08/02/16 22:35 INR 1.07 (0.93-1.08) 08/02/16 22:35 APTT 28.0 Seconds (23.7-30.8) 08/02/16 22:35 - Constitutional Appears: Non-toxic, No Acute Distress - Head Exam Head Exam: NORMAL INSPECTION - ENT Exam ENT Exam: Mucous Membranes Moist - Neck Exam Neck Exam: absent: Lymphadenopathy, Meningismus - Respiratory Exam Respiratory Exam: Decreased Breath Sounds - Cardiovascular Exam Cardiovascular Exam: +S1, +S2 - GI/Abdominal Exam GI & Abdominal Exam: Soft. absent: Tenderness Assessment and Plan - Assessment and Plan (Free Text) Plan: Assessment Systemic Inflammatory Response Syndrome (fever and tachycardia), consider sepsis secondary to urinary tract infection, clinically improving HTN CVA DM obesity with BMI 32 history of prostate problems history of UTI's arthritis S/P right knee surgery Plan continue Merrem day 6; urine cx show probable contamination, blood cx are negative; PCT and PSA levels are normal; should complete 5-7 days of antibiotics - when ready for discharge, can be switched to PO Vantin to complete therapy - discussed with Dr. López previously
== END 2016-08-08 20:12 | disposition home or self-care (01) | DRG 581 ==
LOC: ED 21:54 → ERH 08-03 01:10 → 2RNO 08-03 02:47 → 2RSO 08-05 12:34 → 3RNO 08-07 06:58
PROVIDERS: ADMIT Student in an Organized Health Care Education/Training Program; ATTEND Internal Medicine
PROC: 027034Z Dilation of Coronary Artery, One Artery with Drug-eluting Intraluminal Device, Percutaneous Approach (ICD-10-PCS; principal; 2016-08-05)
PROC: 4A023N7 Measurement of Cardiac Sampling and Pressure, Left Heart, Percutaneous Approach (ICD-10-PCS; 2016-08-05)
PROC: B211YZZ Fluoroscopy of Multiple Coronary Arteries using Other Contrast (ICD-10-PCS; 2016-08-05)
PROC: B215YZZ Fluoroscopy of Left Heart using Other Contrast (ICD-10-PCS; 2016-08-05)
DX: A41.9 Sepsis, unspecified organism (principal); I21.4 Non-ST elevation (NSTEMI) myocardial infarction; I42.0 Dilated cardiomyopathy; I50.9 Heart failure, unspecified; E11.22 Type 2 diabetes mellitus with diabetic chronic kidney disease; I13.0 Hypertensive heart and chronic kidney disease with heart failure and stage 1 through stage 4 chronic kidney disease, or unspecified chronic kidney disease; N18.9 Chronic kidney disease, unspecified; E87.6 Hypokalemia; I08.1 Rheumatic disorders of both mitral and tricuspid valves; R32 Unspecified urinary incontinence; I65.22 Occlusion and stenosis of left carotid artery; R56.9 Unspecified convulsions; N30.00 Acute cystitis without hematuria; D64.9 Anemia, unspecified; E66.9 Obesity, unspecified; E78.00 Pure hypercholesterolemia, unspecified; E78.5 Hyperlipidemia, unspecified; H91.90 Unspecified hearing loss, unspecified ear; I25.10 Atherosclerotic heart disease of native coronary artery without angina pectoris; I25.2 Old myocardial infarction; I25.82 Chronic total occlusion of coronary artery; I25.5 Ischemic cardiomyopathy; Z79.02 Long term (current) use of antithrombotics/antiplatelets; I73.9 Peripheral vascular disease, unspecified; M19.90 Unspecified osteoarthritis, unspecified site; N40.0 Benign prostatic hyperplasia without lower urinary tract symptoms; Z66 Do not resuscitate; Z68.32 Body mass index [BMI] 32.0-32.9, adult; Z79.82 Long term (current) use of aspirin; Z79.899 Other long term (current) drug therapy; Z87.440 Personal history of urinary (tract) infections; Z87.442 Personal history of urinary calculi; Z87.891 Personal history of nicotine dependence; Z95.5 Presence of coronary angioplasty implant and graft; I44.7 Left bundle-branch block, unspecified; Z91.013 Allergy to seafood; I69.351 Hemiplegia and hemiparesis following cerebral infarction affecting right dominant side

== ENCOUNTER 2016-11-19 11:05 | Inpatient (IN) | payer MEDICAID ==
[2016-11-19 11:15] VITALS: BMI 29.9
[2016-11-19] MEDS ORDERED: cefTRIAXone 1 gm 1 GM/100 ML BAG IVPB STA (11:32)
[2016-11-19] MEDS ORDERED: Sodium Chloride 0.9% 1,000 ML IV SCH (11:45)
[2016-11-19 11:49] LABS: BASO # 0.01 K/mm3 (0.0-2.0); BASO % 0.1 % (0.0-3.0); EOS # 0.1 (0.0-0.7); EOS % 0.8 % (1.5-5.0); GRAN # 12.03 (1.4-6.5); GRAN % 84.5 % (50.0-68.0); HEMATOCRIT 38.9 % (42.0-52.0); LYMPH # 0.9 (1.2-3.4); MEAN CELL VOLUME 87.2 fl (80.0-105.0); MEAN CORPUSCULAR HEMOGLOBIN 29.8 pg (25.0-35.0); MEAN CORPUSCULAR HGB CONC 34.2 g/dl (31.0-37.0); MEAN PLATELET VOLUME 9.7 fl (7.0-11.0); MONO # 1.2 (0.1-0.6); MONO % 8.6 % (1.0-6.0); RED CELL DISTRIBUTION WIDTH 14.2 % (11.5-14.5); WHITE BLOOD COUNT 14.2 10^3/ul (4.5-11.0)
--- NOTE | 2016-11-19 11:54 | ED PDOC ---
Arrival/HPI - General Chief Complaint: Back Pain Time Seen by Provider: 11/19/16 11:09 - History of Present Illness Narrative History of Present Illness (Text): 11/19/16 11:49 66 M w/ PMHx significant for renal stones, CKD and pyelonephritis presents with c/o left lower back pain, dark urine of two days duration and a fever of 102F at home. Patient's daughter is at bedside also contributing to history. Patient states that the pain in his left lower back is sharp, non-radiating, and is of 6/10 severity. Laying on his R side or sitting up makes it better, laying flat makes it worse. Patient denies dysuria and frequency, but states that he usually urinates more frequently, as he is on Lasix. Patient states that the fever started this morning. Patient's daughter states he is weaker than usual. Pt further admits to n/v of two days duration, has not passed a BM in two days. Patient denies CP and sob, palpitations, headache, dizziness, or a heavy pulse. No further complaints. Of note, patient had a CVA in the past, and per daughter has residual deficits from the stroke including speech deficits and R sided weakness and sensory deficits. (Joseph Lehman) Past Medical History - Provider Review Nursing Documentation Reviewed: Yes - Infectious Disease Hx of Infectious Diseases: None - Tetanus Immunization Tetanus Immunization: Unknown - Cardiac Hx Cardiac Disorders: Yes Hx HI: Yes (stents) Hx Hypertension: Yes Other/Comment: cardiomyopathy - Pulmonary Hx Chronic Obstructive Pulmonary Disease (COPD): No - Neurological Hx Neurological Disorder: Yes HX Cerebrovascular Accident: Yes (CVA/TIA with residual R sided weakness) - HEENT Hx HEENT Disorder: Yes Hx Blind: No Hx Cataracts: No Hx Deafness: Yes (left ear, hearing aid) Hx Difficulty Chewing: No Hx Epistaxis: No Hx Glaucoma: No Hx Macular Degeneration: No Other/Comment: uses eye glasses - Renal Hx Renal Disorder: Yes Hx Kidney Stones: Yes Hx Renal Failure: Yes - Endocrine/Metabolic Hx Endocrine Disorders: Yes Hx Diabetes Mellitus Type 2: Yes - Hematological/Oncological Hx Blood Disorders: Yes Hx Blood Transfusions: Yes Hx Blood Transfusion Reaction: No - Integumentary Hx Dermatological Disorder: No - Musculoskeletal/Rheumatological Hx Musculoskeletal Disorders: Yes Hx Arthritis: Yes - Gastrointestinal Hx Gastrointestinal Disorders: No Other/Comment: umbilical hernia - Genitourinary/Gynecological Hx Genitourinary Disorders: Yes Hx Hematuria: Yes Hx Incontinence: Yes Hx Prostate Problems: Yes Hx Sexually Transmitted Diseases: No Hx Urinary Tract Infection: Yes - Psychiatric Hx Psychophysiologic Disorder: No Hx Emotional Abuse: No Hx Physical Abuse: No Hx Substance Use: No - Past Surgical History Past Surgical History: Unable to Obtain - Surgical History Hx Cardiac Catheterization: Yes (stents) Hx Coronary Stent: No Hx Orthopedic Surgery: Yes Other/Comment: rt.knee surgery - Anesthesia Hx Anesthesia: Yes Hx Anesthesia Reactions: No Hx Malignant Hyperthermia: No - Suicidal Assessment Feels Threatened In Home Enviroment: No Family/Social History - Physician Review Nursing Documentation Reviewed: Yes Family/Social History: Hypertension Smoking Status: Former Smoker Hx Alcohol Use: No Hx Substance Use: No Hx Substance Use Treatment: No Allergies/Home Meds Allergies/Adverse Reactions: Allergies salmon Adverse Reaction (Uncoded 11/19/16 11:20) RASH Home Medications: Home Meds Medication Instructions Recorded Confirmed Tamsulosin [Flomax] 0.4 mg PO DAILY 03/08/13 11/19/16 levETIRAcetam [Keppra] 250 mg PO Q12 03/08/13 11/19/16 Sertraline [Zoloft] 100 mg PO DAILY 05/10/15 11/19/16 Atorvastatin [Lipitor] 80 mg PO DAILY 11/19/16 11/19/16 Diclofenac Sodium [Diclozor] 1 appful TD DAILY 11/19/16 11/19/16 Finasteride [Proscar] 1 tab PO DAILY 11/19/16 11/19/16 Review of Systems - Physician Review All systems were reviewed & negative as marked: Yes - Review of Systems Constitutional: Fatigue, Fevers. absent: Weight Change, Night Sweats Eyes: Normal. absent: Vision Changes, Photophobia ENT: Normal. absent: Sore Throat, Rhinorrhea, Epistaxis Respiratory: Normal. absent: SOB, Cough, Wheezing Cardiovascular: Normal. absent: Chest Pain, Palpitations, WILKINS Gastrointestinal: Constipation, Nausea, Vomiting. absent: Stool Changes, Hematochezia, Food Intolerance Genitourinary Male: Hematuria, Urinary Output Changes. absent: Normal Musculoskeletal: Back Pain (complains more of flank pain in left lower back). absent: Normal, Arthralgias, Neck Pain Skin: Normal. absent: Rash, Pruritis, Skin Lesions Neurological: Normal. absent: Headache, Dizziness, Focal Weakness Endocrine: Normal. absent: Diaphoresis, Polydipsia Hemo/Lymphatic: Normal. absent: Adenopathy, Easy Bleeding Psychiatric: Normal. absent: Anxiety, Depression Physical Exam Vital Signs Reviewed: Yes Temperature: Afebrile Blood Pressure: Hypotensive Pulse: Regular Respiratory Rate: Normal Appearance: Positive for: Well-Appearing, Non-Toxic, Comfortable Pain Distress: None Mental Status: Positive for: Alert and Oriented X 3 - Systems Exam Head: Present: Atraumatic, Normocephalic. No: Tenderness, Contusion Pupils: Present: PERRL. No: Sluggish, Non-Reactive, Pinpoint Extroacular Muscles: Present: EOMI. No: Gaze Palsy, Entrapment Conjunctiva: Present: Normal. No: Injected, Icteric Ears: Present: Normal, NORMAL TM, Normal Canal. No: TM Bulging, TM Perf Mouth: Present: Moist Mucous Membranes, Normal Lips, Normal Tounge, Normal Teeth. No: Dry, Drooling Pharnyx: Present: Normal. No: ERYTHEMA, EXUDATE, TONSILS ENLARGED, Peritonsilar Swelling, Muffled/Hoarse Voice Nose (External): Present: Atraumatic. No: Abrasion, Laceration Neck: Present: Normal Range of Motion. No: MIDLINE TENDERNESS, Paraspinal Tenderness Respiratory/Chest: Present: Clear to Auscultation, Good Air Exchange. No: Respiratory Distress, Accessory Muscle Use, Wheezes, Rales, Rhonchi Cardiovascular: Present: Regular Rate and Rhythm, Normal S1, S2. No: Murmurs, Irregular Rhythm, Rub, Gallop Abdomen: Present: Normal Bowel Sounds. No: Tenderness, Distention, Peritoneal Signs, Rebound, Guarding Genitourinary Male: Present: Normal External Genitalia, Circumcised Penis. No: Lesions, Penile Discharge Back: Present: Normal Inspection, CVA Tenderness. No: Midline Tenderness, Paraspinal Tenderness, Pain with Leg Raise Upper Extremity: Present: Normal Inspection, Normal ROM, NORMAL PULSES. No: Cyanosis, Edema Lower Extremity: Present: Normal Inspection, NORMAL PULSES, Normal ROM. No: Edema, CALF TENDERNESS, Cyanosis Neurological: Present: GCS=15, CN II-XII Intact. No: Speech Normal (patient has residual deficits from a R sided stroke), Normal Sensory Function (R sided decreased sensation) Skin: Present: Warm, Normal Color. No: Rashes, Diaphoretic Psychiatric: Present: Alert, Oriented x 3, Normal Insight, Normal Concentration. No: Suicidal Ideation, Homicidal Ideation Medical Decision Making - Lab Interpretations I have reviewed the lab results: Yes (see MDM for pertinent lab results) - RAD Interpretation Unstacker: ED Physician, Radiologist ED Course and Treatment: Assessed 11/19/16 12:00 Impression: 66 M w/ PMHx pertinent for past pyelonephritis, sepsis, and nephrolithiasis c/o 2 days duration of L lower flank pain, hematuria, and decreased urination. Hypotensive with leukocytosis in ER, febrile at home Plan - CT Abd/Pelvis, CXR - CMP, CBC, Lactic acid - Urinalysis, Urine Cx - Rocephin 1 gm STAT, Maintenance fluids at 100 mLs/hr, 2L bolus over 1 hour - Toradol for pain - BP 75/41 - Reassess Reassessed 11/19/16 12:50 - Patient's pain improved with Toradol - CT Abd shows perinephric swelling indicative of pyelonephritis. Renal mass cannot be ruled out - CXR no acute disease - CMP shows decreased K+, slightly elevated Creatinine - K+ replenished, Mg replenished - CBC shows leukocytosis - Case d/w PMD, Dr. Pereira: patient is usually admitted to hospitalist service, but he appreciates the call - Case d/w Dr. López, Hospitalist, advises us to reassess patient to see if his hypotension responds to the fluids - if not, consider ICU evaluation Reassessed 11/19/16 13:17 - Patient's BP is 92/50 after 100 mL's of fluid. Is responding to fluids Reassessed 11/19/16 13:37 - Patient's BP is 110/45 after 200 mL's of fluid. Is responding well to fluids - Case d/w Dr. López, accepted admission to his service on telemetry. (Joseph Lehman) 11/19/16 14:50 Patient seen and examined with resident Came up with treatment and disposition plan with resident (Karlos Dennison) - Lab Interpretations Lab Results: 11/19/16 11:30 11/19/16 11:30 Lab Results 11/19/16 12:15: pO2 41, VBG pH 7.41, VBG pCO2 44.0, VBG HCO3 27.9, VBG Total CO2 29.3 H, VBG O2 Sat (Calc) 82.5 H, VBG Base Excess 2.7 H, VBG Potassium 3.5 L , Glucose 209 H, Lactate 1.5, FiO2 21.0, Sodium 135.0, Chloride 97.0 L, Venous Blood Potassium 3.5 L 11/19/16 11:30: Sodium 137, Potassium 3.1 L, Chloride 97 L, Carbon Dioxide 26, Anion Gap 17, BUN 19, Creatinine 1.6 H, Est GFR ( Amer) 53, Est GFR (Non- Af Amer) 44, Random Glucose 198 H, Calcium 9.3, Total Bilirubin 1.9 H, AST 32, ALT 25, Alkaline Phosphatase 85, Total Protein 7.7, Albumin 4.0, Globulin 3.8, Albumin/Globulin Ratio 1.1, Lipase 68 11/19/16 11:30: WBC 14.2 H D, RBC 4.46, Hgb 13.3 L, Hct 38.9 L, MCV 87.2, MCH 29.8, MCHC 34.2, RDW 14.2, Plt Count 218, MPV 9.7, Gran % 84.5 H, Lymph % (Auto ) 6.0 L, Pratt % (Auto) 8.6 H, Eos % (Auto) 0.8 L, Baso % (Auto) 0.1, Gran # 12.03 H, Lymph # 0.9 L, Pratt # 1.2 H, Eos # 0.1, Baso # 0.01 - RAD Interpretation Radiology Orders: 11/19/16 11:26 ABD & PELVIS W/O PO OR IV CONT [CT] Stat 11/19/16 12:06 CHEST PORTABLE [RAD] Stat - Medication Orders Current Medication Orders: Sodium Chloride (Sodium Chloride 0.9%) 1,000 mls @ 100 mls/hr IV .Q10H NIURKA Potassium Chloride (Potassium Chloride 20 Meq/100 Ml) 20 meq in 100 mls @ 50 mls/hr IVPB Q2H [facility] Stop: 11/19/16 16:14 Last Admin: 11/19/16 13:43 Dose: 50 mls/hr Discontinued Medications Ceftriaxone Sodium (Rocephin 1 Gram Ivpb) 1 gm in 100 mls @ 200 mls/hr IVPB STAT STA PRN Reason: Protocol Stop: 11/19/16 12:01 Last Admin: 11/19/16 12:20 Dose: 200 mls/hr Sodium Chloride (Sodium Chloride 0.9%) 1,000 mls @ 999 mls/hr IV .Q1H1M STA Stop: 11/19/16 13:03 Sodium Chloride (Sodium Chloride 0.9%) 2,000 mls @ 1,999 mls/hr IV .Q1H1M STA Stop: 11/19/16 13:03 Last Admin: 11/19/16 12:21 Dose: 1,999 mls/hr Magnesium Sulfate/Dextrose (Magnesium Sulfate 1 Gm/100 Ml D5w) 1 gm in 100 mls @ 100 mls/hr IVPB ONCE ONE Stop: 11/19/16 13:07 Ketorolac Tromethamine (Toradol) 15 mg IVP STAT STA Stop: 11/19/16 12:45 Last Admin: 11/19/16 14:18 Dose: 15 mg Disposition/Present on Arrival - Present on Arrival Any Indicators Present on Arrival: No History of DVT/PE: No History of Uncontrolled Diabetes: No Urinary Catheter: No History of Decub. Ulcer: No History Surgical Site Infection Following: None - Disposition Have Diagnosis and Disposition been Completed?: Yes Disposition Time: 13:46 Patient Plan: Admission - Disposition Diagnosis: Pyelonephritis Disposition: HOSPITALIZED Patient Problems: Current Active Problems Problem Status Onset Pyelonephritis Acute Condition: FAIR
[2016-11-19 12:00] LABS: ALB/GLOB RATIO 1.1 (1.1-1.8); BILIRUBIN,TOTAL 1.9 mg/dL (0.2-1.3); CALCIUM 9.3 mg/dL (8.4-10.5); POTASSIUM 3.1 mmol/L (3.6-5.0); TOTAL PROTEIN 7.7 g/dL (5.8-8.3)
[2016-11-19] MEDS ORDERED: Sodium Chloride 0.9% 1,000 ML IV STA (12:03)
[2016-11-19] MEDS ORDERED: Sodium Chloride 0.9% 2,000 ML IV STA (12:07)
[2016-11-19] MEDS ORDERED: Magnesium Sulfate 1 gm in D5W 1 GM/100 ML BAG IVPB ONE (12:08)
[2016-11-19 12:25] LABS: VENOUS BLOOD GAS BASE EXCESS 2.7 mmol/L (0.0-2.0); VENOUS BLOOD PH 7.41 (7.32-7.43)
--- NOTE | 2016-11-19 12:39 | CT ---
PROCEDURE: CT Abdomen and Pelvis without intravenous contrast HISTORY: flank pain COMPARISON: 01/28/2016 TECHNIQUE: Without contrast.. Contrast Dose: Radiation dose: Total exam DLP = 1336 mGy-cm. This CT exam was performed using one or more of the following dose reduction techniques: Automated exposure control, adjustment of the mA and/or kV according to patient size, and/or use of iterative reconstruction technique. FINDINGS: LOWER THORAX: Unremarkable. LIVER: Unremarkable. No gross lesion or ductal dilatation. Fatty infiltration GALLBLADDER AND BILE DUCTS: Unremarkable. PANCREAS: Unremarkable. No gross lesion or ductal dilatation. SPLEEN: Unremarkable. ADRENALS: Unremarkable. No mass. KIDNEYS AND URETERS: There is increase perinephric stranding around the left kidney. This is of uncertain etiology. This could be due to pyelonephritis. As seen previously the renal pelvis has an irregular spiculated contour which is probably due to chronic inflammation or scarring. However a neoplastic lesion cannot be excluded. The right kidney is unremarkable VASCULATURE: Unremarkable. No aortic aneurysm. BOWEL: Unremarkable. No obstruction. No gross mural thickening. There is diverticulosis of the sigmoid colon APPENDIX: Unremarkable. Normal appendix. PERITONEUM: Unremarkable. No free fluid. No free air. LYMPH NODES: Unremarkable. No enlarged lymph nodes. BLADDER: Unremarkable. REPRODUCTIVE: Unremarkable. BONES: No acute fracture. OTHER FINDINGS: There is atrophy and fatty replacement of the left iliopsoas muscle. This finding is unchanged IMPRESSION: Increase perinephric stranding around the left kidney, possible pyelonephritis. Chronic scarring and irregularity of the contour of the left renal pelvis.
--- NOTE | 2016-11-19 12:41 | RAD ---
HISTORY: sepsis COMPARISON: 08/03/2016 FINDINGS: LUNGS: No active pulmonary disease. PLEURA: No significant pleural effusion identified, no pneumothorax apparent. CARDIOVASCULAR: Mild cardiomegaly. Mild aortic tortuosity OSSEOUS STRUCTURES: No significant abnormalities. VISUALIZED UPPER ABDOMEN: Normal. OTHER FINDINGS: None. IMPRESSION: No active disease.
--- NOTE | 2016-11-19 15:01 | CP.PCM.HP ---
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 The patient states he has had achy 5/10 pain in the suprapubic region for the past 3 days. The pain radiates to his back and he came in because the pain was not improving. He took Tylenol for the pain but it did not help. The patient also stated he had a fever at home, and had some blood in his urine. He also complains of pain while urinating, trouble starting a stream, and having a weak stream. He also complains of nausea and said that he vomited today. The vomit was food particles. The patient also states he has pain in his right ear. He denies any chest pain, SOB, dizziness, loss of vision , hearing changes, chills, weight loss. Present on Admission - Present on Admission Any Indicators Present on Admission: No History of DVT/PE: No History of Uncontrolled Diabetes: No Urinary Catheter: No Decubitus Ulcer Present: No Review of Systems - Constitutional Constitutional: Fever. absent: Chills, Headache, Night Sweats, Weight Loss - EENT Eyes: absent: Change in Vision Ears: Decreased Hearing, Ear Pain. absent: Dizziness Nose/Mouth/Throat: absent: Neck Pain - Cardiovascular Cardiovascular: absent: Chest Pain, Dyspnea on Exertion, Lightheadedness, Palpitations - Respiratory Respiratory: absent: Dyspnea, Dyspnea on Exertion - Gastrointestinal Gastrointestinal: Abdominal Pain, Vomiting. absent: Diarrhea Additional comments: vomit was food - Genitourinary Genitourinary: Difficulty Urinating, Dysuria, Flank Pain, Voiding Freq/Small Amts Additional comments: left flank pain - Musculoskeletal Musculoskeletal: Muscle Weakness - Integumentary Integumentary: Rash - Neurological Neurological: absent: Dizziness, Numbness, Headaches, Loss of Vision - Endocrine Endocrine: absent: Palpitations Past Patient History - Infectious Disease Hx of Infectious Diseases: None - Tetanus Immunizations Tetanus Immunization: Unknown - Past Medical History & Family History Past Medical History?: Yes - Past Social History Smoking Status: Former Smoker - CARDIAC Hx Cardiac Disorders: Yes Hx Congestive Heart Failure: Yes Hx Heart Attack: Yes (stents) Hx Hypertension: Yes Other/Comment: cardiomyopathy - PULMONARY Hx Chronic Obstructive Pulmonary Disease (COPD): No - NEUROLOGICAL Hx Neurological Disorder: Yes HX Cerebrovascular Accident: Yes (CVA/TIA with residual R sided weakness and slurred speech) - HEENT Hx HEENT Problems: Yes Hx Blind: No Hx Cataracts: No Hx Deafness: Yes (left ear, hearing aid) Hx Difficulty Chewing: No Hx Epistaxis: No Hx Glaucoma: No Hx Macular Degeneration: No Other/Comment: uses eye glasses - RENAL Hx Chronic Kidney Disease: Yes Hx Kidney Stones: Yes Hx Renal Failure: Yes - ENDOCRINE/METABOLIC Hx Endocrine Disorders: Yes Hx Diabetes Mellitus Type 2: Yes - HEMATOLOGICAL/ONCOLOGICAL Hx Blood Disorders: Yes Hx Blood Transfusions: Yes Hx Blood Transfusion Reaction: No - INTEGUMENTARY Hx Dermatological Problems: No - MUSCULOSKELETAL/RHEUMATOLOGICAL Hx Musculoskeletal Disorders: Yes Hx Arthritis: Yes - GASTROINTESTINAL Hx Gastrointestinal Disorders: No Other/Comment: umbilical hernia - GENITOURINARY/GYNECOLOGICAL Hx Genitourinary Disorders: Yes Hx Hematuria: Yes Hx Incontinence: Yes Hx Prostate Problems: Yes Hx Sexually Transmitted Disorders: No Hx Urinary Tract Infection: Yes - PSYCHIATRIC Hx Psychophysiologic Disorder: No Hx Emotional Abuse: No Hx Physical Abuse: No Hx Substance Use: No - SURGICAL HISTORY Hx Cardiac Catheterization: Yes (stents) Hx Coronary Stent: No Hx Orthopedic Surgery: Yes Other/Comment: rt.knee surgery - ANESTHESIA Hx Anesthesia: Yes Hx Anesthesia Reactions: No Hx Malignant Hyperthermia: No Meds Allergies/Adverse Reactions: Allergies Allergy/AdvReac Type Severity Reaction Status Date / Time salmon AdvReac RASH Uncoded 11/19/16 11:20 Physical Exam - Constitutional Appears: No Acute Distress - Head Exam Head Exam: ATRAUMATIC, NORMAL INSPECTION - Eye Exam Eye Exam: Normal appearance - Respiratory Exam Respiratory Exam: Clear to Auscultation Bilateral, NORMAL BREATHING PATTERN. absent: Rales, Stridor - Cardiovascular Exam Cardiovascular Exam: REGULAR RHYTHM, +S1, +S2. absent: Systolic Murmur - GI/Abdominal Exam GI & Abdominal Exam: Normal Bowel Sounds - Extremities Exam Additional comments: decreased strength in right arm and leg - Back Exam Back exam: CVA tenderness (L) - Neurological Exam Neurological exam: Alert, Oriented x3 - Skin Skin Exam: Abrasion Additional comments: abrasion on left lower carnes Results - Vital Signs Recent Vital Signs: Last Vital Signs Temp 97.8 F 11/19/16 11:14 Pulse 84 11/19/16 11:14 Resp 18 11/19/16 11:14 BP 75/41 L 11/19/16 11:14 Pulse Ox 92 L 11/19/16 11:14 - Labs Result Diagrams: 11/19/16 11:30 11/19/16 11:30 Assessment & Plan - Assessment and Plan (Free Text) Assessment: 66 yo male with PMH of Nephrolithiasis, recurrent UTIs, CHF, CAD with stent, 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 Plan: 1. Sepsis (pylonephritis as a possible source) -patient meets 2/4 SIRS criteria ( hypotension on arrival, leukocytosis) -pt had CT done showing pylonephritis -UA obtained showed blood possibly from passed stone and leukocyte esterase -ID consulted -ED was consulted, and administered one dose of Rocephin -Nephrology consulted for positive UA 2. Hypokalemia -Started repletion -will continue to monitor 3. KAROLINE -likely prerenal, patient is voiding, so doubt postrenal -urine NA, creatinine and uric acid ordered to determine if intrinsic cause -IV hydration at 60 per hour 4. HTN -hold HTN medicine due to hypotension 5. CAD with Stent -hold arb and beta sergey -continue Lipitor -started on heart healthy diet 6. CVA History with right sided residual weakness and slurred speech. -continue aspirin and plavix 7. CHF -last MUGA scan in july showed 40% EF -hold Lasix for hypotension -continue digoxin 8. GI prophylaxis - famotidine 9. BPH -continue home meds 10. DVT prophylaxis -heparin 11. seizures -continue keppra 12. Anxiety -continue home medications Decision To Admit - Pt Status Changed To: Hospital Disposition Of: Inpatient Admission - Admit Certification Admit to Inpatient:: After my assessment, the patient will require hospitalization for at least two midnights. This is because of the severity of symptoms shown, intensity of services needed, and/or the medical risk in this patient being treated as an outpatient. - . Bed Request Type: Telemetry <Carmella López - Last Filed: 11/19/16 18:01> Results - Vital Signs Recent Vital Signs: Last Vital Signs Temp 97.8 F 11/19/16 11:14 Pulse 55 L 11/19/16 16:42 Resp 22 11/19/16 16:42 BP 127/65 11/19/16 16:42 Pulse Ox 96 11/19/16 16:42 - Labs Result Diagrams: 11/19/16 11:30 11/19/16 11:30 Labs: Laboratory Results - last 24 hr 11/19/16 15:10 Urine Color Light red Urine Appearance Cloudy Urine pH 6.0 Ur Specific [place] 1.020 Urine Protein 100 H Urine Glucose (UA) Negative Urine Ketones Trace H Urine Blood Large H Urine Nitrate Negative Urine Bilirubin Negative Urine Urobilinogen 0.2 Ur Leukocyte Esterase Moderate H Urine RBC 5 - 10 Urine WBC Tntc Ur Epithelial Cells 10 - 12 Urine Bacteria Few Attending/Attestation - Attestation I have personally seen and examined this patient.: Yes I have fully participated in the care of the patient.: Yes I have reviewed all pertinent clinical information: Yes Notes (Text): 11/19/16 17:50 66 year old male with past medical history of nephrolithiasis, recurrent UTI, CAD, CVA, and hypertension who presents with dysuria and left flank pain. States he had fever at home though afebrile here. Initially he was hypotensive which improved iv fluid bolus. UA is positive for leukocyte esterase. CT abd/pelvis is positive for pyelonephritis. Continue with iv antibiotics. Ucx/Bcx are pending. ID and urology evaluation is requested. Continue with IVF for KAROLINE. Will hold his bp medications given initial presentation of hypotension. He is on aspirin, plavix and statin for history of CAD and CVA. Will replete and repeat potassium. Carmella López MD Hospitalist.
[2016-11-19 15:22] LABS: URINE BILIRUBIN NEGATIVE (NEGATIVE); URINE BLOOD LARGE (NEGATIVE); URINE GLUCOSE (UA) NEGATIVE (NEGATIVE); URINE KETONE TRACE mg/dL (NEGATIVE); URINE LEUKOCYTE ESTERASE MODERATE Leu/uL (NEGATIVE); URINE PROTEIN 100 mg/dL (<30 mg/dL); URINE UROBILINOGEN 0.2 E.U./dL (<1 E.U./dL)
[2016-11-19 15:24] LABS: URINE APPEARANCE CLOUDY (CLEAR); URINE COLOR LIGHT RED (YELLOW)
[2016-11-19 15:27] LABS: URINE BACTERIA FEW (NEG); URINE WBC TNTC /hpf (0-6)
[2016-11-19] MEDS: Cefepime IV 2 gm in NS 2 GM/100 ML BAG IVPB SCH (16:24)
[2016-11-19] MEDS: Sodium Chloride 0.9% 1,000 ML IV SCH (16:25)
[2016-11-19] MEDS ORDERED: Oxycodone/Acetaminophen 5/325 mg Tab PO ONE (17:23)
[2016-11-19 18:33] LABS: INR 1.09 (0.93-1.08); PARTIAL THROMBOPLASTIN TIME 35.5 Seconds (23.7-30.8)
[2016-11-19] MEDS ORDERED: Pneumococcal 23-Valent Vaccine IM ONE (20:29)
--- NOTE | 2016-11-19 22:51 | CARD ---
APPROVED REPORT EKG Measurement Heart [id number] CT 208P44 [id number] <Conclusion> Normal sinus rhythm with sinus arrhythmia Left axis deviation Left bundle branch block Abnormal ECG
[2016-11-20 07:00] LABS: BASO # 0.02 K/mm3 (0.0-2.0); BASO % 0.2 % (0.0-3.0); EOS # 0.2 (0.0-0.7); EOS % 2.1 % (1.5-5.0); GRAN # 6.87 (1.4-6.5); GRAN % 80.2 % (50.0-68.0); HEMATOCRIT 34.1 % (42.0-52.0); LYMPH # 0.8 (1.2-3.4); LYMPH % 9.2 % (22.0-35.0); MEAN CELL VOLUME 88.1 fl (80.0-105.0); MEAN CORPUSCULAR HEMOGLOBIN 28.7 pg (25.0-35.0); MEAN CORPUSCULAR HGB CONC 32.6 g/dl (31.0-37.0); MEAN PLATELET VOLUME 9.6 fl (7.0-11.0); MONO # 0.7 (0.1-0.6); MONO % 8.3 % (1.0-6.0); RED CELL DISTRIBUTION WIDTH 14.5 % (11.5-14.5); WHITE BLOOD COUNT 8.6 10^3/ul (4.5-11.0)
[2016-11-20 07:11] LABS: ALKALINE PHOSPHATASE 65 U/L (38-126); ALT/SGPT 38 U/L (7-56); AST/SGOT 27 U/L (17-59); BILIRUBIN,TOTAL 0.9 mg/dL (0.2-1.3); BLOOD UREA NITROGEN 15 mg/dL (7-21); CALCIUM 8.2 mg/dL (8.4-10.5); CARBON DIOXIDE 24 mmol/L (21-33); CHLORIDE 106 mmol/L (98-107); GFR AFRICAN-AMERICAN > 60; GLUCOSE,RANDOM 117 mg/dL (70-110); SODIUM 138 mmol/L (132-148); TOTAL PROTEIN 6.3 g/dL (5.8-8.3)
[2016-11-20] MEDS ORDERED: Magnesium Sulfate 2 GM in Sodium Chloride 0.9% 100 ML IVPB ONE (09:10)
[2016-11-20] MEDS: Cefepime IV 2 gm in NS 2 GM/100 ML BAG IVPB SCH ×2 (11:55→21:15)
--- NOTE | 2016-11-20 14:19 | CP.PCM.PN ---
<Jeovanny Thomas - Last Filed: 11/20/16 18:28> Subjective - Date & Time of Evaluation Date of Evaluation: 11/20/16 Time of Evaluation: 07:30 - Subjective Subjective: Internal Medicine Progress note Patient seen and evaluated this morning at bedside. No events reported overnight. Patient said his suprapubic and flank pain had decreased. Patient also stated that his left shoulder was hurting. Objective - Vital Signs/Intake and Output Vital Signs (last 24 hours): Temp Pulse Resp BP Pulse Ox 98.5 F 63 14 176/95 H 96 11/20/16 12:00 11/20/16 14:00 11/20/16 12:00 11/20/16 12:00 11/20/16 06:00 Intake and Output: 11/20/16 11/20/16 06:59 18:59 Intake Total 817 300 Output Total 900 600 Balance -83 -300 - Medications Medications: Current Medications Aspirin (Aspirin Chewable) 81 mg PO DAILY [facility] Last Admin: 11/20/16 11:12 Dose: 81 mg Atorvastatin Calcium (Lipitor) 40 mg PO DAILY [facility] Last Admin: 11/20/16 11:13 Dose: 40 mg Clopidogrel Bisulfate (Plavix) 75 mg PO DAILY [facility] Last Admin: 11/20/16 11:17 Dose: 75 mg Digoxin (Lanoxin) 0.25 mg PO 1400 [facility] Famotidine (Pepcid) 40 mg PO HS [facility] Last Admin: 11/19/16 21:48 Dose: 40 mg Finasteride (Proscar) 5 mg PO DAILY [facility] Last Admin: 11/20/16 12:03 Dose: 5 mg Heparin Sodium (Porcine) (Heparin) 5,000 units SC Q12 [facility] PRN Reason: Protocol Last Admin: 11/20/16 11:12 Dose: 5,000 units Cefepime HCl (Maxipime 2gm) 2 gm in 100 mls @ 100 mls/hr IVPB Q12 [facility] PRN Reason: Protocol Stop: 11/24/16 15:13 Last Admin: 11/20/16 11:55 Dose: 100 mls/hr Levetiracetam (Keppra) 250 mg PO Q12 [facility] Last Admin: 11/20/16 11:13 Dose: 250 mg Ondansetron HCl (Zofran Inj) 4 mg IVP Q4H PRN PRN Reason: Nausea/Vomiting Tamsulosin HCl (Flomax) 0.4 mg PO DAILY [facility] Last Admin: 11/20/16 11:12 Dose: 0.4 mg - Labs Labs: 11/20/16 06:20 11/20/16 06:20 PT 11.8 Seconds (9.9-11.8) 11/19/16 18:17 INR 1.09 (0.93-1.08) H 11/19/16 18:17 APTT 35.5 Seconds (23.7-30.8) H 11/19/16 18:17 - Constitutional Appears: No Acute Distress - Head Exam Head Exam: ATRAUMATIC, NORMAL INSPECTION, NORMOCEPHALIC - Eye Exam Eye Exam: Normal appearance - Respiratory Exam Respiratory Exam: NORMAL BREATHING PATTERN - Cardiovascular Exam Cardiovascular Exam: REGULAR RHYTHM, +S1. 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 He is currently being worked up for pyelonephritis. Plan: 1. Sepsis (pylonephritis as a possible source) -patient meets 2/4 SIRS criteria ( hypotension on arrival, leukocytosis) -pt had CT done showing pylonephritis -UA obtained showed blood possibly from passed stone and leukocyte esterase -ID consulted -HIV test ordered -ED was consulted, and administered one dose of Rocephin -Nephrology consulted for positive UA -hypotension has resolved, hold fluids and asses tomorrow. -Urology consulted, will perform cystoscopy tomorrow -Cardio consulted for clearance for cystoscopy -will make NPO is cleared for cystoscopy 2. Hypokalemia -continue repletion -will continue to monitor 3. KAROLINE -likely prerenal, patient is voiding, so doubt postrenal -urine NA, creatinine and uric acid pending review 4. HTN -hold HTN medicine due to hypotension 5. CAD with Stent -hold arb and beta sergey -continue Lipitor -started on heart healthy diet 6. CVA History with right sided residual weakness and slurred speech. -continue aspirin and plavix 7. CHF -last MUGA scan in july showed 40% EF -continue holding lasix -continue digoxin 8. GI prophylaxis - famotidine 9. BPH -continue home meds -PSA level ordered by ID 10. DVT prophylaxis -heparin 11. seizures -continue keppra 12. Anxiety -continue home medications <Carmella López - Last Filed: 11/20/16 18:41> Objective - Vital Signs/Intake and Output Vital Signs (last 24 hours): Temp Pulse Resp BP Pulse Ox 98.5 F 63 14 176/95 H 96 11/20/16 12:00 11/20/16 14:00 11/20/16 12:00 11/20/16 12:00 11/20/16 06:00 Intake and Output: 11/20/16 11/20/16 06:59 18:59 Intake Total 817 300 Output Total 900 600 Balance -83 -300 - Medications Medications: Current Medications Aspirin (Aspirin Chewable) 81 mg PO DAILY [facility] Last Admin: 11/20/16 11:12 Dose: 81 mg Atorvastatin Calcium (Lipitor) 40 mg PO DAILY [facility] Last Admin: 11/20/16 11:13 Dose: 40 mg Clopidogrel Bisulfate (Plavix) 75 mg PO DAILY [facility] Last Admin: 11/20/16 11:17 Dose: 75 mg Digoxin (Lanoxin) 0.25 mg PO 1400 [facility] Last Admin: 11/20/16 15:18 Dose: 0.25 mg Famotidine (Pepcid) 40 mg PO HS [facility] Last Admin: 11/19/16 21:48 Dose: 40 mg Finasteride (Proscar) 5 mg PO DAILY [facility] Last Admin: 11/20/16 12:03 Dose: 5 mg Heparin Sodium (Porcine) (Heparin) 5,000 units SC Q12 [facility] PRN Reason: Protocol Last Admin: 11/20/16 11:12 Dose: 5,000 units Cefepime HCl (Maxipime 2gm) 2 gm in 100 mls @ 100 mls/hr IVPB Q12 [facility] PRN Reason: Protocol Stop: 11/24/16 15:13 Last Admin: 11/20/16 11:55 Dose: 100 mls/hr Levetiracetam (Keppra) 250 mg PO Q12 [facility] Last Admin: 11/20/16 11:13 Dose: 250 mg Ondansetron HCl (Zofran Inj) 4 mg IVP Q4H PRN PRN Reason: Nausea/Vomiting Potassium Chloride (K-Dur 20 Meq Er Tab) 40 meq PO ONCE ONE Stop: 11/20/16 21:01 Tamsulosin HCl (Flomax) 0.4 mg PO DAILY [facility] Last Admin: 11/20/16 11:12 Dose: 0.4 mg - Labs Labs: 11/20/16 06:20 11/20/16 06:20 PT 11.8 Seconds (9.9-11.8) 11/19/16 18:17 INR 1.09 (0.93-1.08) H 11/19/16 18:17 APTT 35.5 Seconds (23.7-30.8) H 11/19/16 18:17 Attending/Attestation - Attestation I have personally seen and examined this patient.: Yes I have fully participated in the care of the patient.: Yes I have reviewed all pertinent clinical information, including history, physical exam and plan: Yes Notes (Text): 11/20/16 18:38 66 year old male with past medical history of nephrolithiasis, recurrent UTI, CAD, CVA, and hypertension who presented with dysuria and left flank pain. He was hypotensive in ER which responded to iv bolus. He had KAROLINE has well with improved with iv fluids. UA is positive for hematuria and leukocyte esterase. CT abd/pelvis is positive for pyelonephritis. Ucx/Bcx are pending. Continue with iv antibiotics are per ID. Urology evaluation as requested. Plan for possible cystoscopy as per urology. He is on aspirin, plavix and statin for history of CAD, recent NSTEMI and CVA. Cardiology evaluation was requested as above. He complains of left shoulder pain. Shoulder xray was ordered. Carmella López MD Hospitalist.
--- NOTE | 2016-11-20 14:37 | RAD ---
PROCEDURE: Radiographs of the Left Shoulder HISTORY: Shoulder Pain COMPARISON: No prior. FINDINGS: BONES: Normal. No fracture. JOINTS: Normal. Glenohumeral and acromioclavicular joints preserved. No osteoarthritis. SOFT TISSUES: Normal. OTHER FINDINGS: None. IMPRESSION: Normal radiographs of the left shoulder.
--- NOTE | 2016-11-20 14:39 | CP.PCM.CON ---
History of Present Illness - History of Present Illness History of Present Illness: 66 year old male with PMH of HTN, CVA, DM, history of prostate problems, history of UTI's, arthritis, S/P right knee surgery was admitted last in [facility] because of UTI in July 2016. He had been doing well since then until about 2 days ago, when the patient started having dysuria and suprapubic discomfort. He was also complaining of subjective fevers. He had some nausea but no vomiting, has some left flank pain, no chest pain, no SOB, no headache or dizziness, no diarrhea. In the ED, urinalysis was done which showed pyuria. Infectious Diseases consult is requested to further evaluate and manage. Review of Systems - Review of Systems All systems: reviewed and no additional remarkable complaints except (as per HPI ) Past Patient History - Infectious Disease Hx of Infectious Diseases: None - Tetanus Immunizations Tetanus Immunization: Unknown - Past Medical History & Family History Past Medical History?: Yes - Past Social History Smoking Status: Former Smoker - CARDIAC Hx Cardiac Disorders: Yes (mi) Hx Congestive Heart Failure: Yes Hx Hypercholesterolemia: Yes Hx Hypertension: Yes Other/Comment: cardiomyopathy - PULMONARY Hx Chronic Obstructive Pulmonary Disease (COPD): No Hx Sleep Apnea: (pt denies) - NEUROLOGICAL Hx Neurological Disorder: Yes HX Cerebrovascular Accident: Yes (CVA/TIA with residual R sided weakness and slurred speech) Hx Seizures: Yes (on kepra for prevention) - HEENT Hx HEENT Problems: Yes Hx Blind: No Hx Cataracts: No Hx Deafness: Yes (left ear, hearing aid) Hx Difficulty Chewing: No Hx Epistaxis: No Hx Glaucoma: No Hx Macular Degeneration: No Other/Comment: uses eye glasses - RENAL Hx Chronic Kidney Disease: Yes Hx Kidney Stones: Yes Hx Renal Failure: Yes - ENDOCRINE/METABOLIC Hx Endocrine Disorders: Yes Hx Diabetes Mellitus Type 2: Yes - HEMATOLOGICAL/ONCOLOGICAL Hx Blood Disorders: Yes Hx Anemia: Yes (blood transfusion) - INTEGUMENTARY Other/Comment: b/l lower extremity dry red scratch aquino, multiple tatoos - MUSCULOSKELETAL/RHEUMATOLOGICAL Hx Musculoskeletal Disorders: Yes (r sie weakness) Hx Arthritis: Yes Hx Falls: Yes (past) Hx Unsteady Gait: Yes (cane walker w/ch) - GASTROINTESTINAL Other/Comment: umbilical hernia - GENITOURINARY/GYNECOLOGICAL Hx Genitourinary Disorders: Yes Hx Hematuria: Yes Hx Incontinence: Yes Hx Prostate Problems: Yes Hx Sexually Transmitted Disorders: No Hx Urinary Tract Infection: Yes Other/Comment: bladder stone removed from prostate as per pt - PSYCHIATRIC Hx Psychophysiologic Disorder: No Hx Depression: Yes Hx Emotional Abuse: No Hx Physical Abuse: No Hx Substance Use: No - SURGICAL HISTORY Hx Cardiac Catheterization: Yes (stents) Hx Coronary Stent: No Hx Orthopedic Surgery: Yes Other/Comment: rt.knee surgery acl - ANESTHESIA Hx Anesthesia: Yes Hx Anesthesia Reactions: No Hx Malignant Hyperthermia: No Meds Allergies/Adverse Reactions: Allergies Allergy/AdvReac Type Severity Reaction Status Date / Time salmon AdvReac RASH Uncoded 11/19/16 11:20 - Medications Medications: Current Medications Aspirin (Aspirin Chewable) 81 mg PO DAILY [facility] Atorvastatin Calcium (Lipitor) 40 mg PO DAILY [facility] Last Admin: 11/19/16 16:24 Dose: 40 mg Clopidogrel Bisulfate (Plavix) 75 mg PO DAILY [facility] Digoxin (Lanoxin) 0.25 mg PO 1400 [facility] Famotidine (Pepcid) 40 mg PO HS [facility] Finasteride (Proscar) 1 mg PO DAILY [facility] Heparin Sodium (Porcine) (Heparin) 5,000 units SC Q12 [facility] PRN Reason: Protocol Sodium Chloride (Sodium Chloride 0.9%) 1,000 mls @ 60 mls/hr IV .[id number] [facility] Last Admin: 11/19/16 16:25 Dose: 60 mls/hr Cefepime HCl (Maxipime 2gm) 2 gm in 100 mls @ 100 mls/hr IVPB Q12 [facility] PRN Reason: Protocol Stop: 11/24/16 15:13 Last Admin: 11/19/16 16:24 Dose: 100 mls/hr Levetiracetam (Keppra) 250 mg PO Q12 [facility] Ondansetron HCl (Zofran Inj) 4 mg IVP Q4H PRN PRN Reason: Nausea/Vomiting Pneumococcal Polyvalent Vaccine (Pneumovax 23 Vaccine) 0.5 ml IM .ONCE ONE Stop: 11/19/16 20:30 Sertraline HCl (Zoloft) 100 mg PO DAILY [facility] Tamsulosin HCl (Flomax) 0.4 mg PO DAILY [facility] Physical Exam - Constitutional Appears: Non-toxic, No Acute Distress - Head Exam Head Exam: NORMAL INSPECTION - ENT Exam ENT Exam: Mucous Membranes Moist - Neck Exam Neck exam: Negative for: Lymphadenopathy, Meningismus - Respiratory Exam Respiratory Exam: Decreased Breath Sounds - Cardiovascular Exam Cardiovascular Exam: +S1, +S2 - GI/Abdominal Exam GI & Abdominal Exam: Soft. absent: Tenderness Results - Vital Signs Recent Vital Signs: Last Vital Signs Temp 97.8 F 11/19/16 20:07 Pulse 55 L 11/19/16 20:07 Resp 22 11/19/16 20:07 BP 127/65 11/19/16 20:07 Pulse Ox 96 11/19/16 16:42 - Labs Result Diagrams: 11/20/16 06:20 11/20/16 06:20 Labs: Laboratory Results - last 24 hr 11/19/16 11/19/16 15:10 18:17 PT 11.8 INR 1.09 H APTT 35.5 H Urine Color Light red Urine Appearance Cloudy Urine pH 6.0 Ur Specific [place] 1.020 Urine Protein 100 H Urine Glucose (UA) Negative Urine Ketones Trace H Urine Blood Large H Urine Nitrate Negative Urine Bilirubin Negative Urine Urobilinogen 0.2 Ur Leukocyte Esterase Moderate H Urine RBC 5 - 10 Urine WBC Tntc Ur Epithelial Cells 10 - 12 Urine Bacteria Few Assessment & Plan - Assessment and Plan (Free Text) Plan: Assessment sepsis secondary to urinary tract infection with pyelonephritis on the left HTN CVA DM obesity with BMI 32 history of prostate problems history of UTI's arthritis S/P right knee surgery Plan based on previous cultures, started patient on Cefepime pending blood and urine cx will monitor clinically would recommend Urology evaluation check HIV status
[2016-11-20] MEDS: Digoxin 250 mcg (0.25 mg) Tab PO SCH (15:18)
[2016-11-20] MEDS ORDERED: Potassium Chloride 20 mEq ER Tab PO ONE ×2 (17:42→21:00)
[2016-11-20] MEDS: Sodium Chloride 0.9% 1,000 ML IV SCH (21:59)
--- NOTE | 2016-11-21 03:02 | CON ---
DATE: 11/20/2016 SERVICE: Cardiology. REASON FOR CONSULTATION: Preop evaluation, risk stratification for possible cystoscopy and urological procedure preop evaluation. History of coronary artery disease. BRIEF CLINICAL HISTORY: This is a 66-year-old male with a past medical history significant for nephrolithiasis, recurrent UTI, congestive heart failure, seizure disorder, anxiety disorder, CAD with stent when the patient presented with non-STEMI recently, history of CVA with right-sided residual weakness, came to the emergency room after being brought by the daughter who believed that the patient had urinary tract infection. The patient was complaining of abdominal pain and pain in lumbar region radiating to the suprapubic area. Denies any chest pain. Denies any shortness of breath. Denies any palpitations. Denies any fever or chills. PAST MEDICAL HISTORY: Significant for anxiety disorder, arthritis, history of CVA, history of CHF, carotid artery occlusion, seizure disorder, TIA, right-sided weakness, history of non-STEMI on 08/03/2016 followed by cardiac cath and PTCA. Past history is also significant for diabetes, hypertension, and hyperlipidemia. PREVIOUS CARDIAC WORKUP FOLLOWS: The patient had cardiac catheterization on 08/05/2016 when the patient presented with non-STEMI that showed single-vessel CAD, mid LAD 80% with ulcerated plaque, ischemic non-STEMI with cardiomyopathy, ejection fraction 40%, EDP was in the range of 15. Successful PTCA with HUMA of mid LAD was done at that time. Medical treatment recommended. The patient had right carotid artery occlusion and medical treatment was recommended by Dr. Christian on 06/28/2015. History of CVA with left-sided hemiparesis, paretic stroke in the past. The patient had echocardiography on 06/26/2015 that showed ejection fraction of 55%, LV function was normal, atrioseptal aneurysm, trace mitral regurg. The carotid artery duplex scan on 07/12/2015 showed proximal ICA 40% to 59% stenosis and possible occlusion of the proximal RCA, 1 to 2 cm from the origin. CURRENT MEDICATIONS: The patient is taking Keppra, Norvasc, Flomax, Zoloft, Plavix 75 mg, aspirin 81 mg, atorvastatin. ALLERGIES: SALMON. REVIEW OF SYSTEMS: As per HPI. PHYSICAL EXAMINATION VITAL SIGNS: Temperature afebrile, heart rate is 60 and blood pressure 137/73. HEENT EXAM: PERRLA, intact. NECK: Supple. No carotid bruit or thyromegaly. CHEST: Clear to auscultation. HEART: S1 and S2 regular. ABDOMEN: Soft. EXTREMITIES: Clubbing and cyanosis negative. LABORATORY DATA: Blood workup as follows: WBC 8.6, hemoglobin 11.2, hematocrit 34.1 and platelet count 188. Chemistry shows sodium 130, potassium 3, chloride 106, carbon dioxide 24, anion gap of 15, BUN 11, creatinine 1.1. EKG shows normal sinus, left bundle branch block, left axis deviation. IMPRESSION: History of [id number] myocardial infarction, history of coronary artery disease, mid left anterior descending drug-eluting stent, 08/03/2016; nonischemic cardiomyopathy, diabetes; hypertension; hyperlipidemia; bedridden; admitted with urinary tract infection. RECOMMENDATIONS: Continue antibiotics. Since the patient is less than 4 months, we suggest to continue aspirin, Plavix. If the patient needs cystoscopy, the patient can go on aspirin and Plavix though risk of bleeding would be high, but at the same time, holding aspirin and Plavix is high risk for stent thrombosis converting the patient into delayed stent thrombosis. Discussed with the patient, discussed with Dr. López taking care of the patient. We will follow with you. The patient is cleared to go for endoscopy if needed, but on aspirin and Plavix, we will the patient is cleared to go for procedure under general anesthesia without no evidence of GA, no evidence of ischemia or arrhythmia or congestive heart failure, but the patient needs to be continued on aspirin and Plavix. Follow with you. Irma Bedoya MD
[2016-11-21 07:14] LABS: BASO # 0.01 K/mm3 (0.0-2.0); BASO % 0.1 % (0.0-3.0); EOS # 0.2 (0.0-0.7); EOS % 2.8 % (1.5-5.0); GRAN # 4.82 (1.4-6.5); GRAN % 71.3 % (50.0-68.0); HEMATOCRIT 34.2 % (42.0-52.0); LYMPH % 15.2 % (22.0-35.0); MEAN CELL VOLUME 87.7 fl (80.0-105.0); MEAN CORPUSCULAR HEMOGLOBIN 28.5 pg (25.0-35.0); MEAN CORPUSCULAR HGB CONC 32.5 g/dl (31.0-37.0); MONO # 0.7 (0.1-0.6); MONO % 10.6 % (1.0-6.0); RED CELL DISTRIBUTION WIDTH 14.4 % (11.5-14.5); WHITE BLOOD COUNT 6.8 10^3/ul (4.5-11.0)
[2016-11-21 07:22] LABS: ALKALINE PHOSPHATASE 68 U/L (38-126); ALT/SGPT 37 U/L (7-56); AST/SGOT 32 U/L (17-59); BILIRUBIN,TOTAL 0.8 mg/dL (0.2-1.3); BLOOD UREA NITROGEN 12 mg/dL (7-21); CALCIUM 8.8 mg/dL (8.4-10.5); CARBON DIOXIDE 23 mmol/L (21-33); CHLORIDE 108 mmol/L (98-107); CHOLESTEROL 93 mg/dL (130-200); GFR AFRICAN-AMERICAN > 60; GLUCOSE,RANDOM 119 mg/dL (70-110); MAGNESIUM 2.1 mg/dL (1.7-2.2); PHOSPHOROUS 1.9 mg/dL (2.5-4.5); POTASSIUM 3.9 mmol/L (3.6-5.0); SODIUM 140 mmol/L (132-148); TOTAL PROTEIN 6.7 g/dL (5.8-8.3)
[2016-11-21] MEDS: Cefepime IV 2 gm in NS 2 GM/100 ML BAG IVPB SCH ×2 (11:00→21:26)
--- NOTE | 2016-11-21 13:53 | CP.PCM.PN ---
<Jeovanny Thomas - Last Filed: 11/21/16 13:55> Subjective - Date & Time of Evaluation Date of Evaluation: 11/21/16 Time of Evaluation: 07:40 - Subjective Subjective: Internal Medicine Progress Note Patient seen and evaluated this morning at bedside. No events reported overnight. Patient stated his suprapubic and flank pain is still present and same intensity. Patient had no other complaints. Objective - Vital Signs/Intake and Output Vital Signs (last 24 hours): Temp Pulse Resp BP Pulse Ox 98.3 F 54 L 26 H 149/76 93 L 11/21/16 12:52 11/21/16 12:52 11/21/16 12:52 11/21/16 12:52 11/21/16 12:52 Intake and Output: 11/21/16 11/21/16 06:59 18:59 Intake Total 100 Output Total 1300 Balance -1200 - Medications Medications: Current Medications Aspirin (Aspirin Chewable) 81 mg PO DAILY [facility] Last Admin: 11/21/16 10:59 Dose: Not Given Atorvastatin Calcium (Lipitor) 40 mg PO DAILY [facility] Last Admin: 11/21/16 10:59 Dose: 40 mg Clopidogrel Bisulfate (Plavix) 75 mg PO DAILY [facility] Last Admin: 11/21/16 10:59 Dose: 75 mg Digoxin (Lanoxin) 0.25 mg PO 1400 [facility] Last Admin: 11/20/16 15:18 Dose: 0.25 mg Famotidine (Pepcid) 40 mg PO HS [facility] Last Admin: 11/20/16 21:14 Dose: 40 mg Finasteride (Proscar) 5 mg PO DAILY [facility] Last Admin: 11/21/16 11:00 Dose: 5 mg Heparin Sodium (Porcine) (Heparin) 5,000 units SC Q12 [facility] PRN Reason: Protocol Last Admin: 11/21/16 11:08 Dose: Not Given Cefepime HCl (Maxipime 2gm) 2 gm in 100 mls @ 100 mls/hr IVPB Q12 [facility] PRN Reason: Protocol Stop: 11/24/16 15:13 Last Admin: 11/21/16 11:00 Dose: 100 mls/hr Levetiracetam (Keppra) 250 mg PO Q12 [facility] Last Admin: 11/21/16 10:59 Dose: 250 mg Ondansetron HCl (Zofran Inj) 4 mg IVP Q4H PRN PRN Reason: Nausea/Vomiting Tamsulosin HCl (Flomax) 0.4 mg PO DAILY [facility] Last Admin: 11/21/16 10:59 Dose: 0.4 mg - Labs Labs: 11/21/16 06:15 11/21/16 06:15 PT 11.8 Seconds (9.9-11.8) 11/19/16 18:17 INR 1.09 (0.93-1.08) H 11/19/16 18:17 APTT 35.5 Seconds (23.7-30.8) H 11/19/16 18:17 - Head Exam Head Exam: ATRAUMATIC, NORMAL INSPECTION, NORMOCEPHALIC - Eye Exam Eye Exam: Normal appearance - Respiratory Exam Respiratory Exam: Clear to Ausculation Bilateral, NORMAL BREATHING PATTERN - Cardiovascular Exam Cardiovascular Exam: REGULAR RHYTHM, +S1, +S2 - Neurological Exam Neurological Exam: Alert, Oriented x3 - Psychiatric Exam Psychiatric exam: Normal Mood Assessment and Plan - Assessment and Plan (Free Text) Assessment: 66 yo male with PMH of Nephrolithiasis, recurrent UTIs, CHF, seizures, anxiety, CAD with stent placement, CVA with residual right sided weakness and slurred speech, and HTN is brought to the ED by his daughter because she believed him to have a urine infection. He is currently being worked up for pyelonephritis. Plan: 1. Sepsis (pylonephritis as a possible source) -patient meets 2/4 SIRS criteria ( hypotension on arrival, leukocytosis) -BP is 137/68 stable -pt had CT done showing pylonephritis -UA obtained showed blood possibly from passed stone and leukocyte esterase -ID consulted -HIV test pending -ED was consulted, and administered one dose of Rocephin -Urology consulted, will perform cystoscopy today -Cardio consulted and gave clearance for cystoscopy -Patient NPO since midnight 2. Hypokalemia -Potassium is 3.9 -will continue to monitor 3. KAROLINE -likely prerenal, patient is voiding, so doubt postrenal -urine NA, creatinine and uric acid pending review 4. HTN -holding HTN medicine due to hypotension 5. CAD with Stent -hold arb and beta sergey -continue Lipitor -started on heart healthy diet 6. CVA History with right sided residual weakness and slurred speech. -continue aspirin and plavix 7. CHF -last MUGA scan in july showed 40% EF -continue holding lasix -continue digoxin 8. GI prophylaxis - famotidine 9. BPH -continue home meds -PSA level ordered by ID 10. DVT prophylaxis -heparin 11. seizures -continue keppra 12. Anxiety -continue home medications <Carmella López - Last Filed: 11/21/16 14:41> Objective - Vital Signs/Intake and Output Vital Signs (last 24 hours): Temp Pulse Resp BP Pulse Ox 98.3 F 54 L 26 H 149/76 93 L 11/21/16 12:52 11/21/16 12:52 11/21/16 12:52 11/21/16 12:52 11/21/16 12:52 Intake and Output: 11/21/16 11/21/16 06:59 18:59 Intake Total 100 Output Total 1300 Balance -1200 - Medications Medications: Current Medications Aspirin (Aspirin Chewable) 81 mg PO DAILY [facility] Last Admin: 11/21/16 10:59 Dose: Not Given Atorvastatin Calcium (Lipitor) 40 mg PO DAILY [facility] Last Admin: 11/21/16 10:59 Dose: 40 mg Clopidogrel Bisulfate (Plavix) 75 mg PO DAILY [facility] Last Admin: 11/21/16 10:59 Dose: 75 mg Digoxin (Lanoxin) 0.25 mg PO 1400 [facility] Last Admin: 11/20/16 15:18 Dose: 0.25 mg Famotidine (Pepcid) 40 mg PO HS [facility] Last Admin: 11/20/16 21:14 Dose: 40 mg Finasteride (Proscar) 5 mg PO DAILY [facility] Last Admin: 11/21/16 11:00 Dose: 5 mg Heparin Sodium (Porcine) (Heparin) 5,000 units SC Q12 [facility] PRN Reason: Protocol Last Admin: 11/21/16 11:08 Dose: Not Given Cefepime HCl (Maxipime 2gm) 2 gm in 100 mls @ 100 mls/hr IVPB Q12 [facility] PRN Reason: Protocol Stop: 11/24/16 15:13 Last Admin: 11/21/16 11:00 Dose: 100 mls/hr Levetiracetam (Keppra) 250 mg PO Q12 [facility] Last Admin: 11/21/16 10:59 Dose: 250 mg Ondansetron HCl (Zofran Inj) 4 mg IVP Q4H PRN PRN Reason: Nausea/Vomiting Tamsulosin HCl (Flomax) 0.4 mg PO DAILY [facility] Last Admin: 11/21/16 10:59 Dose: 0.4 mg - Labs Labs: 11/21/16 06:15 11/21/16 06:15 PT 11.8 Seconds (9.9-11.8) 11/19/16 18:17 INR 1.09 (0.93-1.08) H 11/19/16 18:17 APTT 35.5 Seconds (23.7-30.8) H 11/19/16 18:17 Attending/Attestation - Attestation I have personally seen and examined this patient.: Yes I have fully participated in the care of the patient.: Yes I have reviewed all pertinent clinical information, including history, physical exam and plan: Yes Notes (Text): 11/21/16 14:40 66 year old male with past medical history of nephrolithiasis, recurrent UTI, CAD, CVA, and hypertension who presented with dysuria and left flank pain. He was hypotensive in ER which responded to iv bolus. He had KAROLINE has well with improved with iv fluids. UA is positive for hematuria and leukocyte esterase. Ucx is growing gram negative rods. CT abd/pelvis showed pyelonephritis. Continue with iv antibiotics are per ID. Urology evaluation was appreciated. Plan was for possible cystoscopy per urology. He is on aspirin, plavix and statin for history of CAD, recent NSTEMI and CVA. Cardiology evaluation was appreciated who recommended to continue with aspirin and plavix for now. PT evaluation is requested. Carmella López MD Hospitalist.
[2016-11-21] MEDS ORDERED: Iohexol 240 (50 ml) ONE (14:22)
--- NOTE | 2016-11-21 14:36 | PCM.URO ---
Urology Progress Note - Subjective Abdominal Pain: Yes Flank Pain: Yes (infection) - Objective Lab Studies: Reviewed (see dictated note, but briefly, no procedures for now if pt continues clinical improvement will try to avoid procedure because of medical condition) Lab Results Last 24 Hours: Laboratory Results - last 24 hr 11/20/16 11/21/16 11/21/16 06:20 06:15 06:15 WBC 6.8 D RBC 3.90 Hgb 11.1 L Hct 34.2 L MCV 87.7 MCH 28.5 MCHC 32.5 RDW 14.4 Plt Count 207 MPV 10.0 Gran % 71.3 H Lymph % (Auto) 15.2 L [place] % (Auto) 10.6 H Eos % (Auto) 2.8 Baso % (Auto) 0.1 Gran # 4.82 Lymph # 1.0 L [place] # 0.7 H Eos # 0.2 Baso # 0.01 Sodium 140 Potassium 3.9 Chloride 108 H Carbon Dioxide 23 Anion Gap 13 BUN 12 Creatinine 1.0 Est GFR ( Amer) > 60 Est GFR (Non-Af Amer) > 60 Random Glucose 119 H Hemoglobin A1c Calcium 8.8 Phosphorus 1.9 L Magnesium 2.1 Total Bilirubin 0.8 AST 32 ALT 37 Alkaline Phosphatase 68 Total Protein 6.7 Albumin 3.3 Globulin 3.4 Albumin/Globulin Ratio 1.0 L Triglycerides 222 H Cholesterol 93 L LDL Cholesterol Direct 44 HDL Cholesterol 17 L TSH 3rd Generation HIV 1&2 Ag/Ab, 4th Gen Nonreactive 11/21/16 11/21/16 06:15 06:15 WBC RBC Hgb Hct MCV MCH MCHC RDW Plt Count MPV Gran % Lymph % (Auto) [place] % (Auto) Eos % (Auto) Baso % (Auto) Gran # Lymph # [place] # Eos # Baso # Sodium Potassium Chloride Carbon Dioxide Anion Gap BUN Creatinine Est GFR ( Amer) Est GFR (Non-Af Amer) Random Glucose Hemoglobin A1c 7.9 H Calcium Phosphorus Magnesium Total Bilirubin AST ALT Alkaline Phosphatase Total Protein Albumin Globulin Albumin/Globulin Ratio Triglycerides Cholesterol LDL Cholesterol Direct HDL Cholesterol TSH 3rd Generation 1.00 HIV 1&2 Ag/Ab, 4th Gen Intake & Output: Intake & Output 11/20/16 11/21/16 11/21/16 18:59 06:59 18:59 Intake Total 300 100 Output Total 600 1300 Balance -300 -1200 Weight 201 lb Intake: IV 100 Right Antecubital 100 Oral 300 Output: Urine 600 1300 Urine, Voided 600 1300 Other: # Bowel Movements 0 Vital Signs: Vital Signs - 24 hr 11/20/16 11/20/16 11/21/16 18:00 22:00 00:00 Temperature 98.7 F 99 F Pulse Rate 70 57 L 65 Respiratory 20 20 Rate Blood Pressure 158/79 H 147/84 O2 Sat by Pulse 94 L 94 L Oximetry 11/21/16 11/21/16 11/21/16 02:00 06:00 11:50 Temperature 98 F 98.3 F Pulse Rate 55 L 58 L 55 L Respiratory 20 19 Rate Blood Pressure 137/68 124/72 O2 Sat by Pulse 93 L Oximetry 11/21/16 12:52 Temperature 98.3 F Pulse Rate 54 L Respiratory 26 H Rate Blood Pressure 149/76 O2 Sat by Pulse 93 L Oximetry
[2016-11-21] MEDS: Digoxin 250 mcg (0.25 mg) Tab PO SCH (15:38)
--- NOTE | 2016-11-21 19:25 | PN ---
REASON FOR CONSULTATION: Followup preop evaluation, risk stratification for possible cystoscopy and for urological procedure, acute pyelonephritis, history of PTCA on 08/05/2016. SUBJECTIVE: The patient denies any chest pain, shortness of breath, any palpitation, but complains of lower abdominal pain and pain in the lumbar area. OBJECTIVE: GENERAL: Lying flat on the bed, not in apparent distress. VITAL SIGNS: Temperature afebrile, heart rate 54, blood pressure 149/76. HEENT: PERRLA. Extraocular muscles are intact. NECK: Supple. No carotid bruit or thyromegaly. CHEST: Clear to auscultation. HEART: S1 and S2 regular. ABDOMEN: Soft. EXTREMITIES: Clubbing and cyanosis negative. LABORATORY DATA: Blood workup as follows: WBC 6.8, hemoglobin 11.8, hematocrit 34.2, platelet count 207. Chemistry shows sodium 140, potassium 3.9, chloride 108, carbon dioxide 23, anion gap of 13, BUN 12, creatinine 1.0. Total protein 6.3, albumin 3.3, albumin-globulin ratio 1.1. Triglycerides 222, cholesterol 93, LDL 44, HDL 70. IMPRESSION: Acute pyelonephritis, history of coronary artery disease, status post percutaneous transluminal coronary angioplasty of left anterior descending artery after non-ST elevation myocardial infarction on 08/05/2012 with percutaneous transluminal coronary angioplasty with drug-eluting stent in the mid left anterior descending, history of right coronary artery occlusion seen by Dr. Christian and medical treatment recommended, 40% to 59% proximal right coronary artery stenosis. RECOMMENDATIONS: The patient is cleared from Cardiology point of view to go for a cystoscopy while the patient is on aspirin and Plavix because it is 3 months from the drug-eluting stent. We will discuss with in taking care of Nahid Dubosenabeel. Consider discontinuing telemetry. Irma Bedoya MD
--- NOTE | 2016-11-21 20:54 | PN ---
DATE: 11/21/2016 SUBJECTIVE: The patient was seen earlier this morning. No acute distress. Nontoxic. PHYSICAL EXAMINATION: VITAL SIGNS: Temperature is 97, blood pressure is 140/80, respiratory rate of 18, heart rate of 55. HEENT: Unremarkable. NECK: Supple. LUNGS: Decreased breath sounds. HEART: Normal S1, S2. ABDOMEN: Soft. LABORATORY DATA: Reveals a white count of 6.8, hemoglobin 11, platelets of 207. Chemistries reveals the BUN of 12, creatinine of 1.0. Urinalysis is noted. Serology is noted. HIV is negative. Microbiology reveals urine cultures Gram-negative rods and a repeat urine culture has a Gram-negative rods. The blood cultures have no growth at 48 hours. MEDICATIONS: The patient is on cefepime. ASSESSMENT AND PLAN: This is a 66-year-old male admitted with Gram-negative rods and urinary tract infection with left-sided pyelonephritis and hypertension, cerebrovascular accident, diabetes, obesity with a BMI of 32, history of prostate disease, currently on cefepime pending identification and sensitivity of Gram-negative rods. We will make further recommendations upon availability of that. Abilio Campos MD
[2016-11-21] MEDS ORDERED: Oxycodone/Acetaminophen 5/325 mg Tab PO STA (22:42)
[2016-11-22 03:06] VITALS: RESP 20
[2016-11-22 07:01] VITALS: O2SAT 92
[2016-11-22 07:28] LABS: BASO # 0.02 K/mm3 (0.0-2.0); BASO % 0.3 % (0.0-3.0); EOS # 0.5 (0.0-0.7); EOS % 7.5 % (1.5-5.0); GRAN # 4.53 (1.4-6.5); GRAN % 66.5 % (50.0-68.0); HEMATOCRIT 36.6 % (42.0-52.0); MEAN CELL VOLUME 88.4 fl (80.0-105.0); MEAN CORPUSCULAR HEMOGLOBIN 28.7 pg (25.0-35.0); MEAN CORPUSCULAR HGB CONC 32.5 g/dl (31.0-37.0); MEAN PLATELET VOLUME 9.7 fl (7.0-11.0); MONO # 0.7 (0.1-0.6); MONO % 10.7 % (1.0-6.0); RED CELL DISTRIBUTION WIDTH 14.4 % (11.5-14.5); WHITE BLOOD COUNT 6.8 10^3/ul (4.5-11.0)
[2016-11-22 07:40] LABS: ALB/GLOB RATIO 0.9 (1.1-1.8); ALKALINE PHOSPHATASE 76 U/L (38-126); ALT/SGPT 34 U/L (7-56); AST/SGOT 34 U/L (17-59); BILIRUBIN,TOTAL 0.9 mg/dL (0.2-1.3); BLOOD UREA NITROGEN 15 mg/dL (7-21); CALCIUM 9.1 mg/dL (8.4-10.5); CARBON DIOXIDE 25 mmol/L (21-33); CHLORIDE 105 mmol/L (95-110); GFR AFRICAN-AMERICAN > 60; GLUCOSE,RANDOM 117 mg/dL (70-110); POTASSIUM 3.8 mmol/L (3.6-5.0); SODIUM 141 mmol/L (132-148); TOTAL PROTEIN 7.1 g/dL (5.8-8.3)
--- NOTE | 2016-11-22 08:41 | PCM.URO ---
Urology Progress Note - Subjective Abdominal Pain: Yes - Objective Lab Studies: Reviewed (gu plans for now are continued treatment and no procedures full note to be dictated) Lab Results Last 24 Hours: Laboratory Results - last 24 hr 11/20/16 11/21/16 11/22/16 06:20 06:15 06:45 WBC 6.8 RBC 4.14 Hgb 11.9 L Hct 36.6 L MCV 88.4 MCH 28.7 MCHC 32.5 RDW 14.4 Plt Count 220 MPV 9.7 Gran % 66.5 Lymph % (Auto) 15.0 L [place] % (Auto) 10.7 H Eos % (Auto) 7.5 H Baso % (Auto) 0.3 Gran # 4.53 Lymph # 1.0 L [place] # 0.7 H Eos # 0.5 Baso # 0.02 Sodium Potassium Chloride Carbon Dioxide Anion Gap BUN Creatinine Est GFR ( Amer) Est GFR (Non-Af Amer) Random Glucose Hemoglobin A1c 7.9 H Calcium Total Bilirubin AST ALT Alkaline Phosphatase Total Protein Albumin Globulin Albumin/Globulin Ratio HIV 1&2 Ag/Ab, 4th Gen Nonreactive 11/22/16 06:45 WBC RBC Hgb Hct MCV MCH MCHC RDW Plt Count MPV Gran % Lymph % (Auto) [place] % (Auto) Eos % (Auto) Baso % (Auto) Gran # Lymph # [place] # Eos # Baso # Sodium 141 Potassium 3.8 Chloride 105 Carbon Dioxide 25 Anion Gap 15 BUN 15 Creatinine 1.1 Est GFR ( Amer) > 60 Est GFR (Non-Af Amer) > 60 Random Glucose 117 H Hemoglobin A1c Calcium 9.1 Total Bilirubin 0.9 AST 34 ALT 34 Alkaline Phosphatase 76 Total Protein 7.1 Albumin 3.4 Globulin 3.7 Albumin/Globulin Ratio 0.9 L HIV 1&2 Ag/Ab, 4th Gen Intake & Output: Intake & Output 11/21/16 11/22/16 11/22/16 18:59 06:59 18:59 Intake Total 720 Output Total 1100 Balance -380 Intake: Oral 720 Output: Urine 1100 Urine, Voided 1100 Other: # Voids Urine, Voided 3 # Bowel Movements 0 Vital Signs: Vital Signs - 24 hr 11/21/16 11/21/16 11/21/16 11:50 12:52 14:00 Temperature 98.3 F 98.3 F Pulse Rate 55 L 54 L 53 L Respiratory 19 26 H Rate Blood Pressure 124/72 149/76 O2 Sat by Pulse 93 L Oximetry 11/21/16 11/21/16 11/21/16 15:37 16:31 18:00 Temperature 97.4 F L Pulse Rate 55 L 57 L Respiratory 18 Rate Blood Pressure 143/78 148/88 O2 Sat by Pulse 96 Oximetry 11/21/16 11/22/16 11/22/16 22:00 00:00 02:00 Temperature 99.0 F Pulse Rate 56 L 52 L 57 L Respiratory 20 Rate Blood Pressure 130/71 O2 Sat by Pulse Oximetry 11/22/16 06:00 Temperature 98.0 F Pulse Rate 50 L Respiratory 20 Rate Blood Pressure O2 Sat by Pulse 92 L Oximetry
[2016-11-22] MEDS: Cefepime IV 2 gm in NS 2 GM/100 ML BAG IVPB SCH ×2 (09:22→21:11)
--- NOTE | 2016-11-22 13:18 | PN ---
DATE: REASON FOR CONSULTATION: Preop evaluation, risk stratification for cystoscopy and for urological procedure, admitted with acute pyelonephritis, history of PTCA of LAD on 08/05/2016, on Plavix. SUBJECTIVE: The patient denies any chest pain, shortness of breath, any palpitations. The abdominal pain is also decreasing and less pain in the kidney area. OBJECTIVE GENERAL: Lying flat in the bed. Sleepy but waking up, denies any chest pain, shortness of breath, or any palpitations. Denies any abdominal examination. VITAL SIGNS: Temperature is afebrile, heart rate is 50, blood pressure 130/71. HEENT: PERRLA. Eyes, extraocular muscles intact. NECK: Supple. No carotid bruit. No thyromegaly. CHEST: Clear to auscultation. HEART: S1, S2. Regular. ABDOMEN: Soft. EXTREMITIES: No clubbing, cyanosis, or edema. LABORATORY DATA: WBC 6.8, hemoglobin 11.9, hematocrit 36.6, platelets of 220. Chemistries shows sodium of 141, potassium 3.8, chloride 105, bicarbonate 25, anion gap of 15, BUN 15, creatinine 1.1. IMPRESSION: This is a 66-year-old male with past medical history significant for [id number] myocardial infarction status post PTCA of mid LAD with drug-eluting stent on 08/05/2016 when the patient admitted with non-ST elevation myocardial infarction, showed ulcerative plaque of 80% and was stented. Ejection fraction was 40%, repeat was in the range of 50% who was admitted this time with pyelonephritis probably stone and the pain in the lumbar area. History of right carotid artery occlusion, medical treatment was recommended by Dr. Christian. History of left carotid artery 49% occlusion, trace to mild mitral regurgitation. The patient's echocardiography showed ejection fraction 20% to 25%. No LV aneurysm noted. No ventricular septal defect noted. Mild severe global hypokinesis, ejection fraction 20% to 25% dated 08/06/2016. Prior to that, the patient had another echo on 01/30/2016 that showed anteroseptal apical hypokinesis. Ejection fraction at that time calculated was also 22%. The patient had later on repeat MUGA scan done on 08/07/2016 that showed an ejection fraction of 46%. Diffuse LV hypokinesis noted. RECOMMENDATIONS: Discussed with Dr. López the patient needs serial endoscopy. The patient can go while on aspirin, Plavix. Aspirin and Plavix should not be held because of recent history of PTCA of LAD on 08/05/2016. Continue aspirin, continue Plavix, continue DVT prophylaxis, continue digoxin, continue atorvastatin, we will continue amlodipine. We will discontinue telemetry. As mentioned last ejection fraction by MUGA is 46%. At this time, the patient does not need any AICD. We will discontinue telemetry. Thank you Dr. López for opportunity in taking care of the patient from cardiac point of view. No further cardiac workup is planned or warranted. If urological procedures are done, the patient is going to be discharged. Followup as outpatient. Irma Bedoya MD
[2016-11-22] MEDS: Digoxin 250 mcg (0.25 mg) Tab PO SCH (14:13)
[2016-11-22 14:15] VITALS: PULSE 75
[2016-11-22 14:29] VITALS: BP 136/82; PULSE 60; TEMP 97.7
--- NOTE | 2016-11-22 15:53 | CP.PCM.DIS ---
Provider - Provider Date of Admission: 11/19/16 13:46 Attending physician: Carmella López MD Primary care physician: NO PRIMARY CARE PROVIDER Time Spent in preparation of Discharge (in minutes): 33 Hospital Course - Lab Results Lab Results: Micro Results 11/19/16 15:10 Urine Urine Culture - Final Pseudomonas Aeruginosa 11/20/16 02:00 Urine,Clean Catch Urine Culture - Final Gram Negative [place] Most Recent Lab Values WBC 6.8 10^3/ul (4.5-11.0) 11/22/16 06:45 RBC 4.14 10^6/uL (3.5-6.1) 11/22/16 06:45 Hgb 11.9 g/dL (14.0-18.0) L 11/22/16 06:45 Hct 36.6 % (42.0-52.0) L 11/22/16 06:45 MCV 88.4 fl (80.0-105.0) 11/22/16 06:45 MCH 28.7 pg (25.0-35.0) 11/22/16 06:45 MCHC 32.5 g/dl (31.0-37.0) 11/22/16 06:45 RDW 14.4 % (11.5-14.5) 11/22/16 06:45 Plt Count 220 10^3/uL (120.0-450.0) 11/22/16 06:45 MPV 9.7 fl (7.0-11.0) 11/22/16 06:45 Gran % 66.5 % (50.0-68.0) 11/22/16 06:45 Lymph % (Auto) 15.0 % (22.0-35.0) L 11/22/16 06:45 [place] % (Auto) 10.7 % (1.0-6.0) H 11/22/16 06:45 Eos % (Auto) 7.5 % (1.5-5.0) H 11/22/16 06:45 Baso % (Auto) 0.3 % (0.0-3.0) 11/22/16 06:45 Gran # 4.53 (1.4-6.5) 11/22/16 06:45 Lymph # 1.0 (1.2-3.4) L 11/22/16 06:45 [place] # 0.7 (0.1-0.6) H 11/22/16 06:45 Eos # 0.5 (0.0-0.7) 11/22/16 06:45 Baso # 0.02 K/mm3 (0.0-2.0) 11/22/16 06:45 PT 11.8 Seconds (9.9-11.8) 11/19/16 18:17 INR 1.09 (0.93-1.08) H 11/19/16 18:17 APTT 35.5 Seconds (23.7-30.8) H 11/19/16 18:17 pO2 41 mm/Hg (30-55) 11/19/16 12:15 VBG pH 7.41 (7.32-7.43) 11/19/16 12:15 VBG pCO2 44.0 (40-60) 11/19/16 12:15 VBG HCO3 27.9 mmol/l (21-28) 11/19/16 12:15 VBG Total CO2 29.3 mmol.L (22-28) H 11/19/16 12:15 VBG O2 Sat (Calc) 82.5 % (40-65) H 11/19/16 12:15 VBG Base Excess 2.7 mmol/L (0.0-2.0) H 11/19/16 12:15 VBG Potassium 3.5 mmol/L (3.6-5.2) L 11/19/16 12:15 Sodium 135.0 mmol/L (132-148) 11/19/16 12:15 Chloride 97.0 mmol/L (98-107) L 11/19/16 12:15 Glucose 209 mg/dl (75-110) H 11/19/16 12:15 Lactate 1.5 mmol/L (0.7-2.1) 11/19/16 12:15 FiO2 21.0 % 11/19/16 12:15 Sodium 141 mmol/L (132-148) 11/22/16 06:45 Potassium 3.8 mmol/L (3.6-5.0) 11/22/16 06:45 Chloride 105 mmol/L (95-110) 11/22/16 06:45 Carbon Dioxide 25 mmol/L (21-33) 11/22/16 06:45 Anion Gap 15 (10-20) 11/22/16 06:45 BUN 15 mg/dL (7-21) 11/22/16 06:45 Creatinine 1.1 mg/dL (0.5-1.4) 11/22/16 06:45 Est GFR ( Amer) > 60 11/22/16 06:45 Est GFR (Non-Af Amer) > 60 11/22/16 06:45 Random Glucose 117 mg/dL (70-110) H 11/22/16 06:45 Hemoglobin A1c 7.9 % (4.2-6.5) H 11/21/16 06:15 Calcium 9.1 mg/dL (8.4-10.5) 11/22/16 06:45 Phosphorus 1.9 mg/dL (2.5-4.5) L 11/21/16 06:15 Magnesium 2.1 mg/dL (1.7-2.2) 11/21/16 06:15 Total Bilirubin 0.9 mg/dL (0.2-1.3) 11/22/16 06:45 AST 34 U/L (17-59) 11/22/16 06:45 ALT 34 U/L (7-56) 11/22/16 06:45 Alkaline Phosphatase 76 U/L (38-126) 11/22/16 06:45 Total Protein 7.1 g/dL (5.8-8.3) 11/22/16 06:45 Albumin 3.4 g/dL (3.0-4.8) 11/22/16 06:45 Globulin 3.7 gm/dL 11/22/16 06:45 Albumin/Globulin Ratio 0.9 (1.1-1.8) L 11/22/16 06:45 Triglycerides 222 mg/dL (35-160) H 11/21/16 06:15 Cholesterol 93 mg/dL (130-200) L 11/21/16 06:15 LDL Cholesterol Direct 44 mg/dL (0-129) 11/21/16 06:15 HDL Cholesterol 17 mg/dL (29-60) L 11/21/16 06:15 Lipase 68 U/L (23-300) 11/19/16 11:30 Prostate Specific Ag 1.1 ng/mL (0.00-2.5) 11/20/16 06:00 TSH 3rd Generation 1.00 mIU/mL (0.46-4.68) 11/21/16 06:15 Venous Blood Potassium 3.5 mmol/L (3.6-5.2) L 11/19/16 12:15 Urine Color Light red (YELLOW) 11/19/16 15:10 Urine Appearance Cloudy (CLEAR) 11/19/16 15:10 Urine pH 6.0 (4.7-8.0) 11/19/16 15:10 Ur Specific [place] 1.020 (1.005-1.035) 11/19/16 15:10 Urine Protein 100 mg/dL (<30 mg/dL) H 11/19/16 15:10 Urine Glucose (UA) Negative mg/dL (NEGATIVE) 11/19/16 15:10 Urine Ketones Trace mg/dL (NEGATIVE) H 11/19/16 15:10 Urine Blood Large (NEGATIVE) H 11/19/16 15:10 Urine Nitrate Negative (NEGATIVE) 11/19/16 15:10 Urine Bilirubin Negative (NEGATIVE) 11/19/16 15:10 Urine Urobilinogen 0.2 E.U./dL (<1 E.U./dL) 11/19/16 15:10 Ur Leukocyte Esterase Moderate [place]/uL (NEGATIVE) H 11/19/16 15:10 Urine RBC 5 - 10 /hpf (0-2) 11/19/16 15:10 Urine WBC Tntc /hpf (0-6) 11/19/16 15:10 Ur Epithelial Cells 10 - 12 /hpf (0-5) 11/19/16 15:10 Urine Bacteria Few (NEG) 11/19/16 15:10 Ur Random Creatinine 119 mg/dL 11/20/16 02:00 Ur Random Sodium 36 meq/L 11/20/16 02:00 Ur Random Uric Acid 52.4 mg/dL 11/20/16 02:00 HIV 1&2 Ag/Ab, 4th Gen Nonreactive (Nonreactive) 11/20/16 06:20 Discharge Exam - Head Exam Head Exam: ATRAUMATIC, NORMAL INSPECTION, NORMOCEPHALIC Discharge Plan - Discharge Medications Prescriptions: Ciprofloxacin [Cipro] 500 mg PO BID #12 tab - Follow Up Plan Condition: FAIR Disposition: HOME/ ROUTINE Instructions: Urinary Tract Infection in Women (DC), Urinary Tract Infection in Men (DC), Dysuria (GEN) Additional Instructions: 1) Please follow up with PMD or [facility] clinic within one week of discharge. 2) Patient to be sent home with VNA. 3) Patient to take prescribed medications as directed. 4) Patient to come to the nearest ED if symptoms persist or worsen. Referrals: PCP,NO [Primary Care Provider] -
--- NOTE | 2016-11-22 20:26 | CP.PCM.PN ---
Subjective - Date & Time of Evaluation Date of Evaluation: 11/22/16 Time of Evaluation: 09:35 - Subjective Subjective: Comfortable, no fevers, not in distress. Objective - Vital Signs/Intake and Output Vital Signs (last 24 hours): Temp Pulse Resp BP Pulse Ox 98.0 F 50 L 20 130/71 92 L 11/22/16 06:00 11/22/16 06:00 11/22/16 06:00 11/22/16 00:00 11/22/16 06:00 Intake and Output: 11/22/16 11/22/16 06:59 18:59 Intake Total 720 Output Total 1100 Balance -380 - Medications Medications: Current Medications Acetaminophen (Tylenol 325mg Tab) 650 mg PO Q6H PRN PRN Reason: Pain, moderate (4-7) Last Admin: 11/21/16 21:27 Dose: 650 mg Amlodipine Besylate (Norvasc) 5 mg PO DAILY [facility] Last Admin: 11/21/16 15:37 Dose: 5 mg Aspirin (Aspirin Chewable) 81 mg PO DAILY [facility] Last Admin: 11/21/16 10:59 Dose: Not Given Atorvastatin Calcium (Lipitor) 40 mg PO DAILY [facility] Last Admin: 11/21/16 10:59 Dose: 40 mg Clopidogrel Bisulfate (Plavix) 75 mg PO DAILY [facility] Last Admin: 11/21/16 10:59 Dose: 75 mg Digoxin (Lanoxin) 0.25 mg PO 1400 [facility] Last Admin: 11/21/16 15:38 Dose: 0.25 mg Famotidine (Pepcid) 40 mg PO HS [facility] Last Admin: 11/21/16 21:26 Dose: 40 mg Finasteride (Proscar) 5 mg PO DAILY [facility] Last Admin: 11/21/16 11:00 Dose: 5 mg Heparin Sodium (Porcine) (Heparin) 5,000 units SC Q12 [facility] PRN Reason: Protocol Last Admin: 11/21/16 21:26 Dose: 5,000 units Cefepime HCl (Maxipime 2gm) 2 gm in 100 mls @ 100 mls/hr IVPB Q12 [facility] PRN Reason: Protocol Stop: 11/24/16 15:13 Last Admin: 11/21/16 21:26 Dose: 100 mls/hr Levetiracetam (Keppra) 250 mg PO Q12 [facility] Last Admin: 11/21/16 21:26 Dose: 250 mg Ondansetron HCl (Zofran Inj) 4 mg IVP Q4H PRN PRN Reason: Nausea/Vomiting Tamsulosin HCl (Flomax) 0.4 mg PO DAILY [facility] Last Admin: 11/21/16 10:59 Dose: 0.4 mg - Labs Labs: 11/22/16 06:45 11/22/16 06:45 PT 11.8 Seconds (9.9-11.8) 11/19/16 18:17 INR 1.09 (0.93-1.08) H 11/19/16 18:17 APTT 35.5 Seconds (23.7-30.8) H 11/19/16 18:17 - Constitutional Appears: Non-toxic, No Acute Distress - Head Exam Head Exam: NORMAL INSPECTION - Respiratory Exam Respiratory Exam: Decreased Breath Sounds - Cardiovascular Exam Cardiovascular Exam: +S1, +S2 - GI/Abdominal Exam GI & Abdominal Exam: Soft. absent: Tenderness Assessment and Plan - Assessment and Plan (Free Text) Plan: Assessment sepsis secondary to urinary tract infection with pyelonephritis on the left with Pseudomonas HTN CVA DM obesity with BMI 32 history of prostate problems history of UTI's arthritis S/P right knee surgery Plan on Cefepime day 3; should complete 10 days total antibiotics
--- NOTE | 2016-11-23 14:14 | CP.PCM.DIS ---
<Guadalupe Odom - Last Filed: 11/23/16 14:21> Provider - Provider Date of Admission: 11/19/16 13:46 Attending physician: Carmella López MD Primary care physician: NO PRIMARY CARE PROVIDER Consults: ID: Dr Todd Urologist: Dr Medina Cardio: Dr Bedoya. Time Spent in preparation of Discharge (in minutes): 50 Diagnosis - Discharge Diagnosis (1) Pseudomonas urinary tract infection Status: Acute (2) Pyelonephritis Status: Acute (3) Prerenal acute renal failure Status: Resolved (4) Sepsis Status: Resolved (5) Diabetes Status: Chronic (6) BPH (benign prostatic hyperplasia) Status: Chronic (7) Chronic kidney disease (CKD) Status: Chronic Priority: Medium (8) Hematuria Status: Resolved (9) CVA (cerebrovascular accident) Status: Chronic Priority: Medium (10) Hypertension Status: Chronic (11) Hypokalemia Status: Resolved (12) Hypophosphatemia Status: Resolved Hospital Course - Lab Results Lab Results: Micro Results 11/19/16 15:10 Urine Urine Culture - Final Pseudomonas Aeruginosa 11/20/16 02:00 Urine,Clean Catch Urine Culture - Final Gram Negative [place] Most Recent Lab Values WBC 6.8 10^3/ul (4.5-11.0) 11/22/16 06:45 RBC 4.14 10^6/uL (3.5-6.1) 11/22/16 06:45 Hgb 11.9 g/dL (14.0-18.0) L 11/22/16 06:45 Hct 36.6 % (42.0-52.0) L 11/22/16 06:45 MCV 88.4 fl (80.0-105.0) 11/22/16 06:45 MCH 28.7 pg (25.0-35.0) 11/22/16 06:45 MCHC 32.5 g/dl (31.0-37.0) 11/22/16 06:45 RDW 14.4 % (11.5-14.5) 11/22/16 06:45 Plt Count 220 10^3/uL (120.0-450.0) 11/22/16 06:45 MPV 9.7 fl (7.0-11.0) 11/22/16 06:45 Gran % 66.5 % (50.0-68.0) 11/22/16 06:45 Lymph % (Auto) 15.0 % (22.0-35.0) L 11/22/16 06:45 [place] % (Auto) 10.7 % (1.0-6.0) H 11/22/16 06:45 Eos % (Auto) 7.5 % (1.5-5.0) H 11/22/16 06:45 Baso % (Auto) 0.3 % (0.0-3.0) 11/22/16 06:45 Gran # 4.53 (1.4-6.5) 11/22/16 06:45 Lymph # 1.0 (1.2-3.4) L 11/22/16 06:45 [place] # 0.7 (0.1-0.6) H 11/22/16 06:45 Eos # 0.5 (0.0-0.7) 11/22/16 06:45 Baso # 0.02 K/mm3 (0.0-2.0) 11/22/16 06:45 PT 11.8 Seconds (9.9-11.8) 11/19/16 18:17 INR 1.09 (0.93-1.08) H 11/19/16 18:17 APTT 35.5 Seconds (23.7-30.8) H 11/19/16 18:17 pO2 41 mm/Hg (30-55) 11/19/16 12:15 VBG pH 7.41 (7.32-7.43) 11/19/16 12:15 VBG pCO2 44.0 (40-60) 11/19/16 12:15 VBG HCO3 27.9 mmol/l (21-28) 11/19/16 12:15 VBG Total CO2 29.3 mmol.L (22-28) H 11/19/16 12:15 VBG O2 Sat (Calc) 82.5 % (40-65) H 11/19/16 12:15 VBG Base Excess 2.7 mmol/L (0.0-2.0) H 11/19/16 12:15 VBG Potassium 3.5 mmol/L (3.6-5.2) L 11/19/16 12:15 Sodium 135.0 mmol/L (132-148) 11/19/16 12:15 Chloride 97.0 mmol/L (98-107) L 11/19/16 12:15 Glucose 209 mg/dl (75-110) H 11/19/16 12:15 Lactate 1.5 mmol/L (0.7-2.1) 11/19/16 12:15 FiO2 21.0 % 11/19/16 12:15 Sodium 141 mmol/L (132-148) 11/22/16 06:45 Potassium 3.8 mmol/L (3.6-5.0) 11/22/16 06:45 Chloride 105 mmol/L (95-110) 11/22/16 06:45 Carbon Dioxide 25 mmol/L (21-33) 11/22/16 06:45 Anion Gap 15 (10-20) 11/22/16 06:45 BUN 15 mg/dL (7-21) 11/22/16 06:45 Creatinine 1.1 mg/dL (0.5-1.4) 11/22/16 06:45 Est GFR ( Amer) > 60 11/22/16 06:45 Est GFR (Non-Af Amer) > 60 11/22/16 06:45 Random Glucose 117 mg/dL (70-110) H 11/22/16 06:45 Hemoglobin A1c 7.9 % (4.2-6.5) H 11/21/16 06:15 Calcium 9.1 mg/dL (8.4-10.5) 11/22/16 06:45 Phosphorus 1.9 mg/dL (2.5-4.5) L 11/21/16 06:15 Magnesium 2.1 mg/dL (1.7-2.2) 11/21/16 06:15 Total Bilirubin 0.9 mg/dL (0.2-1.3) 11/22/16 06:45 AST 34 U/L (17-59) 11/22/16 06:45 ALT 34 U/L (7-56) 11/22/16 06:45 Alkaline Phosphatase 76 U/L (38-126) 11/22/16 06:45 Total Protein 7.1 g/dL (5.8-8.3) 11/22/16 06:45 Albumin 3.4 g/dL (3.0-4.8) 11/22/16 06:45 Globulin 3.7 gm/dL 11/22/16 06:45 Albumin/Globulin Ratio 0.9 (1.1-1.8) L 11/22/16 06:45 Triglycerides 222 mg/dL (35-160) H 11/21/16 06:15 Cholesterol 93 mg/dL (130-200) L 11/21/16 06:15 LDL Cholesterol Direct 44 mg/dL (0-129) 11/21/16 06:15 HDL Cholesterol 17 mg/dL (29-60) L 11/21/16 06:15 Lipase 68 U/L (23-300) 11/19/16 11:30 Prostate Specific Ag 1.1 ng/mL (0.00-2.5) 11/20/16 06:00 TSH 3rd Generation 1.00 mIU/mL (0.46-4.68) 11/21/16 06:15 Venous Blood Potassium 3.5 mmol/L (3.6-5.2) L 11/19/16 12:15 Urine Color Light red (YELLOW) 11/19/16 15:10 Urine Appearance Cloudy (CLEAR) 11/19/16 15:10 Urine pH 6.0 (4.7-8.0) 11/19/16 15:10 Ur Specific [place] 1.020 (1.005-1.035) 11/19/16 15:10 Urine Protein 100 mg/dL (<30 mg/dL) H 11/19/16 15:10 Urine Glucose (UA) Negative mg/dL (NEGATIVE) 11/19/16 15:10 Urine Ketones Trace mg/dL (NEGATIVE) H 11/19/16 15:10 Urine Blood Large (NEGATIVE) H 11/19/16 15:10 Urine Nitrate Negative (NEGATIVE) 11/19/16 15:10 Urine Bilirubin Negative (NEGATIVE) 11/19/16 15:10 Urine Urobilinogen 0.2 E.U./dL (<1 E.U./dL) 11/19/16 15:10 Ur Leukocyte Esterase Moderate [place]/uL (NEGATIVE) H 11/19/16 15:10 Urine RBC 5 - 10 /hpf (0-2) 11/19/16 15:10 Urine WBC Tntc /hpf (0-6) 09/05/17 15:10 Ur Epithelial Cells 10 - 12 /hpf (0-5) 11/19/16 15:10 Urine Bacteria Few (NEG) 11/19/16 15:10 Ur Random Creatinine 119 mg/dL 11/20/16 02:00 Ur Random Sodium 36 meq/L 11/20/16 02:00 Ur Random Uric Acid 52.4 mg/dL 11/20/16 02:00 HIV 1&2 Ag/Ab, 4th Gen Nonreactive (Nonreactive) 11/20/16 06:20 - Hospital Course Hospital Course: Patient is a 66 y/o with PMH of nephrolithiasis, recurrent UTIs, CHF, seizures, anxiety, CAD with stent placement, recent NSTEMI, 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 In the ED, patient was initially hypotensive, however responded to IV hydration. UA revealed UTI with gross hematuria. Patient also had CT abdomen and pelvis which revealed left sided pyelonephritis. Blood work revealed leukocytosis, however afebrile. Patient was admitted to [facility] and started on IV cefepime as per ID. Bcx revealed no growth, urine culture revealed pseudomona with multi drug resistance, but sensitive to floroquinolones and cefepime. Furthermore, urology was consulted due to recurrent UTIs and gross hematuria, however recommended no intervention at this time due to resolution of hematuria. Cardiology was consulted, and recommended against discontinuation of anticoagulation. Patient had karoilne on ckd on presentation which resolved with iv hydration. Patient also had electrolytes abnormalities and was repleted. Patient was seen by PT, recommended home with service versus TCU, however patient and patient's daughter preferred to go home with services. Patient to be discharged home with cipro for 6 more days. Patient will follow up with urology as outpatient. Diet: heart healthy diet Activity: as tolerated, home with VNS service. - Date & Time of H&P Date of H&P: 11/19/16 Time of H&P: 15:01 Discharge Exam - Head Exam Head Exam: ATRAUMATIC, NORMAL INSPECTION, NORMOCEPHALIC - Eye Exam Eye Exam: EOMI, Normal appearance, PERRL. absent: Scleral icterus Pupil Exam: NORMAL ACCOMODATION - ENT Exam ENT Exam: Mucous Membranes Moist - Neck Exam Neck exam: Full Rom, Normal Inspection - Respiratory Exam Respiratory Exam: Clear to PA & Lateral, NORMAL BREATHING PATTERN, UNREMARKABLE. absent: Rales, Rhonchi, Wheezes, Respiratory Distress, Stridor - Cardiovascular Exam Cardiovascular Exam: REGULAR RHYTHM, RRR, +S1, +S2. absent: Bradycardia, Tachycardia, Gallop, Irregular Rhythm, JVD, Rubs, Systolic Murmur - GI/Abdominal Exam GI & Abdominal Exam: Normal Bowel Sounds, Unremarkable. absent: Distended, Firm , Guarding, Rigid, Soft, Tenderness Additional comments: Obese abdomen. - Extremities Exam Extremities exam: pedal edema - Back Exam Back exam: NORMAL INSPECTION - Neurological Exam Neurological exam: Alert, CN II-XII Intact, Oriented x3 - Psychiatric Exam Psychiatric exam: Normal Affect, Normal Mood - Skin Skin Exam: Dry, Intact, Normal Color, Warm Discharge Plan - Discharge Medications Prescriptions: Ciprofloxacin [Cipro] 500 mg PO BID #12 tab - Follow Up Plan Condition: FAIR Disposition: HOME/ ROUTINE Instructions: Urinary Tract Infection in Men (DC), Dysuria (GEN) Additional Instructions: 1) Please follow up with PMD or [facility] within one week of discharge. 2) Patient to be sent home with VNA. 3) Patient to take prescribed medications as directed. 4) Patient to come to the nearest ED if symptoms persist or worsen. Referrals: PCP,NO [Primary Care Provider] - <Breonna [facility]BARRA,[facility] - Last Filed: 11/23/16 15:33> Provider - Provider Date of Admission: 11/19/16 13:46 Attending physician: Carmella López MD Primary care physician: NO PRIMARY CARE PROVIDER Hospital Course - Lab Results Lab Results: Micro Results 11/19/16 15:10 Urine Urine Culture - Final Pseudomonas Aeruginosa 11/20/16 02:00 Urine,Clean Catch Urine Culture - Final Gram Negative [place] Most Recent Lab Values WBC 6.8 10^3/ul (4.5-11.0) 11/22/16 06:45 RBC 4.14 10^6/uL (3.5-6.1) 11/22/16 06:45 Hgb 11.9 g/dL (14.0-18.0) L 11/22/16 06:45 Hct 36.6 % (42.0-52.0) L 11/22/16 06:45 MCV 88.4 fl (80.0-105.0) 11/22/16 06:45 MCH 28.7 pg (25.0-35.0) 11/22/16 06:45 MCHC 32.5 g/dl (31.0-37.0) 11/22/16 06:45 RDW 14.4 % (11.5-14.5) 11/22/16 06:45 Plt Count 220 10^3/uL (120.0-450.0) 11/22/16 06:45 MPV 9.7 fl (7.0-11.0) 11/22/16 06:45 Gran % 66.5 % (50.0-68.0) 11/22/16 06:45 Lymph % (Auto) 15.0 % (22.0-35.0) L 11/22/16 06:45 [place] % (Auto) 10.7 % (1.0-6.0) H 11/22/16 06:45 Eos % (Auto) 7.5 % (1.5-5.0) H 11/22/16 06:45 Baso % (Auto) 0.3 % (0.0-3.0) 11/22/16 06:45 Gran # 4.53 (1.4-6.5) 11/22/16 06:45 Lymph # 1.0 (1.2-3.4) L 11/22/16 06:45 [place] # 0.7 (0.1-0.6) H 11/22/16 06:45 Eos # 0.5 (0.0-0.7) 11/22/16 06:45 Baso # 0.02 K/mm3 (0.0-2.0) 11/22/16 06:45 PT 11.8 Seconds (9.9-11.8) 11/19/16 18:17 INR 1.09 (0.93-1.08) H 11/19/16 18:17 APTT 35.5 Seconds (23.7-30.8) H 11/19/16 18:17 pO2 41 mm/Hg (30-55) 11/19/16 12:15 VBG pH 7.41 (7.32-7.43) 11/19/16 12:15 VBG pCO2 44.0 (40-60) 11/19/16 12:15 VBG HCO3 27.9 mmol/l (21-28) 11/19/16 12:15 VBG Total CO2 29.3 mmol.L (22-28) H 11/19/16 12:15 VBG O2 Sat (Calc) 82.5 % (40-65) H 11/19/16 12:15 VBG Base Excess 2.7 mmol/L (0.0-2.0) H 11/19/16 12:15 VBG Potassium 3.5 mmol/L (3.6-5.2) L 11/19/16 12:15 Sodium 135.0 mmol/L (132-148) 11/19/16 12:15 Chloride 97.0 mmol/L (98-107) L 11/19/16 12:15 Glucose 209 mg/dl (75-110) H 11/19/16 12:15 Lactate 1.5 mmol/L (0.7-2.1) 11/19/16 12:15 FiO2 21.0 % 11/19/16 12:15 Sodium 141 mmol/L (132-148) 11/22/16 06:45 Potassium 3.8 mmol/L (3.6-5.0) 11/22/16 06:45 Chloride 105 mmol/L (95-110) 11/22/16 06:45 Carbon Dioxide 25 mmol/L (21-33) 11/22/16 06:45 Anion Gap 15 (10-20) 11/22/16 06:45 BUN 15 mg/dL (7-21) 11/22/16 06:45 Creatinine 1.1 mg/dL (0.5-1.4) 11/22/16 06:45 Est GFR ( Amer) > 60 11/22/16 06:45 Est GFR (Non-Af Amer) > 60 11/22/16 06:45 Random Glucose 117 mg/dL (70-110) H 11/22/16 06:45 Hemoglobin A1c 7.9 % (4.2-6.5) H 11/21/16 06:15 Calcium 9.1 mg/dL (8.4-10.5) 11/22/16 06:45 Phosphorus 1.9 mg/dL (2.5-4.5) L 11/21/16 06:15 Magnesium 2.1 mg/dL (1.7-2.2) 11/21/16 06:15 Total Bilirubin 0.9 mg/dL (0.2-1.3) 11/22/16 06:45 AST 34 U/L (17-59) 11/22/16 06:45 ALT 34 U/L (7-56) 11/22/16 06:45 Alkaline Phosphatase 76 U/L (38-126) 11/22/16 06:45 Total Protein 7.1 g/dL (5.8-8.3) 11/22/16 06:45 Albumin 3.4 g/dL (3.0-4.8) 11/22/16 06:45 Globulin 3.7 gm/dL 11/22/16 06:45 Albumin/Globulin Ratio 0.9 (1.1-1.8) L 11/22/16 06:45 Triglycerides 222 mg/dL (35-160) H 11/21/16 06:15 Cholesterol 93 mg/dL (130-200) L 11/21/16 06:15 LDL Cholesterol Direct 44 mg/dL (0-129) 11/21/16 06:15 HDL Cholesterol 17 mg/dL (29-60) L 11/21/16 06:15 Lipase 68 U/L (23-300) 11/19/16 11:30 Prostate Specific Ag 1.1 ng/mL (0.00-2.5) 11/20/16 06:00 TSH 3rd Generation 1.00 mIU/mL (0.46-4.68) 11/21/16 06:15 Venous Blood Potassium 3.5 mmol/L (3.6-5.2) L 11/19/16 12:15 Urine Color Light red (YELLOW) 11/19/16 15:10 Urine Appearance Cloudy (CLEAR) 11/19/16 15:10 Urine pH 6.0 (4.7-8.0) 11/19/16 15:10 Ur Specific [place] 1.020 (1.005-1.035) 11/19/16 15:10 Urine Protein 100 mg/dL (<30 mg/dL) H 11/19/16 15:10 Urine Glucose (UA) Negative mg/dL (NEGATIVE) 11/19/16 15:10 Urine Ketones Trace mg/dL (NEGATIVE) H 11/19/16 15:10 Urine Blood Large (NEGATIVE) H 11/19/16 15:10 Urine Nitrate Negative (NEGATIVE) 11/19/16 15:10 Urine Bilirubin Negative (NEGATIVE) 11/19/16 15:10 Urine Urobilinogen 0.2 E.U./dL (<1 E.U./dL) 11/19/16 15:10 Ur Leukocyte Esterase Moderate [place]/uL (NEGATIVE) H 11/19/16 15:10 Urine RBC 5 - 10 /hpf (0-2) 11/19/16 15:10 Urine WBC Tntc /hpf (0-6) 11/19/16 15:10 Ur Epithelial Cells 10 - 12 /hpf (0-5) 11/19/16 15:10 Urine Bacteria Few (NEG) 11/19/16 15:10 Ur Random Creatinine 119 mg/dL 11/20/16 02:00 Ur Random Sodium 36 meq/L 11/20/16 02:00 Ur Random Uric Acid 52.4 mg/dL 11/20/16 02:00 HIV 1&2 Ag/Ab, 4th Gen Nonreactive (Nonreactive) 11/20/16 06:20 Attending/Attestation - Attestation I have personally seen and examined this patient.: Yes I have fully participated in the care of the patient.: Yes I have reviewed all pertinent clinical information, including history, physical exam and plan: Yes Notes (Text): 11/23/16 15:27 Patient was seen and examined with medical coding auditor. Agreed with resident assessment and plan. 66 year old male with past medical history of nephrolithiasis, recurrent UTI, CAD, CVA, and hypertension who presented with dysuria and left flank pain. He was hypotensive in ER which responded to IV bolus. He had KAROLINE has well with improved with iv fluids. He was found to have sepsis due to pyelonephritis. Patient Urine cultures grew Pseudomonas auregonosa , case was discussed with ID and patient antibiotics will be changed to oral ciprofloxacin at the time of discharge.His CHF medications were resumed at the time of discharge.He is euvolemic at the time of discharge. He is on aspirin, plavix and statin for history of CAD, recent NSTEMI and CVA. Patient was evaluated by PT prior to discharge.He is discharged home with home health services. Management plan was discussed in detail with patient Education was provided.
== END 2016-11-22 22:41 | disposition home or self-care (01) | DRG 584 ==
LOC: ED 11:05 → ERH 13:46 → 2RSO 16:57 → 3RNO 11-22 15:52
PROVIDERS: ADMIT Internal Medicine; ATTEND Internal Medicine
DX: A41.9 Sepsis, unspecified organism (principal); N10 Acute pyelonephritis; N17.9 Acute kidney failure, unspecified; E11.22 Type 2 diabetes mellitus with diabetic chronic kidney disease; I13.0 Hypertensive heart and chronic kidney disease with heart failure and stage 1 through stage 4 chronic kidney disease, or unspecified chronic kidney disease; I50.9 Heart failure, unspecified; E87.6 Hypokalemia; N18.9 Chronic kidney disease, unspecified; I65.21 Occlusion and stenosis of right carotid artery; B96.5 Pseudomonas (aeruginosa) (mallei) (pseudomallei) as the cause of diseases classified elsewhere; I69.351 Hemiplegia and hemiparesis following cerebral infarction affecting right dominant side; I25.10 Atherosclerotic heart disease of native coronary artery without angina pectoris; I69.328 Other speech and language deficits following cerebral infarction; N40.0 Benign prostatic hyperplasia without lower urinary tract symptoms; F41.9 Anxiety disorder, unspecified; G40.909 Epilepsy, unspecified, not intractable, without status epilepticus; I25.5 Ischemic cardiomyopathy; R31.0 Gross hematuria; E78.00 Pure hypercholesterolemia, unspecified; E78.5 Hyperlipidemia, unspecified; E83.39 Other disorders of phosphorus metabolism; M19.90 Unspecified osteoarthritis, unspecified site; H91.92 Unspecified hearing loss, left ear; E66.9 Obesity, unspecified; Z68.32 Body mass index [BMI] 32.0-32.9, adult; I25.2 Old myocardial infarction; Z87.440 Personal history of urinary (tract) infections; Z79.82 Long term (current) use of aspirin; Z79.02 Long term (current) use of antithrombotics/antiplatelets; Z95.5 Presence of coronary angioplasty implant and graft; Z97.4 Presence of external hearing-aid; Z87.891 Personal history of nicotine dependence

== ENCOUNTER 2017-12-09 15:43 | Inpatient (IN) | payer MEDICARE, MEDICAID ==
--- NOTE | 2017-12-09 15:52 | ED PDOC ---
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 Pt. stated that he woke up with chest pain mid sternal yesterday morning, woke up today with fever 104F, associated with productive coughing and chest pain, took tylenol prior to arrival but no aspirin, starting to have hiccups as well, no palpitation, no night sweat, no dizziness, no tearing chest pain, no change in vision, no other medical or psychological complaints. Past Medical History - Provider Review Nursing Documentation Reviewed: Yes - Infectious Disease Hx of Infectious Diseases: None - Tetanus Immunization Tetanus Immunization: Unknown - Cardiac Hx Cardiac Disorders: Yes (mi) Hx Congestive Heart Failure: Yes Hx Hypertension: Yes - Pulmonary Hx Chronic Obstructive Pulmonary Disease (COPD): No Hx Sleep Apnea: (pt denies) - Neurological HX Cerebrovascular Accident: Yes (CVA/TIA with residual R sided weakness and slurred speech) - HEENT Hx HEENT Disorder: Yes Hx Blind: No Hx Cataracts: No Hx Deafness: Yes (left ear, hearing aid) Hx Difficulty Chewing: No Hx Epistaxis: No Hx Glaucoma: No Hx Macular Degeneration: No Other/Comment: uses eye glasses - Renal Hx Renal Failure: Yes - Endocrine/Metabolic Hx Diabetes Mellitus Type 2: Yes - Hematological/Oncological Hx Blood Disorders: Yes Hx Anemia: Yes (blood transfusion) - Integumentary Other/Comment: b/l lower extremity dry red scratch aquino, multiple tatoos - Musculoskeletal/Rheumatological Hx Arthritis: Yes - Gastrointestinal Other/Comment: umbilical hernia - Genitourinary/Gynecological Hx Genitourinary Disorders: Yes Hx Hematuria: Yes Hx Incontinence: Yes Hx Prostate Problems: Yes Hx Sexually Transmitted Diseases: No Hx Urinary Tract Infection: Yes Other/Comment: bladder stone removed from prostate as per pt - Psychiatric Hx Psychophysiologic Disorder: No Hx Depression: Yes Hx Emotional Abuse: No Hx Physical Abuse: No Hx Substance Use: No - Past Surgical History Past Surgical History: Unable to Obtain - Surgical History Hx Cardiac Catheterization: Yes (stents) Hx Coronary Stent: No Hx Orthopedic Surgery: Yes Other/Comment: rt.knee surgery acl - Anesthesia Hx Anesthesia: Yes Hx Anesthesia Reactions: No Hx Malignant Hyperthermia: No - Suicidal Assessment Feels Threatened In Home Enviroment: No Family/Social History - Physician Review Nursing Documentation Reviewed: Yes Family/Social History: Unknown Family HX Smoking Status: Former Smoker Hx Alcohol Use: No Hx Substance Use: No Hx Substance Use Treatment: No Allergies/Home Meds Allergies/Adverse Reactions: Allergies salmon Adverse Reaction (Uncoded 12/09/17 15:56) RASH Home Medications: Home Meds Medication Instructions Recorded Confirmed Tamsulosin [Flomax] 0.4 mg PO DAILY 03/08/13 12/09/17 levETIRAcetam [Keppra] 250 mg PO Q12 03/08/13 12/09/17 Sertraline [Zoloft] 100 mg PO DAILY 05/10/15 12/09/17 Atorvastatin [Lipitor] 80 mg PO DAILY 11/19/16 12/09/17 Finasteride [Proscar] 1 tab PO DAILY 11/19/16 12/09/17 Review of Systems - Review of Systems Constitutional: Fatigue, Fevers Eyes: absent: Vision Changes ENT: absent: Hearing Changes Respiratory: Cough, Sputum, Wheezing. absent: SOB Cardiovascular: Chest Pain Gastrointestinal: absent: Abdominal Pain, Nausea, Vomiting Skin: absent: Rash, Pruritis Neurological: absent: Headache, Dizziness Psychiatric: absent: Anxiety, Depression, Suicidal Ideation Physical Exam Vital Signs Reviewed: Yes Vital Signs Temp Pulse Pulse Resp BP BP Pulse Ox 12/09/17 19:30 61 23 105/48 L 94 L 12/09/17 18:19 98.6 F 91 H 21 91/34 L 96 12/09/17 16:19 98.3 F 78 18 95/59 L 94 L 12/09/17 16:05 82 95/59 L Temperature: Afebrile Blood Pressure: Hypotensive Pulse: Regular Respiratory Rate: Tachypneic Appearance: Positive for: Well-Appearing, Non-Toxic, Ill-Appearing Pain Distress: Mild Mental Status: Positive for: Alert and Oriented X 3 - Systems Exam Head: Present: Atraumatic, Normocephalic Pupils: Present: PERRL Extroacular Muscles: Present: EOMI Conjunctiva: Present: Normal Mouth: Present: Moist Mucous Membranes Neck: Present: Normal Range of Motion Respiratory/Chest: Present: Clear to Auscultation, Good Air Exchange, Wheezes, Decreased Breath Sounds, Rhonchi. No: Respiratory Distress, Accessory Muscle Use, Rales, Retracting, Tachypneic, Tender to Palpation Cardiovascular: Present: Regular Rate and Rhythm, Normal S1, S2. No: Murmurs Abdomen: No: Tenderness, Distention, Peritoneal Signs Back: Present: Normal Inspection Upper Extremity: Present: Normal Inspection. No: Cyanosis, Edema Lower Extremity: Present: Normal Inspection. No: Edema Neurological: Present: GCS=15, CN II-XII Intact, Motor Func Grossly Intact, Memory Normal, Other (Rt. sided weakness and slurred speech(residual from previous stroke as per daughter and patient, not worsened)) Skin: Present: Warm, Dry, Normal Color. No: Rashes Psychiatric: Present: Alert, Oriented x 3, Normal Insight, Normal Concentration Medical Decision Making ED Course and Treatment: 12/09/17 15:51 -labs/bnp/cardiac enzyme/ua -ekg -cxr -IVF/aspirin/duoneb/pepcid -oxygen 2L (hypoxic around 90%) -electronic device monitor 12/09/17 17:44 -EKG: NSR @ 83 BPM, chronic lt. bundle branch block, no acute ST or T wave changes compared with previous ekg. -Chest X-Ray show no active disease cardiomegally -Labs show no acute findings except wbc 14.3 (Blood cultures and IV rocephine ordered) -Mag 1.6 (mgsul 1gm ordered) -BNP 2000 from 1268 -Trop is 0.06 from 0.86, needs trending -Dimer is elevated around 577 -Digoxin is 0.5 (low), subtherapeutic -rapid flu is negative. -Urinalysis show +UTI (IV rocephine ordered) -HEART score is 6, need admission -WELLS critieria is 3 -Pt. complaining about hiccups, not improved with pepcid, tried conservative methods and failed, thorazine 50mg IM ordered. -Pt. is still hypoxic around 88-92%, CTA ordered with elevated 12/09/17 20:35 -CTA show No evidence of pulmonary embolic disease to the main pulmonary arteries or their main branches. No consolidation or atelectasis. Chronic changes within the lungs suspected. Advanced atherosclerotic changes with a prominent calcification of the coronary arteries. Mild aneurysmal dilatation of the descending thoracic aorta with a proximally 4.2 cm. Enlarged liver. Small gallstones present. Mild compression deformity lower thoracic vertebral body. Close clinical correlation is advised. (discussed with the daughter and provided her copy as well for her and the patient). -IV solumedrol 125mg ordered, he has smoking history, COPD? 12/09/17 21:05 -I discussed the case with the admitting team Dr. Caro and the medical r esident about the labs/radiology results and treatment, they will follow up on any pending labs/radiology studies. - Lab Interpretations Lab Results: 12/09/17 16:42 12/09/17 16:42 Lab Results 12/09/17 17:15: PT 13.8 H, INR 1.21, APTT 29.8, D-Dimer, Quantitative 577 H 12/09/17 16:42: Digoxin 0.5 L 12/09/17 16:42: WBC 14.3 H D, RBC 4.88, Hgb 14.0 D, Hct 41.3 L, MCV 84.6 D, MCH 28.7, MCHC 33.9, RDW 14.5, Plt Count 224, MPV 9.3, Gran % 75.1 H, Lymph % (Auto) 12.1 L, [place] % (Auto) 12.3 H, Eos % (Auto) 0.3 L, Baso % (Auto) 0.2, Gran # 10.74 H, Lymph # (Auto) 1.7, [place] # (Auto) 1.8 H, Eos # (Auto) 0.1, Baso # (Auto) 0.03 12/09/17 16:42: Sodium 135, Chloride 97 L, Potassium 4.0, Carbon Dioxide 25, Anion Gap 18, BUN 24 H, Creatinine 1.5, Est GFR ( Amer) 57, Est GFR (Non- Af Amer) 47, Random Glucose 167 H, Calcium 9.3, Magnesium 1.6 L, Total Bilirubin 1.6 H, AST 37, ALT 25, Alkaline Phosphatase 87, Lactate Dehydrogenase 469, Total Creatine Kinase 89, Troponin I 0.06 D, NT-Pro-B Natriuret Pep 2000 H, Total Protein 8.4 H, Albumin 4.4, Globulin 4.0, Albumin/Globulin Ratio 1.1 12/09/17 16:40: pO2 69 H, VBG pH 7.37, VBG pCO2 45.0, VBG HCO3 26.0, VBG Total CO2 27.4, VBG O2 Sat (Calc) 95.1 H, VBG Base Excess 0.3, VBG Potassium 4.0, Sodium 133.0, Chloride 98.0, Glucose 169 H, Lactate 1.5, FiO2 21.0, Venous Blood Potassium 4.0 12/09/17 16:35: Urine Color Dark yellow, Urine Appearance Slight-cloudy, Urine pH 6.0, Ur Specific [place] 1.020, Urine Protein 30 H, Urine Glucose (UA) Negative, Urine Ketones Negative, Urine Blood Moderate H, Urine Nitrate Positive H, Urine Bilirubin Negative, Urine Urobilinogen 0.2, Ur Leukocyte Esterase Large H, Urine RBC 1 - 3, Urine WBC 25 - 30, Ur Epithelial Cells 1 - 3, Urine Bacteria Many 12/09/17 16:35: Influenza Typ A,B (EIA) Negative for flu a/b I have reviewed the lab results: Yes - RAD Interpretation Narrative RAD Interpretations (Text): 12/09/17 20:12 History: Chest pain. Cough. Possible PE. Comparison: None Technique: CT examination of the chest with intravenous contrast. CT examination of the chest was obtained with 150 mL low osmolar contrast using thin axial sections. Images were reconstructed in the coronal and sagittal plan es. There is no consolidation or atelectasis or pleural effusion. There is scarring of the lower lungs. There is minimal pleural thickening bilaterally. Heart is mildly enlarged. There is advanced atherosclerotic change involving the throacic aorta and coronary arteries. There is no pulmonary embolic disease to the main pulmonary arteries or their main branches. There is no definite hilar or medi astinal lymphadenopathy. Note is made of mild aneurysmal dilatation of the proximal abdominal aorta with a diameter of approximately 4.2 cm. The central pulmonary arteries also appear enlarged. There is mild compression deformity of the lower thoracic vertebral body. Views of the upper abdomen demonstrate and enlarged liver. Gallstones are noted. Impression: No evidence of pulmonary embolic disease to the main pulmonary arteries or their main branches. No consolidation or atelectasis. Chronic changes within the lungs suspected. Advanced atherosclerotic changes with a prominent calcification of the coronary arteries. Mild aneurysmal dilatation of the descending thoracic aorta with a proximally 4.2 cm. Enlarged liver. Small gallstones present. Mild compression deformity lower thoracic vertebral body. Close clinical correlation is advised. Electronically signed on Dec 09, 2017 8:12:23 PM EDT by: Alex Pérez M.D., Certified by [facility], Diagnostic Radiology. Radiology Orders: 12/09/17 16:05 CHEST PORTABLE [RAD] Stat 12/09/17 18:06 ANGIO CHEST PE PROTOCOL [CT] Stat Brake Assembler: Radiologist - EKG Interpretation Interpreted by ED Physician: Yes - Medication Orders Current Medication Orders: Discontinued Medications Albuterol/Ipratropium (Duoneb 3 Mg/0.5 Mg (3 Ml) Ud) 3 ml IH STAT STA Stop: 12/09/17 16:06 Last Admin: 12/09/17 16:46 Dose: 3 ml Albuterol/Ipratropium (Duoneb 3 Mg/0.5 Mg (3 Ml) Ud) 3 ml IH STAT STA Stop: 12/09/17 16:09 Last Admin: 12/09/17 17:21 Dose: 3 ml Aspirin (Aspirin) 325 mg PO STAT STA Stop: 12/09/17 16:06 Last Admin: 12/09/17 16:46 Dose: 325 mg Chlorpromazine (Thorazine) 50 mg IM STAT STA; Protocol Stop: 12/09/17 17:42 Last Admin: 12/09/17 18:07 Dose: 50 mg IM Administration Charges Document 12/09/17 18:07 [employer] CAKE DECORATOR (Rec: 12/09/17 18:07 [employer] CAKE DECORATOR [facility]-[id number]) Injection Site MAR Injection Site Left Deltoid Charges for Administration # of IM Administrations 1 Famotidine (Pepcid) 20 mg IVP STAT STA Stop: 12/09/17 17:03 Last Admin: 12/09/17 17:21 Dose: 20 mg IVP Administration Document 12/09/17 17:21 [employer] CAKE DECORATOR (Rec: 12/09/17 17:21 [employer] DECORATOR [facility]-[id number]) Charges for Administration # of IVP Administrations 1 Ceftriaxone Sodium (Rocephin 1 Gram Ivpb) 1 gm in 100 mls @ 200 mls/hr IVPB STAT STA; Protocol Stop: 12/09/17 17:26 Last Admin: 12/09/17 17:22 Dose: 200 mls/hr eMAR Start Stop Document 12/09/17 17:22 [employer] CA[employer] DECORATOR (Rec: 12/09/17 17:22 [employer] CAKE DECORATOR [id number]) Intravenous Solution Start Date 12/09/17 Start Time 17:22 Magnesium Sulfate/Dextrose (Magnesium Sulfate 1 Gm/100 Ml D5w) 1 gm in 100 mls @ 100 mls/hr IVPB ONCE ONE Stop: 12/09/17 18:40 Last Admin: 12/09/17 18:06 Dose: 100 mls/hr eMAR Start Stop Document 12/09/17 18:06 [employer] DECORATOR (Rec: 12/09/17 18:07 [employer] CA[employer] DECORATOR [id number]) Intravenous Solution Start Date 12/09/17 Start Time 18:07 Methylprednisolone (Solu-Medrol) 125 mg IVP STAT STA Stop: 12/09/17 20:36 Last Admin: 12/09/17 21:05 Dose: 125 mg IVP Administration Document 12/09/17 21:05 CNR (Rec: 12/09/17 21:05 CNR [id number]) Charges for Administration # of IVP Administrations 1 - PA / PHARMACY TECHNICIAN ASSISTANT / Resident Statement MD/DO has reviewed & agrees with the documentation as recorded. Disposition/Present on Arrival - Present on Arrival Any Indicators Present on Arrival: No History of DVT/PE: No History of Uncontrolled Diabetes: No Urinary Catheter: No History of Decub. Ulcer: No History Surgical Site Infection Following: None - Disposition Have Diagnosis and Disposition been Completed?: Yes Diagnosis: Chest pain, Elevated troponin, UTI (urinary tract infection), Leukocytosis (leucocytosis), Hypoxic, Hypomagnesemia, Aneurysm Disposition: HOSPITALIZED Disposition Time: 17:47 Patient Plan: Admission, Observation, Telemetry Patient Problems: Current Active Problems Problem Status Onset Aneurysm Acute Chest pain Acute Elevated troponin Acute Hypomagnesemia Acute Hypoxic Acute Leukocytosis (leucocytosis) Acute UTI (urinary tract infection) Acute Condition: GUARDED
[2017-12-09 15:57] VITALS: BMI 33.7
[2017-12-09] MEDS ORDERED: Albuterol-Ipratrop 3 mg / 0.5 (3 ml) UD IH STA ×2 (16:05→16:08)
--- NOTE | 2017-12-09 16:25 | RAD ---
HISTORY: cough/fever/chest pain COMPARISON: Chest x-ray performed 11/19/16 TECHNIQUE: Chest, one view. FINDINGS: Examination limited by habitus. LUNGS: No focal consolidation. Please note that chest x-ray has limited sensitivity for the detection of pulmonary masses. PLEURA: No significant pleural effusion identified. No definite pneumothorax . CARDIOVASCULAR: Borderline cardiomegaly. Ectatic aorta. OSSEOUS STRUCTURES: Degenerative changes. VISUALIZED UPPER ABDOMEN: Unremarkable. OTHER FINDINGS: None. IMPRESSION: Borderline cardiomegaly. Ectatic aorta.
[2017-12-09 16:47] LABS: VENOUS BLOOD GAS BASE EXCESS 0.3 mmol/L (0.0-2.0); VENOUS BLOOD GAS PO2 69 mm/Hg (30-55); VENOUS BLOOD PH 7.37 (7.32-7.43)
[2017-12-09 16:50] LABS: BASO # 0.03 K/mm3 (0.0-2.0); BASO % 0.2 % (0.0-3.0); EOS # 0.1 (0.0-0.7); EOS % 0.3 % (1.5-5.0); GRAN # 10.74 (1.4-6.5); GRAN % 75.1 % (50.0-68.0); LYMPH # 1.7 (1.2-3.4); LYMPH % 12.1 % (22.0-35.0); MEAN CELL VOLUME 84.6 fl (80.0-105.0); MEAN CORPUSCULAR HEMOGLOBIN 28.7 pg (25.0-35.0); MEAN CORPUSCULAR HGB CONC 33.9 g/dl (31.0-37.0); MEAN PLATELET VOLUME 9.3 fl (7.0-11.0); MONO # 1.8 (0.1-0.6); MONO % 12.3 % (1.0-6.0); RBC 4.88 10^6/uL (3.5-6.1); RED CELL DISTRIBUTION WIDTH 14.5 % (11.5-14.5); WHITE BLOOD COUNT 14.3 10^3/ul (4.5-11.0)
[2017-12-09 16:52] LABS: URINE APPEARANCE SLIGHT-CLOUDY (CLEAR); URINE BILIRUBIN NEGATIVE (NEGATIVE); URINE BLOOD MODERATE (NEGATIVE); URINE COLOR DARK YELLOW (YELLOW); URINE GLUCOSE (UA) NEGATIVE (NEGATIVE); URINE LEUKOCYTE ESTERASE LARGE Leu/uL (NEGATIVE); URINE PROTEIN 30 mg/dL (<30 mg/dL); URINE UROBILINOGEN 0.2 E.U./dL (<1 E.U./dL)
[2017-12-09] MEDS ORDERED: cefTRIAXone 1 gm 1 GM/100 ML BAG IVPB STA (16:57)
[2017-12-09 17:04] LABS: ALB/GLOB RATIO 1.1 (1.1-1.8); ALBUMIN 4.4 g/dL (3.0-4.8); CALCIUM 9.3 mg/dL (8.4-10.5)
[2017-12-09 17:16] LABS: TROPONIN I 0.06 ng/mL
[2017-12-09 17:18] LABS: URINE BACTERIA MANY (NEG); URINE WBC 25 - 30 /hpf (0-6)
[2017-12-09] MEDS ORDERED: Magnesium Sulfate 1 gm in D5W 1 GM/100 ML BAG IVPB ONE (17:41)
[2017-12-09 18:04] LABS: INR 1.21; PARTIAL THROMBOPLASTIN TIME 29.8 Seconds (25.1-36.5); PROTHROMBIN TIME 13.8 SECONDS (9.4-12.5)
[2017-12-09] MEDS ORDERED: Iodixanol 320 mg/ml 150 ml Bottle IV ONE (18:31)
--- NOTE | 2017-12-09 22:46 | CP.PCM.HP ---
<Tanja Church - Last Filed: 12/10/17 03:15> History of Present Illness - History of Present Illness History of Present Illness: HISTORY & PHYSICAL NOTE FOR HOSPITALIST TEAM Tanja Church D.O. PGY-1 CC: Chest pain, generalized weakness, fever 67 y/o M with PMH of CHF with last known EF= 46% (MUGA), CAD s/p stent (LAD 07/2016), recurrent UTIs, nephrolithiasis, prostatectomy, CVA with residual R sided weakness, seizures, HTN, HLD presents to ED with complaints of sharp substernal chest pressure without associated diophoresis, nausea or vomiting that had presented earlier this morning and subsequently resolved upon presentation to ED. Pt also complains of generalized weakness with trouble standing up, fevers, and chills. As per daughter, who is present at bedside, reports her father had a fever of 104 this am that had decreased with tylenol. She reports pt has had similar symptoms every time he has a UTI. Daughter reports he has had cough and congestion and "chest rattling" since yesterday, however has not had shortness of breath. Pt is normally able to walk with a cane with assistance, however has not been able to do so due to weakness since his CV A. Upon interview, pt was lethargic and wouldn't provide a detailed history, much of history provided by daughter. He reports he doesn't feel well and admits to chills. He denies chest pain, palpitations, shortness of breath, diaphoresis, nausea, vomiting, headache, dizziness, constipation, diarrhea. PMH: CHF, CAD, Recurrent UTIs, CVA, Seizures, HTN, HLD PSH: Suprapubic prostatectomy (2014), lithotripsy, multiple cystoscopies SH: Former smoker, All: [place] (rash) Hosp: 2017 (sepsis) FH: Mother: stroke (75y/o), Father: Abdominal aneurysm (71 y/o) Meds: See MAY. Reviewed. CTA chest (faxed) 12/09/17:"No evidence of pulmonary embolic disease to the main pulmonary arteries or their main branches. No consolidation or atelectasis. Chronic changes within the lungs suspected. Advanced atherosclerotic changes with a prominent calcification of the coronary arteries. Mild aneurysmal dilatation of the descending thoracic aorta with a approximately 4.2cm. Enlarged liver. Small gallstones present. Mild compression deformity lower thoracic vertebral body. Close clinical correlation is advised" Present on Admission - Present on Admission Any Indicators Present on Admission: No Review of Systems - Review of Systems Review of Systems: as per HPI Past Patient History - Infectious Disease Hx of Infectious Diseases: None - Tetanus Immunizations Tetanus Immunization: Unknown - Past Medical History & Family History Past Medical History?: Yes - Past Social History Smoking Status: Former Smoker - CARDIAC Hx Cardiac Disorders: Yes (mi) Hx Congestive Heart Failure: Yes Hx Hypertension: Yes - PULMONARY Hx Chronic Obstructive Pulmonary Disease (COPD): No Hx Sleep Apnea: (pt denies) - NEUROLOGICAL HX Cerebrovascular Accident: Yes (CVA/TIA with residual R sided weakness and slurred speech) - HEENT Hx HEENT Problems: Yes Hx Blind: No Hx Cataracts: No Hx Deafness: Yes (left ear, hearing aid) Hx Difficulty Chewing: No Hx Epistaxis: No Hx Glaucoma: No Hx Macular Degeneration: No Other/Comment: uses eye glasses - RENAL Hx Renal Failure: Yes - ENDOCRINE/METABOLIC Hx Diabetes Mellitus Type 2: Yes - HEMATOLOGICAL/ONCOLOGICAL Hx Blood Disorders: Yes Hx Anemia: Yes (blood transfusion) - INTEGUMENTARY Other/Comment: b/l lower extremity dry red scratch aquino, multiple tatoos - MUSCULOSKELETAL/RHEUMATOLOGICAL Hx Arthritis: Yes - GASTROINTESTINAL Other/Comment: umbilical hernia - GENITOURINARY/GYNECOLOGICAL Hx Genitourinary Disorders: Yes Hx Hematuria: Yes Hx Incontinence: Yes Hx Prostate Problems: Yes Hx Sexually Transmitted Disorders: No Hx Urinary Tract Infection: Yes Other/Comment: bladder stone removed from prostate as per pt - PSYCHIATRIC Hx Psychophysiologic Disorder: No Hx Depression: Yes Hx Emotional Abuse: No Hx Physical Abuse: No Hx Substance Use: No - SURGICAL HISTORY Hx Cardiac Catheterization: Yes (stents) Hx Coronary Stent: No Hx Orthopedic Surgery: Yes Other/Comment: rt.knee surgery acl - ANESTHESIA Hx Anesthesia: Yes Hx Anesthesia Reactions: No Hx Malignant Hyperthermia: No Meds Allergies/Adverse Reactions: Allergies Allergy/AdvReac Type Severity Reaction Status Date / Time salmon AdvReac RASH Uncoded 12/09/17 21:40 Physical Exam - Constitutional Appears: Non-toxic, No Acute Distress, Chronically Ill - Head Exam Head Exam: NORMAL INSPECTION, NORMOCEPHALIC - Eye Exam Eye Exam: EOMI, Normal appearance, PERRL - ENT Exam ENT Exam: Mucous Membranes Moist, Normal Exam - Neck Exam Neck exam: Positive for: Normal Inspection. Negative for: Meningismus - Respiratory Exam Respiratory Exam: Clear to Auscultation Bilateral, NORMAL BREATHING PATTERN - Cardiovascular Exam Cardiovascular Exam: REGULAR RHYTHM, +S1, +S2 - GI/Abdominal Exam GI & Abdominal Exam: Normal Bowel Sounds, Soft. absent: Distended, Guarding, Tenderness - Extremities Exam Extremities exam: Positive for: normal inspection. Negative for: calf tenderness, pedal edema - Back Exam Back exam: NORMAL INSPECTION - Neurological Exam Neurological exam: Alert, CN II-XII Intact - Expanded Neurological Exam Expanded Speech: Slurred Speech Cranial nerves: EOM's Intact: Normal Neuro motor strength exam: Left Upper Extremity: 4, Right Upper Extremity: 2/1, Left Lower Extremity: 4, Right Lower Extremity: 3 - Psychiatric Exam Psychiatric exam: Normal Affect, Normal Mood - Skin Skin Exam: Dry, Intact, Warm Results - Vital Signs Recent Vital Signs: Last Vital Signs Temp 98.6 F 12/09/17 18:19 Pulse 63 12/09/17 21:49 Resp 16 12/09/17 21:49 BP 104/55 L 12/09/17 21:49 Pulse Ox 94 L 12/09/17 21:49 - Labs Result Diagrams: 12/09/17 16:42 12/09/17 16:42 Labs: Laboratory Results - last 24 hr 12/09/17 12/09/17 12/09/17 16:35 16:35 16:40 WBC RBC Hgb Hct MCV MCH MCHC RDW Plt Count MPV Gran % Lymph % (Auto) [place] % (Auto) Eos % (Auto) Baso % (Auto) Gran # Lymph # (Auto) [place] # (Auto) Eos # (Auto) Baso # (Auto) PT INR APTT D-Dimer, Quantitative pO2 69 H VBG pH 7.37 VBG pCO2 45.0 VBG HCO3 26.0 VBG Total CO2 27.4 VBG O2 Sat (Calc) 95.1 H VBG Base Excess 0.3 VBG Potassium 4.0 Sodium 133.0 Chloride 98.0 Glucose 169 H Lactate 1.5 FiO2 21.0 Potassium Carbon Dioxide Anion Gap BUN Creatinine Est GFR ( Amer) Est GFR (Non-Af Amer) Random Glucose Calcium Magnesium Total Bilirubin AST ALT Alkaline Phosphatase Lactate Dehydrogenase Total Creatine Kinase Troponin I NT-Pro-B Natriuret Pep Total Protein Albumin Globulin Albumin/Globulin Ratio Venous Blood Potassium 4.0 Urine Color Dark yellow Urine Appearance Slight-cloudy Urine pH 6.0 Ur Specific [place] 1.020 Urine Protein 30 H Urine Glucose (UA) Negative Urine Ketones Negative Urine Blood Moderate H Urine Nitrate Positive H Urine Bilirubin Negative Urine Urobilinogen 0.2 Ur Leukocyte Esterase Large H Urine RBC 1 - 3 Urine WBC 25 - 30 Ur Epithelial Cells 1 - 3 Urine Bacteria Many Digoxin Influenza Typ A,B (EIA) Negative for flu a/b 12/09/17 12/09/17 12/09/17 16:42 16:42 16:42 WBC 14.3 H D RBC 4.88 Hgb 14.0 D Hct 41.3 L MCV 84.6 D MCH 28.7 MCHC 33.9 RDW 14.5 Plt Count 224 MPV 9.3 Gran % 75.1 H Lymph % (Auto) 12.1 L [place] % (Auto) 12.3 H Eos % (Auto) 0.3 L Baso % (Auto) 0.2 Gran # 10.74 H Lymph # (Auto) 1.7 [place] # (Auto) 1.8 H Eos # (Auto) 0.1 Baso # (Auto) 0.03 PT INR APTT D-Dimer, Quantitative pO2 VBG pH VBG pCO2 VBG HCO3 VBG Total CO2 VBG O2 Sat (Calc) VBG Base Excess VBG Potassium Sodium 135 Chloride 97 L Glucose Lactate FiO2 Potassium 4.0 Carbon Dioxide 25 Anion Gap 18 BUN 24 H Creatinine 1.5 Est GFR ( Amer) 57 Est GFR (Non-Af Amer) 47 Random Glucose 167 H Calcium 9.3 Magnesium 1.6 L Total Bilirubin 1.6 H AST 37 ALT 25 Alkaline Phosphatase 87 Lactate Dehydrogenase 469 Total Creatine Kinase 89 Troponin I 0.06 D NT-Pro-B Natriuret Pep 2000 H Total Protein 8.4 H Albumin 4.4 Globulin 4.0 Albumin/Globulin Ratio 1.1 Venous Blood Potassium Urine Color Urine Appearance Urine pH Ur Specific [place] Urine Protein Urine Glucose (UA) Urine Ketones Urine Blood Urine Nitrate Urine Bilirubin Urine Urobilinogen Ur Leukocyte Esterase Urine RBC Urine WBC Ur Epithelial Cells Urine Bacteria Digoxin 0.5 L Influenza Typ A,B (EIA) 12/09/17 17:15 WBC RBC Hgb Hct MCV MCH MCHC RDW Plt Count MPV Gran % Lymph % (Auto) [place] % (Auto) Eos % (Auto) Baso % (Auto) Gran # Lymph # (Auto) [place] # (Auto) Eos # (Auto) Baso # (Auto) PT 13.8 H INR 1.21 APTT 29.8 D-Dimer, Quantitative 577 H pO2 VBG pH VBG pCO2 VBG HCO3 VBG Total CO2 VBG O2 Sat (Calc) VBG Base Excess VBG Potassium Sodium Chloride Glucose Lactate FiO2 Potassium Carbon Dioxide Anion Gap BUN Creatinine Est GFR ( Amer) Est GFR (Non-Af Amer) Random Glucose Calcium Magnesium Total Bilirubin AST ALT Alkaline Phosphatase Lactate Dehydrogenase Total Creatine Kinase Troponin I NT-Pro-B Natriuret Pep Total Protein Albumin Globulin Albumin/Globulin Ratio Venous Blood Potassium Urine Color Urine Appearance Urine pH Ur Specific [place] Urine Protein Urine Glucose (UA) Urine Ketones Urine Blood Urine Nitrate Urine Bilirubin Urine Urobilinogen Ur Leukocyte Esterase Urine RBC Urine WBC Ur Epithelial Cells Urine Bacteria Digoxin Influenza Typ A,B (EIA) Assessment & Plan - Assessment and Plan (Free Text) Assessment: 67 y/oM with PMH of CHF with last known EF= 46% (MUGA), CAD s/p stent (LAD 07/2016), recurrent UTIs, nephrolithiasis, prostatectomy, CVA with residual R sided weakness, seizures, HTN, HLD admitted for chest pain with a HEART score of 6, rule-out ACS and UTI with leukocytosis. Initial troponin was 0.06, pt was found to have WBC 14.3 with lactate 1.5, afebrile and was treated with rocephin in ED. He was also found to have elevated d-dimer, and CTA was negative for PE, showed 4.2cm aneurysm of the descending thoracic aorta. Pt admitted to observation. Plan: Urinary tract infection Pt received 1g rocephin in ED. Continue second dose IVPB rocephin for empiric treatment Start NS @60mLs/hr. Pt has elevated BNP, avoid aggressive hydration. f/u procalcitonin, if elevated, consult ID Monitor leukocytosis f/u urine/blood cultures Chest pain Given aspirin 325 in ED. Chest pain resolved upon presentation to ED Initial troponin 0.06. EKG: NSR @ 83 BPM, left bundle branch block, no acute ST or T wave changes compared with previous ekg. Trend EKG & Troponin x 2 q6H CHF BNP: 2000 Continue lasix 40mg IVP qd. Monitor renal function Digoxin subtherapeutic at 0.5. Continue home digoxin KAROLINE Hold lisinopril monitors I/Os continue NS@60cc CAD continue home atorvastatin continue home carvedilol continue home plavix HTN continue home amlodipine HLD continue home atorvastatin Seizures continue home keppra Anxiety continue home sertraline Diet/DVT/GI ppx: HHD/Heparin/protonix Case seen, examined and discussed with attending physician, Dr. Caro. <Suly Caro - Last Filed: 12/10/17 03:33> Results - Vital Signs Recent Vital Signs: Last Vital Signs Temp 97 F L 12/10/17 00:01 Pulse 84 12/10/17 02:00 Resp 18 12/10/17 00:01 BP 93/54 L 12/10/17 00:01 Pulse Ox 93 L 12/10/17 00:01 - Labs Result Diagrams: 12/09/17 16:42 12/09/17 16:42 Labs: Laboratory Results - last 24 hr 12/09/17 12/09/17 12/09/17 16:35 16:35 16:40 WBC RBC Hgb Hct MCV MCH MCHC RDW Plt Count MPV Gran % Lymph % (Auto) [place] % (Auto) Eos % (Auto) Baso % (Auto) Gran # Lymph # (Auto) [place] # (Auto) Eos # (Auto) Baso # (Auto) PT INR APTT D-Dimer, Quantitative pO2 69 H VBG pH 7.37 VBG pCO2 45.0 VBG HCO3 26.0 VBG Total CO2 27.4 VBG O2 Sat (Calc) 95.1 H VBG Base Excess 0.3 VBG Potassium 4.0 Sodium 133.0 Chloride 98.0 Glucose 169 H Lactate 1.5 FiO2 21.0 Potassium Carbon Dioxide Anion Gap BUN Creatinine Est GFR ( Amer) Est GFR (Non-Af Amer) Random Glucose Calcium Magnesium Total Bilirubin AST ALT Alkaline Phosphatase Lactate Dehydrogenase Total Creatine Kinase Troponin I NT-Pro-B Natriuret Pep Total Protein Albumin Globulin Albumin/Globulin Ratio Venous Blood Potassium 4.0 Urine Color Dark yellow Urine Appearance Slight-cloudy Urine pH 6.0 Ur Specific [place] 1.020 Urine Protein 30 H Urine Glucose (UA) Negative Urine Ketones Negative Urine Blood Moderate H Urine Nitrate Positive H Urine Bilirubin Negative Urine Urobilinogen 0.2 Ur Leukocyte Esterase Large H Urine RBC 1 - 3 Urine WBC 25 - 30 Ur Epithelial Cells 1 - 3 Urine Bacteria Many Digoxin Influenza Typ A,B (EIA) Negative for flu a/b 12/09/17 12/09/17 12/09/17 16:42 16:42 16:42 WBC 14.3 H D RBC 4.88 Hgb 14.0 D Hct 41.3 L MCV 84.6 D MCH 28.7 MCHC 33.9 RDW 14.5 Plt Count 224 MPV 9.3 Gran % 75.1 H Lymph % (Auto) 12.1 L [place] % (Auto) 12.3 H Eos % (Auto) 0.3 L Baso % (Auto) 0.2 Gran # 10.74 H Lymph # (Auto) 1.7 [place] # (Auto) 1.8 H Eos # (Auto) 0.1 Baso # (Auto) 0.03 PT INR APTT D-Dimer, Quantitative pO2 VBG pH VBG pCO2 VBG HCO3 VBG Total CO2 VBG O2 Sat (Calc) VBG Base Excess VBG Potassium Sodium 135 Chloride 97 L Glucose Lactate FiO2 Potassium 4.0 Carbon Dioxide 25 Anion Gap 18 BUN 24 H Creatinine 1.5 Est GFR ( Amer) 57 Est GFR (Non-Af Amer) 47 Random Glucose 167 H Calcium 9.3 Magnesium 1.6 L Total Bilirubin 1.6 H AST 37 ALT 25 Alkaline Phosphatase 87 Lactate Dehydrogenase 469 Total Creatine Kinase 89 Troponin I 0.06 D NT-Pro-B Natriuret Pep 2000 H Total Protein 8.4 H Albumin 4.4 Globulin 4.0 Albumin/Globulin Ratio 1.1 Venous Blood Potassium Urine Color Urine Appearance Urine pH Ur Specific [place] Urine Protein Urine Glucose (UA) Urine Ketones Urine Blood Urine Nitrate Urine Bilirubin Urine Urobilinogen Ur Leukocyte Esterase Urine RBC Urine WBC Ur Epithelial Cells Urine Bacteria Digoxin 0.5 L Influenza Typ A,B (EIA) 12/09/17 12/10/17 17:15 00:10 WBC RBC Hgb Hct MCV MCH MCHC RDW Plt Count MPV Gran % Lymph % (Auto) [place] % (Auto) Eos % (Auto) Baso % (Auto) Gran # Lymph # (Auto) [place] # (Auto) Eos # (Auto) Baso # (Auto) PT 13.8 H INR 1.21 APTT 29.8 D-Dimer, Quantitative 577 H pO2 VBG pH VBG pCO2 VBG HCO3 VBG Total CO2 VBG O2 Sat (Calc) VBG Base Excess VBG Potassium Sodium Chloride Glucose Lactate FiO2 Potassium Carbon Dioxide Anion Gap BUN Creatinine Est GFR ( Amer) Est GFR (Non-Af Amer) Random Glucose Calcium Magnesium Total Bilirubin AST ALT Alkaline Phosphatase Lactate Dehydrogenase Total Creatine Kinase Troponin I 0.06 NT-Pro-B Natriuret Pep Total Protein Albumin Globulin Albumin/Globulin Ratio Venous Blood Potassium Urine Color Urine Appearance Urine pH Ur Specific [place] Urine Protein Urine Glucose (UA) Urine Ketones Urine Blood Urine Nitrate Urine Bilirubin Urine Urobilinogen Ur Leukocyte Esterase Urine RBC Urine WBC Ur Epithelial Cells Urine Bacteria Digoxin Influenza Typ A,B (EIA) Attending/Attestation - Attestation I have personally seen and examined this patient.: Yes I have fully participated in the care of the patient.: Yes I have reviewed all pertinent clinical information: Yes Notes (Text): 12/10/17 03:29 Pt was seen with the resident by the bedside. Case discussed in detail. Agree with documentation,assessment and plan of treatment.
[2017-12-09] MEDS ORDERED: Influenza Vaccine 60 mcg/0.5 mL SYR (4YR UP) IM ONE (23:16)
[2017-12-09] MEDS ORDERED: Pneumococcal 23-Valent Vaccine IM ONE (23:16)
[2017-12-09] MEDS: Digoxin 250 mcg (0.25 mg) Tab PO SCH (23:49)
[2017-12-09] MEDS: Sodium Chloride 0.9% 1,000 ML IV SCH (23:50)
[2017-12-10] MEDS ORDERED: Magnesium Oxide 400 mg Tab UD PO ONE (05:00)
[2017-12-10 06:40] LABS: GRAN # 11.21 (1.4-6.5); GRAN % 90.8 % (50.0-68.0); HEMOGLOBIN 13.1 g/dL (14.0-18.0); LYMPH # 0.8 (1.2-3.4); LYMPH % 6.6 % (22.0-35.0); MEAN CORPUSCULAR HEMOGLOBIN 28.5 pg (25.0-35.0); MEAN CORPUSCULAR HGB CONC 33.5 g/dl (31.0-37.0); MEAN PLATELET VOLUME 9.6 fl (7.0-11.0); MONO # 0.3 (0.1-0.6); MONO % 2.6 % (1.0-6.0); PLATELET COUNT 229 10^3/uL (120.0-450.0); RED CELL DISTRIBUTION WIDTH 14.4 % (11.5-14.5); WHITE BLOOD COUNT 12.4 10^3/ul (4.5-11.0)
[2017-12-10 06:45] LABS: CALCIUM 9.3 mg/dL (8.4-10.5)
[2017-12-10 06:50] LABS: TROPONIN I 0.04 ng/mL
--- NOTE | 2017-12-10 07:17 | CARD ---
APPROVED REPORT Date of service: 12/09/2017 EKG Measurement Heart [id number] <Conclusion> Normal sinus rhythm Left bundle branch block
[2017-12-10 07:56] LABS: BAND 1 % (0-2); LYMPHOCYTE 8 % (22.0-35.0); NEUTROPHIL 91 % (50.0-70.0); PLATELET CLUMPS PRESENT; PLATELET ESTIMATE NORMAL (NORMAL)
--- NOTE | 2017-12-10 08:18 | CT ---
Date of service: 12/09/2017 PROCEDURE: CT Chest with contrast (Pulmonary Angiogram) HISTORY: chest pain/cough/hypoxic, r/o pe COMPARISON: None available. TECHNIQUE: Axial computed tomography images were obtained of the chest in the pulmonary arterial phase of enhancement. Coronal and sagittal reformatted images were created and reviewed. Intravenous contrast dose: 150 cc Visipaque 320 Mean Hounsfield value in the main pulmonary artery: 243.79 Radiation dose: Total exam DLP = 596.11 mGy-cm. This CT exam was performed using one or more of the following dose reduction techniques: Automated exposure control, adjustment of the mA and/or kV according to patient size, and/or use of iterative reconstruction technique. FINDINGS: PULMONARY ARTERIES: Unremarkable. No pulmonary embolism. AORTA: No acute findings. No thoracic aortic aneurysm. LUNGS: Unremarkable. No nodule, mass or pulmonary consolidation. PLEURAL SPACES: Unremarkable. No effusion or pneumothorax. HEART: Unremarkable. No cardiomegaly. No significant pericardial effusion. LYMPH NODES: No lymphadenopathy. BONES, CHEST WALL: Unremarkable. No fracture or destructive lesion OTHER FINDINGS: Cholelithiasis without CT evidence of acute cholecystitis. The gallbladder is distended. IMPRESSION: Unremarkable CT pulmonary angiogram. No pulmonary embolus. Concordant results (preliminary interpretation) provided by [facility]. Procedure Completed: 18:58. Preliminary ([facility]) Report: Dictated and Authenticated: 20:13. Final Interpretation: 08:15. December 10, 2017.
--- NOTE | 2017-12-10 08:49 | CP.PCM.PN ---
<Reyna Gaviria - Last Filed: 12/10/17 17:17> Subjective - Date & Time of Evaluation Date of Evaluation: 12/10/17 Time of Evaluation: 09:00 - Subjective Subjective: PGY-1 Reyna Gaviria D.O. Medicine progress note for Dr. Smallwood service: Patient is seen and examined this morning. No over night events reported. Patient is sitting up in bed, no acute distress. He states his chest pain resolved. He denies shortness of breath. He endorses dysuria. Denies hematuria. He reports that he lives with his daughter, Shelley. He cannot recall his medications or pharmacy. Objective - Vital Signs/Intake and Output Vital Signs (last 24 hours): Temp Pulse Resp BP Pulse Ox 98.3 F 94 H 18 94/61 L 92 L 12/10/17 06:00 12/10/17 06:00 12/10/17 06:00 12/10/17 06:00 12/10/17 06:00 Intake and Output: 12/10/17 12/10/17 06:59 18:59 Intake Total 840 Output Total 150 Balance 690 - Medications Medications: Current Medications Amlodipine Besylate (Norvasc) 5 mg PO DAILY [facility] Last Admin: 12/09/17 23:49 Dose: Not Given Atorvastatin Calcium (Lipitor) 80 mg PO DAILY [facility] Carvedilol (Coreg) 3.125 mg PO BID [facility] Last Admin: 12/09/17 23:48 Dose: Not Given Clopidogrel Bisulfate (Plavix) 75 mg PO DAILY [facility] Digoxin (Lanoxin) 0.25 mg PO 1400 [facility] Last Admin: 12/09/17 23:49 Dose: Not Given Finasteride (Proscar) 5 mg PO DAILY [facility] Furosemide (Lasix) 40 mg IVP DAILY [facility] Heparin Sodium (Porcine) (Heparin) 5,000 units SC Q8 [facility]; Protocol Last Admin: 12/10/17 06:01 Dose: 5,000 units Ceftriaxone Sodium (Rocephin 1 Gram Ivpb) 1 gm in 100 mls @ 100 mls/hr IVPB DAILY [facility]; Protocol Sodium Chloride (Sodium Chloride 0.9%) 1,000 mls @ 60 mls/hr IV .[id number] [facility] Last Admin: 12/09/17 23:50 Dose: 60 mls/hr Levetiracetam (Keppra) 250 mg PO Q12 [facility] Last Admin: 12/09/17 23:48 Dose: 250 mg Lisinopril (Zestril) 2.5 mg PO DAILY [facility] Pantoprazole Sodium (Protonix Inj) 40 mg IVP DAILY [facility] Sertraline HCl (Zoloft) 100 mg PO DAILY [facility] Tamsulosin HCl (Flomax) 0.4 mg PO DAILY [facility] - Labs Labs: 12/10/17 06:00 12/10/17 06:00 PT 13.8 SECONDS (9.4-12.5) H 12/09/17 17:15 INR 1.21 12/09/17 17:15 APTT 29.8 Seconds (25.1-36.5) 12/09/17 17:15 - Constitutional Appears: Non-toxic, No Acute Distress - Head Exam Head Exam: ATRAUMATIC, NORMAL INSPECTION - Eye Exam Eye Exam: EOMI, Normal appearance, PERRL - ENT Exam ENT Exam: Mucous Membranes Moist, Normal Exam - Neck Exam Neck Exam: Normal Inspection - Respiratory Exam Respiratory Exam: Decreased Breath Sounds, NORMAL BREATHING PATTERN Additional comments: nasal cannula in place O2 2L - Cardiovascular Exam Cardiovascular Exam: REGULAR RHYTHM. absent: Murmur - GI/Abdominal Exam GI & Abdominal Exam: Soft, Normal Bowel Sounds. absent: Tenderness - Rectal Exam Rectal Exam: Deferred - Extremities Exam Extremities Exam: Normal Inspection. absent: Pedal Edema, Tenderness - Back Exam Back Exam: NORMAL INSPECTION. absent: tenderness - Neurological Exam Neurological Exam: Alert, Awake, CN II-XII Intact, Oriented x3 Neuro motor strength exam: Left Upper Extremity: 5, Right Upper Extremity: 3, Left Lower Extremity: 5, Right Lower Extremity: 2/1 - Psychiatric Exam Psychiatric exam: Normal Affect, Normal Mood - Skin Skin Exam: Dry, Normal Color, Warm Assessment and Plan - Assessment and Plan (Free Text) Assessment: Patient is a 67 yo male with a history of CHF, CAD with stent, CVA with R-sided weakness, recurrent UTIs, prostatectomy, HTN, and HLD who presented to the ED for chest pain. Patient was incidentally found to have a UTI. Plan: Chest pain, resolved - EKG: NSR @ 83 BPM, left bundle branch block, no acute ST or T wave changes compared with previous - Troponins negative x3 - LE Dopplers: no DVT - CTA: no PE, descending thoracic aortic aneurysm 4.2 cm UTI- recurrent - UA: many garcía, large LE, positive nitrate, WBC 25-30 - WBC 12.4 - Procal 0.76 - Lactate 1.5 - Rocephin 1g IV daily - Finasteride 5 mg PO daily - Flomax 0.4 mg PO daily - F/u urine Cx KAROLINE - Hold lisinopril - Strict I/Os - NS @ 60 - Repeat BUN/Cr in AM CHF - BNP 1999 - Echo 07/2016: EF 21% - Lasix 40 mg PO daily- hold due to hypotension - Lisinopril 2.5 mg PO daily- hold due to KAROLINE and hypotension - Carvedilol 3.125 mg PO BID- hold due to hypotension - Digoxin 0.25 mg PO daily - Digoxin level low (0.5) - Cardiology consulted ([facility])- consider EP study/ICD eval CAD - Carvedilol 3.125 mg PO BID- hold due to hypotension - Plavix 75 mg PO daily - Lipitor 80 mg PO daily - Start ASA 81 mg PO daily HTN- presently hypotensive 90s/50s - Amlodipine 5 mg PO daily- hold due to hypotension - Carvedilol 3.125 mg PO BID- hold due to hypotension - Lasix 40 mg PO daily- hold due to hypotension - Lisinopril 2.5 mg PO daily- hold due to KAROLINE and hypotension HLD - Lipitor 80 mg PO daily H/o seizures - Keppra 250 mg PO BID Anxiety - Sertraline 50 mg PO daily IVF: NS @ 60 Diet: heart healthy GI ppx: Protonix 40 mg PO ACB VTE ppx: heparin 5000 unit Q8H Code status: full code Case was discussed with attending, Dr. Tompkins. <Arielle Tompkins R - Last Filed: 12/11/17 17:08> Objective - Vital Signs/Intake and Output Vital Signs (last 24 hours): Temp Pulse Resp BP Pulse Ox 97.9 F 64 18 96/56 L 92 L 12/11/17 12:00 12/11/17 12:00 12/11/17 12:00 12/11/17 12:00 12/11/17 10:50 Intake and Output: 12/11/17 12/11/17 06:59 18:59 Intake Total 720 Output Total 0 Balance 720 - Medications Medications: Current Medications Amlodipine Besylate (Norvasc) 5 mg PO DAILY [facility] Last Admin: 12/11/17 11:19 Dose: Not Given Aspirin (Aspirin Chewable) 81 mg PO DAILY [facility] Last Admin: 12/11/17 11:18 Dose: 81 mg Atorvastatin Calcium (Lipitor) 80 mg PO DAILY [facility] Last Admin: 12/11/17 11:19 Dose: 80 mg Carvedilol (Coreg) 3.125 mg PO BID [facility] Last Admin: 12/11/17 11:18 Dose: Not Given Clopidogrel Bisulfate (Plavix) 75 mg PO DAILY [facility] Last Admin: 12/11/17 11:19 Dose: 75 mg Digoxin (Lanoxin) 0.25 mg PO 1400 [facility] Last Admin: 12/11/17 14:45 Dose: Not Given Docusate Sodium (Colace) 100 mg PO BID [facility] Finasteride (Proscar) 5 mg PO DAILY [facility] Last Admin: 12/11/17 11:19 Dose: 5 mg Furosemide (Lasix) 40 mg IVP DAILY [facility] Heparin Sodium (Porcine) (Heparin) 5,000 units SC Q8 [facility]; Protocol Last Admin: 12/11/17 14:44 Dose: 5,000 units Ceftriaxone Sodium (Rocephin 1 Gram Ivpb) 1 gm in 100 mls @ 100 mls/hr IVPB DAILY [facility]; Protocol Last Admin: 12/11/17 11:19 Dose: 100 mls/hr Levalbuterol HCl (Xopenex) 1.25 mg IH [id number] PRN PRN Reason: Shortness of Breath Levetiracetam (Keppra) 250 mg PO Q12 [facility] Last Admin: 12/11/17 11:18 Dose: 250 mg Lisinopril (Zestril) 2.5 mg PO DAILY [facility] Pantoprazole Sodium (Protonix Ec Tab) 40 mg PO ACB [facility] Last Admin: 12/11/17 08:12 Dose: 40 mg Sertraline HCl (Zoloft) 100 mg PO DAILY [facility] Last Admin: 12/11/17 11:20 Dose: 100 mg Tamsulosin HCl (Flomax) 0.4 mg PO DAILY [facility] Last Admin: 12/11/17 11:18 Dose: 0.4 mg - Labs Labs: 12/11/17 06:30 12/11/17 06:30 PT 13.8 SECONDS (9.4-12.5) H 12/09/17 17:15 INR 1.21 12/09/17 17:15 APTT 29.8 Seconds (25.1-36.5) 12/09/17 17:15 Attending/Attestation - Attestation I have personally seen and examined this patient.: Yes I have fully participated in the care of the patient.: Yes I have reviewed all pertinent clinical information, including history, physical exam and plan: Yes Notes (Text): Patient seen and examined by me at 10:15 AM with resident 12/10/17. Case in cluding HPI, physical exam, and assessment and plan discussed with resident. Agree with above with following additions/corrections. Patient is a 67-year-old male with past medical history significant for CHF, coronary artery disease status post stent, recurrent UTIs, nephrolithiasis, prostatectomy, CVA with residual right-sided weakness, seizures, hypertension, and hyperlipidemia the presented to the emergency room with chest pain, generalized weakness, and fever. Patient states that he is feeling ok. Chest pain has resolved. Patient complains of hiccups that he has had for 2 days. No shortness of breath. No palpitations. No nausea, vomiting, or abdominal pain. No headaches or dizziness. Patient does complain of dysuria and burning with urination. Patient is afebrile. Physical exam: General: Awake and alert lying in bed in no acute distress HEENT: Normocephalic atraumatic. Pupils equal reactive. No scleral icterus. Oropharynx is pink and moist. No pharyngeal erythema or exudate appreciated. Neck is supple. Cardiovascular: Normal rhythm. Normal S1, S2. No murmurs, rubs or gallops a ppreciated Pulmonary: Normal respiratory effort. Decreased breath sounds. No rhonchi, rales or wheezing appreciated. Gastrointestinal: Soft, nondistended. Nontender. Positive bowel sounds all 4 quadrants, no guarding. Musculoskeletal: Moves all extremities, no calf tenderness, no edema appreciat ed. Central nervous system: AAOx3. Positive right upper and lower extremity weakness when compared to left (chronic from previous CVA). Dermatologic: Skin warm and dry. Assessment and plan: Patient is a 67-year-old male with past medical history significant for CHF, coronary artery disease status post stent, recurrent UTIs, nephrolithiasis, prostatectomy, CVA with residual right-sided weakness, seizures, hypertension, and hyperlipidemia the presented to the emergency room with chest pain, generalized weakness, and fever. 1. Chest pain. Resolved. Ischemic cardiomyopathy. Troponins in indeterminate range. Cardiology consulted, recommendations appreciated. EP consult for possible need for life vest vs ICD. Continue asa and plavix. Contiue Lipitor. Coreg held for now secondary to low BP. Contiug digoxin. Home lasix held for now secondary to low BP. 2. UTI. Urine culture pending. Continue Rocephin 3. KAROLINE. Continue IV fluids for now. Follow up repeat labs in AM. 4. Hiccups. Patient given thorazine. Continue to monitor 5. CAD. Continue home plavix, atorvastatin, asa. Coreg on hold for now secondary to low blood pressure. 6. Chronic systolic CHF. Ischemic cardiomyopathy. 2D echo on 08/06/16 per quality inspector showed systolic function is moderately to severely impaired with an EF of 20-25%. Physiology is consulted for possible LifeVest versus ICD placement. Lasix on hold currently secondary to low blood pressure. Coreg on hold secondary to low blood pressure. Patient started on lisinopril. Cardiology following, recommendations appreciated. 7. History of hypertension. Home Norvasc, carvedilol, and Lasix on hold secondary to low blood pressure. We'll restart once blood pressure improves. 8. Hyperlipidemia. Continue Lipitor. 9. History of seizures. Continue Keppra 250mg PO BID 10. Anxiety and depression. Continue Zoloft 50mg PO daily Case discussed in detail with the patient regarding current diagnosis and treatment plan.
--- NOTE | 2017-12-10 09:00 | CARD ---
APPROVED REPORT Date of service: 12/10/2017 EKG Measurement Heart [id number] <Conclusion> Sinus rhythm with 1st degree AVB LBBB
--- NOTE | 2017-12-10 10:35 | US ---
HISTORY: Leg pain and swelling. Evaluate for DVT PHYSICIAN(S): Luis Malcolm MD. TECHNIQUE: Duplex sonography and color-flow Doppler with graded compression were used to evaluate the deep venous systems of both lower extremities. FINDINGS: The visualized deep venous systems of both lower extremities are sonographically normal and compressible. Normal wave forms and augmentation are seen. There is no sonographic evidence for deep venous thrombosis in the visualized segments of both lower extremities. IMPRESSION: No sonographic evidence for deep venous thrombosis in the visualized segments of both lower extremities.
[2017-12-10] MEDS: cefTRIAXone 1 gm 1 GM/100 ML BAG IVPB SCH (11:07)
[2017-12-10] MEDS: Digoxin 250 mcg (0.25 mg) Tab PO SCH (14:03)
--- NOTE | 2017-12-10 15:25 | CON ---
DATE: 12/10/2017 HISTORY OF PRESENT ILLNESS: The patient is a 67-year-old male, who has a history of coronary artery disease, status post coronary artery stenting in the past, history of CVA with residual right-sided weakness and slurring of speech. Presents because of retrosternal chest discomfort, which is steady. The patient was also found to have high fever of 104 degrees Fahrenheit. At this time, the patient denies experiencing chest pain. According to [employer] database in 04/2016, the patient underwent stenting to 80% stenosis of the mid LAD and was found to have cardiomyopathy with ejection fraction estimated at 40%. SOCIAL HISTORY: The patient is the former smoker. He lives with his daughter. MEDICATIONS: Coreg 3.125 mg twice a day, Flomax 0.4 mg once a day, subcutaneous heparin 5000 units every 8 hours, Keppra 250 mg twice a day, Lanoxin 0.25 mg daily, Lasix 40 mg intravenously daily, Lipitor 80 mg once a day, Norvasc 5 mg once a day, Proscar 5 mg once a day, Protonix 40 mg p.o. once a day, Rocephin 1 g intravenously daily, Zestril 2.5 mg once a day. PHYSICAL EXAMINATION GENERAL: The patient is an elderly male, who does not appear to be in any acute distress. VITAL SIGNS: Blood pressure 105/69, heart rate 81, temperature 97.6, respirations 19. HEENT: Normocephalic. CHEST: Diminished breath sounds bilaterally. HEART: S1 and S2 regular and distant. ABDOMEN: Soft. EXTREMITIES: No edema. LABORATORY DATA: SMA-7: Sodium 135, potassium 3.9, chloride 97, CO2 of 23, glucose 272, BUN 35, creatinine 2, troponin 0.06 and 0.04. ProBNP is 2000. Hemoglobin and hematocrit 13.1 and 39.1, white count 12.4. Platelet count 229,000. Digoxin level is 0.5. EKG revealed sinus rhythm with first-degree AV block, left bundle-branch block, which existed last year at the time of his coronary stenting. Echocardiography study from 07/2016 revealed ejection fraction in the range of 20-25%. ASSESSMENT: 1. Chest pain with troponin in the indeterminate range. 2. Ischemic cardiomyopathy. 3. Urinary tract infection. 4. Chronic renal insufficiency. RECOMMENDATIONS: Continue subcutaneous heparin 5000 units every 8 hours. Continue Lasix 40 mg intravenously daily, Lipitor at 80 mg once a day, Plavix 75 mg once a day, IV Rocephin is 1 g daily, Zestril at 2.5 mg daily. EP consult should be considered for possible external vest placement versus an ICD implantation. Jesus Ramey MD
[2017-12-10] MEDS: Sodium Chloride 0.9% 1,000 ML IV SCH ×2 (17:26→19:49)
[2017-12-11 07:27] LABS: BASO # 0.01 K/mm3 (0.0-2.0); BASO % 0.1 % (0.0-3.0); EOS % 0.1 % (1.5-5.0); GRAN # 10.6 (1.4-6.5); GRAN % 81.6 % (50.0-68.0); HEMOGLOBIN 11.2 g/dL (14.0-18.0); LYMPH # 1.3 (1.2-3.4); LYMPH % 10.1 % (22.0-35.0); MEAN CELL VOLUME 84.5 fl (80.0-105.0); MEAN CORPUSCULAR HEMOGLOBIN 27.9 pg (25.0-35.0); MEAN PLATELET VOLUME 9.4 fl (7.0-11.0); MONO # 1.1 (0.1-0.6); MONO % 8.1 % (1.0-6.0); RBC 4.01 10^6/uL (3.5-6.1); RED CELL DISTRIBUTION WIDTH 14.1 % (11.5-14.5)
--- NOTE | 2017-12-11 07:30 | CP.PCM.PN ---
<Reyna Gaviria - Last Filed: 12/11/17 21:31> Subjective - Date & Time of Evaluation Date of Evaluation: 12/11/17 Time of Evaluation: 09:15 - Subjective Subjective: PGY-1 Reyna Gaviria D.O. Medicine progress note for Dr. Smallwood service: Patient is seen and examined this morning. No over night events reported. Patient states that he feels worse since coming to the hospital. His hiccups are persisting. He is complaining of chest congestion and lethargy. He has not had a BM since being in the hospital. He is also expressing some passive wish. Objective - Vital Signs/Intake and Output Vital Signs (last 24 hours): Temp Pulse Resp BP Pulse Ox 98.6 F 80 19 110/65 93 L 12/11/17 06:00 12/11/17 06:00 12/11/17 06:00 12/11/17 06:00 12/11/17 06:00 Intake and Output: 12/11/17 12/11/17 06:59 18:59 Intake Total 720 Output Total 0 Balance 720 - Medications Medications: Current Medications Amlodipine Besylate (Norvasc) 5 mg PO DAILY [facility] Last Admin: 12/10/17 11:05 Dose: Not Given Aspirin (Aspirin Chewable) 81 mg PO DAILY [facility] Last Admin: 12/10/17 17:26 Dose: 81 mg Atorvastatin Calcium (Lipitor) 80 mg PO DAILY [facility] Last Admin: 12/10/17 11:03 Dose: 80 mg Carvedilol (Coreg) 3.125 mg PO BID [facility] Last Admin: 12/10/17 11:06 Dose: Not Given Clopidogrel Bisulfate (Plavix) 75 mg PO DAILY [facility] Last Admin: 12/10/17 11:04 Dose: 75 mg Digoxin (Lanoxin) 0.25 mg PO 1400 [facility] Last Admin: 12/10/17 14:03 Dose: 0.25 mg Finasteride (Proscar) 5 mg PO DAILY [facility] Last Admin: 12/10/17 11:05 Dose: 5 mg Furosemide (Lasix) 40 mg IVP DAILY [facility] Last Admin: 12/10/17 11:07 Dose: Not Given Heparin Sodium (Porcine) (Heparin) 5,000 units SC Q8 [facility]; Protocol Last Admin: 12/11/17 05:03 Dose: 5,000 units Ceftriaxone Sodium (Rocephin 1 Gram Ivpb) 1 gm in 100 mls @ 100 mls/hr IVPB DAILY [facility]; Protocol Last Admin: 12/10/17 11:07 Dose: 100 mls/hr Sodium Chloride (Sodium Chloride 0.9%) 1,000 mls @ 60 mls/hr IV .[id number] [facility] Last Admin: 12/10/17 19:49 Dose: Not Given Levetiracetam (Keppra) 250 mg PO Q12 [facility] Last Admin: 12/10/17 21:16 Dose: 250 mg Lisinopril (Zestril) 2.5 mg PO DAILY [facility] Pantoprazole Sodium (Protonix Ec Tab) 40 mg PO ACB [facility] Sertraline HCl (Zoloft) 100 mg PO DAILY [facility] Last Admin: 12/10/17 11:05 Dose: 100 mg Tamsulosin HCl (Flomax) 0.4 mg PO DAILY [facility] Last Admin: 12/10/17 11:03 Dose: 0.4 mg - Labs Labs: 12/10/17 06:00 12/10/17 06:00 PT 13.8 SECONDS (9.4-12.5) H 12/09/17 17:15 INR 1.21 12/09/17 17:15 APTT 29.8 Seconds (25.1-36.5) 12/09/17 17:15 - Constitutional Appears: No Acute Distress, Unkempt, Older Than Stated Age - Head Exam Head Exam: ATRAUMATIC, NORMAL INSPECTION - Eye Exam Eye Exam: EOMI, Normal appearance - ENT Exam ENT Exam: Mucous Membranes Moist, Normal Exam - Neck Exam Neck Exam: Normal Inspection - Respiratory Exam Respiratory Exam: Decreased Breath Sounds, NORMAL BREATHING PATTERN Additional comments: O2 via NC @ 2L - Cardiovascular Exam Cardiovascular Exam: REGULAR RHYTHM, +S1, +S2 - GI/Abdominal Exam GI & Abdominal Exam: Soft, Normal Bowel Sounds. absent: Tenderness - Rectal Exam Rectal Exam: Deferred - Extremities Exam Extremities Exam: Normal Inspection. absent: Pedal Edema - Back Exam Back Exam: NORMAL INSPECTION - Neurological Exam Neurological Exam: Alert, Awake, CN II-XII Intact Neuro motor strength exam: Left Upper Extremity: 5, Right Upper Extremity: 3, Left Lower Extremity: 5, Right Lower Extremity: 2/1 - Psychiatric Exam Psychiatric exam: Depressed, Flat Affect, Suicidal Ideation (passive wish) - Skin Skin Exam: Dry, Intact, Normal Color, Warm Assessment and Plan - Assessment and Plan (Free Text) Assessment: Patient is a 67 yo male with a history of CHF, CAD with stent, CVA with R-sided weakness, recurrent UTIs, prostatectomy, HTN, and HLD who presented to the ED for chest pain. Patient was incidentally found to have a UTI. Plan: UTI- recurrent - UA: many garcía, large LE, positive nitrate, WBC 25-30 - WBC 13 - Procal 0.76 - Lactate 1.5 - Rocephin 1g IV daily - Finasteride 5 mg PO daily - Flomax 0.4 mg PO daily - F/u urine Cx KAROLINE - Hold lisinopril - Strict I/Os - Repeat BUN/Cr in AM - Nephrology consulted (Bertha) Hypoxia- patient requiring supplemental O2, sat in low 90s - Repeat CXR - Xopenex Q6H PRN Chest pain, resolved - EKG: NSR @ 83 BPM, left bundle branch block, no acute ST or T wave changes compared with previous - Troponins negative x3 - LE Dopplers: no DVT - CTA: no PE, descending thoracic aortic aneurysm 4.2 cm CHF - BNP 1999 - Echo 07/2016: EF 21% - Repeat pending - Lasix 40 mg PO daily - Lisinopril 2.5 mg PO daily- hold due to KAROLINE and hypotension - Carvedilol 3.125 mg PO BID - Digoxin 0.25 mg PO daily - Digoxin level low (0.5) - Cardiology consulted (Karoline)- consider EP study/ICD eval Anxiety- patient now expressing passive wish - Sertraline 50 mg PO daily - Psychiatry consulted CAD - Carvedilol 3.125 mg PO BID - Plavix 75 mg PO daily - Lipitor 80 mg PO daily - ASA 81 mg PO daily HTN- presently hypotensive-normotensive - Amlodipine 5 mg PO daily- hold due to hypotension - Carvedilol 3.125 mg PO BID - Lasix 40 mg PO daily - Lisinopril 2.5 mg PO daily Anemia - B12, folate pending - Iron studies pending - FOBT pending Constipation - Colace 100 mg PO BID - Miralax 17 g PO daily HLD - Lipitor 80 mg PO daily H/o seizures - Keppra 250 mg PO BID IVF: not indicted Diet: heart healthy GI ppx: Protonix 40 mg PO ACB VTE ppx: heparin 5000 unit Q8H Code status: full code Case was discussed with attending, Dr. Tompkins. <Arielle Tompkins R - Last Filed: 12/12/17 16:05> Objective - Vital Signs/Intake and Output Vital Signs (last 24 hours): Temp Pulse Resp BP Pulse Ox 97.1 F L 65 19 108/76 94 L 12/12/17 12:00 12/12/17 12:00 12/12/17 12:00 12/12/17 12:00 12/12/17 06:00 Intake and Output: 12/12/17 12/12/17 06:59 18:59 Intake Total 960 Output Total 600 Balance 360 - Medications Medications: Current Medications Amlodipine Besylate (Norvasc) 5 mg PO DAILY [facility] Last Admin: 12/11/17 11:19 Dose: Not Given Aspirin (Aspirin Chewable) 81 mg PO DAILY [facility] Last Admin: 12/12/17 10:42 Dose: 81 mg Atorvastatin Calcium (Lipitor) 80 mg PO DAILY [facility] Last Admin: 12/12/17 10:42 Dose: 80 mg Carvedilol (Coreg) 3.125 mg PO BID [facility] Last Admin: 12/12/17 10:42 Dose: 3.125 mg Clopidogrel Bisulfate (Plavix) 75 mg PO DAILY [facility] Last Admin: 12/12/17 10:43 Dose: 75 mg Digoxin (Lanoxin) 0.25 mg PO 1400 [facility] Last Admin: 12/12/17 14:06 Dose: 0.25 mg Docusate Sodium (Colace) 100 mg PO BID [facility] Last Admin: 12/12/17 10:43 Dose: 100 mg Finasteride (Proscar) 5 mg PO DAILY [facility] Last Admin: 12/12/17 10:42 Dose: 5 mg Furosemide (Lasix) 40 mg IVP DAILY [facility] Last Admin: 12/12/17 10:43 Dose: 40 mg Heparin Sodium (Porcine) (Heparin) 5,000 units SC Q8 [facility]; Protocol Last Admin: 12/12/17 14:06 Dose: 5,000 units Ceftriaxone Sodium (Rocephin 1 Gram Ivpb) 1 gm in 100 mls @ 100 mls/hr IVPB DAILY [facility]; Protocol Last Admin: 12/12/17 10:42 Dose: 100 mls/hr Levalbuterol HCl (Xopenex) 1.25 mg IH [id number] PRN PRN Reason: Shortness of Breath Levetiracetam (Keppra) 250 mg PO Q12 [facility] Last Admin: 12/12/17 10:42 Dose: 250 mg Lisinopril (Zestril) 2.5 mg PO DAILY [facility] Last Admin: 12/12/17 10:43 Dose: 2.5 mg Pantoprazole Sodium (Protonix Ec Tab) 40 mg PO ACB [facility] Last Admin: 12/12/17 08:16 Dose: 40 mg Polyethylene Glycol (Miralax) 17 gm PO DAILY [facility] Last Admin: 12/12/17 14:07 Dose: Not Given Sennosides (Senokot Tab) 17.2 mg PO HS [facility] Sertraline HCl (Zoloft) 100 mg PO DAILY [facility] Sertraline HCl (Zoloft) 25 mg PO DAILY [facility] Tamsulosin HCl (Flomax) 0.4 mg PO DAILY [facility] Last Admin: 12/12/17 10:42 Dose: 0.4 mg Zaleplon (Sonata) 5 mg PO HS PRN PRN Reason: Insomnia - Labs Labs: 12/12/17 05:30 12/12/17 05:30 PT 13.8 SECONDS (9.4-12.5) H 12/09/17 17:15 INR 1.21 12/09/17 17:15 APTT 29.8 Seconds (25.1-36.5) 12/09/17 17:15 Attending/Attestation - Attestation I have personally seen and examined this patient.: Yes I have fully participated in the care of the patient.: Yes I have reviewed all pertinent clinical information, including history, physical exam and plan: Yes Notes (Text): Patient seen and examined by me at 12PM with resident 12/11/17. Case including HPI, physical exam, and assessment and plan discussed with resident. Agree with above with following additions/corrections. Patient is a 67-year-old male with past medical history significant for CHF, coronary artery disease status post stent, recurrent UTIs, nephrolithiasis, prostatectomy, CVA with residual right-sided weakness, seizures, hypertension, and hyperlipidemia the presented to the emergency room with chest pain, generalized weakness, and fever. Patient states he feels ok. Still with some burning and pain with urination. Patient also still with hiccups but improved. Denies any shortness of breath. No palpitations. No nausea, vomiting, or abdominal pain. No headaches or dizziness. Patient is afebrile. Physical exam: General: Awake and alert lying in bed in no acute distress HEENT: Normocephalic atraumatic. Pupils equal reactive. No scleral icterus. Oropharynx is pink and moist. No pharyngeal erythema or exudate appreciated. Neck is supple. Cardiovascular: Normal rhythm. Normal S1, S2. No murmurs, rubs or gallops appreciated Pulmonary: Normal respiratory effort. Decreased breath sounds. No rhonchi, rales or wheezing appreciated. Gastrointestinal: Soft, nondistended. Nontender. Positive bowel sounds all 4 quadrants, no guarding. Musculoskeletal: Moves all extremities, no calf tenderness, no edema appreciated. Central nervous system: AAOx3. Positive right upper and lower extremity weakness when compared to left (chronic from previous CVA). Dermatologic: Skin warm and dry. Assessment and plan: Patient is a 67-year-old male with past medical history significant for CHF, coronary artery disease status post stent, recurrent UTIs, nephrolithiasis, prostatectomy, CVA with residual right-sided weakness, seizures, hypertension, and hyperlipidemia the presented to the emergency room with chest pain, generalized weakness, and fever. 1. Chest pain. Resolved. Ischemic cardiomyopathy. Troponins in indeterminate range. Cardiology consulted, recommendations appreciated. EP consult for possible need for life vest vs ICD. Continue asa and plavix. Contiue Lipitor. Restarted on Coreg. Continue lisinopril and digoxin. 2. UTI. Urine culture pending. Continue Rocephin 3. KAROLINE. Creatinine downtrending. IV fluids stopped. Nephrology consulted, follow up recommendatoins. Continue to monitor. 4. Hiccups. Patient given thorazine. Continue to monitor 5. CAD. Continue home plavix, atorvastatin, asa. Continue coreg and lisinopril 6. Chronic systolic CHF. Ischemic cardiomyopathy. 2D echo on 08/06/16 per plate mounter showed systolic function is moderately to severely impaired with an EF of 20-25%. Physiology is consulted for possible LifeVest versus ICD placement. Continue Lasix, Coreg, and Lisinopril. Cardiology following, recommendations appreciated. 7. History of hypertension. Continue Lasix, Coreg, and lisinopril 8. Hyperlipidemia. Continue Lipitor. 9. History of seizures. Continue Keppra 250mg PO BID 10. Anxiety and depression. Continue Zoloft 50mg PO daily Case discussed in detail with the patient regarding current diagnosis and treatment plan.
[2017-12-11 07:46] LABS: ALBUMIN 3.4 g/dL (3.0-4.8); CALCIUM 8.7 mg/dL (8.4-10.5)
[2017-12-11] MEDS: Pantoprazole 40 mg EC Tab PO SCH (08:12)
[2017-12-11] MEDS: Sodium Chloride 0.9% 1,000 ML IV SCH (10:41)
[2017-12-11] MEDS: cefTRIAXone 1 gm 1 GM/100 ML BAG IVPB SCH (11:19)
[2017-12-11] MEDS ORDERED: POLYETHYLENE GLYCOL 3350 17 GM/Dose PACKET PO ONE (12:27)
[2017-12-11] MEDS ORDERED: Levalbuterol 1.25 MG/3 ML Inhal Soln UD IH PRN (12:28)
[2017-12-11] MEDS: Digoxin 250 mcg (0.25 mg) Tab PO SCH (14:45)
--- NOTE | 2017-12-11 14:45 | RAD ---
Date of service: 12/11/2017 HISTORY: shortness of breath COMPARISON: Portable chest 12/09/2017. TECHNIQUE: Chest PA and lateral FINDINGS: LUNGS: No active pulmonary disease. PLEURA: No significant pleural effusion identified. No pneumothorax apparent. CARDIOVASCULAR: Normal. OSSEOUS STRUCTURES: No significant abnormalities. VISUALIZED UPPER ABDOMEN: Normal. OTHER FINDINGS: None. IMPRESSION: No interval acute cardiopulmonary disease appreciated.
--- NOTE | 2017-12-11 16:05 | CON ---
DATE: 12/11/2017 REASON FOR CONSULTATION: Acute kidney injury, burning in the urine, altered mental status. HISTORY OF PRESENTING ILLNESS: A 67-year-old male, previously unknown to me. The patient presented to the emergency room on 12/09/2017 with complaints of chest pain, which was midsternal. Also complained of productive cough of 1-day duration. As per the ER note, the next day, the patient woke up with a fever of 104 and hence came to the emergency room. He also complained of some hiccups, abdominal pain, burning in the urine. In the emergency room, he was found to be hypotensive, his blood pressure was 95/59. No fever was recorded. The patient reportedly took some Tylenol prior to presentation. His WBC count was found to be 14,000 with 75% polys. His creatinine was 1.5 at the time of admission. His baseline creatinine is around 1.1. Consultation is requested for acute kidney injury. Jenny Stone MD
--- NOTE | 2017-12-11 18:20 | RAD ---
Date of service: 12/11/2017 HISTORY: kidney stones COMPARISON: No prior. FINDINGS: BOWEL: Constipation without fecal impaction or obstruction. BONES: Normal. OTHER FINDINGS: None. IMPRESSION: No significant or acute findings to account for/ related to the clinical presentation.
--- NOTE | 2017-12-11 20:58 | PN ---
DATE: 12/11/2017 SUBJECTIVE: The patient denies any chest pain. He complains of hiccup. PHYSICAL EXAMINATION VITAL SIGNS: Blood pressure 96/56, heart rate 64, temperature 97.9, respirations 18. HEENT: Normocephalic. CHEST: Clear. HEART: S1 and S2 regular. EXTREMITIES: No edema. LABORATORY DATA: SMA-7: Sodium 136, potassium 3.7, chloride 102, CO2 of 25, glucose 158, BUN 44, creatinine 1.6. Today's hemoglobin and hematocrit 11.2 and 33.9, white count 15. Platelet count 120,000. Blood cultures negative after 24 hours. Urine culture was positive for multiple species suggests to repeat specimen. ASSESSMENT: 1. Chest pain with troponin in the indeterminate range. 2. Ischemic cardiomyopathy. 3. Chronic renal insufficiency. 4. Urinary tract infection. 5. Persistent hiccup ____. RECOMMENDATIONS: Continue aspirin 81 mg once a day, Coreg 3.125 mg twice a day, heparin 5000 units subcutaneous every 8 hours, Keppra 250 mg twice a day, digoxin 0.25 mg daily, Lasix 40 mg intravenously once daily, Lipitor 40 mg once daily, Plavix 75 mg once a day, Norvasc 5 mg once a day, Zestril 2.5 mg once daily, Rocephin 1 g intravenously daily. The patient will be evaluated by radio operator Dr. Nader Walton. Jesus Ramey MD
[2017-12-12 06:39] LABS: BASO # 0.01 K/mm3 (0.0-2.0); BASO % 0.1 % (0.0-3.0); EOS # 0.1 (0.0-0.7); EOS % 0.9 % (1.5-5.0); GRAN # 6.41 (1.4-6.5); HEMOGLOBIN 11.3 g/dL (14.0-18.0); LYMPH # 1.4 (1.2-3.4); LYMPH % 15.9 % (22.0-35.0); MEAN CELL VOLUME 85.5 fl (80.0-105.0); MEAN CORPUSCULAR HEMOGLOBIN 27.8 pg (25.0-35.0); MEAN CORPUSCULAR HGB CONC 32.6 g/dl (31.0-37.0); MEAN PLATELET VOLUME 9.4 fl (7.0-11.0); MONO # 0.9 (0.1-0.6); MONO % 10.1 % (1.0-6.0); RBC 4.06 10^6/uL (3.5-6.1); RED CELL DISTRIBUTION WIDTH 14.2 % (11.5-14.5); WHITE BLOOD COUNT 8.8 10^3/ul (4.5-11.0)
[2017-12-12 07:09] LABS: ALBUMIN 3.2 g/dL (3.0-4.8); ALT/SGPT 27 U/L (7-56); AST/SGOT 17 U/L (17-59); BLOOD UREA NITROGEN 27 mg/dL (7-21); CALCIUM 8.8 mg/dL (8.4-10.5); GFR NON-AFRICAN AMERICAN > 60
[2017-12-12] MEDS: Pantoprazole 40 mg EC Tab PO SCH (08:16)
[2017-12-12] MEDS: cefTRIAXone 1 gm 1 GM/100 ML BAG IVPB SCH (10:42)
[2017-12-12] MEDS ORDERED: Alum-Mag Hydrox-Simethicone Susp (30 mL) PO ONE (10:57)
--- NOTE | 2017-12-12 13:39 | PQF ---
PROVIDER RESPONSE TEXT: Provider was unable to determine a response for this query. REVIEWER QUERY TEXT: CHF Acuity and Type Congestive Heart Failure is documented in the Medical Record. Please document the type and acuity (in cludes probable or suspected) Such as: Type: -- Systolic -- Diastolic -- Combined -- Other, please specify Acuity: -- Acute -- Chronic -- Acute on chronic -- Other, please specify Also please document the underlying cause of the CHF (includes probable or suspected) The patient's Clinical Indicators include: Patient admitted with chest pain, SOB, cough. He has hx CHF, last echo with EF 21% BNP elevated at 1999 on admission. CXR without acute findings. Treated with Lasix. Documentation shows CHF as a diagnosis. Please specify type and acuity. Query created by: Janene Khan on 12/12/2017 1:33 PM Electronically signed by: Carmella López MD 12/12/2017 1:37 PM
--- NOTE | 2017-12-12 13:56 | PN ---
DATE: 12/12/2017 SUBJECTIVE: The patient is experiencing headache. He denies any chest discomfort except at the time of hiccup. PHYSICAL EXAMINATION VITAL SIGNS: Blood pressure 120/80, heart rate 63, temperature 97.4, and respirations 19. HEENT: Normocephalic. CHEST: Bilateral rhonchi. HEART: S1 and S2, regular. EXTREMITIES: No edema. LABORATORY DATA: Hemoglobin and hematocrit 11.3 and 34.7. White count and platelet count are within normal limit. Today's SMA-7 is within normal limit except for glucose of 132 and BUN of 27. Abdominal x-ray performed yesterday revealed no significant or acute findings to account for the related clinical presentation. ASSESSMENT: 1. Chest pain. 2. Ischemic cardiomyopathy. 3. Chronic renal insufficiency. 4. Urinary tract infection. 5. Persistent hiccup. RECOMMENDATIONS: Continue current aspirin 81 mg once a day, Coreg 3.125 mg twice a day, subcutaneous heparin 5000 units every 8 hours, Keppra 250 mg twice a day, Lipitor 80 mg once a day, Plavix 75 mg once a day, Zestril 2.5 mg once a day. Consider oral or IM for persistent hiccup if cleared from the medical point of view. Jesus Ramey MD
[2017-12-12] MEDS: Digoxin 250 mcg (0.25 mg) Tab PO SCH (14:06)
[2017-12-12] MEDS: POLYETHYLENE GLYCOL 3350 17 GM/Dose PACKET PO SCH (14:07)
[2017-12-12 16:09] LABS: URINE BILIRUBIN NEGATIVE (NEGATIVE); URINE BLOOD TRACE-LYSED (NEGATIVE); URINE GLUCOSE (UA) NEGATIVE (NEGATIVE); URINE LEUKOCYTE ESTERASE LARGE Leu/uL (NEGATIVE); URINE PROTEIN NEGATIVE mg/dL (<30 mg/dL)
[2017-12-12 16:10] LABS: URINE APPEARANCE CLEAR (CLEAR); URINE COLOR YELLOW (YELLOW)
--- NOTE | 2017-12-12 16:15 | CP.PCM.PN ---
<Reyna Gaviria - Last Filed: 12/12/17 16:12> Subjective - Date & Time of Evaluation Date of Evaluation: 12/12/17 Time of Evaluation: 07:25 - Subjective Subjective: PGY-1 Reyna Gaviria D.O. Medicine progress note for Dr. Smallwood service: Patient is seen and examined this morning. No over night events reported. Patient still has hiccups. He also has not yet had a BM since being admitted. His breathing had improved. He is not requiring supplemental O2. His chest pain is presently resolved. He continues to have dysuria and urinary frequency. Denies fevers and chills. He is eating well. Objective - Vital Signs/Intake and Output Vital Signs (last 24 hours): Temp Pulse Resp BP Pulse Ox 97.1 F L 65 19 108/76 94 L 12/12/17 12:00 12/12/17 12:00 12/12/17 12:00 12/12/17 12:00 12/12/17 06:00 Intake and Output: 12/12/17 12/12/17 06:59 18:59 Intake Total 960 Output Total 600 Balance 360 - Medications Medications: Current Medications Amlodipine Besylate (Norvasc) 5 mg PO DAILY [facility] Last Admin: 12/11/17 11:19 Dose: Not Given Aspirin (Aspirin Chewable) 81 mg PO DAILY [facility] Last Admin: 12/12/17 10:42 Dose: 81 mg Atorvastatin Calcium (Lipitor) 80 mg PO DAILY [facility] Last Admin: 12/12/17 10:42 Dose: 80 mg Carvedilol (Coreg) 3.125 mg PO BID [facility] Last Admin: 12/12/17 10:42 Dose: 3.125 mg Clopidogrel Bisulfate (Plavix) 75 mg PO DAILY [facility] Last Admin: 12/12/17 10:43 Dose: 75 mg Digoxin (Lanoxin) 0.25 mg PO 1400 [facility] Last Admin: 12/12/17 14:06 Dose: 0.25 mg Docusate Sodium (Colace) 100 mg PO BID [facility] Last Admin: 12/12/17 10:43 Dose: 100 mg Finasteride (Proscar) 5 mg PO DAILY [facility] Last Admin: 12/12/17 10:42 Dose: 5 mg Furosemide (Lasix) 40 mg IVP DAILY [facility] Last Admin: 12/12/17 10:43 Dose: 40 mg Heparin Sodium (Porcine) (Heparin) 5,000 units SC Q8 [facility]; Protocol Last Admin: 12/12/17 14:06 Dose: 5,000 units Ceftriaxone Sodium (Rocephin 1 Gram Ivpb) 1 gm in 100 mls @ 100 mls/hr IVPB DAILY [facility]; Protocol Last Admin: 12/12/17 10:42 Dose: 100 mls/hr Levalbuterol HCl (Xopenex) 1.25 mg IH [id number] PRN PRN Reason: Shortness of Breath Levetiracetam (Keppra) 250 mg PO Q12 [facility] Last Admin: 12/12/17 10:42 Dose: 250 mg Lisinopril (Zestril) 2.5 mg PO DAILY [facility] Last Admin: 12/12/17 10:43 Dose: 2.5 mg Pantoprazole Sodium (Protonix Ec Tab) 40 mg PO ACB [facility] Last Admin: 12/12/17 08:16 Dose: 40 mg Polyethylene Glycol (Miralax) 17 gm PO DAILY [facility] Last Admin: 12/12/17 14:07 Dose: Not Given Sennosides (Senokot Tab) 17.2 mg PO HS [facility] Sertraline HCl (Zoloft) 100 mg PO DAILY [facility] Sertraline HCl (Zoloft) 25 mg PO DAILY [facility] Tamsulosin HCl (Flomax) 0.4 mg PO DAILY [facility] Last Admin: 12/12/17 10:42 Dose: 0.4 mg Zaleplon (Sonata) 5 mg PO HS PRN PRN Reason: Insomnia - Labs Labs: 12/12/17 05:30 12/12/17 05:30 PT 13.8 SECONDS (9.4-12.5) H 12/09/17 17:15 INR 1.21 12/09/17 17:15 APTT 29.8 Seconds (25.1-36.5) 12/09/17 17:15 - Constitutional Appears: No Acute Distress, Unkempt, Older Than Stated Age - Head Exam Head Exam: ATRAUMATIC, NORMAL INSPECTION - Eye Exam Eye Exam: EOMI, Normal appearance - ENT Exam ENT Exam: Mucous Membranes Moist, Normal Exam - Neck Exam Neck Exam: Normal Inspection - Respiratory Exam Respiratory Exam: Decreased Breath Sounds, NORMAL BREATHING PATTERN. absent: Respiratory Distress - Cardiovascular Exam Cardiovascular Exam: REGULAR RHYTHM, +S1, +S2 - GI/Abdominal Exam GI & Abdominal Exam: Soft, Normal Bowel Sounds. absent: Tenderness - Rectal Exam Rectal Exam: Deferred - Back Exam Back Exam: NORMAL INSPECTION - Neurological Exam Neurological Exam: Alert, Awake, CN II-XII Intact Neuro motor strength exam: Left Upper Extremity: 5, Right Upper Extremity: 3, Left Lower Extremity: 5, Right Lower Extremity: 2/1 - Psychiatric Exam Psychiatric exam: Depressed, Flat Affect, Suicidal Ideation (PDW) - Skin Skin Exam: Dry, Intact, Normal Color, Warm Assessment and Plan - Assessment and Plan (Free Text) Assessment: Patient is a 67 yo male with a history of CHF, CAD with stent, CVA with R-sided weakness, recurrent UTIs, prostatectomy, HTN, and HLD who presented to the ED for chest pain. Patient was incidentally found to have a UTI. Plan: UTI- recurrent - UA: many garcía, large LE, positive nitrate, WBC 25-30 - Leukocytosis improved - Afebrile - Procal 0.76 - Lactate 1.5 - Rocephin 1g IV daily - Finasteride 5 mg PO daily - Flomax 0.4 mg PO daily - Urine Cx- multiple species - F/u repeat UA and Cx Systolic CHF - BNP 1999 - Echo 07/2016: EF 21% - Repeat pending - Lasix 40 mg PO daily - Lisinopril 2.5 mg PO daily - Carvedilol 3.125 mg PO BID - Digoxin 0.25 mg PO daily - Digoxin level low (0.5) - Cardiology consulted (Karoline)- consider EP study/ICD eval - EP consulted (Anton) Anxiety- patient now expressing passive wish - 1:1 - Increase sertraline to 100 mg PO daily - Sonata 5 mg PO QHS PRN - Psychiatry consulted Constipation - AXR: negative - Colace 100 mg PO BID - Miralax 17 g PO daily - Senokot 17.2 mg PO QHS Anemia - B12, folate pending - Iron studies pending - FOBT pending KAROLINE, resolved - Strict I/Os - Repeat BUN/Cr in AM - Nephrology consulted (Bertha) Hypoxia, resolved- patient no longer requiring supplemental O2 - Repeat CXR: no active disease, no interval change - Xopenex Q6H PRN Chest pain, resolved - EKG: NSR @ 83 BPM, left bundle branch block, no acute ST or T wave changes compared with previous - Troponins negative x3 - LE Dopplers: no DVT - CTA: no PE, descending thoracic aortic aneurysm 4.2 cm CAD, chronic - Carvedilol 3.125 mg PO BID - Plavix 75 mg PO daily - Lipitor 80 mg PO daily - ASA 81 mg PO daily HTN, chronic- presently hypotensive-normotensive - Amlodipine 5 mg PO daily- hold due to hypotension - Carvedilol 3.125 mg PO BID - Lasix 40 mg PO daily - Lisinopril 2.5 mg PO daily H/o seizures - Keppra 250 mg PO BID H/o CVA- residual R-sided weakness - Plavix 75 mg PO daily - Lipitor 80 mg PO daily - ASA 81 mg PO daily PT- rec DORA IVF: not indicted Diet: heart healthy GI ppx: Protonix 40 mg PO ACB VTE ppx: heparin 5000 unit Q8H Code status: full code Case was discussed with attending, Dr. Tompkins. <Arielle Tompkins R - Last Filed: 12/15/17 13:45> Objective - Vital Signs/Intake and Output Vital Signs (last 24 hours): Temp Pulse Resp BP Pulse Ox 98.1 F 81 19 112/63 96 12/15/17 12:00 12/15/17 12:00 12/15/17 12:00 12/15/17 12:00 12/15/17 06:00 Intake and Output: 12/15/17 12/15/17 06:59 18:59 Intake Total 360 Output Total 400 Balance -40 - Medications Medications: Current Medications Amlodipine Besylate (Norvasc) 5 mg PO DAILY [facility] Last Admin: 12/11/17 11:19 Dose: Not Given Aspirin (Aspirin Chewable) 81 mg PO DAILY [facility] Last Admin: 12/15/17 10:30 Dose: 81 mg Atorvastatin Calcium (Lipitor) 80 mg PO DAILY [facility] Last Admin: 12/15/17 10:31 Dose: 80 mg Baclofen (Lioresal) 5 mg PO TID PRN PRN Reason: Hiccups Last Admin: 12/15/17 13:30 Dose: 5 mg Carvedilol (Coreg) 3.125 mg PO BID [facility] Last Admin: 12/15/17 10:29 Dose: 3.125 mg Cefpodoxime Proxetil (Vantin) 200 mg PO Q12 [facility] Last Admin: 12/15/17 10:29 Dose: 200 mg Clopidogrel Bisulfate (Plavix) 75 mg PO DAILY [facility] Last Admin: 12/15/17 10:39 Dose: 75 mg Digoxin (Lanoxin) 0.25 mg PO 1400 [facility] Last Admin: 12/15/17 13:30 Dose: 0.25 mg Docusate Sodium (Colace) 100 mg PO BID [facility] Last Admin: 12/15/17 10:30 Dose: 100 mg Finasteride (Proscar) 5 mg PO DAILY [facility] Last Admin: 12/15/17 10:29 Dose: 5 mg Furosemide (Lasix) 40 mg PO DAILY [facility] Last Admin: 12/15/17 10:30 Dose: 40 mg Heparin Sodium (Porcine) (Heparin) 5,000 units SC Q8 [facility]; Protocol Last Admin: 12/15/17 13:30 Dose: 5,000 units Levalbuterol HCl (Xopenex) 1.25 mg IH [id number] PRN PRN Reason: Shortness of Breath Levetiracetam (Keppra) 250 mg PO Q12 [facility] Last Admin: 12/15/17 10:30 Dose: 250 mg Lisinopril (Zestril) 2.5 mg PO DAILY [facility] Last Admin: 12/15/17 10:29 Dose: 2.5 mg Pantoprazole Sodium (Protonix Ec Tab) 40 mg PO ACB [facility] Last Admin: 12/15/17 08:29 Dose: 40 mg Polyethylene Glycol (Miralax) 17 gm PO DAILY [facility] Last Admin: 12/15/17 10:36 Dose: Not Given Sennosides (Senokot Tab) 17.2 mg PO HS [facility] Last Admin: 12/14/17 21:12 Dose: 17.2 mg Sertraline HCl (Zoloft) 100 mg PO DAILY [facility] Last Admin: 12/15/17 10:29 Dose: 100 mg Sertraline HCl (Zoloft) 25 mg PO DAILY [facility] Last Admin: 12/15/17 10:32 Dose: Not Given Tamsulosin HCl (Flomax) 0.4 mg PO DAILY [facility] Last Admin: 12/15/17 10:30 Dose: 0.4 mg Zaleplon (Sonata) 5 mg PO HS PRN PRN Reason: Insomnia Last Admin: 12/14/17 21:49 Dose: 5 mg - Labs Labs: 12/15/17 05:30 12/15/17 05:30 PT 13.8 SECONDS (9.4-12.5) H 12/09/17 17:15 INR 1.21 12/09/17 17:15 APTT 29.8 Seconds (25.1-36.5) 12/09/17 17:15 Attending/Attestation - Attestation I have personally seen and examined this patient.: Yes I have fully participated in the care of the patient.: Yes I have reviewed all pertinent clinical information, including history, physical exam and plan: Yes Notes (Text): Patient seen and examined by me at 10:45AM with resident 12/12/17. Case including HPI, physical exam, andassessment and plan discussed with resident. Agree with above with following additions/corrections. Patient is a 67-year-old male with past medical history significant for CHF, coronary artery disease status post stent, recurrent UTIs, nephrolithiasis, prostatectomy, CVA with residual right-sided weakness, seizures, hypertension, and hyperlipidemia the presented to the emergency room with chest pain, generalized weakness, and fever. Patient states he is feeling ok. Complains of hiccups. States they seem to get better when he eats. Patient is still having burning and pain with urination. Denies shortness of breath. No palpitations. No nausea, vomiting, or abdominal pain. No headaches or dizziness. Patient is afebrile. Physical exam: General: Awake and alert lying in bed in no acute distress HEENT: Normocephalic atraumatic. Pupils equal reactive. No scleral icterus. Oropharynx is pink and moist. No pharyngeal erythema or exudate appreciated. Neck is supple. Cardiovascular: Normal rhythm. Normal S1, S2. No murmurs, rubs or gallops appreciated Pulmonary: Normal respiratory effort. Decreased breath sounds. No rhonchi, rales or wheezing appreciated. Gastrointestinal: Soft, nondistended. Nontender. Positive bowel sounds all 4 quadrants, no guarding. Musculoskeletal: Moves all extremities, no calf tenderness, no edema appreciated. Central nervous system: AAOx3. Positive right upper and lower extremity weakness when compared to left (chronic from previous CVA). Dermatologic: Skin warm and dry. Assessment and plan: Patient is a 67-year-old male with past medical history significant for CHF, coronary artery disease status post stent, recurrent UTIs, nephrolithiasis, prostatectomy, CVA with residual right-sided weakness, seizures, hypertension, and hyperlipidemia the presented to the emergency room with chest pain, generalized weakness, and fever. 1. Chest pain. Resolved. Ischemic cardiomyopathy. Troponins in indeterminate range. Cardiology consulted, recommendations appreciated. EP consulted for possible need for life vest vs ICD. Continue asa and plavix. Contiue Lipitor. Continue Coreg, Lisinopril, and digoxin. 2. UTI. Urine contaminated. Repeat ordered. Continue Rocephin 3. KAROLINE. Resolved. IV fluids stopped. Nephrology following, recommendations appreciated. Continue to monitor. 4. Hiccups. Patient was given thorazine. Continue to monitor. 5. CAD. Continue plavix, atorvastatin, asa. Continue coreg and lisinopril 6. Chronic systolic CHF. Ischemic cardiomyopathy. 2D echo on 08/06/16 per traffic observer showed systolic function is moderately to severely impaired with an EF of 20-25%. EP consulted for possible LifeVest versus ICD placement, pending recommendations. Continue Lasix, Coreg, and Lisinopril. Cardiology following, recommendations appreciated. 7. History of hypertension. Continue Lasix, Coreg, and lisinopril 8. Hyperlipidemia. Continue Lipitor. 9. History of seizures. Continue Keppra 250mg PO BID 10. Anxiety and depression. Continue Zoloft 50mg PO daily. Patient passively mentioned wanting to today. Pyschiatry consulted, follow up recommendations Case discussed in detail with the patient regarding current diagnosis and treatment plan.All questions answered.
[2017-12-12 16:26] LABS: URINE BACTERIA TRACE (NEG); URINE RBC 0 - 2 /hpf (0-2)
--- NOTE | 2017-12-12 18:35 | PN ---
DATE: 12/12/2017 SUBJECTIVE: The patient is seen lying in bed. He appears comfortable, but is having very frequent hiccups. He denies any chest pain. He denies any shortness of breath. He denies any abdominal pain. PHYSICAL EXAMINATION: GENERAL: Elderly male lying in bed. VITAL SIGNS: Blood pressure 108/76, heart rate 65, respiratory rate 18, and temperature 97.1. HEENT: Normocephalic, atraumatic, positive pallor. NECK: Supple, no JVD. LUNGS: Bilateral equal air entry, bilateral equal expansion. CARDIAC: S1 and S2, regular rate and rhythm, no murmur, no rub. ABDOMEN: Obese, distended, soft, nontender, bowel sounds present. EXTREMITIES: No lower extremity edema. INTAKE AND OUTPUT: 960/600 LABORATORY DATA: WBC 8.8, hemoglobin 11, hematocrit 35, and platelets 219. Sodium 138, potassium 3.9, chloride 103, CO2 of 26. BUN 27, creatinine 1.1. Glucose 132. Calcium 8.8, phosphorus 3.2, magnesium 2.1. Albumin 3.2. Blood culture, no growth. Urine culture, 50,000, 100,000 species multiple organisms. Abdominal x-ray, constipation without fecal impaction or obstruction. No kidney stones seen. CURRENT MEDICATIONS: Aspirin, Colace, Coreg 3.125 b.i.d., Flomax, Keppra, digoxin, Lasix, Lipitor, MiraLax, amlodipine, Plavix, Proscar, Rocephin, Xopenex, Zestril, Zoloft, and sertraline. ASSESSMENT: 1. Acute kidney injury, resolved, largely prerenal azotemia in the setting of urinary tract infection. 2. Mild hypokalemia. 3. History of nephrolithiasis, lithotripsy, recurrent urinary tract infection. 4. Hypertension. 5. Pneumonia. 6. History of cerebrovascular accident. 7. Coronary artery disease. PLAN: 1. Continue empiric antibiotics for pneumonia. 2. Push p.o. intake. 3. No indication for IV fluids. 4. Stable from the renal standpoint. No indication for ultrasound. Jenny Stoen MD
--- NOTE | 2017-12-13 06:09 | CON ---
DATE: 12/12/2017 HISTORY OF PRESENT ILLNESS: In short, the patient is a 67-year-old male, with multiple medical issues including hypertension, dyslipidemia, diabetes, coronary artery disease with 2 stents, CHF, CVA. The patient was admitted on the medical side for evaluation of chest pain. Psych consult was involved because of depressive symptoms. The patient is on Zoloft and the patient also was verbalizing thoughts of harming himself. Initially the patient was seen by medical clerk, who reported that the patient was verbalizing thoughts of killing himself by jumping off the window. Psychiatry team placed the patient on one-to-one. While this law writer rounded, the patient denied that he wanted to kill himself or others. The patient seems to have change in mental status frequently, and this law writer cannot exclude that the patient is in delirium stage. During this law writer's evaluation, the patient presented to be alert with some psychomotor retardation, very slow with answers. The patient reported that he does not feel depressed. He denied any thoughts of killing himself or others. Denied hearing voices, denied seeing things. The patient also denied feeling anxious. The patient does not remember who initiated Zoloft and why he is taking that medication. The patient reports that he lives at home with his brother who is nice to him. This law writer reviewed previous history. The patient was seen by Dr. Flores in the past in 2012. The patient was started on Zoloft back then. Vital signs: Reviewed. Temperature 97.7, pulse is 65, blood pressure 108/76, respirations 19. Medications reviewed. Norvasc, aspirin, Lipitor, Coreg, Rocephin, Plavix, Lanoxin, Colace, Proscar, Lasix, heparin, Xopenex, Keppra, Zestril, Protonix, MiraLax, Symbicort, Zoloft, Flomax 0.4, and this law writer would implement Sonata as needed for insomnia because the patient complained of restless sleep. Labs reviewed. The patient had leukocytosis which is trending down. Toxicology was negative. Serology is negative. Urinalysis showed leukocyte esterase and urinary tract infection. Notes reviewed. MENTAL STATUS EXAM: The patient presented to be with psychomotor retardation. Intermittent eye contact. Speech was underproductive, low volume, slow and monotonic. Mood described as, has lousy affect, was constricted to flat. Thought process was goal directed. Thought content; the patient denied visual, auditory, tactile hallucinations. Denied paranoid ideation. The patient denied thoughts of harming himself or others. Denied intent or plan. Insight and judgment seems to be limited. Impulses are fair. IMPRESSION: Most likely the patient was in delirium stage where he reported that he wanted to kill himself, but that this law writer cannot exclude that the patient is depressed. The patient was diagnosed with major depressive disorder in the past which is related to a CVA. PLAN: Zoloft was increased. Sonata was started for insomnia. The patient is currently on one to one. Dr. Pfeiffer will follow up on this patient over the weekend. Should you have any questions give me a call back. Thank you very much for letting me participate in care of your patient. Rosaline Edwards MD
[2017-12-13 07:09] LABS: BASO # 0.03 K/mm3 (0.0-2.0); BASO % 0.3 % (0.0-3.0); EOS # 0.3 (0.0-0.7); EOS % 3.5 % (1.5-5.0); GRAN # 6.2 (1.4-6.5); GRAN % 69.5 % (50.0-68.0); HEMOGLOBIN 12.1 g/dL (14.0-18.0); LYMPH # 1.6 (1.2-3.4); LYMPH % 18.2 % (22.0-35.0); MEAN CELL VOLUME 85.4 fl (80.0-105.0); MEAN CORPUSCULAR HGB CONC 32.8 g/dl (31.0-37.0); MEAN PLATELET VOLUME 9.8 fl (7.0-11.0); MONO # 0.8 (0.1-0.6); MONO % 8.5 % (1.0-6.0); RBC 4.32 10^6/uL (3.5-6.1); RED CELL DISTRIBUTION WIDTH 14.2 % (11.5-14.5); WHITE BLOOD COUNT 8.9 10^3/ul (4.5-11.0)
[2017-12-13 07:15] LABS: IRON 47 ug/dL (45-180)
[2017-12-13 07:34] LABS: ALBUMIN 3.7 g/dL (3.0-4.8); ALT/SGPT 14 U/L (7-56); AST/SGOT 30 U/L (17-59); BLOOD UREA NITROGEN 22 mg/dL (7-21); CALCIUM 9.1 mg/dL (8.4-10.5); GFR NON-AFRICAN AMERICAN > 60
[2017-12-13 07:40] LABS: % IRON SATURATION 19 % (20-55); TOTAL IRON BINDING CAPACITY 247 ug/dL (261-462)
[2017-12-13] MEDS: Pantoprazole 40 mg EC Tab PO SCH (08:21)
[2017-12-13] MEDS ORDERED: Potassium Chloride 20 mEq ER Tab PO ONE (08:22)
[2017-12-13] MEDS: cefTRIAXone 1 gm 1 GM/100 ML BAG IVPB SCH (09:47)
[2017-12-13] MEDS: POLYETHYLENE GLYCOL 3350 17 GM/Dose PACKET PO SCH (09:47)
[2017-12-13] MEDS: Digoxin 250 mcg (0.25 mg) Tab PO SCH (14:03)
[2017-12-13 14:27] LABS: FOLATE 5.8 ng/mL
--- NOTE | 2017-12-13 16:24 | PN ---
DATE: 12/13/2017 SUBJECTIVE: The patient denies any chest pain. His hiccup has improved. PHYSICAL EXAMINATION: VITAL SIGNS: Blood pressure 111/76, heart rate 88, temperature 98.1, respiration 20. HEENT: Normocephalic. CHEST: Diminished breath sounds over the bases. HEART: S1, S2 regular. EXTREMITIES: 1+ pitting edema. LABORATORY DATA: Hemoglobin and hematocrit 12.1 and 36.9. White count and platelet count are within normal limits. SMA-7: Sodium 137, potassium 3.4, chloride 99, CO2 of 28, glucose 160. BUN 22, creatinine 1.2. ASSESSMENT: 1. Ischemic cardiomyopathy. 2. Chronic renal insufficiency. 3. Urinary tract infection. 4. Depression and delirium. RECOMMENDATIONS: Continue aspirin 81 mg once a day, Coreg 3.125 mg twice a day, heparin 5000 units every 8 hours, Keppra 250 mg p.o. twice a day, Lanoxin 0.25 mg daily, Lasix 40 mg intravenously daily, Lipitor 80 mg once a day, Plavix 75 mg once a day, Norvasc 5 mg once a day, Zestril 2.5 mg once a day. Repeat digoxin level in a.m. Jesus Ramey MD
--- NOTE | 2017-12-13 19:10 | CP.PCM.PN ---
<Vasyl Warren - Last Filed: 12/13/17 18:57> Subjective - Date & Time of Evaluation Date of Evaluation: 12/13/17 Time of Evaluation: 18:57 - Subjective Subjective: Internal Medicine Progress Note(Hospitalist Service): Nathan PGY2 Patient seen and assessed at bedside. No overnight events noted by patient or nursing staff. Patient denies any complaints at this time including fevers, chills, headache, chest pain, SOB, cough, wheezing, abdominal pain, N/V/D/C, changes in urine output or skin changes. Objective - Vital Signs/Intake and Output Vital Signs (last 24 hours): Temp Pulse Resp BP Pulse Ox 99.1 F 90 20 113/78 92 L 12/13/17 18:00 12/13/17 18:00 12/13/17 18:00 12/13/17 18:00 12/13/17 06:00 Intake and Output: 12/13/17 12/13/17 06:59 18:59 Intake Total 100 960 Output Total 27018 Balance 100 -45911 - Medications Medications: Current Medications Amlodipine Besylate (Norvasc) 5 mg PO DAILY [facility] Last Admin: 12/11/17 11:19 Dose: Not Given Aspirin (Aspirin Chewable) 81 mg PO DAILY [facility] Last Admin: 12/13/17 09:47 Dose: 81 mg Atorvastatin Calcium (Lipitor) 80 mg PO DAILY [facility] Last Admin: 12/13/17 09:53 Dose: 80 mg Carvedilol (Coreg) 3.125 mg PO BID [facility] Last Admin: 12/13/17 17:58 Dose: 3.125 mg Clopidogrel Bisulfate (Plavix) 75 mg PO DAILY [facility] Last Admin: 12/13/17 09:50 Dose: 75 mg Digoxin (Lanoxin) 0.25 mg PO 1400 [facility] Last Admin: 12/13/17 14:03 Dose: 0.25 mg Diphenhydramine HCl (Benadryl) 50 mg PO HS PRN PRN Reason: Insomnia Last Admin: 12/13/17 01:28 Dose: 50 mg Docusate Sodium (Colace) 100 mg PO BID [facility] Last Admin: 12/13/17 17:58 Dose: 100 mg Finasteride (Proscar) 5 mg PO DAILY [facility] Last Admin: 12/13/17 09:48 Dose: 5 mg Furosemide (Lasix) 40 mg IVP DAILY [facility] Last Admin: 12/13/17 09:54 Dose: 40 mg Heparin Sodium (Porcine) (Heparin) 5,000 units SC Q8 [facility]; Protocol Last Admin: 12/13/17 14:02 Dose: 5,000 units Ceftriaxone Sodium (Rocephin 1 Gram Ivpb) 1 gm in 100 mls @ 100 mls/hr IVPB DAILY [facility]; Protocol Last Admin: 12/13/17 09:47 Dose: 100 mls/hr Levalbuterol HCl (Xopenex) 1.25 mg IH [id number] PRN PRN Reason: Shortness of Breath Levetiracetam (Keppra) 250 mg PO Q12 [facility] Last Admin: 12/13/17 09:48 Dose: 250 mg Lisinopril (Zestril) 2.5 mg PO DAILY [facility] Last Admin: 12/13/17 09:48 Dose: 2.5 mg Pantoprazole Sodium (Protonix Ec Tab) 40 mg PO ACB [facility] Last Admin: 12/13/17 08:21 Dose: 40 mg Polyethylene Glycol (Miralax) 17 gm PO DAILY [facility] Last Admin: 12/13/17 09:47 Dose: 17 gm Sennosides (Senokot Tab) 17.2 mg PO HS [facility] Last Admin: 12/12/17 22:26 Dose: 17.2 mg Sertraline HCl (Zoloft) 100 mg PO DAILY [facility] Last Admin: 12/13/17 09:48 Dose: 100 mg Sertraline HCl (Zoloft) 25 mg PO DAILY [facility] Last Admin: 12/13/17 09:48 Dose: 25 mg Tamsulosin HCl (Flomax) 0.4 mg PO DAILY [facility] Last Admin: 12/13/17 09:47 Dose: 0.4 mg Zaleplon (Sonata) 5 mg PO HS PRN PRN Reason: Insomnia - Labs Labs: 12/13/17 06:30 12/13/17 06:30 PT 13.8 SECONDS (9.4-12.5) H 12/09/17 17:15 INR 1.21 12/09/17 17:15 APTT 29.8 Seconds (25.1-36.5) 12/09/17 17:15 - Constitutional Appears: Non-toxic, No Acute Distress - Head Exam Head Exam: ATRAUMATIC, NORMOCEPHALIC - Eye Exam Eye Exam: EOMI, Normal appearance - ENT Exam ENT Exam: Mucous Membranes Moist - Neck Exam Neck Exam: Full ROM - Respiratory Exam Respiratory Exam: Clear to Ausculation Bilateral, NORMAL BREATHING PATTERN. absent: Accessory Muscle Use, Chest Wall Tenderness, Decreased Breath Sounds, Prolonged Expiratory Phase, Rales, Rhonchi, Wheezes, Respiratory Distress, Stridor - Cardiovascular Exam Cardiovascular Exam: REGULAR RHYTHM, RRR, +S1, +S2, Murmur (systolic). absent: Bradycardia, Tachycardia, Clicks, Diastolic murmur, Gallop, Irregular Rhythm, JVD, Rubs, +S4 - GI/Abdominal Exam GI & Abdominal Exam: Soft, Normal Bowel Sounds. absent: Tenderness - Neurological Exam Neurological Exam: Alert, Awake, Oriented x3 - Psychiatric Exam Psychiatric exam: Normal Affect, Normal Mood - Skin Skin Exam: Dry, Intact, Normal Color, Warm Assessment and Plan - Assessment and Plan (Free Text) Assessment: 67 year old male with a past medical history significant for CHF, CAD s/p stent, recurrent UTIs, nephrolithiasis, prostatectomy, CVA with residual right-sided weakness, seizures, HTN, and HLD who presented with chest pain, generalized weakness, and fever. Plan: 1. Systolic CHF secondary to Ischemic Cardiomyopathy -Echo on 08/06/16 showed systolic function to be moderately to severely impaired with an EF of 20-25% -Continue Digoxin, Lasix, Coreg and Lisinopril -Cardiology and EP consulted, all recommendations appreciated 2. Angina -Resolved -Troponins in indeterminate range -Cardiology consulted, all recommendations appreciated 3. History of CAD -Continue Lipitor, ASA and Plavix 4. UTI -Continue Rocephin -Repeat UA and C&S pending 5. KAROLINE -BUN/Creatinine continuing to improve -s/p IVF -Continue to monitor with daily CMP's -Nephrology consulted, all recommendations appreciated 6. Hiccups -Given thorazine with noted improvement -Continue to monitor 7. History of HTN -Continue Lasix, Coreg, and Lisinopril 8. History of Seizures -Continue Keppra 9. History of HLD -Continue Lipitor 10. History of Depression/Anxiety -Continue Zoloft -1-to-1 after suicidal statements -Psych consulted, all recommendations appreciated 11. History of Constipation -Continue Senna, Colace and Miralax 12. History of Insomnia -Continue Sonata and Benadryl HS 13. History of BPH -Continue Finasteride and Flomax GI Prophylaxis: Protonix DVT Prophylaxis: Heparin Diet: Heart Healthy Patient seen and case discussed with attending, Dr. Arielle Tompkins. <Arielle Tompkins R - Last Filed: 12/15/17 13:54> Objective - Vital Signs/Intake and Output Vital Signs (last 24 hours): Temp Pulse Resp BP Pulse Ox 98.1 F 81 19 112/63 96 12/15/17 12:00 12/15/17 12:00 12/15/17 12:00 12/15/17 12:00 12/15/17 06:00 Intake and Output: 12/15/17 12/15/17 06:59 18:59 Intake Total 360 Output Total 400 Balance -40 - Medications Medications: Current Medications Amlodipine Besylate (Norvasc) 5 mg PO DAILY [facility] Last Admin: 12/11/17 11:19 Dose: Not Given Aspirin (Aspirin Chewable) 81 mg PO DAILY [facility] Last Admin: 12/15/17 10:30 Dose: 81 mg Atorvastatin Calcium (Lipitor) 80 mg PO DAILY [facility] Last Admin: 12/15/17 10:31 Dose: 80 mg Baclofen (Lioresal) 5 mg PO TID PRN PRN Reason: Hiccups Last Admin: 12/15/17 13:30 Dose: 5 mg Carvedilol (Coreg) 3.125 mg PO BID [facility] Last Admin: 12/15/17 10:29 Dose: 3.125 mg Cefpodoxime Proxetil (Vantin) 200 mg PO Q12 [facility] Last Admin: 12/15/17 10:29 Dose: 200 mg Clopidogrel Bisulfate (Plavix) 75 mg PO DAILY [facility] Last Admin: 12/15/17 10:39 Dose: 75 mg Digoxin (Lanoxin) 0.25 mg PO 1400 [facility] Last Admin: 12/15/17 13:30 Dose: 0.25 mg Docusate Sodium (Colace) 100 mg PO BID [facility] Last Admin: 12/15/17 10:30 Dose: 100 mg Finasteride (Proscar) 5 mg PO DAILY [facility] Last Admin: 12/15/17 10:29 Dose: 5 mg Furosemide (Lasix) 40 mg PO DAILY [facility] Last Admin: 12/15/17 10:30 Dose: 40 mg Heparin Sodium (Porcine) (Heparin) 5,000 units SC Q8 [facility]; Protocol Last Admin: 12/15/17 13:30 Dose: 5,000 units Levalbuterol HCl (Xopenex) 1.25 mg IH [id number] PRN PRN Reason: Shortness of Breath Levetiracetam (Keppra) 250 mg PO Q12 [facility] Last Admin: 12/15/17 10:30 Dose: 250 mg Lisinopril (Zestril) 2.5 mg PO DAILY [facility] Last Admin: 12/15/17 10:29 Dose: 2.5 mg Pantoprazole Sodium (Protonix Ec Tab) 40 mg PO ACB [facility] Last Admin: 12/15/17 08:29 Dose: 40 mg Polyethylene Glycol (Miralax) 17 gm PO DAILY [facility] Last Admin: 12/15/17 10:36 Dose: Not Given Sennosides (Senokot Tab) 17.2 mg PO HS [facility] Last Admin: 12/14/17 21:12 Dose: 17.2 mg Sertraline HCl (Zoloft) 100 mg PO DAILY [facility] Last Admin: 12/15/17 10:29 Dose: 100 mg Sertraline HCl (Zoloft) 25 mg PO DAILY [facility] Last Admin: 12/15/17 10:32 Dose: Not Given Tamsulosin HCl (Flomax) 0.4 mg PO DAILY [facility] Last Admin: 12/15/17 10:30 Dose: 0.4 mg Zaleplon (Sonata) 5 mg PO HS PRN PRN Reason: Insomnia Last Admin: 12/14/17 21:49 Dose: 5 mg - Labs Labs: 12/15/17 05:30 12/15/17 05:30 PT 13.8 SECONDS (9.4-12.5) H 12/09/17 17:15 INR 1.21 12/09/17 17:15 APTT 29.8 Seconds (25.1-36.5) 12/09/17 17:15 Attending/Attestation - Attestation I have personally seen and examined this patient.: Yes I have fully participated in the care of the patient.: Yes I have reviewed all pertinent clinical information, including history, physical exam and plan: Yes Notes (Text): Patient seen and examined by me at 8:25AM with resident 12/13/17. Case including HPI, physical exam, andassessment and plan discussed with resident. Agree with above with following additions/corrections. Patient is a 67-year-old male with past medical history significant for CHF, coronary artery disease status post stent, recurrent UTIs, nephrolithiasis, pr ostatectomy, CVA with residual right-sided weakness, seizures, hypertension, and hyperlipidemia the presented to the emergency room with chest pain, generalized weakness, and fever. Patient states he feels ok. Upset about having hiccups. Patient is on 1 to 1. Still with dysuria and burning with urination. Patient denies any chest pain or shortness of breath. No palpitations. No nausea, vomiting, or abdominal pain. No headaches or dizziness. Patient is afebrile. Physical exam: General: Awake and alert lying in bed in no acute distress HEENT: Normocephalic atraumatic. Pupils equal reactive. No scleral icterus. Oropharynx is pink and moist. No pharyngeal erythema or exudate appreciated. Neck is supple. Cardiovascular: Normal rhythm. Normal S1, S2. No murmurs, rubs or gallops appreciated Pulmonary: Normal respiratory effort. Decreased breath sounds. No rhonchi, rales or wheezing appreciated. Gastrointestinal: Soft, nondistended. Nontender. Positive bowel sounds all 4 quadrants, no guarding. Musculoskeletal: Moves all extremities, no calf tenderness, no edema appreciated. Central nervous system: AAOx3. Positive right upper and lower extremity weakness when compared to left (chronic from previous CVA). Dermatologic: Skin warm and dry. Assessment and plan: Patient is a 67-year-old male with past medical history significant for CHF, coronary artery disease status post stent, recurrent UTIs, nephrolithiasis, prostatectomy, CVA with residual right-sided weakness, seizures, hypertension, and hyperlipidemia the presented to the emergency room with chest pain, generalized weakness, and fever. 1. Chest pain. Resolved. Ischemic cardiomyopathy. Troponins in indeterminate range. Cardiology consulted, recommendations appreciated. EP consulted for possible need for life vest vs ICD. Continue asa and plavix. Contiue Lipitor. Continue Coreg, Lisinopril, and digoxin. 2. UTI. Urine contaminated. Repeat urine culture pending. Continue Rocephin 3. KAROLINE. Resolving. IV fluids stopped. Nephrology following, recommendations appreciated. Continue to monitor. Continue Lasix 4. Hiccups. Patient was given thorazine. Continue to monitor. 5. CAD. Continue plavix, atorvastatin, asa. Continue coreg and lisinopril 6. Chronic systolic CHF. Ischemic cardiomyopathy. 2D echo on 08/06/16 per paper sealer showed systolic function is moderately to severely impaired with an EF of 20-25%. EP consulted for possible LifeVest versus ICD placement, pending recommendations. Continue Lasix, Coreg, and Lisinopril. Cardiology following, recommendations appreciated. 7. History of hypertension. Continue Lasix, Coreg, and Lisinopril 8. Hyperlipidemia. Continue Lipitor. 9. History of seizures. Continue Keppra 250mg PO BID 10. Anxiety and depression. Continue Zoloft 50mg PO daily. Pyschiatry follow ing, recommendations appreciated. Patient is on 1:1 for suicidal thoughts. Case discussed in detail with the patient regarding current diagnosis and treatment plan. All questions answered.
[2017-12-14 08:04] LABS: BASO # 0.03 K/mm3 (0.0-2.0); BASO % 0.3 % (0.0-3.0); EOS # 0.6 (0.0-0.7); EOS % 5.3 % (1.5-5.0); GRAN # 8.35 (1.4-6.5); GRAN % 69.6 % (50.0-68.0); HEMOGLOBIN 12.8 g/dL (14.0-18.0); LYMPH % 16.5 % (22.0-35.0); MEAN CELL VOLUME 85.8 fl (80.0-105.0); MEAN CORPUSCULAR HEMOGLOBIN 27.9 pg (25.0-35.0); MEAN CORPUSCULAR HGB CONC 32.5 g/dl (31.0-37.0); MEAN PLATELET VOLUME 9.7 fl (7.0-11.0); MONO % 8.3 % (1.0-6.0); RBC 4.59 10^6/uL (3.5-6.1); RED CELL DISTRIBUTION WIDTH 14.2 % (11.5-14.5)
[2017-12-14] MEDS: Pantoprazole 40 mg EC Tab PO SCH (08:14)
[2017-12-14 08:15] LABS: ALT/SGPT 27 U/L (7-56); AST/SGOT 29 U/L (17-59); BLOOD UREA NITROGEN 23 mg/dL (7-21); CALCIUM 9.6 mg/dL (8.4-10.5); GFR NON-AFRICAN AMERICAN 55
[2017-12-14] MEDS: POLYETHYLENE GLYCOL 3350 17 GM/Dose PACKET PO SCH ×2 (09:37→09:53)
[2017-12-14] MEDS: cefTRIAXone 1 gm 1 GM/100 ML BAG IVPB SCH (09:37)
--- NOTE | 2017-12-14 10:39 | RAD ---
Date of service: 12/14/2017 HISTORY: Cough COMPARISON: 12/11/2017 FINDINGS: LUNGS: No active pulmonary disease. PLEURA: No significant pleural effusion identified, no pneumothorax apparent. CARDIOVASCULAR: Cardiomegaly. No evidence of acute, significant cardiovascular disease. OSSEOUS STRUCTURES: No significant abnormalities. VISUALIZED UPPER ABDOMEN: Normal. OTHER FINDINGS: IMPRESSION: No active disease. No significant interval change compared to the prior examination(s).
[2017-12-14] MEDS: Digoxin 250 mcg (0.25 mg) Tab PO SCH (14:56)
--- NOTE | 2017-12-14 15:04 | PN ---
DATE: 12/14/2017 SUBJECTIVE: The patient is seen lying in bed. He is awake. He is alert. He still has the hiccups. He denies any chest pain. He denies any shortness of breath. PHYSICAL EXAMINATION GENERAL: Obese elderly male, lying in bed. VITAL SIGNS: Blood pressure 102/70, heart rate 76, respiratory rate 18, temperature 98.1. HEENT: Normocephalic, atraumatic. NECK: Supple, no JVD. LUNGS: Bilateral equal air entry, bilateral equal expansion, "no rales appreciated anteriorly". CARDIAC: S1 and S2, regular rate and rhythm, no murmur, no rub. ABDOMEN: Obese, distended, soft, nontender, bowel sounds present. EXTREMITIES: Trace lower extremity edema. LABORATORY DATA: WBC 12, hemoglobin 12.8, hematocrit 39, platelets 305. Sodium 136, potassium 3.9, chloride 98, CO2 of 28, BUN 23, creatinine 1.3, glucose 139. CURRENT MEDICATIONS: Aspirin, Benadryl, Colace, Coreg 3.125 b.i.d., Flomax, heparin, Keppra, digoxin, Lasix 40 IV daily, Lipitor, amlodipine, Plavix, Proscar, Protonix, Rocephin 1 g daily, Xopenex, Zestril 2.5. ASSESSMENT: 1. Acute kidney injury superimposed on chronic kidney disease, stage II/III. 2. Fever, cough, shortness of breath, leukocytosis, pneumonia. 3. No evidence of urinary tract infection. 4. History of nephrolithiasis, lithotripsy, recurrent urinary tract infection. 5. History of cerebrovascular accident. PLAN: 1. At this time, the patient's renal function is improving, he does have some prerenal azotemia, we will change his Lasix to 40 mg p.o. daily. 2. Continue antibiotics as per ID recommendations, switch to p.o.? 3. Avoid nephrotoxins. 4. Accurate I's and O's. Jenny Stone MD
--- NOTE | 2017-12-14 16:18 | CP.PCM.PN ---
<Vasyl Warren - Last Filed: 12/14/17 16:08> Subjective - Date & Time of Evaluation Date of Evaluation: 12/14/17 Time of Evaluation: 16:08 - Subjective Subjective: Internal Medicine Progress Note(Hospitalist Service): Nathan PGY2 Patient seen and assessed at bedside. No overnight events noted by patient or nursing staff. Patient reports that he is still having hiccups. Patient denies any other complaints at this time including fevers, chills, headache, chest pain, SOB, cough, wheezing, abdominal pain, N/V/D/C, changes in urine output or skin changes. Objective - Vital Signs/Intake and Output Vital Signs (last 24 hours): Temp Pulse Resp BP Pulse Ox 98.6 F 64 18 114/77 94 L 12/14/17 12:00 12/14/17 12:00 12/14/17 12:00 12/14/17 12:00 12/14/17 05:42 Intake and Output: 12/14/17 12/14/17 06:59 18:59 Intake Total 480 Output Total 300 Balance 180 - Medications Medications: Current Medications Amlodipine Besylate (Norvasc) 5 mg PO DAILY [facility] Last Admin: 12/11/17 11:19 Dose: Not Given Aspirin (Aspirin Chewable) 81 mg PO DAILY [facility] Last Admin: 12/14/17 09:40 Dose: 81 mg Atorvastatin Calcium (Lipitor) 80 mg PO DAILY [facility] Last Admin: 12/14/17 09:40 Dose: 80 mg Baclofen (Lioresal) 5 mg PO TID PRN PRN Reason: Hiccups Carvedilol (Coreg) 3.125 mg PO BID [facility] Last Admin: 12/14/17 09:40 Dose: 3.125 mg Clopidogrel Bisulfate (Plavix) 75 mg PO DAILY [facility] Last Admin: 12/14/17 09:40 Dose: 75 mg Digoxin (Lanoxin) 0.25 mg PO 1400 [facility] Last Admin: 12/14/17 14:56 Dose: 0.25 mg Diphenhydramine HCl (Benadryl) 50 mg PO HS PRN PRN Reason: Insomnia Last Admin: 12/13/17 01:28 Dose: 50 mg Docusate Sodium (Colace) 100 mg PO BID [facility] Last Admin: 12/14/17 09:40 Dose: 100 mg Finasteride (Proscar) 5 mg PO DAILY [facility] Last Admin: 12/14/17 09:40 Dose: 5 mg Furosemide (Lasix) 40 mg PO DAILY [facility] Heparin Sodium (Porcine) (Heparin) 5,000 units SC Q8 [facility]; Protocol Last Admin: 12/14/17 14:59 Dose: 5,000 units Ceftriaxone Sodium (Rocephin 1 Gram Ivpb) 1 gm in 100 mls @ 100 mls/hr IVPB DAILY [facility]; Protocol Last Admin: 12/14/17 09:37 Dose: 100 mls/hr Levalbuterol HCl (Xopenex) 1.25 mg IH [id number] PRN PRN Reason: Shortness of Breath Levetiracetam (Keppra) 250 mg PO Q12 [facility] Last Admin: 12/14/17 09:40 Dose: 250 mg Lisinopril (Zestril) 2.5 mg PO DAILY [facility] Last Admin: 12/14/17 09:41 Dose: 2.5 mg Pantoprazole Sodium (Protonix Ec Tab) 40 mg PO ACB [facility] Last Admin: 12/14/17 08:14 Dose: 40 mg Polyethylene Glycol (Miralax) 17 gm PO DAILY [facility] Last Admin: 12/14/17 09:53 Dose: Not Given Sennosides (Senokot Tab) 17.2 mg PO HS [facility] Last Admin: 12/13/17 21:12 Dose: 17.2 mg Sertraline HCl (Zoloft) 100 mg PO DAILY [facility] Last Admin: 12/14/17 09:40 Dose: 100 mg Sertraline HCl (Zoloft) 25 mg PO DAILY [facility] Last Admin: 12/14/17 09:40 Dose: 25 mg Tamsulosin HCl (Flomax) 0.4 mg PO DAILY [facility] Last Admin: 12/14/17 09:40 Dose: 0.4 mg Zaleplon (Sonata) 5 mg PO HS PRN PRN Reason: Insomnia Last Admin: 12/13/17 22:46 Dose: 5 mg - Labs Labs: 12/14/17 07:00 12/14/17 07:00 PT 13.8 SECONDS (9.4-12.5) H 12/09/17 17:15 INR 1.21 12/09/17 17:15 APTT 29.8 Seconds (25.1-36.5) 12/09/17 17:15 - Constitutional Appears: Non-toxic, No Acute Distress - Head Exam Head Exam: ATRAUMATIC, NORMOCEPHALIC - Eye Exam Eye Exam: EOMI - Neck Exam Neck Exam: Full ROM - Respiratory Exam Respiratory Exam: Clear to Ausculation Bilateral, NORMAL BREATHING PATTERN. absent: Rales, Rhonchi, Wheezes - Cardiovascular Exam Cardiovascular Exam: REGULAR RHYTHM, RRR, +S1, +S2 - GI/Abdominal Exam GI & Abdominal Exam: Soft, Normal Bowel Sounds. absent: Tenderness - Extremities Exam Extremities Exam: absent: Calf Tenderness - Neurological Exam Neurological Exam: Alert, Awake, Oriented x3 - Psychiatric Exam Psychiatric exam: Normal Affect, Normal Mood - Skin Skin Exam: Dry, Intact, Normal Color, Warm Assessment and Plan - Assessment and Plan (Free Text) Assessment: 67 year old male with a past medical history significant for CHF, CAD s/p stent, recurrent UTIs, nephrolithiasis, prostatectomy, CVA with residual right-sided weakness, seizures, HTN, and HLD who presented with chest pain, generalized weakness, and fever. Plan: 1. Systolic CHF secondary to Ischemic Cardiomyopathy -Echo on 08/06/16 showed systolic function to be moderately to severely impaired with an EF of 20-25% -Continue Digoxin, Lasix, Coreg and Lisinopril -Cardiology and EP consulted, all recommendations appreciated 2. Angina -Resolved -Troponins in indeterminate range -Cardiology consulted, all recommendations appreciated 3. History of CAD -Continue Lipitor, ASA and Plavix 4. UTI -Continue Rocephin -Repeat UA and C&S pending 5. KAROLINE -BUN/Creatinine continuing to improve -s/p IVF -Continue to monitor with daily CMP's -Nephrology consulted, all recommendations appreciated 6. Hiccups -Chest X-Ray showed cardiomegaly without any active disease -Swallow Evaluation and Treatment ordered -Aspiration precautions -Started Baclofen 5mg TID PRN -Continue to monitor 7. History of HTN -Continue Lasix, Coreg, and Lisinopril 8. History of Seizures -Continue Keppra 9. History of HLD -Continue Lipitor 10. History of Depression/Anxiety -Continue Zoloft -1-to-1 after suicidal statements -Psych consulted, all recommendations appreciated 11. History of Constipation -Continue Senna, Colace and Miralax 12. History of Insomnia -Continue Sonata and Benadryl HS 13. History of BPH -Continue Finasteride and Flomax GI Prophylaxis: Protonix DVT Prophylaxis: Heparin Diet: Heart Healthy Patient seen and case discussed with attending, Dr. Arielle Tompkins. <Arielle Tompkins R - Last Filed: 12/15/17 13:58> Objective - Vital Signs/Intake and Output Vital Signs (last 24 hours): Temp Pulse Resp BP Pulse Ox 98.1 F 81 19 112/63 96 12/15/17 12:00 12/15/17 12:00 12/15/17 12:00 12/15/17 12:00 12/15/17 06:00 Intake and Output: 12/15/17 12/15/17 06:59 18:59 Intake Total 360 Output Total 400 Balance -40 - Medications Medications: Current Medications Amlodipine Besylate (Norvasc) 5 mg PO DAILY [facility] Last Admin: 12/11/17 11:19 Dose: Not Given Aspirin (Aspirin Chewable) 81 mg PO DAILY [facility] Last Admin: 12/15/17 10:30 Dose: 81 mg Atorvastatin Calcium (Lipitor) 80 mg PO DAILY [facility] Last Admin: 12/15/17 10:31 Dose: 80 mg Baclofen (Lioresal) 5 mg PO TID PRN PRN Reason: Hiccups Last Admin: 12/15/17 13:30 Dose: 5 mg Carvedilol (Coreg) 3.125 mg PO BID [facility] Last Admin: 12/15/17 10:29 Dose: 3.125 mg Cefpodoxime Proxetil (Vantin) 200 mg PO Q12 [facility] Last Admin: 12/15/17 10:29 Dose: 200 mg Clopidogrel Bisulfate (Plavix) 75 mg PO DAILY [facility] Last Admin: 12/15/17 10:39 Dose: 75 mg Digoxin (Lanoxin) 0.25 mg PO 1400 [facility] Last Admin: 12/15/17 13:30 Dose: 0.25 mg Docusate Sodium (Colace) 100 mg PO BID [facility] Last Admin: 12/15/17 10:30 Dose: 100 mg Finasteride (Proscar) 5 mg PO DAILY [facility] Last Admin: 12/15/17 10:29 Dose: 5 mg Furosemide (Lasix) 40 mg PO DAILY [facility] Last Admin: 12/15/17 10:30 Dose: 40 mg Heparin Sodium (Porcine) (Heparin) 5,000 units SC Q8 [facility]; Protocol Last Admin: 12/15/17 13:30 Dose: 5,000 units Levalbuterol HCl (Xopenex) 1.25 mg IH [id number] PRN PRN Reason: Shortness of Breath Levetiracetam (Keppra) 250 mg PO Q12 [facility] Last Admin: 12/15/17 10:30 Dose: 250 mg Lisinopril (Zestril) 2.5 mg PO DAILY [facility] Last Admin: 12/15/17 10:29 Dose: 2.5 mg Pantoprazole Sodium (Protonix Ec Tab) 40 mg PO ACB [facility] Last Admin: 12/15/17 08:29 Dose: 40 mg Polyethylene Glycol (Miralax) 17 gm PO DAILY [facility] Last Admin: 12/15/17 10:36 Dose: Not Given Sennosides (Senokot Tab) 17.2 mg PO HS [facility] Last Admin: 12/14/17 21:12 Dose: 17.2 mg Sertraline HCl (Zoloft) 100 mg PO DAILY [facility] Last Admin: 12/15/17 10:29 Dose: 100 mg Sertraline HCl (Zoloft) 25 mg PO DAILY [facility] Last Admin: 12/15/17 10:32 Dose: Not Given Tamsulosin HCl (Flomax) 0.4 mg PO DAILY [facility] Last Admin: 12/15/17 10:30 Dose: 0.4 mg Zaleplon (Sonata) 5 mg PO HS PRN PRN Reason: Insomnia Last Admin: 12/14/17 21:49 Dose: 5 mg - Labs Labs: 12/15/17 05:30 12/15/17 05:30 PT 13.8 SECONDS (9.4-12.5) H 12/09/17 17:15 INR 1.21 12/09/17 17:15 APTT 29.8 Seconds (25.1-36.5) 12/09/17 17:15 Attending/Attestation - Attestation I have personally seen and examined this patient.: Yes I have fully participated in the care of the patient.: Yes I have reviewed all pertinent clinical information, including history, physical exam and plan: Yes Notes (Text): Patient seen and examined by me at 9:05AM with resident 12/14/17. Case including HPI, physical exam, andassessment and plan discussed with resident. Agree with above with following additions/corrections. Patient is a 67-year-old male with past medical history significant for CHF, coronary artery disease status post stent, recurrent UTIs, nephrolithiasis, prostatectomy, CVA with residual right-sided weakness, seizures, hypertension, and hyperlipidemia the presented to the emergency room with chest pain, generalized weakness, and fever. Patient states he continues to have hiccups. Seems to go away when he sleeps. Patient remains on 1 to 1. Continues to have dysuria and burning with urination. Patient denies any chest pain or shortness of breath. No palpitations. No nausea, vomiting, or abdominal pain. No headaches or dizziness. Patient is afebrile. Physical exam: General: Awake and alert lying in bed in no acute distress HEENT: Normocephalic atraumatic. Pupils equal reactive. No scleral icterus. Oropharynx is pink and moist. No pharyngeal erythema or exudate appreciated. Neck is supple. Cardiovascular: Normal rhythm. Normal S1, S2. No murmurs, rubs or gallops appreciated Pulmonary: Normal respiratory effort. Decreased breath sounds. Coarse breath sounds. No rales or wheezing appreciated. Gastrointestinal: Soft, nondistended. Nontender. Positive bowel sounds all 4 quadrants, no guarding. Musculoskeletal: Moves all extremities, no calf tenderness, no edema appreciate d. Central nervous system: AAOx3. Positive right upper and lower extremity weakness when compared to left (chronic from previous CVA). Dermatologic: Skin warm and dry. Assessment and plan: Patient is a 67-year-old male with past medical history significant for CHF, coronary artery disease status post stent, recurrent UTIs, nephrolithiasis, prostatectomy, CVA with residual right-sided weakness, seizures, hypertension, and hyperlipidemia the presented to the emergency room with chest pain, generalized weakness, and fever. 1. Cough. Per patient's one to one, patient has been coughing a little with eating. Placed on aspiration precautions. Follow up chest xray. Follow up swallow evaluation. 2. Chest pain. Resolved. Ischemic cardiomyopathy. Troponins in indeterminate range. Cardiology consulted, recommendations appreciated. EP consulted for possible need for life vest vs ICD, pending recommendations. Continue asa and plavix. Contiue Lipitor. Continue Coreg, lisinopril, and digoxin. 3. UTI. Urine culture contaminated. Pending repeat urine culture. Continue Rocephin 4. KAROLINE. Improved. IV fluids stopped. Nephrology following, recommendations appreciated. Continue to monitor. 5. Hiccups. Started on baclofen 5mg PO TID prn. May need to increase dose if does not resolve. 6. CAD. Continue plavix, atorvastatin, asa. Continue coreg and lisinopril 7. Chronic systolic CHF. Ischemic cardiomyopathy. 2D echo on 08/06/16 per aoc director combat operations officer showed systolic function is moderately to severely impaired with an EF of 20-25%. Block Sawyer consulted for possible LifeVest versus ICD placement, pending recommendations. Continue Lasix, Coreg, and Lisinopril. Cardiology following, recommendations appreciated. 8. History of hypertension. Continue Lasix, Coreg, and lisinopril 9. Hyperlipidemia. Continue Lipitor. 10. History of seizures. Continue Keppra 250mg PO BID 11. Anxiety and depression. Continue Zoloft 50mg PO daily. Patient is on one to one. Pyschiatry following, recommendations appreciated. Case discussed in detail with the patient regarding current diagnosis and treatment plan. All questions answered.
--- NOTE | 2017-12-14 19:05 | PN ---
DATE: 12/14/2017 SUBJECTIVE: The patient is currently on one to one. He is still experiencing hiccup. He denies any chest pain. PHYSICAL EXAMINATION: VITAL SIGNS: Blood pressure 109/72, heart rate 76, temperature 98.1, respiration 20. HEENT: Normocephalic. CHEST: Minimal rhonchi. HEART: S1, S2 regular. EXTREMITIES: Trace leg edema. LABORATORY DATA: Hemoglobin and hematocrit 12.8 and 39.4. White count 12, platelet count 305,000. SMA-7 is within normal limits except for glucose 139 and BUN of 23. Today's chest x-ray revealed no active disease, no significant interval change. I did review the x-ray image itself. ASSESSMENT: 1. Ischemic cardiomyopathy. 2. Improved renal insufficiency. 3. Urinary tract infection. 4. Depression. 5. Persistent hiccup. RECOMMENDATIONS: Continue aspirin 81 mg once a day, Coreg 3.125 mg twice a day, heparin 5000 units subcutaneous every 8 hours, Keppra 250 mg once a day, Lanoxin 0.25 mg daily, Lasix 40 mg intravenously once a day, Lipitor 80 mg once a day, Plavix 75 mg once a day, Rocephin 1 g intravenously daily. Jesus Ramey MD
[2017-12-14 22:19] LABS: BARBITURATES, UR NEGATIVE (NEGATIVE); BENZODIAZEPINES, UR NEGATIVE (NEGATIVE); OPIATES, UR NEGATIVE (NEGATIVE); PHENCYCLIDINE, UR NEGATIVE (NEGATIVE)
--- NOTE | 2017-12-15 02:23 | CON ---
DATE: 12/14/2017 INPATIENT ELECTROPHYSIOLOGY CONSULTATION REFERRING PHYSICIAN: Jesus Ramey MD REASON FOR EVALUATION: 1. Dilated cardiomyopathy. 2. Coronary artery disease, atherosclerotic heart disease. 3. Hypertension. HISTORY OF PRESENT ILLNESS: Mr. Nahid Dick is a 67-year-old male with past medical history significant for coronary artery disease, status post coronary artery stenting in the past, history of CVA with mild residual right-sided weakness with slurring of speech, who presents to [facility] on the day of admission, 12/10/2017 with retrosternal chest discomfort, which appears to be atypical in nature. Patient was found to be febrile with temperature of 104. Chest pain did resolve on admission. Of note, patient did have a coronary artery disease intervention in 04/2016. At that time there was an 80% stenosis in the mid LAD, found to have cardiomyopathy with an ejection fraction estimated to be 40%. Currently patient is without symptoms. No fevers, chills, headache, chest pain, shortness of breath. He does complain of severe ongoing hiccuping that has been going for approximately 3 days and has not relented. No associated symptoms of nausea, vomiting, diarrhea or constipation, however. MEDICATIONS: Currently include Coreg 3.125 mg b.i.d., atorvastatin 80 mg p.o. daily, aspirin 81 mg daily, Plavix 75 mg daily, digoxin 0.25 mg daily, finasteride 5 mg p.o. daily, Lasix 40 mg IV daily, albuterol inhalers, tamsulosin 0.4 mg p.o. daily, Sonata 5 mg p.o. at bedtime. LABORATORY DATA: On review of relevant lab work, patient does have a potassium of 3.4, BUN and creatinine is 22 and 1.2. Glucose of 160. H and H 12.1 and 36.9, white count of 8.9. PHYSICAL EXAMINATION: GENERAL: Patient appeared to be in no acute distress. He is undergoing one-to-one monitoring. HEENT: Examination of his head is normocephalic and atraumatic. He has poor dentition. Moist mucous membrane, however. NECK: Supple. No jugular venous distension. No carotid bruits. CHEST: Clear to auscultation bilaterally. ABDOMEN: Soft, nontender, nondistended. Positive bowel sounds. EXTREMITIES: No cyanosis, clubbing or edema. ASSESSMENT AND PLAN: 1. Dilated cardiomyopathy with a historic ejection fraction of between 20% to 25% on an echo from 2017. On most recent catheterization; however, ejection fraction appeared to be improved. Patient's ejection fraction should be continued to be monitored. Medical therapy is advised. He will continued to be monitored. He has no occurrence of ventricular tachyarrhythmias on the monitor. 2. Patient's mental status improves. Patient is compliant on medications and there is again with documentation of low ejection fraction, may be a candidate for defibrillator retirement. 3. Coronary artery disease, atherosclerotic heart disease, status post intervention. 4. Hypertension. Continue current medical treatment. 5. Hypokalemia. Would continue to recheck and replace potassium to keep levels greater than 4. Thank you for allowing me to participate in the care of your patient, please do not hesitate to call for any questions with regards to his care. Yours sincerely. Nader Walton MD
[2017-12-15 07:01] LABS: ALT/SGPT 23 U/L (7-56); AST/SGOT 35 U/L (17-59); BLOOD UREA NITROGEN 26 mg/dL (7-21); CALCIUM 9.5 mg/dL (8.4-10.5); GFR NON-AFRICAN AMERICAN > 60
[2017-12-15 07:11] LABS: BASO # 0.04 K/mm3 (0.0-2.0); BASO % 0.4 % (0.0-3.0); EOS # 0.7 (0.0-0.7); EOS % 6.1 % (1.5-5.0); GRAN # 7.55 (1.4-6.5); GRAN % 70.5 % (50.0-68.0); HEMOGLOBIN 12.9 g/dL (14.0-18.0); LYMPH # 1.5 (1.2-3.4); LYMPH % 14.4 % (22.0-35.0); MEAN CELL VOLUME 85.5 fl (80.0-105.0); MEAN CORPUSCULAR HEMOGLOBIN 28.3 pg (25.0-35.0); MEAN CORPUSCULAR HGB CONC 33.1 g/dl (31.0-37.0); MEAN PLATELET VOLUME 9.5 fl (7.0-11.0); MONO # 0.9 (0.1-0.6); MONO % 8.6 % (1.0-6.0); RBC 4.56 10^6/uL (3.5-6.1); RED CELL DISTRIBUTION WIDTH 14.2 % (11.5-14.5); WHITE BLOOD COUNT 10.7 10^3/ul (4.5-11.0)
--- NOTE | 2017-12-15 08:25 | CON ---
DATE: 12/13/2017 HISTORY OF PRESENT ILLNESS: The patient is a 67-year-old white male who is being followed in the medical site and wants to be evaluated for chest pain. Psychiatrist involved because of the patient's depression and currently, the patient has been verbalizing thoughts of harming himself by jumping out of the window. However, when Dr. Edwards interviewed the patient at bedside, the patient denies that he ever wanted to kill himself or others and denies being depressed. He is superficially cooperative with my questioning when I met with him today. He consistently denies having depression and indicated that he is fine and that he does not want to kill himself and he would never hospitalized because he actually wanted to . The patient indicated that he never sought help for his chest pain as he actually has the intent to harm himself. He is oriented to month, year, location and current circumstances. Denies having any further chest pain. He is coherent and consistent with his responses. There does not appear to be any major behavioral issues otherwise. His responses are a little slowed and affect is constricted. However, there is some reactivity and the patient does not demonstrate any odd or bizarre behavior. He does not appear to be hopeless or despondent and reacts well to my visit this morning and demonstrating much improved insight and judgement compared to prior notes. Vital signs and labs were reviewed. Relevant psychiatric medications include Zoloft 125 mg daily and Sonata 5 mg at bedtime p.r.n. IMPRESSION: I agree with Dr. Edwards, the patient was likely delirious when he reported he wants to kill himself. At this time, the patient has consistently denied being feeling depressed or suicidal during an interview with Dr. Edwards as well as interview with this provider this morning. The patient also logically indicates that he never sought help for his chest pain as he actually wants to kill himself. PLAN: We will continue with Zoloft and Sonata. The patient does not appear to be acute danger to himself or others. He is oriented. One-to-one can be discontinued. Psychiatry will sign off at this time. Please reconsult as necessary if there are any changes in the patient's presentation. Ashley Pfeiffer MD [facility] # [id number]
[2017-12-15] MEDS: Pantoprazole 40 mg EC Tab PO SCH (08:29)
[2017-12-15] MEDS: Cefpodoxime (Vantin) 200 mg Tab PO SCH ×2 (10:29→22:31)
[2017-12-15] MEDS: POLYETHYLENE GLYCOL 3350 17 GM/Dose PACKET PO SCH ×2 (10:30→10:36)
[2017-12-15] MEDS: Digoxin 250 mcg (0.25 mg) Tab PO SCH (13:30)
--- NOTE | 2017-12-15 16:49 | CP.PCM.PN ---
<Reyna Gaviria - Last Filed: 12/15/17 17:20> Subjective - Date & Time of Evaluation Date of Evaluation: 12/15/17 Time of Evaluation: 07:30 - Subjective Subjective: PGY-1 Reyna Gaviria D.O. Medicine progress note for Dr. Douglass service: Patient is seen and examined this morning. No over night events reported by nu rsing or 1:1 sitter. BP has normalized. Patient's shortness of breath has resolved. He is not requiring supplemental O2. His hiccups are persisting. He denies having a BM since being admitted. He states his dysuria is improving. He is now denying any suicidal ideation. Objective - Vital Signs/Intake and Output Vital Signs (last 24 hours): Temp Pulse Resp BP Pulse Ox 98.1 F 81 19 112/63 96 12/15/17 12:00 12/15/17 12:00 12/15/17 12:00 12/15/17 12:00 12/15/17 06:00 Intake and Output: 12/15/17 12/15/17 06:59 18:59 Intake Total 360 Output Total 400 Balance -40 - Medications Medications: Current Medications Amlodipine Besylate (Norvasc) 5 mg PO DAILY [facility] Last Admin: 12/11/17 11:19 Dose: Not Given Aspirin (Aspirin Chewable) 81 mg PO DAILY [facility] Last Admin: 12/15/17 10:30 Dose: 81 mg Atorvastatin Calcium (Lipitor) 80 mg PO DAILY [facility] Last Admin: 12/15/17 10:31 Dose: 80 mg Baclofen (Lioresal) 5 mg PO TID PRN PRN Reason: Hiccups Last Admin: 12/15/17 13:30 Dose: 5 mg Carvedilol (Coreg) 3.125 mg PO BID [facility] Last Admin: 12/15/17 10:29 Dose: 3.125 mg Cefpodoxime Proxetil (Vantin) 200 mg PO Q12 [facility] Last Admin: 12/15/17 10:29 Dose: 200 mg Clopidogrel Bisulfate (Plavix) 75 mg PO DAILY [facility] Last Admin: 12/15/17 10:39 Dose: 75 mg Digoxin (Lanoxin) 0.25 mg PO 1400 [facility] Last Admin: 12/15/17 13:30 Dose: 0.25 mg Docusate Sodium (Colace) 100 mg PO BID [facility] Last Admin: 12/15/17 10:30 Dose: 100 mg Finasteride (Proscar) 5 mg PO DAILY [facility] Last Admin: 12/15/17 10:29 Dose: 5 mg Furosemide (Lasix) 40 mg PO DAILY [facility] Last Admin: 12/15/17 10:30 Dose: 40 mg Heparin Sodium (Porcine) (Heparin) 5,000 units SC Q8 [facility]; Protocol Last Admin: 12/15/17 13:30 Dose: 5,000 units Levalbuterol HCl (Xopenex) 1.25 mg IH [id number] PRN PRN Reason: Shortness of Breath Levetiracetam (Keppra) 250 mg PO Q12 [facility] Last Admin: 12/15/17 10:30 Dose: 250 mg Lisinopril (Zestril) 2.5 mg PO DAILY [facility] Last Admin: 12/15/17 10:29 Dose: 2.5 mg Pantoprazole Sodium (Protonix Ec Tab) 40 mg PO ACB [facility] Last Admin: 12/15/17 08:29 Dose: 40 mg Polyethylene Glycol (Miralax) 17 gm PO DAILY [facility] Last Admin: 12/15/17 10:36 Dose: Not Given Sennosides (Senokot Tab) 17.2 mg PO HS [facility] Last Admin: 12/14/17 21:12 Dose: 17.2 mg Sertraline HCl (Zoloft) 100 mg PO DAILY [facility] Last Admin: 12/15/17 10:29 Dose: 100 mg Sertraline HCl (Zoloft) 25 mg PO DAILY [facility] Last Admin: 12/15/17 10:32 Dose: Not Given Tamsulosin HCl (Flomax) 0.4 mg PO DAILY [facility] Last Admin: 12/15/17 10:30 Dose: 0.4 mg Zaleplon (Sonata) 5 mg PO HS PRN PRN Reason: Insomnia Last Admin: 12/14/17 21:49 Dose: 5 mg - Labs Labs: 12/15/17 05:30 12/15/17 05:30 PT 13.8 SECONDS (9.4-12.5) H 12/09/17 17:15 INR 1.21 12/09/17 17:15 APTT 29.8 Seconds (25.1-36.5) 12/09/17 17:15 - Constitutional Appears: No Acute Distress, Unkempt, Older Than Stated Age - Head Exam Head Exam: ATRAUMATIC, NORMAL INSPECTION - Eye Exam Eye Exam: EOMI, Normal appearance - ENT Exam ENT Exam: Mucous Membranes Moist, Normal Exam - Neck Exam Neck Exam: Normal Inspection - Respiratory Exam Respiratory Exam: Decreased Breath Sounds, NORMAL BREATHING PATTERN. absent: Respiratory Distress - Cardiovascular Exam Cardiovascular Exam: REGULAR RHYTHM, +S1, +S2 - GI/Abdominal Exam GI & Abdominal Exam: Soft, Normal Bowel Sounds. absent: Tenderness - Rectal Exam Rectal Exam: Deferred - Extremities Exam Extremities Exam: Normal Capillary Refill, Normal Inspection. absent: Pedal Edema, Tenderness - Back Exam Back Exam: NORMAL INSPECTION - Neurological Exam Neurological Exam: Alert, Awake, CN II-XII Intact - Psychiatric Exam Psychiatric exam: Flat Affect - Skin Skin Exam: Dry, Normal Color, Urticaria, Warm Assessment and Plan - Assessment and Plan (Free Text) Assessment: Patient is a 67 yo male with a history of CHF, CAD with stent, CVA with R-sided weakness, recurrent UTIs, prostatectomy, HTN, and HLD who presented to the ED for chest pain. He also complained of SOB and cough. Patient was incidentally found to have a UTI. SOB and cough have resolved. Patient endorsed passive wish and was placed on 1:1. He was seen by psychiatry, who increased his Zoloft. 1:1 was discontinued as patient is currently not believed to be a danger to himself. Patient is pending TCU eval. Plan: UTI- recurrent - UA: many garcía, large LE, positive nitrate, WBC 25-30 - Repeat UA: trace garcía, large LE, negative nitrate, WBC 10-15 - Urine Cx- multiple species - Leukocytosis improved - Afebrile - Procal 0.76, Lactate 1.5 - Discontinue Rocephin 1g IV daily - Start cefpodoxime 200 mg PO Q12H (12/15) - Finasteride 5 mg PO daily - Flomax 0.4 mg PO daily Systolic CHF - BNP 1999 - Echo 07/2016: EF 21% - Lasix 40 mg PO daily - Lisinopril 2.5 mg PO daily - Carvedilol 3.125 mg PO BID - Digoxin 0.25 mg PO daily - Digoxin level low (0.5) - Echo pending - Cardiology consulted (Karoline) - EP consulted (Anton)- continue medical management Anxiety- patient was expressing passive wish earlier in admission - 1:1 discontinued - Increase sertraline to 100 mg PO daily - Start chlorpromazine 25 mg PO TID - Sonata 5 mg PO QHS PRN - Psychiatry consulted Constipation - AXR: negative - Colace 100 mg PO BID - Miralax 17 g PO daily - Senokot 17.2 mg PO QHS Hiccups - Start chlorpromazine 25 mg PO TID - Baclofen did not help Anemia - B12 wnl (590), folate wnl (5.8) - Iron wnl (47), TIBC low (247), % sat low (19), transferrin low (173) - FOBT pending KAROLINE, resolved - Strict I/Os - Repeat BUN/Cr in AM - Lasix 40 mg PO daily - Nephrology consulted (Bertha) Hypoxia, resolved- patient no longer requiring supplemental O2, SOB and cough improved - Repeat CXR 12/14: no active disease, no interval change - Xopenex Q6H PRN Chest pain, resolved - EKG: NSR @ 83 BPM, left bundle branch block, no acute ST or T wave changes compared with previous - Troponins negative x3 - LE Dopplers: no DVT - CTA: no PE, descending thoracic aortic aneurysm 4.2 cm CAD, chronic - Carvedilol 3.125 mg PO BID - Plavix 75 mg PO daily - Lipitor 80 mg PO daily - ASA 81 mg PO daily HTN, chronic- currently normotensive - Amlodipine 5 mg PO daily- hold due to hypotension - Carvedilol 3.125 mg PO BID - Lasix 40 mg PO daily - Lisinopril 2.5 mg PO daily H/o seizures - Keppra 250 mg PO BID H/o CVA- residual R-sided weakness - Plavix 75 mg PO daily - Lipitor 80 mg PO daily - ASA 81 mg PO daily Dispo: pending TCU eval, PT rec [facility] but patient's daughter refused IVF: not indicted Diet: heart healthy GI ppx: Protonix 40 mg PO ACB VTE ppx: heparin 5000 unit Q8H Code status: full code Case was discussed with attending, Dr. Brar. <Renata Brar - Last Filed: 12/17/17 18:05> Objective - Vital Signs/Intake and Output Vital Signs (last 24 hours): Temp Pulse Resp BP Pulse Ox 97.5 F L 67 20 111/69 97 12/16/17 14:00 12/16/17 14:00 12/16/17 14:00 12/16/17 14:00 12/16/17 14:00 - Labs Labs: 12/16/17 06:30 12/16/17 06:30 PT 13.8 SECONDS (9.4-12.5) H 12/09/17 17:15 INR 1.21 12/09/17 17:15 APTT 29.8 Seconds (25.1-36.5) 12/09/17 17:15 Attending/Attestation - Attestation I have personally seen and examined this patient.: Yes I have fully participated in the care of the patient.: Yes I have reviewed all pertinent clinical information, including history, physical exam and plan: Yes Notes (Text): 12/17/17 18:02 attending note; Patient seen and examined with resident. Patient is alert and awake. Currently on one-to-one. Denies any suicidal ideation. Patient is a 67-year-old male with past medical history significant for CHF, coronary artery disease status post stent, recurrent UTIs, nephrolithiasis, prostatectomy, CVA with residual right-sided weakness, seizures, hypertension, depression and hyperlipidemia the presented to the emergency room with chest pain, generalized weakness, and fever. 1. Cough. Resolved. Placed on aspiration precautions. chest x-rays negative for any infiltrate. Swallow evaluation appreciated. 2. Chest pain. Resolved. Ischemic cardiomyopathy. Troponins in indeterminate r ashley. Cardiology consulted. EP consult appreciated. Needs close outpatient follow-up. Continue asa and plavix. Contiue Lipitor. Continue Coreg, lisinopril, and digoxin. 3. UTI. Urine culture contaminated. Patient is currently afebrile and nontoxic. Denies any urinary symptoms. 4. KAROLINE. resolved. 5. Hiccups. resolving. Started on baclofen 5mg PO TID prn. 6. History of seizures. Continue Keppra 250mg PO BID 7. Anxiety and depression. Continue Zoloft 50mg PO daily. Patient is on one to one. Pending psychiatric evaluation. PT evaluation requested. On discharge the patient will follow up with PMD Dr. Jesus Pereira. 12/17/17 18:04
--- NOTE | 2017-12-15 22:38 | PN ---
DATE: 12/15/2017 SUBJECTIVE: The patient denies any chest pain. He is still experiencing hiccup. PHYSICAL EXAMINATION VITAL SIGNS: Blood pressure 112/63, heart rate 81, temperature 98.1, respiration 19. HEENT: Normocephalic. CHEST: Clear. HEART: S1, S2 regular. EXTREMITIES: Trace leg edema. LABORATORY DATA: Hemoglobin and hematocrit 12.9 and 39. White count and platelet count are within normal limit. SMA-7: Sodium 135, potassium 3.8, chloride 97, CO2 of 26, glucose 143. BUN 26, creatinine 1.2. The patient was evaluated by Dr. Nader Walton, shock absorption floor layer yesterday and gives assessment of dilated cardiomyopathy and improved mental status, coronary artery disease, hypertension, hypokalemia, and planned that the patient's ejection fraction should be continued to be monitored. ASSESSMENT: 1. Ischemic cardiomyopathy. 2. Improved renal insufficiency. 3. Depression. 4. Persistent hiccup. RECOMMENDATIONS: Continue current aspirin 81 mg once a day, Coreg 3.125 mg twice a day, heparin 5000 units subcutaneously every 8 hours, Lanoxin 0.25 mg once a day, Lasix 40 mg p.o. once a day, Plavix 75 mg once a day, Norvasc 5 mg once a day, Zestril 2.5 mg once a day. Obtain an echo and transthoracic echocardiographic study. Jesus Ramey MD
--- NOTE | 2017-12-16 02:14 | PN ---
DATE: 12/15/2017 SUBJECTIVE: The patient is seen lying in bed. He is comfortable. He does not appear to be in any kind of distress. PHYSICAL EXAMINATION: VITAL SIGNS: Blood pressure 112/63, heart rate 81, respiratory rate 18, temperature 98.2. HEENT: Normocephalic, atraumatic, positive pallor. NECK: Supple, no JVD. LUNGS: Bilateral equal air entry, bilateral equal expansion. CARDIAC: S1 and S2, regular rate and rhythm, no murmur, no rub. ABDOMEN: Soft, nondistended, nontender, bowel sounds present. EXTREMITIES: No lower extremity edema. LABORATORY DATA: WBC 7.7, hemoglobin 12.9, hematocrit 39, platelets 326. Sodium 135, potassium 3.8, chloride 97, CO2 of 26, BUN 26, creatinine 1.2. Glucose 143. Calcium 9.5, phosphorous 4.1, magnesium 2.1. CURRENT MEDICATIONS: Aspirin, Colace, Coreg, Flomax, Keppra, digoxin, Lasix, 40 p.o. daily, Lipitor, amlodipine, Plavix, Proscar, Protonix, Sonata, Thorazine, Vantin 200 every 12, Xopenex, Zestril, Zoloft. ASSESSMENT: 1. Acute kidney injury superimposed on chronic kidney disease stage III, resolving acute kidney injury. 2. Cough, shortness of breath, pneumonia. 3. History of cerebrovascular accident. 4. Hypertension, well controlled. 5. Congestive heart failure. PLAN: 1. Continue p.o. Lasix. 2. Avoid overdiuresis. 3. Continue antibiotics as per ID recommendations. 4. Stable from the Renal standpoint. Jenny Stone MD
--- NOTE | 2017-12-16 03:47 | PN ---
DATE: 12/15/2017 SUBJECTIVE: The patient is 67-year-old male patient was admitted for evaluation of chest pain. Psych consult was called for evaluation of mood symptoms. The patient was verbalizing thoughts of killing himself, but these episodes were related to delirium stage as per this grant writer observation. The patient was seen today for followup. The patient presented to be alert. The patient reported that he feels fine. The patient denied any thoughts of harming himself or others. The patient complained of uncontrollable hiccups. This grant writer educated the patient about Thorazine and 25 mg three times a day will be scheduled. Discussed with the medical team in regards of vital signs seems to be stable. Medications reviewed. The patient is on Norvasc, aspirin, Lipitor, baclofen, carvedilol, Vantin, Plavix, digoxin, Colace, Proscar Lasix, heparin, Keppra, Zestril, MiraLax, Senokot, Zoloft, Flomax, Sonata as needed for insomnia. Baclofen could be on hold as of now because Thorazine will be started. The patient agreed to take Thorazine for his hiccups. Risks, benefits and alternatives discussed with the patient. Labs reviewed. Medications reviewed. MENTAL STATUS EXAM: The patient presented to be alert, oriented, pleasant. The patient denied being depressed. Denied thoughts of harming himself or others. Denied intent or plan. Insight and judgment seems to be improving. Impulses are well controlled. IMPRESSION: Most likely, the patient has history of depression. The patient also was in delirium stage, which is improving. PLAN: In regards to the hiccups, Thorazine will start at three times a day. Continue one-to-one. Zoloft should be continued, Sonata as needed for insomnia. This grant writer will follow up and advise accordingly. Case discussed with medical team, Dr. Brar and Dr. Ravi. Should you have any questions, give me a call back. Thank you very much for letting me participate in the care of your patient. Rosaline Edwards MD [facility] # [id number] MTDD
[2017-12-16 07:05] LABS: BASO # 0.03 K/mm3 (0.0-2.0); BASO % 0.4 % (0.0-3.0); EOS # 0.5 (0.0-0.7); EOS % 5.9 % (1.5-5.0); GRAN # 5.34 (1.4-6.5); GRAN % 63.9 % (50.0-68.0); HEMOGLOBIN 12.4 g/dL (14.0-18.0); LYMPH # 1.7 (1.2-3.4); LYMPH % 19.9 % (22.0-35.0); MEAN CELL VOLUME 85.4 fl (80.0-105.0); MEAN CORPUSCULAR HEMOGLOBIN 27.9 pg (25.0-35.0); MEAN CORPUSCULAR HGB CONC 32.6 g/dl (31.0-37.0); MEAN PLATELET VOLUME 9.5 fl (7.0-11.0); MONO # 0.8 (0.1-0.6); MONO % 9.9 % (1.0-6.0); RBC 4.45 10^6/uL (3.5-6.1); RED CELL DISTRIBUTION WIDTH 14.3 % (11.5-14.5); WHITE BLOOD COUNT 8.4 10^3/ul (4.5-11.0)
[2017-12-16 07:35] LABS: ALBUMIN 3.9 g/dL (3.0-4.8); ALT/SGPT 21 U/L (7-56); AST/SGOT 31 U/L (17-59); BLOOD UREA NITROGEN 32 mg/dL (7-21); CALCIUM 9.6 mg/dL (8.4-10.5); GFR NON-AFRICAN AMERICAN 51
[2017-12-16 07:42] LABS: FREE T4 1.16 ng/dL (0.78-2.19)
[2017-12-16] MEDS: Pantoprazole 40 mg EC Tab PO SCH (09:24)
[2017-12-16] MEDS: Cefpodoxime (Vantin) 200 mg Tab PO SCH (09:24)
[2017-12-16] MEDS: POLYETHYLENE GLYCOL 3350 17 GM/Dose PACKET PO SCH ×2 (09:25→09:43)
[2017-12-16] MEDS: Digoxin 250 mcg (0.25 mg) Tab PO SCH (13:55)
[2017-12-16 13:56] VITALS: PULSE 50
[2017-12-16 16:27] VITALS: BP 111/69; PULSE 67; RESP 20; TEMP 97.5; O2SAT 97
--- NOTE | 2017-12-16 16:40 | CARD ---
APPROVED REPORT Date of service: 12/16/2017 EXAM: Two-dimensional and M-mode echocardiogram with Doppler and color Doppler. INDICATION EVALUATE LVFX 2D DIMENSIONS Left Atrium (2D)3.2 (1.6-4.0cm)IVSd1.6 (0.7-1.1cm) LVDd5.3 (3.9-5.9cm)PWd1.5 (0.7-1.1cm) LVDs4.7 (2.5-4.0cm)FS (%) 11.4 % LVEF (%)24.6 (>50%) M-Mode DIMENSIONS Aortic Root4.00 (2.2-3.7cm)Aortic Cusp Exc.2.00 (1.5-2.0cm) Aortic Valve AoV Peak Ixaavoyd991.0cm/Ángela Peak GR.12mmHg Mitral Valve MV E Ojebbkke91.0cm/sMV A Zmerccur85.5cm/sE/A ratio0.4 TDI Lateral E' Peak V7.51cm/sMedial E' Peak V5.17cm/sE/Lateral E'4.9 E/Medial E'7.2 Pulmonary Valve PV Peak Ypkdxyac41.8cm/sPV Peak Grad.3mmHg Tricuspid Valve TR Peak [id number]/sRAP [id number] Peak Gr.19mmHg [id number] LEFT VENTRICLE The left ventricle is normal size. There is mild concentric left ventricular hypertrophy. The systolic function is severely impaired. sever Septal and Apical hypokinesis No left ventricle thrombus noted on this study. RIGHT VENTRICLE The right ventricle is normal size. There is normal right ventricular wall thickness. The right ventricular systolic function is normal. ATRIA The left atrium is mildly dilated. The right atrium size is normal. AORTIC VALVE The aortic valve is mildly thickened. No aortic regurgitation is present. There is no aortic valvular stenosis. MITRAL VALVE The mitral valve is mildly thickened. There is no mitral valve regurgitation noted. TRICUSPID VALVE The tricuspid valve is normal in structure. There is no tricuspid valve regurgitation noted. PULMONIC VALVE The pulmonary valve is normal in structure. There is no pulmonic valvular regurgitation. GREAT VESSELS The aortic root is mildly enlarged. PERICARDIAL EFFUSION There is a trace loculated anterior pericardial effusion. <Conclusion> The left ventricle is normal size. There is mild concentric left ventricular hypertrophy. The systolic function is severely impaired. sever Septal and Apical hypokinesis No left ventricle thrombus noted on this study.
--- NOTE | 2017-12-16 17:17 | CP.PCM.DIS ---
<Reyna Gaviria - Last Filed: 12/16/17 17:38> Provider - Provider Date of Admission: 12/10/17 10:32 Attending physician: Renata Brar MD Primary care physician: Dr. Pereira Consults: nephrology cardiology EP psychiatry Time Spent in preparation of Discharge (in minutes): 45 Diagnosis - Discharge Diagnosis (1) Chest pain Status: Resolved Priority: High (2) UTI (urinary tract infection) Status: Acute Priority: High (3) Acute kidney failure, unspecified Status: Resolved Priority: High Hospital Course - Lab Results Lab Results: Micro Results 12/09/17 17:25 Blood-Venous Blood Culture - Final NO GROWTH AFTER 5 DAYS 12/09/17 17:25 Blood-Venous Gram Stain - Final TEST NOT PERFORMED 12/09/17 17:05 Blood-Venous Blood Culture - Final NO GROWTH AFTER 5 DAYS 12/09/17 17:05 Blood-Venous Gram Stain - Final TEST NOT PERFORMED 12/09/17 21:54 Urine,Clean Catch Urine Culture - Final 50-100,000 CFU/ML. MULTIPLE SPECIES. SUGGEST REPEAT SPECIMEN. Most Recent Lab Values WBC 8.4 10^3/ul (4.5-11.0) D 12/16/17 06:30 RBC 4.45 10^6/uL (3.5-6.1) 12/16/17 06:30 Hgb 12.4 g/dL (14.0-18.0) L 12/16/17 06:30 Hct 38.0 % (42.0-52.0) L 12/16/17 06:30 MCV 85.4 fl (80.0-105.0) 12/16/17 06:30 MCH 27.9 pg (25.0-35.0) 12/16/17 06:30 MCHC 32.6 g/dl (31.0-37.0) 12/16/17 06:30 RDW 14.3 % (11.5-14.5) 12/16/17 06:30 Plt Count 328 10^3/uL (120.0-450.0) 12/16/17 06:30 MPV 9.5 fl (7.0-11.0) 12/16/17 06:30 Gran % 63.9 % (50.0-68.0) 12/16/17 06:30 Lymph % (Auto) 19.9 % (22.0-35.0) L 12/16/17 06:30 [place] % (Auto) 9.9 % (1.0-6.0) H 12/16/17 06:30 Eos % (Auto) 5.9 % (1.5-5.0) H 12/16/17 06:30 Baso % (Auto) 0.4 % (0.0-3.0) 12/16/17 06:30 Gran # 5.34 (1.4-6.5) 12/16/17 06:30 Lymph # (Auto) 1.7 (1.2-3.4) 12/16/17 06:30 [place] # (Auto) 0.8 (0.1-0.6) H 12/16/17 06:30 Eos # (Auto) 0.5 (0.0-0.7) 12/16/17 06:30 Baso # (Auto) 0.03 K/mm3 (0.0-2.0) 12/16/17 06:30 Neutrophils % (Manual) 91 % (50.0-70.0) H 12/10/17 06:00 Band Neutrophils % 1 % (0-2) 12/10/17 06:00 Lymphocytes % (Manual) 8 % (22.0-35.0) L 12/10/17 06:00 Monocytes % (Manual) TEST NOT PERFORMED 12/10/17 06:00 Platelet Evaluation Normal (NORMAL) 12/10/17 06:00 Plt Clumps, EDTA Present 12/10/17 06:00 PT 13.8 SECONDS (9.4-12.5) H 12/09/17 17:15 INR 1.21 12/09/17 17:15 APTT 29.8 Seconds (25.1-36.5) 12/09/17 17:15 D-Dimer, Quantitative 577 ng/mlDDU (0-243) H 12/09/17 17:15 pO2 69 mm/Hg (30-55) H 12/09/17 16:40 VBG pH 7.37 (7.32-7.43) 12/09/17 16:40 VBG pCO2 45.0 (40-60) 12/09/17 16:40 VBG HCO3 26.0 mmol/l (21-28) 12/09/17 16:40 VBG Total CO2 27.4 mmol.L (22-28) 12/09/17 16:40 VBG O2 Sat (Calc) 95.1 % (40-65) H 12/09/17 16:40 VBG Base Excess 0.3 mmol/L (0.0-2.0) 12/09/17 16:40 VBG Potassium 4.0 mmol/L (3.6-5.2) 12/09/17 16:40 Sodium 133.0 mmol/L (132-148) 12/09/17 16:40 Chloride 98.0 mmol/L (98-107) 12/09/17 16:40 Glucose 169 mg/dl (75-110) H 12/09/17 16:40 Lactate 1.5 mmol/L (0.7-2.1) 12/09/17 16:40 FiO2 21.0 % 12/09/17 16:40 Sodium 137 mmol/L (132-148) 12/16/17 06:30 Potassium 3.7 mmol/L (3.6-5.0) 12/16/17 06:30 Chloride 99 mmol/L (98-107) 12/16/17 06:30 Carbon Dioxide 26 mmol/L (21-33) 12/16/17 06:30 Anion Gap 15 (10-20) 12/16/17 06:30 BUN 32 mg/dL (7-21) H 12/16/17 06:30 Creatinine 1.4 mg/dl (0.8-1.5) 12/16/17 06:30 Est GFR ( Amer) > 60 12/16/17 06:30 Est GFR (Non-Af Amer) 51 12/16/17 06:30 POC Glucose (mg/dL) 131 mg/dL (65-110) H 12/16/17 16:16 Random Glucose 138 mg/dL (70-110) H 12/16/17 06:30 Calcium 9.6 mg/dL (8.4-10.5) 12/16/17 06:30 Phosphorus 4.2 mg/dL (2.5-4.5) 12/16/17 06:30 Magnesium 2.4 mg/dL (1.7-2.2) H 12/16/17 06:30 Iron 47 ug/dL (45-180) 12/13/17 06:30 TIBC 247 ug/dL (261-462) L 12/13/17 06:30 % Saturation 19 % (20-55) L 12/13/17 06:30 Transferrin 172.98 mg/dL (206-381) L 12/13/17 06:30 Ferritin 287.0 ng/mL 12/13/17 06:30 Total Bilirubin 0.8 mg/dL (0.2-1.3) 12/16/17 06:30 AST 31 U/L (17-59) 12/16/17 06:30 ALT 21 U/L (7-56) 12/16/17 06:30 Alkaline Phosphatase 85 U/L (38-126) 12/16/17 06:30 Lactate Dehydrogenase 469 U/L (333-699) 12/09/17 16:42 Total Creatine Kinase 89 U/L (35-230) 12/09/17 16:42 Troponin I 0.03 ng/mL D 12/12/17 05:30 NT-Pro-B Natriuret Pep 2000 pg/mL (0-450) H 12/09/17 16:42 Total Protein 7.7 g/dL (5.8-8.3) 12/16/17 06:30 Albumin 3.9 g/dL (3.0-4.8) 12/16/17 06:30 Globulin 3.8 gm/dL 12/16/17 06:30 Albumin/Globulin Ratio 1.0 (1.1-1.8) L 12/16/17 06:30 Vitamin B12 590 pg/mL (239-931) 12/13/17 06:30 Folate 5.8 ng/mL 12/13/17 06:30 Procalcitonin 0.76 NG/ML (0.19-0.49) H 12/10/17 00:10 Free T4 1.16 ng/dL (0.78-2.19) 12/16/17 06:30 TSH 3rd Generation 1.79 mIU/mL (0.46-4.68) 12/16/17 06:30 Venous Blood Potassium 4.0 mmol/L (3.6-5.2) 12/09/17 16:40 Urine Color Yellow (YELLOW) 12/12/17 15:42 Urine Appearance Clear (CLEAR) 12/12/17 15:42 Urine pH 6.0 (4.7-8.0) 12/12/17 15:42 Ur Specific [place] 1.010 (1.005-1.035) 12/12/17 15:42 Urine Protein Negative mg/dL (<30 mg/dL) 12/12/17 15:42 Urine Glucose (UA) Negative mg/dL (NEGATIVE) 12/12/17 15:42 Urine Ketones Negative mg/dL (NEGATIVE) 12/12/17 15:42 Urine Blood Trace-lysed (NEGATIVE) H 12/12/17 15:42 Urine Nitrate Negative (NEGATIVE) 12/12/17 15:42 Urine Bilirubin Negative (NEGATIVE) 12/12/17 15:42 Urine Urobilinogen 1.0 E.U./dL (<1 E.U./dL) H 12/12/17 15:42 Ur Leukocyte Esterase Large Rosal[place]/uL (NEGATIVE) H 12/12/17 15:42 Urine RBC 0 - 2 /hpf (0-2) 12/12/17 15:42 Urine WBC 10 - 15 /hpf (0-6) 12/12/17 15:42 Ur Epithelial Cells None /hpf (0-5) 12/12/17 15:42 Urine Bacteria Trace (NEG) 12/12/17 15:42 Urine Other Uyeast 12/12/17 15:42 Digoxin 0.5 ng/mL (0.8-2.0) L 12/13/17 14:00 Urine Opiates Screen Negative (NEGATIVE) 12/12/17 21:46 Urine Methadone Screen Negative (NEGATIVE) 12/12/17 21:46 Ur Barbiturates Screen Negative (NEGATIVE) 12/12/17 21:46 Ur Phencyclidine Scrn Negative (NEGATIVE) 12/12/17 21:46 Ur Amphetamines Screen Negative (NEGATIVE) 12/12/17 21:46 U Benzodiazepines Scrn Negative (NEGATIVE) 12/12/17 21:46 U Oth Cocaine Metabols Negative (NEGATIVE) 12/12/17 21:46 U Cannabinoids Screen Negative (NEGATIVE) 12/12/17 21:46 Influenza Typ A,B (EIA) Negative for flu a/b (NEGATIVE) 12/09/17 16:35 - Hospital Course Hospital Course: 67 y/o M with PMH of CHF with last known EF= 46% (MUGA), CAD s/p stent (LAD 07/2016), recurrent UTIs, nephrolithiasis, prostatectomy, CVA with residual R sided weakness, seizures, HTN, HLD presented to ED on 12/09/17 with complaints of sharp substernal chest pressure without associated diaphoresis, nausea, or vomiting. Chest pressure presented earlier that morning and subsequently resolved upon presentation to ED. Pt also complained of generalized weakness with trouble standing up, fevers, and chills. As per daughter, who is present at bedside, reports her father had a fever of 104 this am that had decreased with tylenol. She reports pt has similar symptoms every time he has a UTI. Daughter reports he has had cough and congestion and "chest rattling" since yesterday, however has not had shortness of breath. Pt is normally able to walk with a cane with assistance, however has not been able to do so due to weakness since his CVA. Patient was given 325mg aspirin in ED. Troponins were negative x3. EKG was normal sinus rhythm at 83bpm and left bundle branch block. LE dopplers were done and revealed no DVT. CTA showed descending thoracic aneurysm was 4.2cm, but there were no signs of pulmonary embolism. He was hypoxic at the beginning of his stay requiring supplemental O2. Hypoxia eventually resolved and patient no longer required supplemental O2. In ED, urine was collected via clean catch and cultured. Multiple species grew and patient was started on rocephin 1g in ED on 12/09 and was changed to oral abx on 12/15 after leukocytosis improved and patient no longer had dysuria. Patient was hypotensive on 12/10 and blood pressure medications were subsequently held. Blood pressure improved the following day and medications were continued, except Norvasc. Patient had constipation that started prior to admission. Abdominal x-ray was negative. Patient was started on colace, miralax, and senokot. Patient has had intermittent episodes of hiccups that have been ongoing since admission which have improved with treatment with thorazine. Psychiatry was consulted for patient having passive wish. Patient has a known history of depression. Physical therapy was consulted for weakness and recommended subacute rehab which daughter refused. On morning of admission, patient denied chest pain and shortness of breath. He also denied burning and pain with urination. Blood pressure was stable at 118/67 this morning and 95% O2 sat on room air. He had a bowel movement. Patient denies hiccups and states the thorazine has helped. Thorazine will be continued for 3 days after discharge. Patient was recommended subacute rehab by PT which patient and daughter refused. Patient was denied for TCU. Patient will be discharged home with VNS and PT/OT. Discharge Exam - Head Exam Head Exam: ATRAUMATIC, NORMAL INSPECTION - Eye Exam Eye Exam: EOMI, Normal appearance, PERRL - ENT Exam ENT Exam: Mucous Membranes Moist, Normal Exam - Neck Exam Neck exam: Normal Inspection - Respiratory Exam Respiratory Exam: Clear to PA & Lateral, NORMAL BREATHING PATTERN, UNREMARKABLE - Cardiovascular Exam Cardiovascular Exam: REGULAR RHYTHM, +S1, +S2 - GI/Abdominal Exam GI & Abdominal Exam: Normal Bowel Sounds, Soft, Unremarkable. absent: Tenderness - Rectal Exam Rectal Exam: Deferred - Extremities Exam Extremities exam: normal inspection - Back Exam Back exam: NORMAL INSPECTION - Neurological Exam Neurological exam: Alert, CN II-XII Intact - Psychiatric Exam Psychiatric exam: Flat Affect - Skin Skin Exam: Dry, Intact, Normal Color, Warm Discharge Plan - Discharge Medications Prescriptions: Aspirin [Aspirin Chewable] 81 mg PO DAILY #30 chew Atorvastatin [Lipitor] 80 mg PO DAILY #30 tab chlorproMAZINE [Thorazine] 25 mg PO TID 3 Days tab - Follow Up Plan Condition: IMPROVED Disposition: HOME/ ROUTINE Patient education suggested?: Yes Instructions: Heart Failure, Adult, Heart Healthy Diet, Urinary Tract Infection, Adult (DC), Pneumococcal Conjugate Vaccine (13-Valent), Flu Vaccine, Chest Pain (DC) Additional Instructions: You are being discharged from [facility]. Please follow-up with your primary care provider, Dr. Pereira, within 3-5 days of discharge. Please follow-up with your corporate legal manager, as you will need your ejection fraction re-evaluated in 3 months. Discontinue your home Norvasc (amlodipine). You will be given a prescription for Thorazine (chlorpromazine), which you can take for 3 days for hiccups. If symptoms return, present to the nearest emergency room. Referrals: Nader Walton MD [Staff Provider] - Jesus Pereira MD [Family Provider] - <Renata Brar - Last Filed: 12/17/17 18:08> Provider - Provider Date of Admission: 12/10/17 10:32 Attending physician: Renata Brar MD Hospital Course - Lab Results Lab Results: Micro Results 12/09/17 17:25 Blood-Venous Blood Culture - Final NO GROWTH AFTER 5 DAYS 12/09/17 17:25 Blood-Venous Gram Stain - Final TEST NOT PERFORMED 12/09/17 17:05 Blood-Venous Blood Culture - Final NO GROWTH AFTER 5 DAYS 12/09/17 17:05 Blood-Venous Gram Stain - Final TEST NOT PERFORMED 12/09/17 21:54 Urine,Clean Catch Urine Culture - Final 50-100,000 CFU/ML. MULTIPLE SPECIES. SUGGEST REPEAT SPECIMEN. Most Recent Lab Values WBC 8.4 10^3/ul (4.5-11.0) D 12/16/17 06:30 RBC 4.45 10^6/uL (3.5-6.1) 12/16/17 06:30 Hgb 12.4 g/dL (14.0-18.0) L 12/16/17 06:30 Hct 38.0 % (42.0-52.0) L 12/16/17 06:30 MCV 85.4 fl (80.0-105.0) 12/16/17 06:30 MCH 27.9 pg (25.0-35.0) 12/16/17 06:30 MCHC 32.6 g/dl (31.0-37.0) 12/16/17 06:30 RDW 14.3 % (11.5-14.5) 12/16/17 06:30 Plt Count 328 10^3/uL (120.0-450.0) 12/16/17 06:30 MPV 9.5 fl (7.0-11.0) 12/16/17 06:30 Gran % 63.9 % (50.0-68.0) 12/16/17 06:30 Lymph % (Auto) 19.9 % (22.0-35.0) L 12/16/17 06:30 [place] % (Auto) 9.9 % (1.0-6.0) H 12/16/17 06:30 Eos % (Auto) 5.9 % (1.5-5.0) H 12/16/17 06:30 Baso % (Auto) 0.4 % (0.0-3.0) 12/16/17 06:30 Gran # 5.34 (1.4-6.5) 12/16/17 06:30 Lymph # (Auto) 1.7 (1.2-3.4) 12/16/17 06:30 [place] # (Auto) 0.8 (0.1-0.6) H 12/16/17 06:30 Eos # (Auto) 0.5 (0.0-0.7) 12/16/17 06:30 Baso # (Auto) 0.03 K/mm3 (0.0-2.0) 12/16/17 06:30 Neutrophils % (Manual) 91 % (50.0-70.0) H 12/10/17 06:00 Band Neutrophils % 1 % (0-2) 12/10/17 06:00 Lymphocytes % (Manual) 8 % (22.0-35.0) L 12/10/17 06:00 Monocytes % (Manual) TEST NOT PERFORMED 12/10/17 06:00 Platelet Evaluation Normal (NORMAL) 12/10/17 06:00 Plt Clumps, EDTA Present 12/10/17 06:00 PT 13.8 SECONDS (9.4-12.5) H 12/09/17 17:15 INR 1.21 12/09/17 17:15 APTT 29.8 Seconds (25.1-36.5) 12/09/17 17:15 D-Dimer, Quantitative 577 ng/mlDDU (0-243) H 12/09/17 17:15 pO2 69 mm/Hg (30-55) H 12/09/17 16:40 VBG pH 7.37 (7.32-7.43) 12/09/17 16:40 VBG pCO2 45.0 (40-60) 12/09/17 16:40 VBG HCO3 26.0 mmol/l (21-28) 12/09/17 16:40 VBG Total CO2 27.4 mmol.L (22-28) 12/09/17 16:40 VBG O2 Sat (Calc) 95.1 % (40-65) H 12/09/17 16:40 VBG Base Excess 0.3 mmol/L (0.0-2.0) 12/09/17 16:40 VBG Potassium 4.0 mmol/L (3.6-5.2) 12/09/17 16:40 Sodium 133.0 mmol/L (132-148) 12/09/17 16:40 Chloride 98.0 mmol/L (98-107) 12/09/17 16:40 Glucose 169 mg/dl (75-110) H 12/09/17 16:40 Lactate 1.5 mmol/L (0.7-2.1) 12/09/17 16:40 FiO2 21.0 % 12/09/17 16:40 Sodium 137 mmol/L (132-148) 12/16/17 06:30 Potassium 3.7 mmol/L (3.6-5.0) 12/16/17 06:30 Chloride 99 mmol/L (98-107) 12/16/17 06:30 Carbon Dioxide 26 mmol/L (21-33) 12/16/17 06:30 Anion Gap 15 (10-20) 12/16/17 06:30 BUN 32 mg/dL (7-21) H 12/16/17 06:30 Creatinine 1.4 mg/dl (0.8-1.5) 12/16/17 06:30 Est GFR ( Amer) > 60 12/16/17 06:30 Est GFR (Non-Af Amer) 51 12/16/17 06:30 POC Glucose (mg/dL) 131 mg/dL (65-110) H 12/16/17 16:16 Random Glucose 138 mg/dL (70-110) H 12/16/17 06:30 Calcium 9.6 mg/dL (8.4-10.5) 12/16/17 06:30 Phosphorus 4.2 mg/dL (2.5-4.5) 12/16/17 06:30 Magnesium 2.4 mg/dL (1.7-2.2) H 12/16/17 06:30 Iron 47 ug/dL (45-180) 12/13/17 06:30 TIBC 247 ug/dL (261-462) L 12/13/17 06:30 % Saturation 19 % (20-55) L 12/13/17 06:30 Transferrin 172.98 mg/dL (206-381) L 12/13/17 06:30 Ferritin 287.0 ng/mL 12/13/17 06:30 Total Bilirubin 0.8 mg/dL (0.2-1.3) 12/16/17 06:30 AST 31 U/L (17-59) 12/16/17 06:30 ALT 21 U/L (7-56) 12/16/17 06:30 Alkaline Phosphatase 85 U/L (38-126) 12/16/17 06:30 Lactate Dehydrogenase 469 U/L (333-699) 12/09/17 16:42 Total Creatine Kinase 89 U/L (35-230) 12/09/17 16:42 Troponin I 0.03 ng/mL D 12/12/17 05:30 NT-Pro-B Natriuret Pep 2000 pg/mL (0-450) H 12/09/17 16:42 Total Protein 7.7 g/dL (5.8-8.3) 12/16/17 06:30 Albumin 3.9 g/dL (3.0-4.8) 12/16/17 06:30 Globulin 3.8 gm/dL 12/16/17 06:30 Albumin/Globulin Ratio 1.0 (1.1-1.8) L 12/16/17 06:30 Vitamin B12 590 pg/mL (239-931) 12/13/17 06:30 Folate 5.8 ng/mL 12/13/17 06:30 Procalcitonin 0.76 NG/ML (0.19-0.49) H 12/10/17 00:10 Free T4 1.16 ng/dL (0.78-2.19) 12/16/17 06:30 TSH 3rd Generation 1.79 mIU/mL (0.46-4.68) 12/16/17 06:30 Venous Blood Potassium 4.0 mmol/L (3.6-5.2) 12/09/17 16:40 Urine Color Yellow (YELLOW) 12/12/17 15:42 Urine Appearance Clear (CLEAR) 12/12/17 15:42 Urine pH 6.0 (4.7-8.0) 12/12/17 15:42 Ur Specific [place] 1.010 (1.005-1.035) 12/12/17 15:42 Urine Protein Negative mg/dL (<30 mg/dL) 12/12/17 15:42 Urine Glucose (UA) Negative mg/dL (NEGATIVE) 12/12/17 15:42 Urine Ketones Negative mg/dL (NEGATIVE) 12/12/17 15:42 Urine Blood Trace-lysed (NEGATIVE) H 12/12/17 15:42 Urine Nitrate Negative (NEGATIVE) 12/12/17 15:42 Urine Bilirubin Negative (NEGATIVE) 12/12/17 15:42 Urine Urobilinogen 1.0 E.U./dL (<1 E.U./dL) H 12/12/17 15:42 Ur Leukocyte Esterase Large [place]/uL (NEGATIVE) H 12/12/17 15:42 Urine RBC 0 - 2 /hpf (0-2) 12/12/17 15:42 Urine WBC 10 - 15 /hpf (0-6) 12/12/17 15:42 Ur Epithelial Cells None /hpf (0-5) 12/12/17 15:42 Urine Bacteria Trace (NEG) 12/12/17 15:42 Urine Other Uyeast 12/12/17 15:42 Digoxin 0.5 ng/mL (0.8-2.0) L 12/13/17 14:00 Urine Opiates Screen Negative (NEGATIVE) 12/12/17 21:46 Urine Methadone Screen Negative (NEGATIVE) 12/12/17 21:46 Ur Barbiturates Screen Negative (NEGATIVE) 12/12/17 21:46 Ur Phencyclidine Scrn Negative (NEGATIVE) 12/12/17 21:46 Ur Amphetamines Screen Negative (NEGATIVE) 12/12/17 21:46 U Benzodiazepines Scrn Negative (NEGATIVE) 12/12/17 21:46 U Oth Cocaine Metabols Negative (NEGATIVE) 12/12/17 21:46 U Cannabinoids Screen Negative (NEGATIVE) 12/12/17 21:46 Influenza Typ A,B (EIA) Negative for flu a/b (NEGATIVE) 12/09/17 16:35 Attending/Attestation - Attestation I have personally seen and examined this patient.: Yes I have fully participated in the care of the patient.: Yes I have reviewed all pertinent clinical information, including history, physical exam and plan: Yes Notes (Text): 12/17/17 18:07 attending note; Patient seen and examined with resident. Patient is alert and awake. Patient is a 67-year-old male with past medical history significant for CHF, coronary artery disease status post stent, recurrent UTIs, nephrolithiasis, prostatectomy, CVA with residual right-sided weakness, seizures, hypertension, depression and hyperlipidemia the presented to the emergency room with chest pain, generalized weakness, and fever. 1. Cough. Resolved. Placed on aspiration precautions. chest x-rays negative for any infiltrate. Swallow evaluation appreciated. 2. Chest pain. Resolved. Ischemic cardiomyopathy. Troponins in indeterminate range. Cardiology consulted. EP consult appreciated. Needs close outpatient follow-up. follow up echo in 3 months and follow up with cardiology/EP as outpatient. Continue asa and plavix. Contiue Lipitor. Continue Coreg, lisinopril, and digoxin. 3. UTI. Urine culture contaminated. Patient is currently afebrile and nontoxic. Denies any urinary symptoms. 4. KAROLINE. resolved. 5. Hiccups. resolving. Started on baclofen 5mg PO TID prn. 6. History of seizures. Continue Keppra 250mg PO BID 7. Anxiety and depression. Continue Zoloft 50mg PO daily. Patient is on one to one. Pending psychiatric evaluation. PT evaluation appreciated. Subacute rehabilitation recommended. patient and patient's daughter Refused rehabilitation. Patient will be discharged home with visiting nurse services. Case discussed with telephonic nurse case manager in detail. resource conservation manager assistance greatly appreciated. On discharge the patient will follow up with PMD Dr. Jesus Pereira. needs close follow-up with cardiology.
--- NOTE | 2017-12-16 17:33 | PN ---
DATE: 12/16/2017 FOLLOWUP NOTE SUBJECTIVE: The patient was followed up today. On Thorazine, the patient's hiccups are well controlled. The patient does not experience any hiccups since yesterday. The patient reported that he feels better. Denied being depressed. Denied thoughts of harming himself or others. Overall improved. Vital signs are stable. Medications are reviewed. Labs reviewed. MENTAL STATUS EXAMINATION: The patient presented to be alert and oriented, pleasant, cooperative. Denied feeling of depression, denied feeling of hopelessness or helplessness. Affect was more reactive, mood congruent. Thought process was concrete, but no psychosis observed or reported. The patient denied thoughts of harming himself or others. Denied intent or plan. Insight and judgment improving. Impulses are well controlled. IMPRESSION: Most likely, the patient had delirium stage, which is improving. Hiccups are under control. The patient is on Thorazine, which the patient responded well to. Major depressive disorder as per history, which seems to be well controlled on Zoloft. PLAN: Continue current management. Continue current medications. Thorazine needs to be given for 3 [address] only. Discussed with Dr. Brar. The patient pose no imminent danger to self or others. Can be followed up with outpatient psychiatrist or primary care physician. The patient is not psychotic, not agitated. This automotive service writer will sign off. Should you have any questions, give me a call back. Thank you very much for letting me participate in care of your patient. Rosaline Edwards MD
--- NOTE | 2017-12-16 21:13 | PN ---
DATE: 12/16/2017 SUBJECTIVE: The patient denies any chest pain or shortness of breath. Hiccup has improved. PHYSICAL EXAMINATION: VITAL SIGNS: Blood pressure 118/67, heart rate 54, temperature 97.8. HEENT: Normocephalic. CHEST: Bilateral rhonchi. HEART: S1 and S2, regular. EXTREMITIES: Trace leg edema. LABORATORY DATA: Today's hemoglobin and hematocrit 12.4 and 38. White count and platelet count are within normal limits. SMA-7 is within normal limit except for glucose of 138 and BUN of 32. Magnesium is 2.4. ASSESSMENT: 1. Ischemic cardiomyopathy. 2. Improved renal insufficiency. 3. Depression. 4. Improved hiccup. 5. Urinary tract infection. RECOMMENDATIONS: Continue aspirin 81 mg once a day, Coreg 3.125 mg twice a day, Lasix 40 mg p.o. once a day, Lanoxin 0.25 mg once a day, Plavix 75 mg once a day, Lipitor 80 mg once a day, Zestril 2.5 mg once a day. I will review the echocardiographic study. Jesus Ramey MD
--- NOTE | 2017-12-17 19:20 | PN ---
DATE: 12/16/2017 SUBJECTIVE: The patient is seen lying in bed. He is resting comfortably. He does not appear to be in any kind of distress. PHYSICAL EXAMINATION: VITAL SIGNS: Blood pressure 118/67, heart rate 54, respiratory rate 20, and temperature 97.5. HEENT: Normocephalic, atraumatic, positive pallor. NECK: Supple, no JVD. LUNGS: Bilateral equal air entry, bilateral equal expansion, bilateral rhonchi. CARDIAC: S1 and S2, regular rate and rhythm, no murmur, no rub. ABDOMEN: Obese, distended, soft, nontender, bowel sounds present. EXTREMITIES: No lower extremity edema. INTAKE AND OUTPUT: 960/700 LABORATORY DATA: WBC 8.4, hemoglobin 12, hematocrit 38, and platelets 328. Sodium 137, potassium 3.7, chloride 99, CO2 of 26. BUN 32, creatinine 1.4. Glucose 138. Calcium 9.6, phosphorous 4.2, magnesium 2.4. Albumin 3.9. CURRENT MEDICATIONS: List reviewed. Aspirin, Colace, Coreg, Flomax, Keppra, digoxin, Lasix 40 p.o. daily, atorvastatin, MiraLax, amlodipine, Plavix, Proscar, Protonix, Sonata, Thorazine, Vantin 200 every 12 hours, Zestril,and Xopenex. ASSESSMENT: 1. Acute kidney injury superimposed on chronic kidney disease stage II/III. 2. Status post decompensated congestive heart failure. 3. Cardiomyopathy, decreased ejection fraction. 4. History of urinary tract infection/nephrolithiasis. PLAN: 1. Continue low-dose Lasix. 2. Continue empiric antibiotics as per ID recommendations. 3. Continue current antihypertensive. 4. Avoid nephrotoxin. Jenny Stone MD
== END 2017-12-16 18:29 | disposition home health service (06) | DRG 303 ==
LOC: ED 15:43 → ERH 20:41 → 2RNO 22:01 → OBSVTOIN 12-10 10:32 → 5RNO 12-15 21:54
PROVIDERS: ADMIT Internal Medicine; ATTEND Internal Medicine
DX: I25.119 Atherosclerotic heart disease of native coronary artery with unspecified angina pectoris (principal); N17.9 Acute kidney failure, unspecified; N39.0 Urinary tract infection, site not specified; I13.0 Hypertensive heart and chronic kidney disease with heart failure and stage 1 through stage 4 chronic kidney disease, or unspecified chronic kidney disease; I50.22 Chronic systolic (congestive) heart failure; I69.351 Hemiplegia and hemiparesis following cerebral infarction affecting right dominant side; R45.851 Suicidal ideations; E11.22 Type 2 diabetes mellitus with diabetic chronic kidney disease; N18.3 Chronic kidney disease, stage 3 (moderate); I25.5 Ischemic cardiomyopathy; I71.2 Thoracic aortic aneurysm, without rupture; I42.0 Dilated cardiomyopathy; I95.9 Hypotension, unspecified; F32.9 Major depressive disorder, single episode, unspecified; F06.4 Anxiety disorder due to known physiological condition; R06.6 Hiccough; E87.6 Hypokalemia; K80.20 Calculus of gallbladder without cholecystitis without obstruction; K59.00 Constipation, unspecified; R09.02 Hypoxemia; E83.42 Hypomagnesemia; E78.5 Hyperlipidemia, unspecified; H91.92 Unspecified hearing loss, left ear; D64.9 Anemia, unspecified; I44.7 Left bundle-branch block, unspecified; N40.0 Benign prostatic hyperplasia without lower urinary tract symptoms; R56.9 Unspecified convulsions; Z87.891 Personal history of nicotine dependence; Z95.5 Presence of coronary angioplasty implant and graft; Z82.3 Family history of stroke

== ENCOUNTER 2018-08-05 04:14 | Inpatient (IN) | payer MEDICARE, MEDICAID ==
[2018-08-05 04:23] VITALS: BMI 32.3
[2018-08-05] MEDS ORDERED: Morphine 2 mg/ml ISec IVP STA ×2 (04:40→09:04)
--- NOTE | 2018-08-05 04:47 | ED PDOC ---
Arrival/HPI - General Historian: Patient, Family - History of Present Illness Narrative History of Present Illness (Text): 08/05/18 04:43 Pt is a 68 yo male with a PMH of CHF, CAD, recurrent UTIs, nephrolithiasis, prostatectomy, CVA with residual R sided weakness, seizures, HTN, HLD who presents to the ED complaining of right flank pain which started yesterday around dinner time. Pt states the pain is 10/10 stabbing and radiates from his right flank, towards his shoulder blade. The pain has been getting progressively worse, the pain got so bad the pt pressed his life alter for his family to come get him and bring him to the ED. States the pain is worse with inhalation. Pt tried Tylenol yesterday which only helped the pain minimally. Pt denies urinary problems, fevers, nausea, vomiting, diarrhea, constipation, chest pain, SOB. Time/Duration: 24 hours Symptom Onset: Gradual Symptom Course: Worsening Quality: Stabbing Severity Level: 10 Activities at Onset: Rest Context: Sitting <Marko Early - Last Filed: 08/05/18 07:11> <Seth Blount - Last Filed: 08/09/18 20:27> - General Chief Complaint: Back Pain Past Medical History - Infectious Disease Hx of Infectious Diseases: None - Tetanus Immunization Tetanus Immunization: Unknown - Cardiac Hx Cardiac Disorders: Yes (with stents) Hx Congestive Heart Failure: Yes Hx TN: Yes - Pulmonary Hx Chronic Obstructive Pulmonary Disease (COPD): Yes - Neurological HX Cerebrovascular Accident: Yes (with residual RUE /RLE weakness) - HEENT Hx HEENT Disorder: Yes Hx Blind: No Hx Cataracts: No Hx Deafness: Yes (left ear, hearing aid) Hx Difficulty Chewing: No Hx Epistaxis: No Hx Glaucoma: No Hx Macular Degeneration: No Other/Comment: uses eye glasses - Renal Hx Renal Failure: Yes - Endocrine/Metabolic Hx Diabetes Mellitus Type 2: Yes - Hematological/Oncological Hx Blood Disorders: Yes Hx Anemia: Yes (blood transfusion) - Integumentary Other/Comment: b/l lower extremity dry red scratch aquino, multiple tatoos - Musculoskeletal/Rheumatological Hx Arthritis: Yes - Gastrointestinal Other/Comment: umbilical hernia - Genitourinary/Gynecological Hx Genitourinary Disorders: Yes Hx Hematuria: Yes Hx Incontinence: Yes Hx Prostate Problems: Yes Hx Sexually Transmitted Diseases: No Hx Urinary Tract Infection: Yes Other/Comment: bladder stone removed from prostate as per pt - Psychiatric Hx Psychophysiologic Disorder: No Hx Depression: Yes Hx Emotional Abuse: No Hx Physical Abuse: No Hx Substance Use: No - Past Surgical History Past Surgical History: Unable to Obtain - Surgical History Hx Cardiac Catheterization: Yes (stents) Hx Coronary Stent: No Hx Orthopedic Surgery: Yes Other/Comment: rt.knee surgery acl - Anesthesia Hx Anesthesia: Yes Hx Anesthesia Reactions: No Hx Malignant Hyperthermia: No - Suicidal Assessment Feels Threatened In Home Enviroment: No <Marko Early - Last Filed: 08/05/18 07:11> Family/Social History Family/Social History: Unknown Family HX Smoking Status: Former Smoker Hx Alcohol Use: No Hx Substance Use: No Hx Substance Use Treatment: No <Marko Early - Last Filed: 08/05/18 07:11> Allergies/Home Meds <Marko Early - Last Filed: 08/05/18 07:11> <Seth Blount - Last Filed: 08/09/18 20:27> Allergies/Adverse Reactions: Allergies salmon Adverse Reaction (Uncoded 12/09/17 21:40) RASH Home Medications: Home Meds Medication Instructions Recorded Confirmed levETIRAcetam [Keppra] 250 mg PO Q12 03/08/13 08/05/18 Sertraline [Zoloft] 100 mg PO DAILY 05/10/15 08/05/18 Finasteride [Proscar] 1 tab PO DAILY 11/19/16 08/05/18 Tamsulosin [Flomax] 0.4 mg PO DAILY 08/05/18 08/05/18 amLODIPine [Norvasc] 5 mg PO DAILY 08/05/18 08/05/18 Review of Systems - Review of Systems Constitutional: Normal Eyes: Normal ENT: Normal Respiratory: Normal Cardiovascular: Normal Gastrointestinal: Normal Genitourinary Male: Normal Musculoskeletal: Back Pain Skin: Normal Neurological: Other (residual right sided weakness) Endocrine: Normal Hemo/Lymphatic: Normal Psychiatric: Normal <Marko Early - Last Filed: 08/05/18 07:11> Physical Exam Vital Signs Reviewed: Yes Vital Signs Temp Pulse Resp BP Pulse Ox 08/05/18 04:25 97.4 F L 76 18 122/68 97 Temperature: Afebrile Blood Pressure: Normal Pulse: Regular Respiratory Rate: Normal Appearance: Positive for: Well-Appearing Mental Status: Positive for: Alert and Oriented X 3 - Systems Exam Head: Present: Atraumatic, Normocephalic Pupils: Present: PERRL Extroacular Muscles: Present: EOMI Mouth: Present: Moist Mucous Membranes Respiratory/Chest: Present: Clear to Auscultation, Good Air Exchange Cardiovascular: Present: Regular Rate and Rhythm, Normal S1, S2 Abdomen: Present: Normal Bowel Sounds. No: Tenderness, Distention Upper Extremity: Present: Other (residual right sided weakness). No: Normal ROM Lower Extremity: Present: Other (residual right sided weakness). No: Normal ROM Skin: Present: Warm, Dry Psychiatric: Present: Alert <Marko Early - Last Filed: 08/05/18 07:11> Vital Signs Temp Pulse Resp BP Pulse Ox 08/05/18 04:25 97.4 F L 76 18 122/68 97 <Seth Blount - Last Filed: 08/09/18 20:27> Medical Decision Making ED Course and Treatment: 08/05/18 04:52 CBC CMP Urinalysis [address] abdomen and pelvis non contrast 08/05/18 05:43 Urinalysis shows UTI CBC WBC 12.8 08/05/18 07:05 pt given rocephin spoke with Dr López, accepts pt as admission to hospitalists service Pt seen, examined, assessment and plan discussed with Dr Jose Alejandro Early PGY1 08/05/18 07:10 - RAD Interpretation Radiology Orders: 08/05/18 04:41 ABDOMEN & PELVIS [ABD & PELVIS W/O PO OR IV CONT] [CT] Stat - Medication Orders Current Medication Orders: Morphine Sulfate (Morphine) 2 mg IVP STAT STA Stop: 08/05/18 04:41 <Marko Early - Last Filed: 08/05/18 07:11> ED Course and Treatment: Impression: Pt seen and evaluated with medical records specialist. Aware and agree with HPI, clinical findings, plan, and management. Pt, whose past medical history includes CHF, CAD, recurrent UTIs, nephrolithiasis, prostatectomy, CVA, seizures, hypertension, and hyperlipidemia, presented for right flank pain. Plan: -- CT Abdomen and Pelvis w/o contrast -- Labs -- Urinalysis, urine cultures -- Morphine -- Reassess and disposition - Lab Interpretations Lab Results: Urine Color Yellow (YELLOW) 08/05/18 05:02 Urine Appearance Cloudy (CLEAR) 08/05/18 05:02 Urine pH 6.5 (4.7-8.0) 08/05/18 05:02 Ur Specific Graham 1.015 (1.005-1.035) 08/05/18 05:02 Urine Protein 100 mg/dL (<30 mg/dL) H 08/05/18 05:02 Urine Glucose (UA) >=1000 mg/dL (NEGATIVE) 08/05/18 05:02 Urine Ketones Negative mg/dL (NEGATIVE) 08/05/18 05:02 Urine Blood Moderate (NEGATIVE) H 08/05/18 05:02 Urine Nitrate Positive (NEGATIVE) H 08/05/18 05:02 Urine Bilirubin Negative (NEGATIVE) 08/05/18 05:02 Urine Urobilinogen 0.2 E.U./dL (<1 E.U./dL) 08/05/18 05:02 Ur Leukocyte Esterase Small Rosalino/uL (NEGATIVE) H 08/05/18 05:02 - RAD Interpretation Radiology Orders: 08/05/18 04:41 ABDOMEN & PELVIS [ABD & PELVIS W/O PO OR IV CONT] [CT] Stat - Medication Orders Current Medication Orders: Discontinued Medications Morphine Sulfate (Morphine) 2 mg IVP STAT STA Stop: 08/05/18 04:41 Last Admin: 08/05/18 05:11 Dose: 2 mg MAR Pain Assessment Document 08/05/18 05:11 EB (Rec: 08/05/18 05:12 [facility]) Pain Reassessment Is this a pain reassessment? No Sleep Is patient sleeping during reassessment? No Presence of Pain Presence of Pain Yes Pain Scale Used Protocol: PSCALES Pain Scale Used Numeric Location Left, Right or Bilateral Right Pain Location Body Site Abdomen Description Description Constant Intensity of Pain at present 8 Pain Behavior Moaning Facial Grimacing IVP Administration Document 08/05/18 05:11 EB (Rec: 08/05/18 05:12 [facility]-20) Charges for Administration # of IVP Administrations 1 <Seth Blount - Last Filed: 08/09/18 20:27> - PA / [employer] / Resident Statement GERALD has reviewed & agrees with the documentation as recorded. GERALD has examined the patient and agrees with the treatment plan. <Marko Early - Last Filed: 08/05/18 07:11> - PA / [employer] / Resident Statement GERALD has reviewed & agrees with the documentation as recorded. GERALD has examined the patient and agrees with the treatment plan. <Seth Blount - Last Filed: 08/09/18 20:27> Disposition/Present on Arrival - Present on Arrival Any Indicators Present on Arrival: No History of DVT/PE: No History of Uncontrolled Diabetes: No Urinary Catheter: No History of Decub. Ulcer: No History Surgical Site Infection Following: None - Disposition Have Diagnosis and Disposition been Completed?: Yes Disposition Time: 06:37 Patient Plan: Admission <Marko Early - Last Filed: 08/05/18 07:11> <Seth Blount - Last Filed: 08/09/18 20:27> - Disposition Diagnosis: UTI (urinary tract infection) Disposition: HOSPITALIZED Patient Problems: Current Active Problems Problem Status Onset UTI (urinary tract infection) Acute Condition: FAIR
[2018-08-05 05:24] LABS: BASO # 0.02 K/mm3 (0.0-2.0); BASO % 0.2 % (0.0-3.0); EOS # 0.1 (0.0-0.7); EOS % 1.1 % (1.5-5.0); MEAN CELL VOLUME 86.6 fl (80.0-105.0); MEAN CORPUSCULAR HEMOGLOBIN 28.7 pg (25.0-35.0); MEAN CORPUSCULAR HGB CONC 33.2 g/dl (31.0-37.0); MEAN PLATELET VOLUME 9.7 fl (7.0-11.0); MONO # 1.1 (0.1-0.6); MONO % 8.5 % (1.0-6.0); RBC 5.01 10^6/uL (3.5-6.1); RED CELL DISTRIBUTION WIDTH 14.2 % (11.5-14.5); WHITE BLOOD COUNT 12.8 10^3/uL (4.5-11.0)
[2018-08-05 05:30] LABS: PH,URINE 6.5 (4.7-8.0); URINE BILIRUBIN NEGATIVE (NEGATIVE); URINE BLOOD MODERATE (NEGATIVE); URINE GLUCOSE (UA) >=1000 mg/dL (NEGATIVE); URINE LEUKOCYTE ESTERASE SMALL Leu/uL (NEGATIVE); URINE PROTEIN 100 mg/dL (<30 mg/dL); URINE UROBILINOGEN 0.2 E.U./dL (<1 E.U./dL)
[2018-08-05 05:31] LABS: HEMOGLOBIN 14.4 g/dL (14.0-18.0); URINE APPEARANCE CLOUDY (CLEAR); URINE COLOR YELLOW (YELLOW)
[2018-08-05 05:51] LABS: URINE EPITHELIAL CELLS 0 - 2 /hpf (0-5); URINE WBC TNTC /hpf (0-6)
[2018-08-05 05:52] LABS: URINE BACTERIA MOD /hpf
[2018-08-05] MEDS ORDERED: cefTRIAXone 1 gm 1 GM/100 ML BAG IVPB ONE (06:00)
[2018-08-05 06:36] LABS: ALB/GLOB RATIO 1.1 (1.1-1.8); ALBUMIN 4.3 g/dL (3.0-4.8); ALT/SGPT 15 U/L (7-56); AST/SGOT 22 U/L (17-59); BLOOD UREA NITROGEN 19 mg/dL (7-21); CALCIUM 9.6 mg/dL (8.4-10.5); GFR NON-AFRICAN AMERICAN > 60
--- NOTE | 2018-08-05 08:35 | RAD ---
Date of service: 08/05/2018 HISTORY: cp COMPARISON: 12/14/2017 TECHNIQUE: 1 view obtained. FINDINGS: LUNGS: No active pulmonary disease. PLEURA: No significant pleural effusion identified, no pneumothorax apparent. CARDIOVASCULAR: No aortic atherosclerotic calcification present. Aortic tortuosity Mild cardiomegaly no pulmonary vascular congestion. OSSEOUS STRUCTURES: No significant abnormalities. VISUALIZED UPPER ABDOMEN: Normal. OTHER FINDINGS: None. IMPRESSION: No active disease.
--- NOTE | 2018-08-05 08:59 | CARD ---
APPROVED REPORT Date of service: 08/05/2018 EKG Measurement Heart [id number] <Conclusion> Poor data quality, interpretation may be adversely affected Normal sinus rhythm Left axis deviation Left bundle branch block Abnormal ECG
[2018-08-05] MEDS ORDERED: Morphine 2 mg/ml ISec IVP PRN (09:10)
[2018-08-05] MEDS ORDERED: Dextrose 50% SYRINGE Inj (50 ml) IV PRN (09:47)
[2018-08-05] MEDS ORDERED: Meropenem IV 1 gm in NS 1 GM/50 ML BAG IVPB SCH (10:00)
--- NOTE | 2018-08-05 10:00 | CT ---
Date of service: 08/05/2018 PROCEDURE: CT Abdomen and Pelvis without intravenous contrast HISTORY: right sided flank pain COMPARISON: 11/19/2016 TECHNIQUE: Technique. Contrast dose: Radiation dose: Total exam DLP = 742.16 mGy-cm. This CT exam was performed using one or more of the following dose reduction techniques: Automated exposure control, adjustment of the mA and/or kV according to patient size, and/or use of iterative reconstruction technique. FINDINGS: LOWER THORAX: Unremarkable. LIVER: Unremarkable. No gross lesion or ductal dilatation. GALLBLADDER AND BILE DUCTS: Cholelithiasis. PANCREAS: Unremarkable. No gross lesion or ductal dilatation. SPLEEN: Unremarkable. ADRENALS: Unremarkable. No mass. KIDNEYS AND URETERS: Right nephrolithiasis, nonobstructive. Left hydroureter without obstructive calculus. No solid mass. VASCULATURE: Unremarkable. No aortic aneurysm. No aortic atherosclerotic calcification or mural plaque present. BOWEL: Colonic diverticulosis. No obstruction. No gross mural thickening. APPENDIX: Unremarkable. Normal appendix. PERITONEUM: Unremarkable. No free fluid. No free air. LYMPH NODES: Unremarkable. No enlarged lymph nodes. BLADDER: Unremarkable. REPRODUCTIVE: Unremarkable. BONES: No acute fracture. Left iliopsoas muscle atrophy. OTHER FINDINGS: None. IMPRESSION: Right nephrolithiasis, nonobstructive. Left hydroureter without obstructive calculus. Cholelithiasis.
[2018-08-05 11:04] LABS: LIPASE 124 U/L (23-300)
[2018-08-05] MEDS: Insulin Reg-MEDIUM-Coverage SC SCH ×3 (11:34→22:15)
[2018-08-05] MEDS: Morphine 2 mg/ml ISec IVP PRN ×4 (11:38→23:31)
--- NOTE | 2018-08-05 11:48 | CP.PCM.CON ---
<Gray Kruse - Last Filed: 08/05/18 15:25> History of Present Illness - History of Present Illness History of Present Illness: Infectious disease consult note: 68-year-old male with past medical history of CHF, CAD with stents, recurrent UTIs, nephrolithiasis, pyelonephritis in 2017, prostatectomy, CVA with residual right-sided weakness, seizures, hypertension, hyperlipidemia presents with right-sided flank pain and burning with urination. Patient states that his symptoms started a few days ago and has gotten progressively worse. He states that his flank pain is 8 out of 10 in severity. He denies any nausea or vomiting. Of note the patient has history of pyelonephritis recurrent UTIs and nephrolithiasis. Infectious disease was consulted for UTI and possible right- sided pyelonephritis. No fever or chills. 12 point ROS performed negative other than stated above PMH: As above PSH: Suprapubic prostatectomy in 2014, lithotripsy SH: Former smoker, All: Campbell (rash) Medications: Refer to [facility] FH: Mother had a stroke Review of Systems - Review of Systems All systems: reviewed and no additional remarkable complaints except Past Patient History - Infectious Disease Hx of Infectious Diseases: None - Tetanus Immunizations Tetanus Immunization: Unknown - Past Medical History & Family History Past Medical History?: Yes - Past Social History Smoking Status: Former Smoker - CARDIAC Hx Cardiac Disorders: Yes (with stents) Hx Congestive Heart Failure: Yes Hx Heart Attack: Yes - PULMONARY Hx Chronic Obstructive Pulmonary Disease (COPD): Yes - NEUROLOGICAL HX Cerebrovascular Accident: Yes (with residual RUE /RLE weakness) - HEENT Hx HEENT Problems: Yes Hx Blind: No Hx Cataracts: No Hx Deafness: Yes (left ear, hearing aid) Hx Difficulty Chewing: No Hx Epistaxis: No Hx Glaucoma: No Hx Macular Degeneration: No Other/Comment: uses eye glasses - RENAL Hx Renal Failure: Yes - ENDOCRINE/METABOLIC Hx Diabetes Mellitus Type 2: Yes - HEMATOLOGICAL/ONCOLOGICAL Hx Blood Disorders: Yes Hx Anemia: Yes (blood transfusion) - INTEGUMENTARY Other/Comment: b/l lower extremity dry red scratch aquino, multiple tatoos - MUSCULOSKELETAL/RHEUMATOLOGICAL Hx Arthritis: Yes - GASTROINTESTINAL Other/Comment: umbilical hernia - GENITOURINARY/GYNECOLOGICAL Hx Genitourinary Disorders: Yes Hx Hematuria: Yes Hx Incontinence: Yes Hx Prostate Problems: Yes Hx Sexually Transmitted Disorders: No Hx Urinary Tract Infection: Yes Other/Comment: bladder stone removed from prostate as per pt - PSYCHIATRIC Hx Psychophysiologic Disorder: No Hx Depression: Yes Hx Emotional Abuse: No Hx Physical Abuse: No Hx Substance Use: No - SURGICAL HISTORY Hx Cardiac Catheterization: Yes (stents) Hx Coronary Stent: No Hx Orthopedic Surgery: Yes Other/Comment: rt.knee surgery acl - ANESTHESIA Hx Anesthesia: Yes Hx Anesthesia Reactions: No Hx Malignant Hyperthermia: No Meds Allergies/Adverse Reactions: Allergies Allergy/AdvReac Type Severity Reaction Status Date / Time salmon AdvReac RASH Uncoded 12/09/17 21:40 - Medications Medications: Current Medications Aspirin (Aspirin Chewable) 81 mg PO DAILY [facility] Last Admin: 08/05/18 11:20 Dose: 81 mg Atorvastatin Calcium (Lipitor) 80 mg PO DAILY [facility] Last Admin: 08/05/18 11:20 Dose: 80 mg Carvedilol (Coreg) 3.125 mg PO BID [facility] Last Admin: 08/05/18 11:21 Dose: 3.125 mg Clopidogrel Bisulfate (Plavix) 75 mg PO DAILY [facility] Last Admin: 08/05/18 11:20 Dose: 75 mg Dextrose (Dextrose 50% Inj) 0 ml IV STAT PRN; Protocol PRN Reason: Hypoglycemia Protocol Digoxin (Lanoxin) 0.25 mg PO 1400 [facility] Finasteride (Proscar) 5 mg PO DAILY [facility] Last Admin: 08/05/18 11:20 Dose: 5 mg Furosemide (Lasix) 40 mg PO DAILY [facility] Last Admin: 08/05/18 11:21 Dose: 40 mg Heparin Sodium (Porcine) (Heparin) 5,000 units SC Q8 [facility]; Protocol Dextrose (Dextrose 5% In Water 1000 Ml) 1,000 mls @ 0 mls/hr IV .Q0M PRN; Protocol PRN Reason: Hypoglycemia Protocol Meropenem (Merrem Iv 1 Gm Premix) 1 gm in 50 mls @ 100 mls/hr IVPB Q8 [facility]; Protocol Stop: 08/05/18 14:29 Last Admin: 08/05/18 11:26 Dose: 100 mls/hr Insulin Human Regular (Humulin R Med) 0 units SC ACHS [facility]; Protocol Last Admin: 08/05/18 11:34 Dose: Not Given Levetiracetam (Keppra) 250 mg PO Q12 [facility] Last Admin: 08/05/18 11:20 Dose: 250 mg Lisinopril (Zestril) 2.5 mg PO DAILY [facility] Last Admin: 08/05/18 11:20 Dose: 2.5 mg Morphine Sulfate (Morphine) 1 mg IVP Q4H PRN PRN Reason: Pain, severe (8-10) Last Admin: 08/05/18 11:38 Dose: 1 mg Sertraline HCl (Zoloft) 100 mg PO DAILY [facility] Last Admin: 08/05/18 11:20 Dose: 100 mg Physical Exam - Constitutional Appears: No Acute Distress - Head Exam Head Exam: ATRAUMATIC, NORMOCEPHALIC - Eye Exam Eye Exam: EOMI - ENT Exam ENT Exam: Mucous Membranes Moist - Respiratory Exam Respiratory Exam: Clear to Auscultation Bilateral. absent: Wheezes - Cardiovascular Exam Cardiovascular Exam: REGULAR RHYTHM, +S1, +S2 - GI/Abdominal Exam GI & Abdominal Exam: Normal Bowel Sounds, Soft, Tenderness (R) - Extremities Exam Extremities exam: Negative for: calf tenderness, pedal edema - Back Exam Back exam: CVA tenderness (R) - Neurological Exam Neurological exam: Alert, CN II-XII Intact, Oriented x3 - Psychiatric Exam Psychiatric exam: Normal Mood - Skin Skin Exam: Dry, Warm Results - Vital Signs Recent Vital Signs: Last Vital Signs Temp 98.4 F 08/05/18 08:18 Pulse 80 08/05/18 11:21 Resp 18 08/05/18 08:18 BP 160/76 H 08/05/18 11:21 Pulse Ox 99 08/05/18 08:18 - Labs Result Diagrams: 08/05/18 05:02 08/05/18 05:02 Labs: Laboratory Results - last 24 hr 08/05/18 08/05/18 08/05/18 05:02 05:02 05:02 WBC 12.8 H RBC 5.01 Hgb 14.4 D Hct 43.4 MCV 86.6 MCH 28.7 MCHC 33.2 RDW 14.2 Plt Count 254 MPV 9.7 Neut % (Auto) 82.2 H Lymph % (Auto) 8.0 L Allen % (Auto) 8.5 H Eos % (Auto) 1.1 L Baso % (Auto) 0.2 Lymph # (Auto) 1.0 L Allen # (Auto) 1.1 H Eos # (Auto) 0.1 Baso # (Auto) 0.02 Absolute Neuts (auto) 10.56 H Sodium 136 Potassium 4.1 Chloride 97 L Carbon Dioxide 27 Anion Gap 16 BUN 19 Creatinine 1.1 Est GFR ( Amer) > 60 Est GFR (Non-Af Amer) > 60 POC Glucose (mg/dL) Random Glucose 349 H* D Calcium 9.6 Total Bilirubin 0.8 AST 22 ALT 15 Alkaline Phosphatase 110 Total Protein 8.1 Albumin 4.3 Globulin 3.9 Albumin/Globulin Ratio 1.1 Lipase 124 Urine Color Yellow Urine Appearance Cloudy Urine pH 6.5 Ur Specific Dunbar 1.015 Urine Protein 100 H Urine Glucose (UA) >=1000 Urine Ketones Negative Urine Blood Moderate H Urine Nitrate Positive H Urine Bilirubin Negative Urine Urobilinogen 0.2 Ur Leukocyte Esterase Small H Urine RBC 1 - 3 H Urine WBC Tntc H Ur Epithelial Cells 0 - 2 Urine Bacteria Mod 08/05/18 11:06 WBC RBC Hgb Hct MCV MCH MCHC RDW Plt Count MPV Neut % (Auto) Lymph % (Auto) Allen % (Auto) Eos % (Auto) Baso % (Auto) Lymph # (Auto) Allen # (Auto) Eos # (Auto) Baso # (Auto) Absolute Neuts (auto) Sodium Potassium Chloride Carbon Dioxide Anion Gap BUN Creatinine Est GFR ( Amer) Est GFR (Non-Af Amer) POC Glucose (mg/dL) 300 H Random Glucose Calcium Total Bilirubin AST ALT Alkaline Phosphatase Total Protein Albumin Globulin Albumin/Globulin Ratio Lipase Urine Color Urine Appearance Urine pH Ur Specific Dunbar Urine Protein Urine Glucose (UA) Urine Ketones Urine Blood Urine Nitrate Urine Bilirubin Urine Urobilinogen Ur Leukocyte Esterase Urine RBC Urine WBC Ur Epithelial Cells Urine Bacteria Assessment & Plan - Assessment and Plan (Free Text) Assessment: Sepsis secondary to urinary tract infection rule out pyelonephritis r/o prostitis CHF CAD with stents Recurrent UTIs Nephrolithiasis History of pyelonephritis in 2017 Prostatectomy History of CVA with residual right-sided weakness Seizures Hypertension Hyperlipidemia Continue meropenem day 1 Follow-up septic work-up Urinalysis is positive CT scan of the abdomen pelvis without contrast shows right-sided nephrolith iasis, nonobstructive. Left hydroureter without obstructive calculus, cholelithiasis Follow-up urology consult and recommendations Continue to monitor for any changes Case and plan to be reviewed and discussed with Dr. Campos <Abilio Campos - Last Filed: 08/05/18 22:05> Meds - Medications Medications: Current Medications Aspirin (Aspirin Chewable) 81 mg PO DAILY [facility] Last Admin: 08/05/18 11:20 Dose: 81 mg Atorvastatin Calcium (Lipitor) 80 mg PO DAILY [facility] Last Admin: 08/05/18 11:20 Dose: 80 mg Carvedilol (Coreg) 3.125 mg PO BID [facility] Last Admin: 08/05/18 17:22 Dose: 3.125 mg Dextrose (Dextrose 50% Inj) 0 ml IV STAT PRN; Protocol PRN Reason: Hypoglycemia Protocol Digoxin (Lanoxin) 0.25 mg PO 1400 [facility] Last Admin: 08/05/18 15:08 Dose: 0.25 mg Docusate Sodium (Colace) 100 mg PO BID [facility] Last Admin: 08/05/18 17:22 Dose: 100 mg Finasteride (Proscar) 5 mg PO DAILY [facility] Last Admin: 08/05/18 11:20 Dose: 5 mg Furosemide (Lasix) 40 mg PO DAILY [facility] Last Admin: 08/05/18 11:21 Dose: 40 mg Heparin Sodium (Porcine) (Heparin) 5,000 units SC Q8 [facility]; Protocol Last Admin: 08/05/18 21:04 Dose: 5,000 units Dextrose (Dextrose 5% In Water 1000 Ml) 1,000 mls @ 0 mls/hr IV .Q0M PRN; Protocol PRN Reason: Hypoglycemia Protocol Meropenem (Merrem Iv 1 Gm Premix) 1 gm in 50 mls @ 100 mls/hr IVPB Q8 [facility]; Protocol Stop: 08/07/18 06:29 Last Admin: 08/05/18 21:05 Dose: 100 mls/hr Lactated Ringer's (Lactated Ringer's) 1,000 mls @ 75 mls/hr IV .[id number] [facility] Last Admin: 08/05/18 19:19 Dose: 75 mls/hr Insulin Human Regular (Humulin R Med) 0 units SC ACHS [facility]; Protocol Last Admin: 08/05/18 17:24 Dose: 3 unit Levetiracetam (Keppra) 250 mg PO Q12 [facility] Last Admin: 08/05/18 21:04 Dose: 250 mg Lisinopril (Zestril) 2.5 mg PO DAILY [facility] Last Admin: 08/05/18 11:20 Dose: 2.5 mg Morphine Sulfate (Morphine) 2 mg IVP Q4H PRN PRN Reason: Pain, severe (8-10) Last Admin: 08/05/18 18:39 Dose: 2 mg Sertraline HCl (Zoloft) 100 mg PO DAILY [facility] Last Admin: 08/05/18 11:20 Dose: 100 mg Simethicone (Mylicon Chew Tab) 80 mg PO PCHS PRN PRN Reason: GI distress Tamsulosin HCl (Flomax) 0.4 mg PO DAILY [facility] Last Admin: 08/05/18 15:08 Dose: 0.4 mg Results - Vital Signs Recent Vital Signs: Last Vital Signs Temp 98.1 F 08/05/18 21:37 Pulse 88 08/05/18 21:37 Resp 18 08/05/18 21:37 BP 126/78 08/05/18 21:37 Pulse Ox 93 L 08/05/18 21:37 - Labs Result Diagrams: 08/05/18 05:02 08/05/18 20:25 Labs: Laboratory Results - last 24 hr 08/05/18 08/05/18 08/05/18 05:02 05:02 05:02 WBC 12.8 H RBC 5.01 Hgb 14.4 D Hct 43.4 MCV 86.6 MCH 28.7 MCHC 33.2 RDW 14.2 Plt Count 254 MPV 9.7 Neut % (Auto) 82.2 H Lymph % (Auto) 8.0 L Allen % (Auto) 8.5 H Eos % (Auto) 1.1 L Baso % (Auto) 0.2 Lymph # (Auto) 1.0 L Allen # (Auto) 1.1 H Eos # (Auto) 0.1 Baso # (Auto) 0.02 Absolute Neuts (auto) 10.56 H Sodium 136 Potassium 4.1 Chloride 97 L Carbon Dioxide 27 Anion Gap 16 BUN 19 Creatinine 1.1 Est GFR ( Amer) > 60 Est GFR (Non-Af Amer) > 60 POC Glucose (mg/dL) Random Glucose 349 H* D Hemoglobin A1c Calcium 9.6 Total Bilirubin 0.8 AST 22 ALT 15 Alkaline Phosphatase 110 Total Protein 8.1 Albumin 4.3 Globulin 3.9 Albumin/Globulin Ratio 1.1 Lipase 124 Prostate Specific Ag Urine Color Yellow Urine Appearance Cloudy Urine pH 6.5 Ur Specific Dunbar 1.015 Urine Protein 100 H Urine Glucose (UA) >=1000 Urine Ketones Negative Urine Blood Moderate H Urine Nitrate Positive H Urine Bilirubin Negative Urine Urobilinogen 0.2 Ur Leukocyte Esterase Small H Urine RBC 1 - 3 H Urine WBC Tntc H Ur Epithelial Cells 0 - 2 Urine Bacteria Mod 08/05/18 08/05/18 08/05/18 05:02 11:06 15:30 WBC RBC Hgb Hct MCV MCH MCHC RDW Plt Count MPV Neut % (Auto) Lymph % (Auto) Allen % (Auto) Eos % (Auto) Baso % (Auto) Lymph # (Auto) Allen # (Auto) Eos # (Auto) Baso # (Auto) Absolute Neuts (auto) Sodium Potassium Chloride Carbon Dioxide Anion Gap BUN Creatinine Est GFR ( Amer) Est GFR (Non-Af Amer) POC Glucose (mg/dL) 300 H Random Glucose Hemoglobin A1c 14.3 H D Calcium Total Bilirubin AST ALT Alkaline Phosphatase Total Protein Albumin Globulin Albumin/Globulin Ratio Lipase Prostate Specific Ag 0.2 Urine Color Urine Appearance Urine pH Ur Specific [place] Urine Protein Urine Glucose (UA) Urine Ketones Urine Blood Urine Nitrate Urine Bilirubin Urine Urobilinogen Ur Leukocyte Esterase Urine RBC Urine WBC Ur Epithelial Cells Urine Bacteria 08/05/18 08/05/18 15:56 20:25 WBC RBC Hgb Hct MCV MCH MCHC RDW Plt Count MPV Neut % (Auto) Lymph % (Auto) Allen % (Auto) Eos % (Auto) Baso % (Auto) Lymph # (Auto) Allen # (Auto) Eos # (Auto) Baso # (Auto) Absolute Neuts (auto) Sodium 136 Potassium 3.8 Chloride 100 Carbon Dioxide 24 Anion Gap 16 BUN 16 Creatinine 1.2 Est GFR ( Amer) > 60 Est GFR (Non-Af Amer) > 60 POC Glucose (mg/dL) 234 H Random Glucose 259 H Hemoglobin A1c Calcium 9.4 Total Bilirubin 1.1 AST 15 L D ALT 18 Alkaline Phosphatase 96 Total Protein 7.5 Albumin 4.0 Globulin 3.6 Albumin/Globulin Ratio 1.1 Lipase Prostate Specific Ag Urine Color Urine Appearance Urine pH Ur Specific Dun[place] Urine Protein Urine Glucose (UA) Urine Ketones Urine Blood Urine Nitrate Urine Bilirubin Urine Urobilinogen Ur Leukocyte Esterase Urine RBC Urine WBC Ur Epithelial Cells Urine Bacteria Attending/Attestation - Attestation I have personally seen and examined this patient.: Yes I have fully participated in the care of the patient.: Yes I have reviewed all pertinent clinical information: Yes
[2018-08-05] MEDS ORDERED: Pneumococcal 23-Valent Vaccine IM ONE (13:53)
--- NOTE | 2018-08-05 14:10 | CP.PCM.HP ---
<Edson Tompkins - Last Filed: 08/05/18 16:04> History of Present Illness - History of Present Illness History of Present Illness: Edson Tompkisn PGY1 - Internal Medicine 68M PMH of CHF, CAD, CVA w/ R sided deficit, Sz, HTN, HLD; Most signifcantly prostectomy, recurrent UTI presenting to [facility] on 08/05 w/ complaints of R sided flank pain on going over the past day. Patient denies any dysuria, hematuria, or changes in urinary frequency. Does not report any fevers/chills, supapubic pain. Pain is sharp in nature, worse w/ movement, radiates towards his R shoulder, 10/10 in severity. Pain is not associated w/ urination. Remainder 12 system ROS is otherwise negative. PMD: Temo Pereira PMH: As above PSH: Knee Sx, Prostatectomy, multiple procedures, Cardiac stent All: [place] Family Hx: Father - - CAD; Mother - - Stroke; Sister CAD Social: Remote EtOH use, 3ppd smoker quit 30 years ago, remote cocaine use Home Rx: levETIRAcetam [Keppra] 250 mg PO Q12 Sertraline [Zoloft] 100 mg PO DAILY Clopidogrel [Plavix] 75 mg PO DAILY Carvedilol [Coreg] 3.125 mg PO BID Digoxin [Lanoxin] 0.25 mg PO 1400 Furosemide [Lasix] 40 mg PO DAILY Lisinopril [Zestril] 2.5 mg PO DAILY Finasteride [Proscar] 5 mg PO DAILY Aspirin [Aspirin Chewable] 81 mg PO DAILY Atorvastatin [Lipitor] 80 mg PO DAILY Tamsulosin [Flomax] 0.4 mg PO DAILY Present on Admission - Present on Admission Any Indicators Present on Admission: No Review of Systems - Review of Systems All systems: reviewed and no additional remarkable complaints except Review of Systems: as per HPI Past Patient History - Infectious Disease Hx of Infectious Diseases: None - Tetanus Immunizations Tetanus Immunization: Unknown - Past Medical History & Family History Past Medical History?: Yes - Past Social History Smoking Status: Former Smoker - CARDIAC Hx Cardiac Disorders: Yes (with stents) Hx Congestive Heart Failure: Yes Hx Heart Attack: Yes - PULMONARY Hx Chronic Obstructive Pulmonary Disease (COPD): Yes - NEUROLOGICAL HX Cerebrovascular Accident: Yes (with residual RUE /RLE weakness) - HEENT Hx HEENT Problems: Yes Hx Blind: No Hx Cataracts: No Hx Deafness: Yes (left ear, hearing aid) Hx Difficulty Chewing: No Hx Epistaxis: No Hx Glaucoma: No Hx Macular Degeneration: No Other/Comment: uses eye glasses - RENAL Hx Renal Failure: Yes - ENDOCRINE/METABOLIC Hx Diabetes Mellitus Type 2: Yes - HEMATOLOGICAL/ONCOLOGICAL Hx Blood Disorders: Yes Hx Anemia: Yes (blood transfusion) - INTEGUMENTARY Other/Comment: b/l lower extremity dry red scratch aquino, multiple tatoos - MUSCULOSKELETAL/RHEUMATOLOGICAL Hx Arthritis: Yes - GASTROINTESTINAL Other/Comment: umbilical hernia - GENITOURINARY/GYNECOLOGICAL Hx Genitourinary Disorders: Yes Hx Hematuria: Yes Hx Incontinence: Yes Hx Prostate Problems: Yes Hx Sexually Transmitted Disorders: No Hx Urinary Tract Infection: Yes Other/Comment: bladder stone removed from prostate as per pt - PSYCHIATRIC Hx Psychophysiologic Disorder: No Hx Depression: Yes Hx Emotional Abuse: No Hx Physical Abuse: No Hx Substance Use: No - SURGICAL HISTORY Hx Cardiac Catheterization: Yes (stents) Hx Coronary Stent: No Hx Orthopedic Surgery: Yes Other/Comment: rt.knee surgery acl - ANESTHESIA Hx Anesthesia: Yes Hx Anesthesia Reactions: No Hx Malignant Hyperthermia: No Meds Home Medications: Home Medication List Medication Instructions Recorded Confirmed Type Amoxicillin/Clavulanate [Augmentin 1 tab PO BID 7 Days #14 tab 08/09/18 Rx 875 MG-125 MG] Ciprofloxacin HCl [Cipro] 500 mg PO BID 7 Days #14 tab 08/09/18 Rx Allergies/Adverse Reactions: Allergies Allergy/AdvReac Type Severity Reaction Status Date / Time salmon AdvReac RASH Uncoded 12/09/17 21:40 Physical Exam - Constitutional Appears: Well, Non-toxic, No Acute Distress - Head Exam Head Exam: ATRAUMATIC, NORMOCEPHALIC - Eye Exam Eye Exam: EOMI, Normal appearance, PERRL - Respiratory Exam Respiratory Exam: Clear to Auscultation Bilateral, NORMAL BREATHING PATTERN - Cardiovascular Exam Cardiovascular Exam: RRR. absent: Systolic Murmur - GI/Abdominal Exam GI & Abdominal Exam: Soft, Tenderness - Extremities Exam Extremities exam: Negative for: pedal edema - Back Exam Back exam: CVA tenderness (R). absent: CVA tenderness (L) - Neurological Exam Neurological exam: Alert, Oriented x3 Additional comments: RUE /RLE Weakness - Psychiatric Exam Psychiatric exam: Normal Affect, Normal Mood - Skin Skin Exam: Dry, Intact, Normal Color, Warm Results - Vital Signs Recent Vital Signs: Last Vital Signs Temp 98.4 F 08/05/18 08:18 Pulse 80 08/05/18 13:28 Resp 18 08/05/18 13:28 BP 160/76 H 08/05/18 11:21 Pulse Ox 99 08/05/18 08:18 - Labs Result Diagrams: 08/05/18 05:02 08/05/18 05:02 Labs: Laboratory Results - last 24 hr 08/05/18 08/05/18 08/05/18 05:02 05:02 05:02 WBC 12.8 H RBC 5.01 Hgb 14.4 D Hct 43.4 MCV 86.6 MCH 28.7 MCHC 33.2 RDW 14.2 Plt Count 254 MPV 9.7 Neut % (Auto) 82.2 H Lymph % (Auto) 8.0 L [place] % (Auto) 8.5 H Eos % (Auto) 1.1 L Baso % (Auto) 0.2 Lymph # (Auto) 1.0 L [place] # (Auto) 1.1 H Eos # (Auto) 0.1 Baso # (Auto) 0.02 Absolute Neuts (auto) 10.56 H Sodium 136 Potassium 4.1 Chloride 97 L Carbon Dioxide 27 Anion Gap 16 BUN 19 Creatinine 1.1 Est GFR ( Amer) > 60 Est GFR (Non-Af Amer) > 60 POC Glucose (mg/dL) Random Glucose 349 H* D Calcium 9.6 Total Bilirubin 0.8 AST 22 ALT 15 Alkaline Phosphatase 110 Total Protein 8.1 Albumin 4.3 Globulin 3.9 Albumin/Globulin Ratio 1.1 Lipase 124 Urine Color Yellow Urine Appearance Cloudy Urine pH 6.5 Ur Specific [place] 1.015 Urine Protein 100 H Urine Glucose (UA) >=1000 Urine Ketones Negative Urine Blood Moderate H Urine Nitrate Positive H Urine Bilirubin Negative Urine Urobilinogen 0.2 Ur Leukocyte Esterase Small H Urine RBC 1 - 3 H Urine WBC Tntc H Ur Epithelial Cells 0 - 2 Urine Bacteria Mod 08/05/18 11:06 WBC RBC Hgb Hct MCV MCH MCHC RDW Plt Count MPV Neut % (Auto) Lymph % (Auto) [place] % (Auto) Eos % (Auto) Baso % (Auto) Lymph # (Auto) [place] # (Auto) Eos # (Auto) Baso # (Auto) Absolute Neuts (auto) Sodium Potassium Chloride Carbon Dioxide Anion Gap BUN Creatinine Est GFR ( Amer) Est GFR (Non-Af Amer) POC Glucose (mg/dL) 300 H Random Glucose Calcium Total Bilirubin AST ALT Alkaline Phosphatase Total Protein Albumin Globulin Albumin/Globulin Ratio Lipase Urine Color Urine Appearance Urine pH Ur Specific [place] Urine Protein Urine Glucose (UA) Urine Ketones Urine Blood Urine Nitrate Urine Bilirubin Urine Urobilinogen Ur Leukocyte Esterase Urine RBC Urine WBC Ur Epithelial Cells Urine Bacteria Assessment & Plan - Assessment and Plan (Free Text) Assessment: 68M PMH of CHF, CAD, CVA w/ R sided deficit, Sz, HTN, HLD; Most signifcantly prostectomy, recurrent UTI presenting to [facility] on 08/05 w/ complaints of R sided flank pain. Admitted for pyelonephritis and recurrent UTI Plan: R sided abdominal pain - R sided pyelonephritis vs Constipation R flank pain + R CVA tendernes UA w/ bacteruria/pyuria CTAP - BL Perinephric fat thickening; R sided nonobstructive stone; Significant stool noted Septic Workup pending Monitor WBC; Temp; Kidney Function/ Urine output Morphine 2mg IVP Q4 PRN Severe Pain C/w Home Finasteride [Proscar] 5 mg PO DAILY C/w Home Tamsulosin [Flomax] 0.4 mg PO DAILY Start Colace 100 BID Start simethicone prn One time mag citrate + miralax Holding plavix Given extensive urological history; will consult Urology for further reccs ID Following, Appreciate reccs Hyperglycemia A1C - 14.3 Start ISS Med ACHS Fingerstick ACHS Chronic: SZ C/w Home levETIRAcetam [Keppra] 250 mg PO Q12 C/w Home Sertraline [Zoloft] 100 mg PO DAILY CAD Will hold in case of urologic procedure Home Clopidogrel [Plavix] 75 mg PO DAILY C/w Home Carvedilol [Coreg] 3.125 mg PO BID CHF C/w Home Furosemide [Lasix] 40 mg PO DAILY C/w Home Digoxin [Lanoxin] 0.25 mg PO 1400 HTN C/w Home Lisinopril [Zestril] 2.5 mg PO DAILY BPH CVA C/w Home Aspirin [Aspirin Chewable] 81 mg PO DAILY C/w Home Atorvastatin [Lipitor] 80 mg PO DAILY Patient was seen, examined, discussed w/ attending Dr. Zonia Tompkins DO PGY1 - Internal Medicine [employer] - Date & Time Date: 08/05/18 Time: 16:19 <Renata Brar - Last Filed: 08/09/18 12:14> Results - Vital Signs Recent Vital Signs: Last Vital Signs Temp 97.7 F 08/09/18 06:00 Pulse 73 08/09/18 11:22 Resp 18 08/09/18 06:00 BP 116/73 08/09/18 11:22 Pulse Ox 97 08/09/18 06:00 - Labs Result Diagrams: 08/09/18 07:00 08/09/18 07:00 Labs: Laboratory Results - last 24 hr 08/08/18 08/08/18 08/08/18 06:00 16:15 19:22 WBC RBC Hgb Hct MCV MCH MCHC RDW Plt Count MPV Neut % (Auto) Lymph % (Auto) [place] % (Auto) Eos % (Auto) Baso % (Auto) Lymph # (Auto) [place] # (Auto) Eos # (Auto) Baso # (Auto) Absolute Neuts (auto) Sodium Potassium Chloride Carbon Dioxide Anion Gap BUN Creatinine Est GFR ( Amer) Est GFR (Non-Af Amer) POC Glucose (mg/dL) 67 110 Random Glucose Calcium Total Bilirubin AST ALT Alkaline Phosphatase Total Protein Albumin Globulin Albumin/Globulin Ratio Procalcitonin 0.27 Digoxin 08/08/18 08/08/18 08/09/18 22:34 23:49 06:25 WBC RBC Hgb Hct MCV MCH MCHC RDW Plt Count MPV Neut % (Auto) Lymph % (Auto) [place] % (Auto) Eos % (Auto) Baso % (Auto) Lymph # (Auto) [place] # (Auto) Eos # (Auto) Baso # (Auto) Absolute Neuts (auto) Sodium Potassium Chloride Carbon Dioxide Anion Gap BUN Creatinine Est GFR ( Amer) Est GFR (Non-Af Amer) POC Glucose (mg/dL) 67 65 60 L Random Glucose Calcium Total Bilirubin AST ALT Alkaline Phosphatase Total Protein Albumin Globulin Albumin/Globulin Ratio Procalcitonin Digoxin 08/09/18 08/09/18 08/09/18 07:00 07:00 07:00 WBC 11.7 H RBC 4.27 Hgb 11.8 L Hct 36.6 L MCV 85.7 MCH 27.6 MCHC 32.2 RDW 13.9 Plt Count 272 MPV 9.7 Neut % (Auto) 81.7 H Lymph % (Auto) 6.3 L [place] % (Auto) 11.2 H Eos % (Auto) 0.7 L Baso % (Auto) 0.1 Lymph # (Auto) 0.7 L [place] # (Auto) 1.3 H Eos # (Auto) 0.1 Baso # (Auto) 0.01 Absolute Neuts (auto) 9.58 H Sodium 134 Potassium 3.9 Chloride 101 Carbon Dioxide 22 Anion Gap 15 BUN 17 Creatinine 1.2 Est GFR ( Amer) > 60 Est GFR (Non-Af Amer) > 60 POC Glucose (mg/dL) Random Glucose 85 Calcium 8.8 Total Bilirubin 0.7 AST 46 ALT 32 Alkaline Phosphatase 76 Total Protein 6.6 Albumin 3.2 Globulin 3.4 Albumin/Globulin Ratio 0.9 L Procalcitonin Digoxin 0.6 L Attending/Attestation - Attestation I have personally seen and examined this patient.: Yes I have fully participated in the care of the patient.: Yes I have reviewed all pertinent clinical information: Yes Notes (Text): 08/09/18 12:06 Attending note; Patient seen and examined with resident in ER. Patient is alert and oriented. Patient is a 68-year-old male with PMH of CHF, CAD, CVA w/ R sided deficit, HTN, HLD, prostectomy, recurrent UTI presenting to [facility] with R sided flank pain on going over the past day. Patient denies any dysuria, hematuria, or changes in urinary frequency. 1. Right-sided abdominal/flank pain; CT abdomen and pelvis showed nonobstructing right renal calculus and mild left hydronephrosis. Patient is started on IV Merem. ID evaluation requested. UA is positive. urine culture ordered. 2. Right upper quadrant pain; abdominal ultrasound ordered. 3. Nausea and vomiting; n.p.o. started on IV fluids. GI evaluation requested.. 4. Coronary artery disease; continue aspirin, Coreg, lisinopril, digoxin. 5. CVA with residual weakness; continue aspirin, Lipitor. 6. Depression continue Zoloft. 7. Seizure disorder; continue Keppra. 8. History of prostatectomy; continue Proscar and Flomax. urology evaluation requested. Monitor culture results. Upon discharge the patient will follow up with PMD Dr. Pereira.
[2018-08-05] MEDS: Digoxin 250 mcg (0.25 mg) Tab PO SCH (15:08)
[2018-08-05] MEDS: Meropenem IV 1 gm in NS 1 GM/50 ML BAG IVPB SCH ×2 (16:00→21:05)
[2018-08-05] MEDS ORDERED: Simethicone 80 mg Chewtab PO PRN (16:14)
[2018-08-05] MEDS ORDERED: POLYETHYLENE GLYCOL 3350 17 GM/Dose PACKET PO ONE (16:14)
[2018-08-05] MEDS ORDERED: Magnesium Citrate Oral SOL (300 ml) PO ONE (16:15)
--- NOTE | 2018-08-05 16:54 | US ---
Date of service: 08/05/2018 HISTORY: r/o gallstone disease COMPARISON: August 05, 2018. CT abdomen and pelvis TECHNIQUE: Sonographic evaluation of the abdomen. FINDINGS: LIVER: Measures 16.5 cm. Patent portal and hepatic venous systems. Portal venous flow: Hepatopetal. echogenicity of the liver parenchyma. No mass. No intrahepatic bile duct dilatation. GALLBLADDER: Unremarkable. No gallstones. COMMON BILE DUCT: Measures 5.3 mm. No stones. No dilatation. PANCREAS: Unremarkable as visualized. No mass. No ductal dilatation. RIGHT KIDNEY: Measures 6 x 10.4cm. Normal echogenicity. No calculus, mass, or hydronephrosis. LEFT KIDNEY: Measures 5.7 x 10.6cm. Normal echogenicity. No calculus, mass, or hydronephrosis. SPLEEN: Normal in size and contour. No mass. AORTA: No aneurysmal dilatation. IVC: Unremarkable. OTHER FINDINGS: None. IMPRESSION: Unremarkable abdominal sonogram.
[2018-08-05] MEDS: Lactated Ringer's 1,000 ML IV SCH (19:19)
[2018-08-05 20:53] LABS: ALB/GLOB RATIO 1.1 (1.1-1.8); ALT/SGPT 18 U/L (7-56); AST/SGOT 15 U/L (17-59); BLOOD UREA NITROGEN 16 mg/dL (7-21); CALCIUM 9.4 mg/dL (8.4-10.5); GFR NON-AFRICAN AMERICAN > 60
[2018-08-06] MEDS: Meropenem IV 1 gm in NS 1 GM/50 ML BAG IVPB SCH ×4 (05:12→21:37)
[2018-08-06] MEDS: Morphine 2 mg/ml ISec IVP PRN (06:11)
[2018-08-06 06:50] LABS: BASO # 0.02 K/mm3 (0.0-2.0); BASO % 0.2 % (0.0-3.0); EOS # 0.1 (0.0-0.7); EOS % 0.6 % (1.5-5.0); HEMOGLOBIN 12.8 g/dL (14.0-18.0); LYMPH # 1.5 (1.2-3.4); LYMPH % 14.8 % (22.0-35.0); MEAN CELL VOLUME 86.6 fl (80.0-105.0); MEAN CORPUSCULAR HEMOGLOBIN 28.2 pg (25.0-35.0); MEAN CORPUSCULAR HGB CONC 32.6 g/dl (31.0-37.0); MEAN PLATELET VOLUME 9.5 fl (7.0-11.0); MONO # 1.2 (0.1-0.6); MONO % 11.5 % (1.0-6.0); RBC 4.54 10^6/uL (3.5-6.1); RED CELL DISTRIBUTION WIDTH 14.2 % (11.5-14.5); WHITE BLOOD COUNT 10.1 10^3/uL (4.5-11.0)
[2018-08-06 07:28] LABS: ALBUMIN 3.5 g/dL (3.0-4.8); ALT/SGPT 12 U/L (7-56); AST/SGOT 16 U/L (17-59); BLOOD UREA NITROGEN 17 mg/dL (7-21); GFR NON-AFRICAN AMERICAN 55
[2018-08-06] MEDS: Insulin Reg-MEDIUM-Coverage SC SCH ×3 (07:53→16:37)
[2018-08-06] MEDS ORDERED: Meropenem IV 1 gm in NS 1 GM/50 ML BAG IVPB SCH (09:15)
--- NOTE | 2018-08-06 09:15 | CP.PCM.PN ---
<Gray Kruse - Last Filed: 08/06/18 13:05> Subjective - Date & Time of Evaluation Date of Evaluation: 08/06/18 Time of Evaluation: 09:45 - Subjective Subjective: Infectious disease progress note: Patient seen and examined at bedside. No acute events overnight. Complains of R sided abd / flank pain. Fever of 102 this am. 12 point ROS performed and negative unless stated above. Objective - Vital Signs/Intake and Output Vital Signs (last 24 hours): Temp Pulse Resp BP Pulse Ox 102.1 F H 80 22 131/75 93 L 08/06/18 06:00 08/06/18 06:00 08/06/18 06:00 08/06/18 06:00 08/06/18 06:00 Intake and Output: 08/06/18 08/06/18 06:59 18:59 Intake Total 660 Output Total 350 Balance 310 - Medications Medications: Current Medications Acetaminophen (Tylenol 325mg Tab) 650 mg PO Q6H PRN PRN Reason: Fever >100.4 F Aspirin (Aspirin Chewable) 81 mg PO DAILY [facility] Last Admin: 08/05/18 11:20 Dose: 81 mg Atorvastatin Calcium (Lipitor) 80 mg PO DAILY [facility] Last Admin: 08/05/18 11:20 Dose: 80 mg Carvedilol (Coreg) 3.125 mg PO BID [facility] Last Admin: 08/05/18 17:22 Dose: 3.125 mg Dextrose (Dextrose 50% Inj) 0 ml IV STAT PRN; Protocol PRN Reason: Hypoglycemia Protocol Digoxin (Lanoxin) 0.25 mg PO 1400 [facility] Last Admin: 08/05/18 15:08 Dose: 0.25 mg Docusate Sodium (Colace) 100 mg PO BID [facility] Last Admin: 08/05/18 17:22 Dose: 100 mg Finasteride (Proscar) 5 mg PO DAILY [facility] Last Admin: 08/05/18 11:20 Dose: 5 mg Furosemide (Lasix) 40 mg PO DAILY [facility] Last Admin: 08/05/18 11:21 Dose: 40 mg Heparin Sodium (Porcine) (Heparin) 5,000 units SC Q8 [facility]; Protocol Last Admin: 08/06/18 05:13 Dose: 5,000 units Dextrose (Dextrose 5% In Water 1000 Ml) 1,000 mls @ 0 mls/hr IV .Q0M PRN; Protocol PRN Reason: Hypoglycemia Protocol Lactated Ringer's (Lactated Ringer's) 1,000 mls @ 75 mls/hr IV .[id number] [facility] Last Admin: 08/05/18 19:19 Dose: 75 mls/hr Cefepime HCl (Maxipime 2gm) 2 gm in 100 mls @ 25 mls/hr IVPB Q12 [facility]; Protocol Stop: 08/11/18 10:01 Insulin Detemir (Levemir) 15 unit SC Q12 [facility] Insulin Human Regular (Humulin R Med) 0 units SC ACHS [facility]; Protocol Last Admin: 08/05/18 22:15 Dose: Not Given Levetiracetam (Keppra) 250 mg PO Q12 [facility] Last Admin: 08/05/18 21:04 Dose: 250 mg Lisinopril (Zestril) 2.5 mg PO DAILY [facility] Last Admin: 08/05/18 11:20 Dose: 2.5 mg Sertraline HCl (Zoloft) 100 mg PO DAILY [facility] Last Admin: 08/05/18 11:20 Dose: 100 mg Simethicone (Mylicon Chew Tab) 80 mg PO [facility] PRN PRN Reason: GI distress Tamsulosin HCl (Flomax) 0.4 mg PO DAILY [facility] Last Admin: 08/05/18 15:08 Dose: 0.4 mg - Labs Labs: 08/06/18 06:30 08/06/18 06:30 - Constitutional Appears: No Acute Distress - Head Exam Head Exam: ATRAUMATIC, NORMOCEPHALIC - Eye Exam Eye Exam: EOMI - Respiratory Exam Respiratory Exam: Clear to Ausculation Bilateral. absent: Rales, Rhonchi - Cardiovascular Exam Cardiovascular Exam: REGULAR RHYTHM, +S1, +S2 - GI/Abdominal Exam GI & Abdominal Exam: Soft, Tenderness (RUQ). absent: Distended - Extremities Exam Extremities Exam: absent: Calf Tenderness, Pedal Edema - Neurological Exam Neurological Exam: Alert, Awake - Psychiatric Exam Psychiatric exam: Normal Mood - Skin Skin Exam: Dry, Warm Assessment and Plan - Assessment and Plan (Free Text) Assessment: Sepsis secondary to urinary tract infection, with high suspicion of pyelo with gram neg lillian in urine cx CHF CAD with stents Recurrent UTIs Nephrolithiasis History of pyelonephritis in 2017 Prostatectomy History of CVA with residual right-sided weakness Seizures Hypertension Hyperlipidemia Continue meropenem day 2 , Febrile overnight, Also gave Amikacin x 1 today Follow-up septic work-up- Urinalysis is positive with gram neg lillian will f/u final cx results CT scan of the abdomen pelvis without contrast shows right-sided nephrolithiasis, nonobstructive. Left hydroureter without obstructive calculus, cholelithiasis Follow-up urology consult and recommendations Continue to monitor for any changes Case and plan to be reviewed and discussed with Dr. Campos <Abilio Campos - Last Filed: 08/06/18 13:07> Objective - Vital Signs/Intake and Output Vital Signs (last 24 hours): Temp Pulse Resp BP Pulse Ox 102.1 F H 80 22 130/75 93 L 08/06/18 10:00 08/06/18 10:02 08/06/18 06:00 08/06/18 10:02 08/06/18 06:00 Intake and Output: 08/06/18 08/06/18 06:59 18:59 Intake Total 660 Output Total 350 Balance 310 - Medications Medications: Current Medications Acetaminophen (Tylenol 325mg Tab) 650 mg PO Q6H PRN PRN Reason: Fever >100.4 F Last Admin: 08/06/18 10:00 Dose: 650 mg Aspirin (Aspirin Chewable) 81 mg PO DAILY [facility] Last Admin: 08/06/18 10:00 Dose: 81 mg Atorvastatin Calcium (Lipitor) 80 mg PO DAILY [facility] Last Admin: 08/06/18 09:59 Dose: 80 mg Carvedilol (Coreg) 3.125 mg PO BID [facility] Last Admin: 08/06/18 10:00 Dose: 3.125 mg Dextrose (Dextrose 50% Inj) 0 ml IV STAT PRN; Protocol PRN Reason: Hypoglycemia Protocol Digoxin (Lanoxin) 0.25 mg PO 1400 [facility] Last Admin: 08/05/18 15:08 Dose: 0.25 mg Docusate Sodium (Colace) 100 mg PO BID [facility] Last Admin: 08/06/18 10:00 Dose: 100 mg Finasteride (Proscar) 5 mg PO DAILY [facility] Last Admin: 08/06/18 09:59 Dose: 5 mg Furosemide (Lasix) 40 mg PO DAILY [facility] Last Admin: 08/06/18 09:58 Dose: 40 mg Heparin Sodium (Porcine) (Heparin) 5,000 units SC Q8 [facility]; Protocol Last Admin: 08/06/18 05:13 Dose: 5,000 units Dextrose (Dextrose 5% In Water 1000 Ml) 1,000 mls @ 0 mls/hr IV .Q0M PRN; Protocol PRN Reason: Hypoglycemia Protocol Lactated Ringer's (Lactated Ringer's) 1,000 mls @ 75 mls/hr IV .[id number] [facility] Last Admin: 08/06/18 09:57 Dose: 75 mls/hr Meropenem (Merrem Iv 1 Gm Premix) 1 gm in 50 mls @ 100 mls/hr IVPB Q8 [facility]; Protocol Stop: 08/11/18 13:16 Insulin Detemir (Levemir) 15 unit SC Q12 [facility] Last Admin: 08/06/18 09:58 Dose: 15 units Insulin Human Regular (Humulin R Med) 0 units SC ACHS [facility]; Protocol Last Admin: 08/05/18 22:15 Dose: Not Given Levetiracetam (Keppra) 250 mg PO Q12 [facility] Last Admin: 08/06/18 09:59 Dose: 250 mg Lisinopril (Zestril) 2.5 mg PO DAILY [facility] Last Admin: 08/06/18 10:02 Dose: 2.5 mg Nystatin (Nystop Topical Powder) 0 gm TOP BID [facility] Pantoprazole Sodium (Protonix Ec Tab) 40 mg PO 0600 [facility] Sertraline HCl (Zoloft) 100 mg PO DAILY [facility] Last Admin: 08/06/18 10:00 Dose: 100 mg Simethicone (Mylicon Chew Tab) 80 mg PO [facility] PRN PRN Reason: GI distress Tamsulosin HCl (Flomax) 0.4 mg PO DAILY [facility] Last Admin: 08/06/18 09:59 Dose: 0.4 mg - Labs Labs: 08/06/18 06:30 08/06/18 06:30 Attending/Attestation - Attestation I have personally seen and examined this patient.: Yes I have fully participated in the care of the patient.: Yes I have reviewed all pertinent clinical information, including history, physical exam and plan: Yes
[2018-08-06 09:24] LABS: VENOUS BLOOD GAS PO2 51 mm/Hg (30-55); VENOUS BLOOD PH 7.43 (7.32-7.43)
[2018-08-06] MEDS: Lactated Ringer's 1,000 ML IV SCH (09:57)
[2018-08-06] MEDS ORDERED: Insulin Detemir 100 units/ml Vial (Levemir) SC SCH (10:00)
[2018-08-06] MEDS ORDERED: Cefepime IV 2 gm in NS 2 GM/100 ML BAG IVPB SCH (10:00)
--- NOTE | 2018-08-06 10:19 | CP.PCM.PCO ---
Additional Comments - Additional Comments Additional Comments: Pt seen and examined at bedside. C/O pain to R flank. He is awake and alert. He is febrile with tmax of 102.1. Septic work-up in progress. On Cefepime and IVf. ID, Uro and GI on consult. Will continue to follow. Impressions Abdomen Ultrasound 08/05/18 09:53 IMPRESSION: Unremarkable abdominal sonogram. Laboratory Results - last 24 hr 08/05/18 08/05/18 08/05/18 05:02 05:02 11:06 WBC RBC Hgb Hct MCV MCH MCHC RDW Plt Count MPV Neut % (Auto) Lymph % (Auto) [place] % (Auto) Eos % (Auto) Baso % (Auto) Lymph # (Auto) [place] # (Auto) Eos # (Auto) Baso # (Auto) Absolute Neuts (auto) pO2 VBG pH VBG pCO2 VBG HCO3 VBG Total CO2 VBG O2 Sat (Calc) VBG Base Excess VBG Potassium Glucose Lactate FiO2 Sodium 136 Potassium 4.1 Chloride 97 L Carbon Dioxide 27 Anion Gap 16 BUN 19 Creatinine 1.1 Est GFR ( Amer) > 60 Est GFR (Non-Af Amer) > 60 POC Glucose (mg/dL) 300 H Random Glucose 349 H* D Hemoglobin A1c 14.3 H D Calcium 9.6 Total Bilirubin 0.8 AST 22 ALT 15 Alkaline Phosphatase 110 Total Protein 8.1 Albumin 4.3 Globulin 3.9 Albumin/Globulin Ratio 1.1 Lipase 124 Prostate Specific Ag Venous Blood Potassium 08/05/18 08/05/18 08/05/18 15:30 15:56 20:25 WBC RBC Hgb Hct MCV MCH MCHC RDW Plt Count MPV Neut % (Auto) Lymph % (Auto) [place] % (Auto) Eos % (Auto) Baso % (Auto) Lymph # (Auto) [place] # (Auto) Eos # (Auto) Baso # (Auto) Absolute Neuts (auto) pO2 VBG pH VBG pCO2 VBG HCO3 VBG Total CO2 VBG O2 Sat (Calc) VBG Base Excess VBG Potassium Glucose Lactate FiO2 Sodium 136 Potassium 3.8 Chloride 100 Carbon Dioxide 24 Anion Gap 16 BUN 16 Creatinine 1.2 Est GFR ( Amer) > 60 Est GFR (Non-Af Amer) > 60 POC Glucose (mg/dL) 234 H Random Glucose 259 H Hemoglobin A1c Calcium 9.4 Total Bilirubin 1.1 AST 15 L D ALT 18 Alkaline Phosphatase 96 Total Protein 7.5 Albumin 4.0 Globulin 3.6 Albumin/Globulin Ratio 1.1 Lipase Prostate Specific Ag 0.2 Venous Blood Potassium 08/05/18 08/06/18 08/06/18 21:07 06:12 06:30 WBC 10.1 D RBC 4.54 Hgb 12.8 L Hct 39.3 L MCV 86.6 MCH 28.2 MCHC 32.6 RDW 14.2 Plt Count 232 MPV 9.5 Neut % (Auto) 72.9 H Lymph % (Auto) 14.8 L [place] % (Auto) 11.5 H Eos % (Auto) 0.6 L Baso % (Auto) 0.2 Lymph # (Auto) 1.5 [place] # (Auto) 1.2 H Eos # (Auto) 0.1 Baso # (Auto) 0.02 Absolute Neuts (auto) 7.38 H pO2 VBG pH VBG pCO2 VBG HCO3 VBG Total CO2 VBG O2 Sat (Calc) VBG Base Excess VBG Potassium Glucose Lactate FiO2 Sodium Potassium Chloride Carbon Dioxide Anion Gap BUN Creatinine Est GFR ( Amer) Est GFR (Non-Af Amer) POC Glucose (mg/dL) 250 H 259 H Random Glucose Hemoglobin A1c Calcium Total Bilirubin AST ALT Alkaline Phosphatase Total Protein Albumin Globulin Albumin/Globulin Ratio Lipase Prostate Specific Ag Venous Blood Potassium 08/06/18 08/06/18 06:30 09:10 WBC RBC Hgb Hct MCV MCH MCHC RDW Plt Count MPV Neut % (Auto) Lymph % (Auto) [place] % (Auto) Eos % (Auto) Baso % (Auto) Lymph # (Auto) [place] # (Auto) Eos # (Auto) Baso # (Auto) Absolute Neuts (auto) pO2 51 VBG pH 7.43 VBG pCO2 38.0 L VBG HCO3 25.2 VBG Total CO2 26.4 VBG O2 Sat (Calc) 90.7 H VBG Base Excess 1.0 VBG Potassium 4.0 Glucose 221 H Lactate 0.9 FiO2 21.0 Sodium 135 133.0 Potassium 4.0 Chloride 101 101.0 Carbon Dioxide 25 Anion Gap 13 BUN 17 Creatinine 1.3 Est GFR ( Amer) > 60 Est GFR (Non-Af Amer) 55 POC Glucose (mg/dL) Random Glucose 231 H Hemoglobin A1c Calcium 9.0 Total Bilirubin 1.3 AST 16 L ALT 12 Alkaline Phosphatase 86 Total Protein 6.9 Albumin 3.5 Globulin 3.4 Albumin/Globulin Ratio 1.0 L Lipase Prostate Specific Ag Venous Blood Potassium 4.0
[2018-08-06 10:40] LABS: PH,URINE 6.5 (4.7-8.0); URINE BILIRUBIN NEGATIVE (NEGATIVE); URINE BLOOD MODERATE (NEGATIVE); URINE GLUCOSE (UA) 100 mg/dL (NEGATIVE); URINE LEUKOCYTE ESTERASE MODERATE Leu/uL (NEGATIVE); URINE PROTEIN 100 mg/dL (<30 mg/dL); URINE UROBILINOGEN 0.2 E.U./dL (<1 E.U./dL)
[2018-08-06 10:43] LABS: URINE COLOR YELLOW (YELLOW)
[2018-08-06 10:46] LABS: URINE APPEARANCE CLOUDY (CLEAR)
[2018-08-06 11:13] LABS: URINE RBC TNTC /hpf (0-2); URINE WBC TNTC /hpf (0-6)
--- NOTE | 2018-08-06 11:13 | PCM.URO ---
Urology Progress Note - Objective Lab Studies: Reviewed (full note to be dictated no gu intervention for now pt with nonobstructing stones out pt follow up) Lab Results Last 24 Hours: Laboratory Results - last 24 hr 08/05/18 08/05/18 08/05/18 05:02 11:06 15:30 WBC RBC Hgb Hct MCV MCH MCHC RDW Plt Count MPV Neut % (Auto) Lymph % (Auto) [place] % (Auto) Eos % (Auto) Baso % (Auto) Lymph # (Auto) [place] # (Auto) Eos # (Auto) Baso # (Auto) Absolute Neuts (auto) pO2 VBG pH VBG pCO2 VBG HCO3 VBG Total CO2 VBG O2 Sat (Calc) VBG Base Excess VBG Potassium Glucose Lactate FiO2 Sodium Potassium Chloride Carbon Dioxide Anion Gap BUN Creatinine Est GFR ( Amer) Est GFR (Non-Af Amer) POC Glucose (mg/dL) 300 H Random Glucose Hemoglobin A1c 14.3 H D Calcium Total Bilirubin AST ALT Alkaline Phosphatase Total Protein Albumin Globulin Albumin/Globulin Ratio Prostate Specific Ag 0.2 Venous Blood Potassium Urine Color Urine pH Ur Specific [place] Urine Protein Urine Glucose (UA) Urine Ketones Urine Blood Urine Nitrate Urine Bilirubin Urine Urobilinogen Ur Leukocyte Esterase 08/05/18 08/05/18 08/05/18 15:56 20:25 21:07 WBC RBC Hgb Hct MCV MCH MCHC RDW Plt Count MPV Neut % (Auto) Lymph % (Auto) [place] % (Auto) Eos % (Auto) Baso % (Auto) Lymph # (Auto) [place] # (Auto) Eos # (Auto) Baso # (Auto) Absolute Neuts (auto) pO2 VBG pH VBG pCO2 VBG HCO3 VBG Total CO2 VBG O2 Sat (Calc) VBG Base Excess VBG Potassium Glucose Lactate FiO2 Sodium 136 Potassium 3.8 Chloride 100 Carbon Dioxide 24 Anion Gap 16 BUN 16 Creatinine 1.2 Est GFR ( Amer) > 60 Est GFR (Non-Af Amer) > 60 POC Glucose (mg/dL) 234 H 250 H Random Glucose 259 H Hemoglobin A1c Calcium 9.4 Total Bilirubin 1.1 AST 15 L D ALT 18 Alkaline Phosphatase 96 Total Protein 7.5 Albumin 4.0 Globulin 3.6 Albumin/Globulin Ratio 1.1 Prostate Specific Ag Venous Blood Potassium Urine Color Urine pH Ur Specific [place] Urine Protein Urine Glucose (UA) Urine Ketones Urine Blood Urine Nitrate Urine Bilirubin Urine Urobilinogen Ur Leukocyte Esterase 08/06/18 08/06/18 08/06/18 06:12 06:30 06:30 WBC 10.1 D RBC 4.54 Hgb 12.8 L Hct 39.3 L MCV 86.6 MCH 28.2 MCHC 32.6 RDW 14.2 Plt Count 232 MPV 9.5 Neut % (Auto) 72.9 H Lymph % (Auto) 14.8 L [place] % (Auto) 11.5 H Eos % (Auto) 0.6 L Baso % (Auto) 0.2 Lymph # (Auto) 1.5 [place] # (Auto) 1.2 H Eos # (Auto) 0.1 Baso # (Auto) 0.02 Absolute Neuts (auto) 7.38 H pO2 VBG pH VBG pCO2 VBG HCO3 VBG Total CO2 VBG O2 Sat (Calc) VBG Base Excess VBG Potassium Glucose Lactate FiO2 Sodium 135 Potassium 4.0 Chloride 101 Carbon Dioxide 25 Anion Gap 13 BUN 17 Creatinine 1.3 Est GFR ( Amer) > 60 Est GFR (Non-Af Amer) 55 POC Glucose (mg/dL) 259 H Random Glucose 231 H Hemoglobin A1c Calcium 9.0 Total Bilirubin 1.3 AST 16 L ALT 12 Alkaline Phosphatase 86 Total Protein 6.9 Albumin 3.5 Globulin 3.4 Albumin/Globulin Ratio 1.0 L Prostate Specific Ag Venous Blood Potassium Urine Color Urine pH Ur Specific [place] Urine Protein Urine Glucose (UA) Urine Ketones Urine Blood Urine Nitrate Urine Bilirubin Urine Urobilinogen Ur Leukocyte Esterase 08/06/18 08/06/18 09:10 10:20 WBC RBC Hgb Hct MCV MCH MCHC RDW Plt Count MPV Neut % (Auto) Lymph % (Auto) [place] % (Auto) Eos % (Auto) Baso % (Auto) Lymph # (Auto) [place] # (Auto) Eos # (Auto) Baso # (Auto) Absolute Neuts (auto) pO2 51 VBG pH 7.43 VBG pCO2 38.0 L VBG HCO3 25.2 VBG Total CO2 26.4 VBG O2 Sat (Calc) 90.7 H VBG Base Excess 1.0 VBG Potassium 4.0 Glucose 221 H Lactate 0.9 FiO2 21.0 Sodium 133.0 Potassium Chloride 101.0 Carbon Dioxide Anion Gap BUN Creatinine Est GFR ( Amer) Est GFR (Non-Af Amer) POC Glucose (mg/dL) Random Glucose Hemoglobin A1c Calcium Total Bilirubin AST ALT Alkaline Phosphatase Total Protein Albumin Globulin Albumin/Globulin Ratio Prostate Specific Ag Venous Blood Potassium 4.0 Urine Color Yellow Urine pH 6.5 Ur Specific [place] 1.020 Urine Protein 100 H Urine Glucose (UA) 100 H Urine Ketones Trace H Urine Blood Moderate H Urine Nitrate Positive H Urine Bilirubin Negative Urine Urobilinogen 0.2 Ur Leukocyte Esterase Moderate H Intake & Output: Intake & Output 08/05/18 08/06/18 08/06/18 18:59 06:59 18:59 Intake Total 660 Output Total 350 Balance 310 Weight 225 lb Intake: Oral 660 Output: Urine 350 Urine, Voided 350 Other: Voiding Method Diaper # Bowel Movements 0 Vital Signs: Vital Signs - 24 hr 08/05/18 08/05/18 08/05/18 11:20 11:21 13:28 Temperature Pulse Rate 81 80 Pulse Rate [ 80 Apical] Respiratory 18 Rate Blood Pressure 161/76 H 160/76 H O2 Sat by Pulse Oximetry 08/05/18 08/05/18 08/05/18 14:00 17:22 21:37 Temperature 98.8 F 98.1 F Pulse Rate 71 70 88 Pulse Rate [ Apical] Respiratory 20 18 Rate Blood Pressure 148/76 148/76 126/78 O2 Sat by Pulse 95 93 L Oximetry 08/06/18 08/06/18 08/06/18 06:00 09:58 10:00 Temperature 102.1 F H 102.1 F H Pulse Rate 80 80 Pulse Rate [ Apical] Respiratory 22 Rate Blood Pressure 131/75 130/75 130/75 O2 Sat by Pulse 93 L Oximetry 08/06/18 10:02 Temperature Pulse Rate 80 Pulse Rate [ Apical] Respiratory Rate Blood Pressure 130/75 O2 Sat by Pulse Oximetry
[2018-08-06 11:14] LABS: URINE BACTERIA LARGE /hpf
--- NOTE | 2018-08-06 12:25 | RAD ---
Date of service: 08/06/2018 HISTORY: fever COMPARISON: 08/05/2018 TECHNIQUE: 1 view obtained. FINDINGS: LUNGS: No active pulmonary disease. PLEURA: No significant pleural effusion identified, no pneumothorax apparent. CARDIOVASCULAR: No aortic atherosclerotic calcification present. Mild cardiomegaly. No pulmonary vascular congestion. OSSEOUS STRUCTURES: No significant abnormalities. VISUALIZED UPPER ABDOMEN: Normal. OTHER FINDINGS: None. IMPRESSION: No active disease.
--- NOTE | 2018-08-06 12:55 | CP.PCM.PN ---
<Edson Tompkins - Last Filed: 08/06/18 20:04> Subjective - Date & Time of Evaluation Date of Evaluation: 08/06/18 Time of Evaluation: 09:00 - Subjective Subjective: Edson Tompkins DO PGY1 - Internal Medicine Progress Note Patient seen and examined at bedside; Patient complains of abdominal pain, constipation, and R flank pain. Still reports he is having no appetite however denies N/V. Does not complain of fevers / chills however noted to be febrile on evaluation. Objective - Vital Signs/Intake and Output Vital Signs (last 24 hours): Temp Pulse Resp BP Pulse Ox 102.1 F H 80 22 130/75 93 L 08/06/18 10:00 08/06/18 10:02 08/06/18 06:00 08/06/18 10:02 08/06/18 06:00 Intake and Output: 08/06/18 08/06/18 06:59 18:59 Intake Total 660 Output Total 350 Balance 310 - Medications Medications: Current Medications Acetaminophen (Tylenol 325mg Tab) 650 mg PO Q6H PRN PRN Reason: Fever >100.4 F Last Admin: 08/06/18 10:00 Dose: 650 mg Aspirin (Aspirin Chewable) 81 mg PO DAILY [facility] Last Admin: 08/06/18 10:00 Dose: 81 mg Atorvastatin Calcium (Lipitor) 80 mg PO DAILY [facility] Last Admin: 08/06/18 09:59 Dose: 80 mg Carvedilol (Coreg) 3.125 mg PO BID [facility] Last Admin: 08/06/18 10:00 Dose: 3.125 mg Dextrose (Dextrose 50% Inj) 0 ml IV STAT PRN; Protocol PRN Reason: Hypoglycemia Protocol Digoxin (Lanoxin) 0.25 mg PO 1400 [facility] Last Admin: 08/05/18 15:08 Dose: 0.25 mg Docusate Sodium (Colace) 100 mg PO BID [facility] Last Admin: 08/06/18 10:00 Dose: 100 mg Finasteride (Proscar) 5 mg PO DAILY [facility] Last Admin: 08/06/18 09:59 Dose: 5 mg Furosemide (Lasix) 40 mg PO DAILY [facility] Last Admin: 08/06/18 09:58 Dose: 40 mg Heparin Sodium (Porcine) (Heparin) 5,000 units SC Q8 [facility]; Protocol Last Admin: 08/06/18 05:13 Dose: 5,000 units Dextrose (Dextrose 5% In Water 1000 Ml) 1,000 mls @ 0 mls/hr IV .Q0M PRN; Protocol PRN Reason: Hypoglycemia Protocol Lactated Ringer's (Lactated Ringer's) 1,000 mls @ 75 mls/hr IV .[id number] [facility] Last Admin: 08/06/18 09:57 Dose: 75 mls/hr Cefepime HCl (Maxipime 2gm) 2 gm in 100 mls @ 25 mls/hr IVPB Q12 [facility]; Protocol Stop: 08/11/18 10:01 Last Admin: 08/06/18 09:55 Dose: 25 mls/hr Insulin Detemir (Levemir) 15 unit SC Q12 [facility] Last Admin: 08/06/18 09:58 Dose: 15 units Insulin Human Regular (Humulin R Med) 0 units SC ACHS [facility]; Protocol Last Admin: 08/05/18 22:15 Dose: Not Given Levetiracetam (Keppra) 250 mg PO Q12 [facility] Last Admin: 08/06/18 09:59 Dose: 250 mg Lisinopril (Zestril) 2.5 mg PO DAILY [facility] Last Admin: 08/06/18 10:02 Dose: 2.5 mg Nystatin (Nystop Topical Powder) 0 gm TOP BID [facility] Pantoprazole Sodium (Protonix Ec Tab) 40 mg PO 0600 [facility] Sertraline HCl (Zoloft) 100 mg PO DAILY [facility] Last Admin: 08/06/18 10:00 Dose: 100 mg Simethicone (Mylicon Chew Tab) 80 mg PO [facility] PRN PRN Reason: GI distress Tamsulosin HCl (Flomax) 0.4 mg PO DAILY [facility] Last Admin: 08/06/18 09:59 Dose: 0.4 mg - Labs Labs: 08/06/18 06:30 08/06/18 06:30 - Constitutional Appears: Non-toxic, No Acute Distress - Head Exam Head Exam: ATRAUMATIC, NORMOCEPHALIC - Eye Exam Eye Exam: EOMI, Normal appearance, PERRL - Respiratory Exam Respiratory Exam: Clear to Ausculation Bilateral. absent: Wheezes - Cardiovascular Exam Cardiovascular Exam: RRR. absent: Murmur - GI/Abdominal Exam GI & Abdominal Exam: Soft, Tenderness (Improved from day prior) - Back Exam Back Exam: CVA tenderness (R). absent: CVA tenderness (L) - Neurological Exam Neurological Exam: Alert, Awake Assessment and Plan - Assessment and Plan (Free Text) Assessment: 68M PMH of CHF, CAD, CVA w/ R sided deficit, Sz, HTN, HLD; Most signifcantly prostectomy, recurrent UTI presenting to [facility] [place] on [place]05 w/ complaints of R sided flank pain. Admitted for pyelonephritis and recurrent UTI Plan: R sided abdominal pain - R sided pyelonephritis vs Constipation Continues to have R sided flank pain and cloudy urine; UA findings bacteruria/ pyuria ; Febrile today 08/05 CTAP - BL Perinephric fat thickening; R sided nonobstructive stone; Significant stool noted UCX w/ GNR Septic Workup pending Unable to tolerate mag citrate/ miralax ; NPO last night Cont. Holding plavix DC Morphine C/w Home Finasteride [Proscar] 5 mg PO DAILY C/w Home Tamsulosin [Flomax] 0.4 mg PO DAILY C/w Colace 100 BID C/w simethicone prn Tylenol PRN fevers Given extensive urological history; will consult Urology for further reccs GI Following, Appreciate reccs ID Following, Appreciate reccs Constipation - Chronic vs Gastroparesis NPO last night; CLD this AM Avoid opiate No N/V however complains of poor appetite No BM in 2-3 days GI Following, Appreciate reccs Hyperglycemia A1C - 14.3 ; No prior Dx of DM Start ISS Med ACHS Fingerstick ACHS Chronic: SZ C/w Home levETIRAcetam [Keppra] 250 mg PO Q12 C/w Home Sertraline [Zoloft] 100 mg PO DAILY CAD Will hold in case of urologic procedure Home Clopidogrel [Plavix] 75 mg PO DAILY C/w Home Carvedilol [Coreg] 3.125 mg PO BID CHF C/w Home Furosemide [Lasix] 40 mg PO DAILY C/w Home Digoxin [Lanoxin] 0.25 mg PO 1400 HTN C/w Home Lisinopril [Zestril] 2.5 mg PO DAILY [facility] Rx as above CVA C/w Home Aspirin [Aspirin Chewable] 81 mg PO DAILY C/w Home Atorvastatin [Lipitor] 80 mg PO DAILY Patient was seen, examined, discussed w/ attending Dr. Arielle Tompkins DO PGY1 - Internal Medicine [facility] <Arielle Tompkins R - Last Filed: 08/07/18 17:28> Objective - Vital Signs/Intake and Output Vital Signs (last 24 hours): Temp Pulse Resp BP Pulse Ox 98 F 70 18 122/70 94 L 08/07/18 14:00 08/07/18 14:00 08/07/18 14:00 08/07/18 14:00 08/07/18 14:00 Intake and Output: 08/07/18 08/07/18 06:59 18:59 Intake Total 0 Output Total 300 Balance -300 - Medications Medications: Current Medications Acetaminophen (Tylenol 325mg Tab) 650 mg PO Q6H PRN PRN Reason: Fever >100.4 F Last Admin: 08/07/18 05:05 Dose: 650 mg Albuterol/Ipratropium (Duoneb 3 Mg/0.5 Mg (3 Ml) Ud) 3 ml IH Q2H PRN PRN Reason: Shortness of Breath Albuterol/Ipratropium (Duoneb 3 Mg/0.5 Mg (3 Ml) Ud) 3 ml IH [id number] [facility] Last Admin: 08/07/18 13:24 Dose: 3 ml Aspirin (Aspirin Chewable) 81 mg PO DAILY [facility] Last Admin: 08/07/18 12:08 Dose: 81 mg Atorvastatin Calcium (Lipitor) 80 mg PO DAILY [facility] Last Admin: 08/07/18 12:10 Dose: 80 mg Carvedilol (Coreg) 3.125 mg PO BID [facility] Last Admin: 08/06/18 18:18 Dose: 3.125 mg Dextrose (Dextrose 50% Inj) 0 ml IV STAT PRN; Protocol PRN Reason: Hypoglycemia Protocol Digoxin (Lanoxin) 0.25 mg PO 1400 [facility] Last Admin: 08/07/18 14:40 Dose: 0.25 mg Docusate Sodium (Colace) 100 mg PO BID [facility] Last Admin: 08/07/18 12:07 Dose: 100 mg Finasteride (Proscar) 5 mg PO DAILY [facility] Last Admin: 08/07/18 12:08 Dose: 5 mg Glimepiride (Amaryl) 4 mg PO ACBD [facility] Last Admin: 08/07/18 12:10 Dose: 4 mg Heparin Sodium (Porcine) (Heparin) 5,000 units SC Q8 [facility]; Protocol Last Admin: 08/07/18 14:39 Dose: 5,000 units Dextrose (Dextrose 5% In Water 1000 Ml) 1,000 mls @ 0 mls/hr IV .Q0M PRN; Protocol PRN Reason: Hypoglycemia Protocol Meropenem (Merrem Iv 1 Gm Premix) 1 gm in 50 mls @ 100 mls/hr IVPB Q8 [facility]; Protocol Stop: 08/11/18 13:16 Last Admin: 08/07/18 14:39 Dose: 100 mls/hr Doxycycline Hyclate 100 mg/ (Sodium Chloride) 100 mls @ 100 mls/hr IVPB Q12 [facility]; Protocol Last Admin: 08/07/18 12:10 Dose: 100 mls/hr Insulin Detemir (Levemir) 24 unit SC HS [facility] Last Admin: 08/06/18 21:38 Dose: 24 units Insulin Human Lispro (Humalog Low) 0 units SC ACHS [facility]; Protocol Last Admin: 08/07/18 12:11 Dose: Not Given Levetiracetam (Keppra) 250 mg PO Q12 [facility] Last Admin: 08/07/18 12:09 Dose: 250 mg Lisinopril (Zestril) 2.5 mg PO DAILY [facility] Last Admin: 08/06/18 10:02 Dose: 2.5 mg Metformin HCl (Glucophage) 500 mg PO BID [facility] Last Admin: 08/07/18 12:09 Dose: 500 mg Multivitamins/Minerals (Therapeutic-M Tab) 1 tab PO 0800 [facility] Nystatin (Nystop Topical Powder) 0 gm TOP BID [facility] Last Admin: 08/07/18 12:12 Dose: 1 appl Pantoprazole Sodium (Protonix Ec Tab) 40 mg PO 0600 [facility] Last Admin: 08/07/18 05:50 Dose: 40 mg Sertraline HCl (Zoloft) 100 mg PO DAILY [facility] Last Admin: 08/07/18 12:09 Dose: 100 mg Simethicone (Mylicon Chew Tab) 80 mg PO PCHS PRN PRN Reason: GI distress Tamsulosin HCl (Flomax) 0.4 mg PO DAILY [facility] Last Admin: 08/07/18 12:09 Dose: 0.4 mg - Labs Labs: 08/07/18 06:30 08/07/18 06:30 Attending/Attestation - Attestation I have personally seen and examined this patient.: Yes I have fully participated in the care of the patient.: Yes I have reviewed all pertinent clinical information, including history, physical exam and plan: Yes Notes (Text): Patient seen and examined by me with resident at approximately 11:25AM on 08/06/18. Case including HPI, physical exam, and assessment and plan discussed with resident. Agree with above with following additions/corrections. Patient is a 68 year old male with past medical history significant for CHF, CAD, CVA with right sided deficit, seizure disorder, hypertension, hyperli pidemia, prostectomy, and recurrent UTI that presented with right sided flank pain. Patient states that he is feeling ok. Still with some right sided abdominal and flank pain. Patient denies bowel movement. No nausea or vomiting. Patient with decreased appetite. Patient denies chest pain or shortness of breath. Patient denies fevers or chills. However, patient with fevers. No dysuria. Physical exam: General: Awake and alert lying in bed in no acute distress HEENT: Normocephalic, atraumatic. Extraocular muscles intact. Pupils equal and reactive, no scleral icterus. Oropharynx is pink. Positive dry mucous membranes. Neck is supple. Cardiovascular: Normal rhythm. Normal S1 and S2. No murmurs, rubs, or gallops appreciated Pulmonary: Normal respiratory effort. No rhonchi, rales, or wheezing a ppreciated. Gastrointestinal: Soft. Nondistended. Positive right sided abdominal tenderness. Positive bowel sounds all 4 quadrants. No guarding. Musculoskeletal: Moves all extremities. No calf tenderness. No edema appreciated. Positive right CVA tenderness Central nervous system: Awake and alert. Positive right sided weakness when compared to left (chronic from previous CVA). Dermatologic: Skin warm and dry. Assessment and plan: Patient is a 68 year old male with past medical history significant for chronic systolic CHF, CAD, CVA with right sided deficit, seizure disorder, hypertension, hyperlipidemia, prostectomy, and recurrent UTI that presented with right sided flank pain. 1. Right flank and right abdominal pain. CT abd/pelvis on 08/05/18 per radiologist showed right nephrolithasis, nonobstructive; left hydroureter without obstructive calculus; cholelithasis. Abdominal ultrasound per radiologist showed unremarkable abdominal sonogram. Chest xray per radiologist showed no active disease. Urology recommendations appreciated, no intervention for now since patient with nonobstructing stones, patient to follow up outpatient. GI recommendations appreciated, may be secondary to nephrolithasis and UTI vs PUD secondary to NSAID use. PPI, clear liquid diet, and NPO after midnight for possible EGD if sypmtoms continue 2. Fever. UTI. Bilateral pneumonia. CT chest/abd/pelvis per radiologist showed bibasilar dense consolidation consistent with pneumonias, right greater than left. Continue Merrem Doxycycline started. Blood cultures with no growth to date. Final urine culture pending. 3. Constipation. Continue colace. Monitor for bowel movement. 4. DM2, uncontrolled. Hgb A1C 14.3. Account Relationship Manager consulted, follow up recommendations. Continue insulin sliding scale. Continue to monitor accuchecks. Diabetic education. 5. Seizure disorder. Continue home Keppra 6. Chronic systolic CHF. Not in acute exacerbation. Continue home Coreg, ASA, digoxin, lisinopril 7. CAD. No acute issues. Continue Coreg, ASA, Lipitor, and Lisinopril 8. Hypertension. Continue Coreg and Lisinopril. 9. History of prostectomy. Continue flomax and proscar 10. Depression. Continue Zoloft 11. History of CVA with residual right sided weakness. Continue ASA and Lipitor. 12. GI/DVT prophylaxis. Protonix/heparin. Case was discussed in detail with the patient regarding current diagnosis, study results, and treatment plan. All questions answered.
[2018-08-06] MEDS ORDERED: Amikacin 500 mg/2ml Inj IV ONE (13:05)
[2018-08-06] MEDS ORDERED: Barium Sulfate Susp 2.1% w/v, 2.0% w/w 450 mL Bottle PO ONE (13:16)
[2018-08-06] MEDS: Digoxin 250 mcg (0.25 mg) Tab PO SCH (13:56)
--- NOTE | 2018-08-06 14:58 | CP.PCM.CON ---
<Tres Forrester - Last Filed: 08/06/18 14:45> History of Present Illness - History of Present Illness History of Present Illness: PGY-4 GI Fellow Consult Note 68 yo WM with CVA (R sided deficits), DM, CHF, CAD, Seizure disorder, HTN, HLD, Recurrent UTIs and Nephrolithiasis presenting with abd pain. He states on 08/05 he started to have right sided flank/RUQ Abd Pain described as sharp with some radiation to R shoulder. No clear precipitating or alleviating factors. Reports some ibuprofen use of about 1x per week. He denied any weight loss, dysphagia, N/V, F/C, urinary symptoms, melena nor hematochezia. He thinks he had an EGD about 12 years ago at [facility] [place], but denies ever having a colonoscopy in the past. 12 point ROS negative other than stated above PMH: As above PSH: Knee Sx, Prostatectomy, multiple procedures, Cardiac stent Meds: Reviewed in chart FamHx: Father - - CAD; Mother - - Stroke; Sister CAD Social: Remote EtOH use, 3ppd smoker quit 30 years ago, remote cocaine use All: [place] Past Patient History - Infectious Disease Hx of Infectious Diseases: None - Tetanus Immunizations Tetanus Immunization: Unknown - Past Medical History & Family History Past Medical History?: Yes - Past Social History Smoking Status: Former Smoker - CARDIAC Hx Cardiac Disorders: Yes (with stents) Hx Congestive Heart Failure: Yes Hx Heart Attack: Yes - PULMONARY Hx Chronic Obstructive Pulmonary Disease (COPD): Yes - NEUROLOGICAL HX Cerebrovascular Accident: Yes (with residual RUE /RLE weakness) - HEENT Hx HEENT Problems: Yes Hx Blind: No Hx Cataracts: No Hx Deafness: Yes (left ear, hearing aid) Hx Difficulty Chewing: No Hx Epistaxis: No Hx Glaucoma: No Hx Macular Degeneration: No Other/Comment: uses eye glasses - RENAL Hx Renal Failure: Yes - ENDOCRINE/METABOLIC Hx Diabetes Mellitus Type 2: Yes - HEMATOLOGICAL/ONCOLOGICAL Hx Blood Disorders: Yes Hx Anemia: Yes (blood transfusion) - INTEGUMENTARY Other/Comment: b/l lower extremity dry red scratch aquino, multiple tatoos - MUSCULOSKELETAL/RHEUMATOLOGICAL Hx Arthritis: Yes - GASTROINTESTINAL Other/Comment: umbilical hernia - GENITOURINARY/GYNECOLOGICAL Hx Genitourinary Disorders: Yes Hx Hematuria: Yes Hx Incontinence: Yes Hx Prostate Problems: Yes Hx Sexually Transmitted Disorders: No Hx Urinary Tract Infection: Yes Other/Comment: bladder stone removed from prostate as per pt - PSYCHIATRIC Hx Psychophysiologic Disorder: No Hx Depression: Yes Hx Emotional Abuse: No Hx Physical Abuse: No Hx Substance Use: No - SURGICAL HISTORY Hx Cardiac Catheterization: Yes (stents) Hx Coronary Stent: No Hx Orthopedic Surgery: Yes Other/Comment: rt.knee surgery acl - ANESTHESIA Hx Anesthesia: Yes Hx Anesthesia Reactions: No Hx Malignant Hyperthermia: No Meds Allergies/Adverse Reactions: Allergies Allergy/AdvReac Type Severity Reaction Status Date / Time salmon AdvReac RASH Uncoded 12/09/17 21:40 - Medications Medications: Current Medications Acetaminophen (Tylenol 325mg Tab) 650 mg PO Q6H PRN PRN Reason: Fever >100.4 F Last Admin: 08/06/18 10:00 Dose: 650 mg Aspirin (Aspirin Chewable) 81 mg PO DAILY [facility] Last Admin: 08/06/18 10:00 Dose: 81 mg Atorvastatin Calcium (Lipitor) 80 mg PO DAILY [facility] Last Admin: 08/06/18 09:59 Dose: 80 mg Carvedilol (Coreg) 3.125 mg PO BID [facility] Last Admin: 08/06/18 10:00 Dose: 3.125 mg Dextrose (Dextrose 50% Inj) 0 ml IV STAT PRN; Protocol PRN Reason: Hypoglycemia Protocol Digoxin (Lanoxin) 0.25 mg PO 1400 [facility] Last Admin: 08/06/18 13:56 Dose: 0.25 mg Docusate Sodium (Colace) 100 mg PO BID [facility] Last Admin: 08/06/18 10:00 Dose: 100 mg Finasteride (Proscar) 5 mg PO DAILY [facility] Last Admin: 08/06/18 09:59 Dose: 5 mg Furosemide (Lasix) 40 mg PO DAILY [facility] Last Admin: 08/06/18 09:58 Dose: 40 mg Heparin Sodium (Porcine) (Heparin) 5,000 units SC Q8 [facility]; Protocol Last Admin: 08/06/18 13:57 Dose: 5,000 units Dextrose (Dextrose 5% In Water 1000 Ml) 1,000 mls @ 0 mls/hr IV .Q0M PRN; Protocol PRN Reason: Hypoglycemia Protocol Lactated Ringer's (Lactated Ringer's) 1,000 mls @ 75 mls/hr IV .[id number] [facility] Last Admin: 08/06/18 09:57 Dose: 75 mls/hr Meropenem (Merrem Iv 1 Gm Premix) 1 gm in 50 mls @ 100 mls/hr IVPB Q8 [facility]; Protocol Stop: 08/11/18 13:16 Insulin Detemir (Levemir) 15 unit SC Q12 [facility] Last Admin: 08/06/18 09:58 Dose: 15 units Insulin Human Regular (Humulin R Med) 0 units SC ACHS [facility]; Protocol Last Admin: 08/06/18 11:40 Dose: Not Given Levetiracetam (Keppra) 250 mg PO Q12 [facility] Last Admin: 08/06/18 09:59 Dose: 250 mg Lisinopril (Zestril) 2.5 mg PO DAILY [facility] Last Admin: 08/06/18 10:02 Dose: 2.5 mg Nystatin (Nystop Topical Powder) 0 gm TOP BID [facility] Pantoprazole Sodium (Protonix Ec Tab) 40 mg PO 0600 [facility] Sertraline HCl (Zoloft) 100 mg PO DAILY [facility] Last Admin: 08/06/18 10:00 Dose: 100 mg Simethicone (Mylicon Chew Tab) 80 mg PO [facility] PRN PRN Reason: GI distress Tamsulosin HCl (Flomax) 0.4 mg PO DAILY [facility] Last Admin: 08/06/18 09:59 Dose: 0.4 mg Physical Exam - Constitutional Appears: No Acute Distress, Chronically Ill - Head Exam Head Exam: ATRAUMATIC, NORMAL INSPECTION - Eye Exam Eye Exam: EOMI. absent: Scleral icterus - ENT Exam ENT Exam: Mucous Membranes Dry. absent: Mucous Membranes Moist - Respiratory Exam Respiratory Exam: NORMAL BREATHING PATTERN. absent: Accessory Muscle Use - Cardiovascular Exam Cardiovascular Exam: REGULAR RHYTHM, RRR - GI/Abdominal Exam GI & Abdominal Exam: Normal Bowel Sounds, Soft, Tenderness (ttp in RUQ w/o guarding). absent: Bruit, Diminished Bowel Sounds, Distended, Firm, Guarding, Hernia, Organomegaly, Pulsatile Mass - Extremities Exam Extremities exam: Positive for: normal inspection. Negative for: pedal edema - Neurological Exam Neurological exam: Alert, CN II-XII Intact - Psychiatric Exam Psychiatric exam: Normal Affect, Normal Mood - Skin Skin Exam: Normal Color, Warm Results - Vital Signs Recent Vital Signs: Last Vital Signs Temp 98.2 F 08/06/18 14:00 Pulse 87 08/06/18 14:00 Resp 20 08/06/18 14:00 BP 89/58 L 08/06/18 14:00 Pulse Ox 93 L 08/06/18 14:00 - Labs Result Diagrams: 08/06/18 06:30 08/06/18 06:30 Labs: Laboratory Results - last 24 hr 08/05/18 08/05/18 08/05/18 05:02 15:30 15:56 WBC RBC Hgb Hct MCV MCH MCHC RDW Plt Count MPV Neut % (Auto) Lymph % (Auto) [place] % (Auto) Eos % (Auto) Baso % (Auto) Lymph # (Auto) [place] # (Auto) Eos # (Auto) Baso # (Auto) Absolute Neuts (auto) pO2 VBG pH VBG pCO2 VBG HCO3 VBG Total CO2 VBG O2 Sat (Calc) VBG Base Excess VBG Potassium Glucose Lactate FiO2 Sodium Potassium Chloride Carbon Dioxide Anion Gap BUN Creatinine Est GFR ( Amer) Est GFR (Non-Af Amer) POC Glucose (mg/dL) 234 H Random Glucose Hemoglobin A1c 14.3 H D Calcium Total Bilirubin AST ALT Alkaline Phosphatase Total Protein Albumin Globulin Albumin/Globulin Ratio Prostate Specific Ag 0.2 Venous Blood Potassium Urine Color Urine Appearance Urine pH Ur Specific [place] Urine Protein Urine Glucose (UA) Urine Ketones Urine Blood Urine Nitrate Urine Bilirubin Urine Urobilinogen Ur Leukocyte Esterase Urine RBC Urine WBC Ur Epithelial Cells Urine Bacteria 08/05/18 08/05/18 08/06/18 20:25 21:07 06:12 WBC RBC Hgb Hct MCV MCH MCHC RDW Plt Count MPV Neut % (Auto) Lymph % (Auto) [place] % (Auto) Eos % (Auto) Baso % (Auto) Lymph # (Auto) [place] # (Auto) Eos # (Auto) Baso # (Auto) Absolute Neuts (auto) pO2 VBG pH VBG pCO2 VBG HCO3 VBG Total CO2 VBG O2 Sat (Calc) VBG Base Excess VBG Potassium Glucose Lactate FiO2 Sodium 136 Potassium 3.8 Chloride 100 Carbon Dioxide 24 Anion Gap 16 BUN 16 Creatinine 1.2 Est GFR ( Amer) > 60 Est GFR (Non-Af Amer) > 60 POC Glucose (mg/dL) 250 H 259 H Random Glucose 259 H Hemoglobin A1c Calcium 9.4 Total Bilirubin 1.1 AST 15 L D ALT 18 Alkaline Phosphatase 96 Total Protein 7.5 Albumin 4.0 Globulin 3.6 Albumin/Globulin Ratio 1.1 Prostate Specific Ag Venous Blood Potassium Urine Color Urine Appearance Urine pH Ur Specific [place] Urine Protein Urine Glucose (UA) Urine Ketones Urine Blood Urine Nitrate Urine Bilirubin Urine Urobilinogen Ur Leukocyte Esterase Urine RBC Urine WBC Ur Epithelial Cells Urine Bacteria 08/06/18 08/06/18 08/06/18 06:30 06:30 09:10 WBC 10.1 D RBC 4.54 Hgb 12.8 L Hct 39.3 L MCV 86.6 MCH 28.2 MCHC 32.6 RDW 14.2 Plt Count 232 MPV 9.5 Neut % (Auto) 72.9 H Lymph % (Auto) 14.8 L [place] % (Auto) 11.5 H Eos % (Auto) 0.6 L Baso % (Auto) 0.2 Lymph # (Auto) 1.5 [place] # (Auto) 1.2 H Eos # (Auto) 0.1 Baso # (Auto) 0.02 Absolute Neuts (auto) 7.38 H pO2 51 VBG pH 7.43 VBG pCO2 38.0 L VBG HCO3 25.2 VBG Total CO2 26.4 VBG O2 Sat (Calc) 90.7 H VBG Base Excess 1.0 VBG Potassium 4.0 Glucose 221 H Lactate 0.9 FiO2 21.0 Sodium 135 133.0 Potassium 4.0 Chloride 101 101.0 Carbon Dioxide 25 Anion Gap 13 BUN 17 Creatinine 1.3 Est GFR ( Amer) > 60 Est GFR (Non-Af Amer) 55 POC Glucose (mg/dL) Random Glucose 231 H Hemoglobin A1c Calcium 9.0 Total Bilirubin 1.3 AST 16 L ALT 12 Alkaline Phosphatase 86 Total Protein 6.9 Albumin 3.5 Globulin 3.4 Albumin/Globulin Ratio 1.0 L Prostate Specific Ag Venous Blood Potassium 4.0 Urine Color Urine Appearance Urine pH Ur Specific [place] Urine Protein Urine Glucose (UA) Urine Ketones Urine Blood Urine Nitrate Urine Bilirubin Urine Urobilinogen Ur Leukocyte Esterase Urine RBC Urine WBC Ur Epithelial Cells Urine Bacteria 08/06/18 08/06/18 10:20 11:20 WBC RBC Hgb Hct MCV MCH MCHC RDW Plt Count MPV Neut % (Auto) Lymph % (Auto) [place] % (Auto) Eos % (Auto) Baso % (Auto) Lymph # (Auto) [place] # (Auto) Eos # (Auto) Baso # (Auto) Absolute Neuts (auto) pO2 VBG pH VBG pCO2 VBG HCO3 VBG Total CO2 VBG O2 Sat (Calc) VBG Base Excess VBG Potassium Glucose Lactate FiO2 Sodium Potassium Chloride Carbon Dioxide Anion Gap BUN Creatinine Est GFR ( Amer) Est GFR (Non-Af Amer) POC Glucose (mg/dL) 209 H Random Glucose Hemoglobin A1c Calcium Total Bilirubin AST ALT Alkaline Phosphatase Total Protein Albumin Globulin Albumin/Globulin Ratio Prostate Specific Ag Venous Blood Potassium Urine Color Yellow Urine Appearance Cloudy Urine pH 6.5 Ur Specific [place] 1.020 Urine Protein 100 H Urine Glucose (UA) 100 H Urine Ketones Trace H Urine Blood Moderate H Urine Nitrate Positive H Urine Bilirubin Negative Urine Urobilinogen 0.2 Ur Leukocyte Esterase Moderate H Urine RBC Tntc H Urine WBC Tntc H Ur Epithelial Cells None Urine Bacteria Large Assessment & Plan - Assessment and Plan (Free Text) Assessment: 68 yo WM with CVA (R sided deficits), DM, CHF, CAD, Seizure disorder, HTN, HLD, Recurrent UTIs and Nephrolithiasis presenting with Abd Pain. # Abd/Flank Pain: Suspect related to Nephrolithiasis with UTI with dirty UA and GNR growing on UCx. Abd US with CBD 5.3 mm. CMP unremarkable. Symptoms also concerning for possible PUD given NSAID use. Also, given uncontrolled blood sugar, gastroparesis on the differential. Plan: - Urology on consult - ID managing Abx - Supportive care - PPI QD - Clear Liq Diet - NPO at HI in case symptoms persist as will consider EGD if not improved Pt seen and examined with Dr. Hinds; please see attestation for further recs/changes. <Hema Hinds V - Last Filed: 08/06/18 19:31> Meds - Medications Medications: Current Medications Acetaminophen (Tylenol 325mg Tab) 650 mg PO Q6H PRN PRN Reason: Fever >100.4 F Last Admin: 08/06/18 18:17 Dose: 650 mg Aspirin (Aspirin Chewable) 81 mg PO DAILY [facility] Last Admin: 08/06/18 10:00 Dose: 81 mg Atorvastatin Calcium (Lipitor) 80 mg PO DAILY [facility] Last Admin: 08/06/18 09:59 Dose: 80 mg Carvedilol (Coreg) 3.125 mg PO BID [facility] Last Admin: 08/06/18 18:18 Dose: 3.125 mg Dextrose (Dextrose 50% Inj) 0 ml IV STAT PRN; Protocol PRN Reason: Hypoglycemia Protocol Digoxin (Lanoxin) 0.25 mg PO 1400 [facility] Last Admin: 08/06/18 13:56 Dose: 0.25 mg Docusate Sodium (Colace) 100 mg PO BID [facility] Last Admin: 08/06/18 18:19 Dose: 100 mg Finasteride (Proscar) 5 mg PO DAILY [facility] Last Admin: 08/06/18 09:59 Dose: 5 mg Furosemide (Lasix) 40 mg PO DAILY [facility] Last Admin: 08/06/18 09:58 Dose: 40 mg Glimepiride (Amaryl) 4 mg PO ACBD [facility] Heparin Sodium (Porcine) (Heparin) 5,000 units SC Q8 [facility]; Protocol Last Admin: 08/06/18 13:57 Dose: 5,000 units Dextrose (Dextrose 5% In Water 1000 Ml) 1,000 mls @ 0 mls/hr IV .Q0M PRN; Protocol PRN Reason: Hypoglycemia Protocol Lactated Ringer's (Lactated Ringer's) 1,000 mls @ 75 mls/hr IV .[id number] [facility] Last Admin: 08/06/18 09:57 Dose: 75 mls/hr Meropenem (Merrem Iv 1 Gm Premix) 1 gm in 50 mls @ 100 mls/hr IVPB Q8 [facility]; Protocol Stop: 08/11/18 13:16 Last Admin: 08/06/18 16:00 Dose: 100 mls/hr Insulin Detemir (Levemir) 24 unit SC HS [facility] Insulin Human Lispro (Humalog Low) 0 units SC ACHS [facility]; Protocol Levetiracetam (Keppra) 250 mg PO Q12 [facility] Last Admin: 08/06/18 09:59 Dose: 250 mg Lisinopril (Zestril) 2.5 mg PO DAILY [facility] Last Admin: 08/06/18 10:02 Dose: 2.5 mg Metformin HCl (Glucophage) 500 mg PO BID [facility] Last Admin: 08/06/18 18:21 Dose: 500 mg Nystatin (Nystop Topical Powder) 0 gm TOP BID [facility] Last Admin: 08/06/18 18:21 Dose: 1 appl Pantoprazole Sodium (Protonix Ec Tab) 40 mg PO 0600 [facility] Last Admin: 08/06/18 16:01 Dose: 40 mg Sertraline HCl (Zoloft) 100 mg PO DAILY [facility] Last Admin: 08/06/18 10:00 Dose: 100 mg Simethicone (Mylicon Chew Tab) 80 mg PO [facility] PRN PRN Reason: GI distress Tamsulosin HCl (Flomax) 0.4 mg PO DAILY [facility] Last Admin: 08/06/18 09:59 Dose: 0.4 mg Results - Vital Signs Recent Vital Signs: Last Vital Signs Temp 98.2 F 08/06/18 18:09 Pulse 77 08/06/18 18:18 Resp 18 08/06/18 18:09 BP 101/61 08/06/18 18:18 Pulse Ox 93 L 08/06/18 14:00 - Labs Result Diagrams: 08/06/18 06:30 08/06/18 06:30 Labs: Laboratory Results - last 24 hr 08/05/18 08/05/18 08/06/18 20:25 21:07 06:12 WBC RBC Hgb Hct MCV MCH MCHC RDW Plt Count MPV Neut % (Auto) Lymph % (Auto) [place] % (Auto) Eos % (Auto) Baso % (Auto) Lymph # (Auto) [place] # (Auto) Eos # (Auto) Baso # (Auto) Absolute Neuts (auto) pO2 VBG pH VBG pCO2 VBG HCO3 VBG Total CO2 VBG O2 Sat (Calc) VBG Base Excess VBG Potassium Glucose Lactate FiO2 Sodium 136 Potassium 3.8 Chloride 100 Carbon Dioxide 24 Anion Gap 16 BUN 16 Creatinine 1.2 Est GFR ( Amer) > 60 Est GFR (Non-Af Amer) > 60 POC Glucose (mg/dL) 250 H 259 H Random Glucose 259 H Calcium 9.4 Total Bilirubin 1.1 AST 15 L D ALT 18 Alkaline Phosphatase 96 Total Protein 7.5 Albumin 4.0 Globulin 3.6 Albumin/Globulin Ratio 1.1 Procalcitonin Venous Blood Potassium Urine Color Urine Appearance Urine pH Ur Specific [place] Urine Protein Urine Glucose (UA) Urine Ketones Urine Blood Urine Nitrate Urine Bilirubin Urine Urobilinogen Ur Leukocyte Esterase Urine RBC Urine WBC Ur Epithelial Cells Urine Bacteria 08/06/18 08/06/18 08/06/18 06:30 06:30 09:10 WBC 10.1 D RBC 4.54 Hgb 12.8 L Hct 39.3 L MCV 86.6 MCH 28.2 MCHC 32.6 RDW 14.2 Plt Count 232 MPV 9.5 Neut % (Auto) 72.9 H Lymph % (Auto) 14.8 L [place] % (Auto) 11.5 H Eos % (Auto) 0.6 L Baso % (Auto) 0.2 Lymph # (Auto) 1.5 [place] # (Auto) 1.2 H Eos # (Auto) 0.1 Baso # (Auto) 0.02 Absolute Neuts (auto) 7.38 H pO2 51 VBG pH 7.43 VBG pCO2 38.0 L VBG HCO3 25.2 VBG Total CO2 26.4 VBG O2 Sat (Calc) 90.7 H VBG Base Excess 1.0 VBG Potassium 4.0 Glucose 221 H Lactate 0.9 FiO2 21.0 Sodium 135 133.0 Potassium 4.0 Chloride 101 101.0 Carbon Dioxide 25 Anion Gap 13 BUN 17 Creatinine 1.3 Est GFR ( Amer) > 60 Est GFR (Non-Af Amer) 55 POC Glucose (mg/dL) Random Glucose 231 H Calcium 9.0 Total Bilirubin 1.3 AST 16 L ALT 12 Alkaline Phosphatase 86 Total Protein 6.9 Albumin 3.5 Globulin 3.4 Albumin/Globulin Ratio 1.0 L Procalcitonin Venous Blood Potassium 4.0 Urine Color Urine Appearance Urine pH Ur Specific [place] Urine Protein Urine Glucose (UA) Urine Ketones Urine Blood Urine Nitrate Urine Bilirubin Urine Urobilinogen Ur Leukocyte Esterase Urine RBC Urine WBC Ur Epithelial Cells Urine Bacteria 08/06/18 08/06/18 08/06/18 10:20 11:20 13:04 WBC RBC Hgb Hct MCV MCH MCHC RDW Plt Count MPV Neut % (Auto) Lymph % (Auto) [place] % (Auto) Eos % (Auto) Baso % (Auto) Lymph # (Auto) [place] # (Auto) Eos # (Auto) Baso # (Auto) Absolute Neuts (auto) pO2 VBG pH VBG pCO2 VBG HCO3 VBG Total CO2 VBG O2 Sat (Calc) VBG Base Excess VBG Potassium Glucose Lactate FiO2 Sodium Potassium Chloride Carbon Dioxide Anion Gap BUN Creatinine Est GFR ( Amer) Est GFR (Non-Af Amer) POC Glucose (mg/dL) 209 H Random Glucose Calcium Total Bilirubin AST ALT Alkaline Phosphatase Total Protein Albumin Globulin Albumin/Globulin Ratio Procalcitonin 0.12 L Venous Blood Potassium Urine Color Yellow Urine Appearance Cloudy Urine pH 6.5 Ur Specific [place] 1.020 Urine Protein 100 H Urine Glucose (UA) 100 H Urine Ketones Trace H Urine Blood Moderate H Urine Nitrate Positive H Urine Bilirubin Negative Urine Urobilinogen 0.2 Ur Leukocyte Esterase Moderate H Urine RBC Tntc H Urine WBC Tntc H Ur Epithelial Cells None Urine Bacteria Large Attending/Attestation - Attestation I have personally seen and examined this patient.: Yes I have fully participated in the care of the patient.: Yes I have reviewed all pertinent clinical information: Yes Notes (Text): This is an addendum to the GI consultation report dictated by the fellow. The patient was seen and evaluated along with the GI fellow earlier today. Patient has been complaining of right-sided abdominal pain. History of nephrolithiasis urine culture positive for gram-negative rods history of pyelonephritis in the past. Patient has been on IV antibiotics Merrem for UTI possible Pyelonephritis. Ultrasound did not reveal any gallstones Patient also gives history of taking NSAID. Other differential diagnosis to be considered in his case is peptic ulcer disease. We will start the patient on PPI. The patient remains symptomatic we will consider upper GI endoscopy 08/06/18 19:30
[2018-08-06] MEDS: Pantoprazole 40 mg EC Tab PO SCH (16:01)
[2018-08-06] MEDS: Nystatin 100,000 Units/gm Topical Pow(15 gm) TOP SCH (18:21)
[2018-08-06] MEDS: Insulin Lispro (humaLOG) LOW Coverage SC SCH (21:29)
[2018-08-06] MEDS: Insulin Detemir 100 units/ml Vial (Levemir) SC SCH (21:38)
--- NOTE | 2018-08-07 04:12 | CON ---
DATE: 08/06/2018 ENDOCRINOLOGY CONSULTATION The patient was seen in Room #565. HISTORY OF PRESENT ILLNESS: This is a 68-year-old male with known history of recurrent UTIs with underlying nephrolithiasis, presenting here with severe right flank pain and evaluated to have a possible acute pyelonephritis with ongoing IV antibiotic management and is now being referred also for a recent onset and diagnosis of uncontrolled type 2 insulin-requiring diabetes. PAST MEDICAL HISTORY: As mentioned above; history of recurrent urinary tract infections with underlying nephrolithiasis, history of a previous prostatectomy for underlying prostate hyperplasia, history of coronary artery disease with coronary stent placements. Has had previous admissions for congestive heart failure as noted, history of a previous CVA with residual right-sided weakness, history of hypertension and dyslipidemia, history of chronic obstructive lung disease with previous admissions for exacerbations of the same, history of generalized anxiety and insomnia and disrupted sleep patterns, history of osteoarthritis with previous right knee surgery. FAMILY HISTORY: Positive for hypertension and heart disease. SOCIAL HISTORY: The patient is a former smoker, with a supportive family, otherwise. REVIEW OF SYSTEMS: As mentioned above, admits to generalized body weakness with episodic bouts of dizziness and lightheadedness, worse on the day of admission. Also admits to bifrontal headaches with visual blurring, again worse in the last few weeks prior to admission. No chest pains or palpitations, but admits to episodic shortness of breath especially on exertion. His oral intake has been variable with nausea, dyspepsia, and sudden onset of right flank pain as noted. Also admits to marked polyuria, nocturia, and polydipsia. PHYSICAL EXAMINATION: GENERAL: This is an overweight male, in no apparent distress. VITAL SIGNS: Blood pressure of 140/80, pulse of 100 beats per minute, regular; temperature 98, respirations 20. Height is 5 feet 10 inches, weight is 225 pounds. HEENT: Head normocephalic. Eyes anicteric with pink conjunctivae. Funduscopy not possible at this time. Ears, nose, and throat, otherwise, normal. NECK: Supple. Thyroid gland is normal in size. No carotid bruits or any cervical adenopathy. CARDIOPULMONARY: Some adynamic precordium. S1, S2 are rapid and regular. LUNGS: Clear to auscultation. ABDOMEN: Obese, soft, with positive bowel sounds. EXTREMITIES: No peripheral edema. Pulses are +2 bilaterally. LABORATORY DATA: His chemistries on admission showed a BUN of 19, sodium 136, potassium 4.1, chloride 97, CO2 of 27, glucose 349, and creatinine 1.1. His hemoglobin A1c is 14.3% which is quite elevated and indicative of suboptimal metabolic control of his diabetic condition and clearly also related to a newly diagnosed diabetic condition with no prior diabetic treatment at this time. ASSESSMENT: This is a 68-year-old male with uncontrolled and decompensated type 2 insulin-requiring diabetes with marked hyperglycemic accelerations and clearly suboptimal metabolic control, presenting here with right flank pain and possible acute pyelonephritis with recurrent urinary tract infections and underlying nephrolithiasis. He also has macrovascular complications of cerebrovascular disease with residual right hemiparesis and coronary artery disease with prior coronary stent placement as noted. PLAN OF MANAGEMENT: We will modify his current insulin regimen and switch him over to a basal insulin regimen with Levemir to be given as 24 units subcu at bedtime daily to start tonight. We will also add oral hypoglycemic therapy with Amaryl given as 4 mg b.i.d. before meals to start today. We will also add metformin given as 500 mg b.i.d. after meals to start also tonight. The patient is scheduled for a procedure tomorrow and has been kept n.p.o. from midnight tonight as noted. We will modify the coverage scale to a very low-dose algorithm to obviate hypoglycemia and detailed orders have been given. We will obtain serial chemistries and supplement accordingly as needed. We will initiate diabetic education to include insulin self-administration and home glucose monitoring techniques otherwise. We will also request a dietary evaluation for healthier food choices and weight loss efforts thereof. We will follow. Emi Flaherty MD
[2018-08-07] MEDS: Lactated Ringer's 1,000 ML IV SCH ×2 (05:49→12:12)
[2018-08-07] MEDS: Meropenem IV 1 gm in NS 1 GM/50 ML BAG IVPB SCH ×3 (05:49→22:50)
[2018-08-07] MEDS: Pantoprazole 40 mg EC Tab PO SCH (05:50)
[2018-08-07 06:48] LABS: BASO # 0.01 K/mm3 (0.0-2.0); BASO % 0.1 % (0.0-3.0); EOS # 0.2 (0.0-0.7); EOS % 1.9 % (1.5-5.0); HEMOGLOBIN 12.3 g/dL (14.0-18.0); MEAN CORPUSCULAR HEMOGLOBIN 28.1 pg (25.0-35.0); MEAN CORPUSCULAR HGB CONC 32.3 g/dl (31.0-37.0); MEAN PLATELET VOLUME 9.4 fl (7.0-11.0); MONO # 0.9 (0.1-0.6); MONO % 7.6 % (1.0-6.0); RBC 4.38 10^6/uL (3.5-6.1); RED CELL DISTRIBUTION WIDTH 14.3 % (11.5-14.5); WHITE BLOOD COUNT 11.9 10^3/uL (4.5-11.0)
[2018-08-07] MEDS ORDERED: Albuterol-Ipratrop 3 mg / 0.5 (3 ml) UD IH PRN (06:59)
[2018-08-07] MEDS: Albuterol-Ipratrop 3 mg / 0.5 (3 ml) UD IH SCH ×3 (07:28→19:17)
[2018-08-07 07:33] LABS: ALBUMIN 3.2 g/dL (3.0-4.8); CALCIUM 8.8 mg/dL (8.4-10.5)
--- NOTE | 2018-08-07 08:03 | CP.PCM.PN ---
<Gray Kruse - Last Filed: 08/07/18 15:25> Subjective - Date & Time of Evaluation Date of Evaluation: 08/07/18 Time of Evaluation: 08:50 - Subjective Subjective: Infectious disease progress note: Patient seen and examined at bedside. No acute events overnight. States that his abd/ flank pain has improved. No fevers since yesterday morning. 12 point ROS performed and negative unless stated above. Objective - Vital Signs/Intake and Output Vital Signs (last 24 hours): Temp Pulse Resp BP Pulse Ox 98.2 F 76 20 125/52 L 93 L 08/07/18 06:00 08/07/18 06:00 08/07/18 06:00 08/07/18 06:00 08/07/18 06:00 Intake and Output: 08/07/18 08/07/18 06:59 18:59 Intake Total 0 Output Total 300 Balance -300 - Medications Medications: Current Medications Acetaminophen (Tylenol 325mg Tab) 650 mg PO Q6H PRN PRN Reason: Fever >100.4 F Last Admin: 08/07/18 05:05 Dose: 650 mg Albuterol/Ipratropium (Duoneb 3 Mg/0.5 Mg (3 Ml) Ud) 3 ml IH Q2H PRN PRN Reason: Shortness of Breath Albuterol/Ipratropium (Duoneb 3 Mg/0.5 Mg (3 Ml) Ud) 3 ml IH [id number] [facility] Last Admin: 08/07/18 07:28 Dose: 3 ml Aspirin (Aspirin Chewable) 81 mg PO DAILY [facility] Last Admin: 08/06/18 10:00 Dose: 81 mg Atorvastatin Calcium (Lipitor) 80 mg PO DAILY [facility] Last Admin: 08/06/18 09:59 Dose: 80 mg Carvedilol (Coreg) 3.125 mg PO BID [facility] Last Admin: 08/06/18 18:18 Dose: 3.125 mg Dextrose (Dextrose 50% Inj) 0 ml IV STAT PRN; Protocol PRN Reason: Hypoglycemia Protocol Digoxin (Lanoxin) 0.25 mg PO 1400 [facility] Last Admin: 08/06/18 13:56 Dose: 0.25 mg Docusate Sodium (Colace) 100 mg PO BID [facility] Last Admin: 08/06/18 18:19 Dose: 100 mg Finasteride (Proscar) 5 mg PO DAILY [facility] Last Admin: 08/06/18 09:59 Dose: 5 mg Glimepiride (Amaryl) 4 mg PO ACBD [facility] Heparin Sodium (Porcine) (Heparin) 5,000 units SC Q8 [facility]; Protocol Last Admin: 08/07/18 05:50 Dose: 5,000 units Dextrose (Dextrose 5% In Water 1000 Ml) 1,000 mls @ 0 mls/hr IV .Q0M PRN; Protocol PRN Reason: Hypoglycemia Protocol Lactated Ringer's (Lactated Ringer's) 1,000 mls @ 75 mls/hr IV .[id number] [facility] Last Admin: 08/07/18 05:49 Dose: 75 mls/hr Meropenem (Merrem Iv 1 Gm Premix) 1 gm in 50 mls @ 100 mls/hr IVPB Q8 [facility]; Protocol Stop: 08/11/18 13:16 Last Admin: 08/07/18 05:49 Dose: 100 mls/hr Insulin Detemir (Levemir) 24 unit SC HS [facility] Last Admin: 08/06/18 21:38 Dose: 24 units Insulin Human Lispro (Humalog Low) 0 units SC ACHS [facility]; Protocol Last Admin: 08/06/18 21:29 Dose: Not Given Levetiracetam (Keppra) 250 mg PO Q12 [facility] Last Admin: 08/06/18 21:37 Dose: 250 mg Lisinopril (Zestril) 2.5 mg PO DAILY [facility] Last Admin: 08/06/18 10:02 Dose: 2.5 mg Metformin HCl (Glucophage) 500 mg PO BID [facility] Last Admin: 08/06/18 18:21 Dose: 500 mg Nystatin (Nystop Topical Powder) 0 gm TOP BID [facility] Last Admin: 08/06/18 18:21 Dose: 1 appl Pantoprazole Sodium (Protonix Ec Tab) 40 mg PO 0600 [facility] Last Admin: 08/07/18 05:50 Dose: 40 mg Sertraline HCl (Zoloft) 100 mg PO DAILY [facility] Last Admin: 08/06/18 10:00 Dose: 100 mg Simethicone (Mylicon Chew Tab) 80 mg PO PCHS PRN PRN Reason: GI distress Tamsulosin HCl (Flomax) 0.4 mg PO DAILY [facility] Last Admin: 08/06/18 09:59 Dose: 0.4 mg - Labs Labs: 08/07/18 06:30 08/07/18 06:30 - Constitutional Appears: No Acute Distress - Head Exam Head Exam: ATRAUMATIC, NORMOCEPHALIC - Eye Exam Eye Exam: EOMI - ENT Exam ENT Exam: Mucous Membranes Moist - Respiratory Exam Respiratory Exam: Clear to Ausculation Bilateral. absent: Wheezes - Cardiovascular Exam Cardiovascular Exam: REGULAR RHYTHM, +S1, +S2 - GI/Abdominal Exam GI & Abdominal Exam: Soft. absent: Tenderness - Extremities Exam Extremities Exam: absent: Calf Tenderness, Pedal Edema - Neurological Exam Neurological Exam: Alert, Awake, Oriented x3 - Psychiatric Exam Psychiatric exam: Normal Mood - Skin Skin Exam: Dry, Warm Assessment and Plan - Assessment and Plan (Free Text) Assessment: Sepsis secondary to urinary tract infection, with high suspicion of pyelo with with pseudomonas Community acquired pneumonia KAROLINE CHF CAD with stents Recurrent UTIs Nephrolithiasis History of pyelonephritis in 2017 Prostatectomy History of CVA with residual right-sided weakness Seizures Hypertension Hyperlipidemia Continue meropenem day 3 and started with Doxy Amikacin x 1 yesterday Follow-up septic work-up- Urinalysis is positive with pseudomonas CT scan of the abdomen pelvis without contrast shows right-sided nephrolithiasis, nonobstructive. Left hydroureter without obstructive calculus, cholelithiasis Follow-up urology consult and recommendations Continue to monitor for any changes Case and plan to be reviewed and discussed with Dr. Campos <Abiloi Campos - Last Filed: 08/07/18 22:53> Objective - Vital Signs/Intake and Output Vital Signs (last 24 hours): Temp Pulse Resp BP Pulse Ox 98 F 70 18 122/70 94 L 08/07/18 14:00 08/07/18 14:00 08/07/18 14:00 08/07/18 14:00 08/07/18 14:00 Intake and Output: 08/07/18 08/08/18 18:59 06:59 Intake Total 660 Balance 660 - Medications Medications: Current Medications Acetaminophen (Tylenol 325mg Tab) 650 mg PO Q6H PRN PRN Reason: Fever >100.4 F Last Admin: 08/07/18 05:05 Dose: 650 mg Albuterol/Ipratropium (Duoneb 3 Mg/0.5 Mg (3 Ml) Ud) 3 ml IH Q2H PRN PRN Reason: Shortness of Breath Albuterol/Ipratropium (Duoneb 3 Mg/0.5 Mg (3 Ml) Ud) 3 ml IH [id number] [facility] Last Admin: 08/07/18 19:17 Dose: 3 ml Aspirin (Aspirin Chewable) 81 mg PO DAILY [facility] Last Admin: 08/07/18 12:08 Dose: 81 mg Atorvastatin Calcium (Lipitor) 80 mg PO DAILY [facility] Last Admin: 08/07/18 12:10 Dose: 80 mg Carvedilol (Coreg) 3.125 mg PO BID [facility] Last Admin: 08/06/18 18:18 Dose: 3.125 mg Dextrose (Dextrose 50% Inj) 0 ml IV STAT PRN; Protocol PRN Reason: Hypoglycemia Protocol Digoxin (Lanoxin) 0.25 mg PO 1400 [facility] Last Admin: 08/07/18 14:40 Dose: 0.25 mg Docusate Sodium (Colace) 100 mg PO BID [facility] Last Admin: 08/07/18 17:35 Dose: 100 mg Finasteride (Proscar) 5 mg PO DAILY [facility] Last Admin: 08/07/18 12:08 Dose: 5 mg Glimepiride (Amaryl) 4 mg PO ACBD [facility] Last Admin: 08/07/18 17:34 Dose: 4 mg Heparin Sodium (Porcine) (Heparin) 5,000 units SC Q8 [facility]; Protocol Last Admin: 08/07/18 21:51 Dose: 5,000 units Dextrose (Dextrose 5% In Water 1000 Ml) 1,000 mls @ 0 mls/hr IV .Q0M PRN; Protocol PRN Reason: Hypoglycemia Protocol Meropenem (Merrem Iv 1 Gm Premix) 1 gm in 50 mls @ 100 mls/hr IVPB Q8 [facility]; Protocol Stop: 08/11/18 13:16 Last Admin: 08/07/18 22:50 Dose: 100 mls/hr Doxycycline Hyclate 100 mg/ (Sodium Chloride) 100 mls @ 100 mls/hr IVPB Q12 [facility]; Protocol Last Admin: 08/07/18 21:52 Dose: 100 mls/hr Insulin Detemir (Levemir) 24 unit SC HS [facility] Last Admin: 08/07/18 22:48 Dose: Not Given Insulin Human Lispro (Humalog Low) 0 units SC ACHS [facility]; Protocol Last Admin: 08/07/18 22:48 Dose: Not Given Levetiracetam (Keppra) 250 mg PO Q12 [facility] Last Admin: 08/07/18 21:51 Dose: 250 mg Lisinopril (Zestril) 2.5 mg PO DAILY [facility] Last Admin: 08/06/18 10:02 Dose: 2.5 mg Metformin HCl (Glucophage) 500 mg PO BID [facility] Last Admin: 08/07/18 17:34 Dose: 500 mg Multivitamins/Minerals (Therapeutic-M Tab) 1 tab PO 0800 [facility] Nystatin (Nystop Topical Powder) 0 gm TOP BID [facility] Last Admin: 08/07/18 12:12 Dose: 1 appl Pantoprazole Sodium (Protonix Ec Tab) 40 mg PO 0600 [facility] Last Admin: 08/07/18 05:50 Dose: 40 mg Sertraline HCl (Zoloft) 100 mg PO DAILY [facility] Last Admin: 08/07/18 12:09 Dose: 100 mg Simethicone (Mylicon Chew Tab) 80 mg PO [facility] PRN PRN Reason: GI distress Tamsulosin HCl (Flomax) 0.4 mg PO DAILY [facility] Last Admin: 08/07/18 12:09 Dose: 0.4 mg - Labs Labs: 08/07/18 06:30 08/07/18 06:30 Attending/Attestation - Attestation I have personally seen and examined this patient.: Yes I have fully participated in the care of the patient.: Yes I have reviewed all pertinent clinical information, including history, physical exam and plan: Yes
--- NOTE | 2018-08-07 09:53 | CT ---
Date of service: 08/06/2018 PROCEDURE: CT Chest, Abdomen and Pelvis without intravenous contrast HISTORY: r/o pneumonia COMPARISON: None available. TECHNIQUE: Radiation dose: Total exam DLP = 1600.96 mGy-cm. This CT exam was performed using one or more of the following dose reduction techniques: Automated exposure control, adjustment of the mA and/or kV according to patient size, and/or use of iterative reconstruction technique. FINDINGS: CT CHEST WITHOUT CONTRAST: LUNGS: Bibasilar dense consolidation consistent with pneumonias, right greater than left. MEDIASTINUM: Unremarkable. Normal caliber aorta and pulmonary arterial trunk. Normal size heart. LYMPH NODES: Unremarkable. PLEURA: Unremarkable. No pneumothorax. No pleural fluid. BONES: Unremarkable. OTHER FINDINGS: None. CT ABDOMEN AND PELVIS: LIVER: Unremarkable. No gross lesion or ductal dilatation. GALLBLADDER AND BILE DUCTS: Unremarkable. PANCREAS: Unremarkable. No gross lesion or ductal dilatation. SPLEEN: Unremarkable. ADRENALS: Unremarkable. No mass. KIDNEYS AND URETERS: Unremarkable. No hydronephrosis. No solid mass. VASCULATURE: Bilateral renal vascular calcifications. Unremarkable. No aortic aneurysm. BOWEL: Colonic diverticulosis. No obstruction. No gross mural thickening. APPENDIX: Normal appendix. PERITONEUM: Unremarkable. No free fluid. No free air. LYMPH NODES: Unremarkable. No enlarged lymph nodes. BLADDER: Unremarkable. REPRODUCTIVE: Unremarkable. BONES: No acute fracture. OTHER FINDINGS: None. IMPRESSION: Bibasilar dense consolidation consistent with pneumonias, right greater than left.
[2018-08-07] MEDS: Insulin Lispro (humaLOG) LOW Coverage SC SCH ×3 (12:11→22:48)
[2018-08-07] MEDS: Nystatin 100,000 Units/gm Topical Pow(15 gm) TOP SCH ×2 (12:12→17:30)
--- NOTE | 2018-08-07 13:45 | CP.PCM.PN ---
Subjective - Date & Time of Evaluation Date of Evaluation: 08/07/18 Time of Evaluation: 09:00 - Subjective Subjective: Edson Tompkins DO PGY1 - Internal Medicine Speech Clinician - Hospitalist Progress Note Patient was seen and evaluated at bedside this morning; No acute events reported overnight Patient denies any fevers/ chills, cough, sob, chest pain. States his abdominal pain is improving, R side pain improving. Denies BM this AM; does report having a BM yesterday however nursing denies BM. Reports he good appetite today; and is hungry. Was NPO overnight due to possible EGD; will follow up with diet tolerance after lunch. Objective - Vital Signs/Intake and Output Vital Signs (last 24 hours): Temp Pulse Resp BP Pulse Ox 98.2 F 76 20 125/52 L 93 L 08/07/18 06:00 08/07/18 06:00 08/07/18 06:00 08/07/18 06:00 08/07/18 06:00 Intake and Output: 08/07/18 08/07/18 06:59 18:59 Intake Total 0 Output Total 300 Balance -300 - Medications Medications: Current Medications Acetaminophen (Tylenol 325mg Tab) 650 mg PO Q6H PRN PRN Reason: Fever >100.4 F Last Admin: 08/07/18 05:05 Dose: 650 mg Albuterol/Ipratropium (Duoneb 3 Mg/0.5 Mg (3 Ml) Ud) 3 ml IH Q2H PRN PRN Reason: Shortness of Breath Albuterol/Ipratropium (Duoneb 3 Mg/0.5 Mg (3 Ml) Ud) 3 ml IH [id number] [facility] Last Admin: 08/07/18 13:24 Dose: 3 ml Aspirin (Aspirin Chewable) 81 mg PO DAILY [facility] Last Admin: 08/07/18 12:08 Dose: 81 mg Atorvastatin Calcium (Lipitor) 80 mg PO DAILY [facility] Last Admin: 08/07/18 12:10 Dose: 80 mg Carvedilol (Coreg) 3.125 mg PO BID [facility] Last Admin: 08/06/18 18:18 Dose: 3.125 mg Dextrose (Dextrose 50% Inj) 0 ml IV STAT PRN; Protocol PRN Reason: Hypoglycemia Protocol Digoxin (Lanoxin) 0.25 mg PO 1400 [facility] Last Admin: 08/06/18 13:56 Dose: 0.25 mg Docusate Sodium (Colace) 100 mg PO BID [facility] Last Admin: 08/07/18 12:07 Dose: 100 mg Finasteride (Proscar) 5 mg PO DAILY [facility] Last Admin: 08/07/18 12:08 Dose: 5 mg Glimepiride (Amaryl) 4 mg PO ACBD [facility] Last Admin: 08/07/18 12:10 Dose: 4 mg Heparin Sodium (Porcine) (Heparin) 5,000 units SC Q8 [facility]; Protocol Last Admin: 08/07/18 05:50 Dose: 5,000 units Dextrose (Dextrose 5% In Water 1000 Ml) 1,000 mls @ 0 mls/hr IV .Q0M PRN; Protocol PRN Reason: Hypoglycemia Protocol Meropenem (Merrem Iv 1 Gm Premix) 1 gm in 50 mls @ 100 mls/hr IVPB Q8 [facility]; Protocol Stop: 08/11/18 13:16 Last Admin: 08/07/18 05:49 Dose: 100 mls/hr Doxycycline Hyclate 100 mg/ (Sodium Chloride) 100 mls @ 100 mls/hr IVPB Q12 [facility]; Protocol Last Admin: 08/07/18 12:10 Dose: 100 mls/hr Insulin Detemir (Levemir) 24 unit SC HS [facility] Last Admin: 08/06/18 21:38 Dose: 24 units Insulin Human Lispro (Humalog Low) 0 units SC ACHS [facility]; Protocol Last Admin: 08/07/18 12:11 Dose: Not Given Levetiracetam (Keppra) 250 mg PO Q12 [facility] Last Admin: 08/07/18 12:09 Dose: 250 mg Lisinopril (Zestril) 2.5 mg PO DAILY [facility] Last Admin: 08/06/18 10:02 Dose: 2.5 mg Metformin HCl (Glucophage) 500 mg PO BID [facility] Last Admin: 08/07/18 12:09 Dose: 500 mg Nystatin (Nystop Topical Powder) 0 gm TOP BID [facility] Last Admin: 08/07/18 12:12 Dose: 1 appl Pantoprazole Sodium (Protonix Ec Tab) 40 mg PO 0600 [facility] Last Admin: 08/07/18 05:50 Dose: 40 mg Sertraline HCl (Zoloft) 100 mg PO DAILY [facility] Last Admin: 08/07/18 12:09 Dose: 100 mg Simethicone (Mylicon Chew Tab) 80 mg PO PCHS PRN PRN Reason: GI distress Tamsulosin HCl (Flomax) 0.4 mg PO DAILY [facility] Last Admin: 08/07/18 12:09 Dose: 0.4 mg - Labs Labs: 08/07/18 06:30 08/07/18 06:30 - Constitutional Appears: Non-toxic, No Acute Distress - Head Exam Head Exam: ATRAUMATIC, NORMOCEPHALIC - Eye Exam Eye Exam: EOMI, Normal appearance, PERRL - Respiratory Exam Respiratory Exam: Clear to Ausculation Bilateral. absent: Wheezes, Rales/Ronchi - Cardiovascular Exam Cardiovascular Exam: RRR. absent: Murmur - GI/Abdominal Exam GI & Abdominal Exam: Soft, Nontender - Back Exam Back Exam: CVA tenderness (R). absent: CVA tenderness (L) - Neurological Exam Neurological Exam: Alert, Awake, RUE/ RLE weakness Assessment and Plan - Assessment and Plan (Free Text) Assessment: 68M PMH of CHF, CAD, CVA w/ R sided deficit, Sz, HTN, HLD; Most signifcantly prostectomy, recurrent UTI presenting to [facility] on 08/05 w/ complaints of R sided flank pain. Admitted for pyelonephritis and recurrent UTI Plan: R sided abdominal pain - R sided pyelonephritis vs Constipation Continues to have R sided flank pain and cloudy urine; UA findings bacteruria/ pyuria ; Febrile today 08/05 CTAP - BL Perinephric fat thickening; R sided nonobstructive stone; Significant stool noted UCX w/ GNR Septic Workup pending Unable to tolerate mag citrate/ miralax ; NPO last night Cont. Holding plavix DC Morphine C/w Home Finasteride [Proscar] 5 mg PO DAILY C/w Home Tamsulosin [Flomax] 0.4 mg PO DAILY C/w Colace 100 BID C/w simethicone prn Tylenol PRN fevers Given extensive urological history; will consult Urology for further reccs GI Following, Appreciate reccs ID Following, Appreciate reccs Constipation - Chronic vs Gastroparesis NPO last night; CLD this AM Avoid opiate No N/V however complains of poor appetite No BM in 2-3 days GI Following, Appreciate reccs Hyperglycemia A1C - 14.3 ; No prior Dx of DM Start ISS Med ACHS Fingerstick ACHS Chronic: SZ C/w Home levETIRAcetam [Keppra] 250 mg PO Q12 C/w Home Sertraline [Zoloft] 100 mg PO DAILY CAD Will hold in case of urologic procedure Home Clopidogrel [Plavix] 75 mg PO DAILY C/w Home Carvedilol [Coreg] 3.125 mg PO BID CHF C/w Home Furosemide [Lasix] 40 mg PO DAILY C/w Home Digoxin [Lanoxin] 0.25 mg PO 1400 [facility]N C/w Home Lisinopril [Zestril] 2.5 mg PO DAILY [facility] Rx as above CVA C/w Home Aspirin [Aspirin Chewable] 81 mg PO DAILY C/w Home Atorvastatin [Lipitor] 80 mg PO DAILY Patient was seen, examined, discussed w/ attending Dr. Arielle Tompkins DO PGY1 - Internal Medicine Speech Clinician
--- NOTE | 2018-08-07 14:04 | CP.PCM.PN ---
<Tres Forrester - Last Filed: 08/07/18 18:16> Subjective - Date & Time of Evaluation Date of Evaluation: 08/07/18 Time of Evaluation: 08:10 - Subjective Subjective: PGY-4 GI Fellow Prog Note Pt lying in bed when seen this AM. States abd pain much improved. Wants to advance diet. No BM recently. 5 point ROS negative other than stated above Objective - Vital Signs/Intake and Output Vital Signs (last 24 hours): Temp Pulse Resp BP Pulse Ox 98.2 F 76 20 125/52 L 93 L 08/07/18 06:00 08/07/18 06:00 08/07/18 06:00 08/07/18 06:00 08/07/18 06:00 Intake and Output: 08/07/18 08/07/18 06:59 18:59 Intake Total 0 Output Total 300 Balance -300 - Medications Medications: Current Medications Acetaminophen (Tylenol 325mg Tab) 650 mg PO Q6H PRN PRN Reason: Fever >100.4 F Last Admin: 08/07/18 05:05 Dose: 650 mg Albuterol/Ipratropium (Duoneb 3 Mg/0.5 Mg (3 Ml) Ud) 3 ml IH Q2H PRN PRN Reason: Shortness of Breath Albuterol/Ipratropium (Duoneb 3 Mg/0.5 Mg (3 Ml) Ud) 3 ml IH [id number] [facility] Last Admin: 08/07/18 13:24 Dose: 3 ml Aspirin (Aspirin Chewable) 81 mg PO DAILY [facility] Last Admin: 08/07/18 12:08 Dose: 81 mg Atorvastatin Calcium (Lipitor) 80 mg PO DAILY [facility] Last Admin: 08/07/18 12:10 Dose: 80 mg Carvedilol (Coreg) 3.125 mg PO BID [facility] Last Admin: 08/06/18 18:18 Dose: 3.125 mg Dextrose (Dextrose 50% Inj) 0 ml IV STAT PRN; Protocol PRN Reason: Hypoglycemia Protocol Digoxin (Lanoxin) 0.25 mg PO 1400 [facility] Last Admin: 08/06/18 13:56 Dose: 0.25 mg Docusate Sodium (Colace) 100 mg PO BID [facility] Last Admin: 08/07/18 12:07 Dose: 100 mg Finasteride (Proscar) 5 mg PO DAILY [facility] Last Admin: 08/07/18 12:08 Dose: 5 mg Glimepiride (Amaryl) 4 mg PO ACBD [facility] Last Admin: 08/07/18 12:10 Dose: 4 mg Heparin Sodium (Porcine) (Heparin) 5,000 units SC Q8 [facility]; Protocol Last Admin: 08/07/18 05:50 Dose: 5,000 units Dextrose (Dextrose 5% In Water 1000 Ml) 1,000 mls @ 0 mls/hr IV .Q0M PRN; Protocol PRN Reason: Hypoglycemia Protocol Meropenem (Merrem Iv 1 Gm Premix) 1 gm in 50 mls @ 100 mls/hr IVPB Q8 [facility]; Protocol Stop: 08/11/18 13:16 Last Admin: 08/07/18 05:49 Dose: 100 mls/hr Doxycycline Hyclate 100 mg/ (Sodium Chloride) 100 mls @ 100 mls/hr IVPB Q12 [facility]; Protocol Last Admin: 08/07/18 12:10 Dose: 100 mls/hr Insulin Detemir (Levemir) 24 unit SC HS [facility] Last Admin: 08/06/18 21:38 Dose: 24 units Insulin Human Lispro (Humalog Low) 0 units SC ACHS [facility]; Protocol Last Admin: 08/07/18 12:11 Dose: Not Given Levetiracetam (Keppra) 250 mg PO Q12 [facility] Last Admin: 08/07/18 12:09 Dose: 250 mg Lisinopril (Zestril) 2.5 mg PO DAILY [facility] Last Admin: 08/06/18 10:02 Dose: 2.5 mg Metformin HCl (Glucophage) 500 mg PO BID [facility] Last Admin: 08/07/18 12:09 Dose: 500 mg Nystatin (Nystop Topical Powder) 0 gm TOP BID [facility] Last Admin: 08/07/18 12:12 Dose: 1 appl Pantoprazole Sodium (Protonix Ec Tab) 40 mg PO 0600 [facility] Last Admin: 08/07/18 05:50 Dose: 40 mg Sertraline HCl (Zoloft) 100 mg PO DAILY [facility] Last Admin: 08/07/18 12:09 Dose: 100 mg Simethicone (Mylicon Chew Tab) 80 mg PO PCHS PRN PRN Reason: GI distress Tamsulosin HCl (Flomax) 0.4 mg PO DAILY [facility] Last Admin: 08/07/18 12:09 Dose: 0.4 mg - Labs Labs: 08/07/18 06:30 08/07/18 06:30 - Constitutional Appears: Well, No Acute Distress - Head Exam Head Exam: ATRAUMATIC, NORMAL INSPECTION - Eye Exam Eye Exam: EOMI. absent: Scleral icterus - ENT Exam ENT Exam: Mucous Membranes Dry. absent: Mucous Membranes Moist - Respiratory Exam Respiratory Exam: NORMAL BREATHING PATTERN. absent: Accessory Muscle Use - GI/Abdominal Exam GI & Abdominal Exam: Soft, Normal Bowel Sounds. absent: Distended, Firm, Guarding, Rigid, Tenderness, Mass Assessment and Plan - Assessment and Plan (Free Text) Assessment: 68 yo WM with CVA (R sided deficits), DM, CHF, CAD, Seizure disorder, HTN, HLD, Recurrent UTIs and Nephrolithiasis presenting with Abd Pain. # Abd/Flank Pain: Suspect related to Nephrolithiasis with UTI with dirty UA and GNR growing on UCx. Abd US with CBD 5.3 mm. CMP unremarkable. Symptoms also concerning for possible PUD given NSAID use. Also, given uncontrolled blood sugar, gastroparesis on the differential. Plan: - No plan for EGD today given improvement in symptoms - Rec EGD/CSPY as outpatient - Pseudomonas growing in UCx, on Cefepime with ID - Urology on consult - PPI QD - Advanced diet to Carb Count Thank you for the consult. Will sign off. Please call if questions. Pt seen and examined with Dr. Hinds; please see attestation for further recs/changes. <Hema Hinds V - Last Filed: 08/07/18 18:47> Objective - Vital Signs/Intake and Output Vital Signs (last 24 hours): Temp Pulse Resp BP Pulse Ox 98 F 70 18 122/70 94 L 08/07/18 14:00 08/07/18 14:00 08/07/18 14:00 08/07/18 14:00 08/07/18 14:00 Intake and Output: 08/07/18 08/07/18 06:59 18:59 Intake Total 0 Output Total 300 Balance -300 - Medications Medications: Current Medications Acetaminophen (Tylenol 325mg Tab) 650 mg PO Q6H PRN PRN Reason: Fever >100.4 F Last Admin: 05/24/19 05:05 Dose: 650 mg Albuterol/Ipratropium (Duoneb 3 Mg/0.5 Mg (3 Ml) Ud) 3 ml IH Q2H PRN PRN Reason: Shortness of Breath Albuterol/Ipratropium (Duoneb 3 Mg/0.5 Mg (3 Ml) Ud) 3 ml IH [id number] [facility] Last Admin: 08/07/18 13:24 Dose: 3 ml Aspirin (Aspirin Chewable) 81 mg PO DAILY [facility] Last Admin: 08/07/18 12:08 Dose: 81 mg Atorvastatin Calcium (Lipitor) 80 mg PO DAILY [facility] Last Admin: 08/07/18 12:10 Dose: 80 mg Carvedilol (Coreg) 3.125 mg PO BID [facility] Last Admin: 08/06/18 18:18 Dose: 3.125 mg Dextrose (Dextrose 50% Inj) 0 ml IV STAT PRN; Protocol PRN Reason: Hypoglycemia Protocol Digoxin (Lanoxin) 0.25 mg PO 1400 [facility] Last Admin: 08/07/18 14:40 Dose: 0.25 mg Docusate Sodium (Colace) 100 mg PO BID [facility] Last Admin: 08/07/18 17:35 Dose: 100 mg Finasteride (Proscar) 5 mg PO DAILY [facility] Last Admin: 08/07/18 12:08 Dose: 5 mg Glimepiride (Amaryl) 4 mg PO ACBD [facility] Last Admin: 08/07/18 17:34 Dose: 4 mg Heparin Sodium (Porcine) (Heparin) 5,000 units SC Q8 [facility]; Protocol Last Admin: 08/07/18 14:39 Dose: 5,000 units Dextrose (Dextrose 5% In Water 1000 Ml) 1,000 mls @ 0 mls/hr IV .Q0M PRN; Protocol PRN Reason: Hypoglycemia Protocol Meropenem (Merrem Iv 1 Gm Premix) 1 gm in 50 mls @ 100 mls/hr IVPB Q8 [facility]; Protocol Stop: 08/11/18 13:16 Last Admin: 08/07/18 14:39 Dose: 100 mls/hr Doxycycline Hyclate 100 mg/ (Sodium Chloride) 100 mls @ 100 mls/hr IVPB Q12 [facility]; Protocol Last Admin: 08/07/18 12:10 Dose: 100 mls/hr Insulin Detemir (Levemir) 24 unit SC HS [facility] Last Admin: 08/06/18 21:38 Dose: 24 units Insulin Human Lispro (Humalog Low) 0 units SC ACHS [facility]; Protocol Last Admin: 08/07/18 12:11 Dose: Not Given Levetiracetam (Keppra) 250 mg PO Q12 [facility] Last Admin: 08/07/18 12:09 Dose: 250 mg Lisinopril (Zestril) 2.5 mg PO DAILY [facility] Last Admin: 08/06/18 10:02 Dose: 2.5 mg Metformin HCl (Glucophage) 500 mg PO BID [facility] Last Admin: 08/07/18 17:34 Dose: 500 mg Multivitamins/Minerals (Therapeutic-M Tab) 1 tab PO 0800 [facility] Nystatin (Nystop Topical Powder) 0 gm TOP BID [facility] Last Admin: 08/07/18 12:12 Dose: 1 appl Pantoprazole Sodium (Protonix Ec Tab) 40 mg PO 0600 [facility] Last Admin: 08/07/18 05:50 Dose: 40 mg Sertraline HCl (Zoloft) 100 mg PO DAILY [facility] Last Admin: 08/07/18 12:09 Dose: 100 mg Simethicone (Mylicon Chew Tab) 80 mg PO [facility] PRN PRN Reason: GI distress Tamsulosin HCl (Flomax) 0.4 mg PO DAILY [facility] Last Admin: 08/07/18 12:09 Dose: 0.4 mg - Labs Labs: 08/07/18 06:30 08/07/18 06:30 Attending/Attestation - Attestation I have personally seen and examined this patient.: Yes I have fully participated in the care of the patient.: Yes I have reviewed all pertinent clinical information, including history, physical exam and plan: Yes Notes (Text): This is an addendum to the GI progress note dictated by the fellow. The patient was seen and evaluated along with the GI fellow earlier. Clinically patient feels much improved. Right-sided abdominal discomfort has improved. This patient never had a colonoscopy. He would benefit from elective EGD and colonoscopy as an outpatient. Patient has history of taking NSAIDs. Is reason able to consider short course of PPI and EGD and colonoscopy as an outpatient. Thank you very much for allowing us to participate in the care of the patient. We will sign off now please reconsult as needed 08/07/18 18:43 08/07/18 18:46
[2018-08-07] MEDS: Digoxin 250 mcg (0.25 mg) Tab PO SCH (14:40)
--- NOTE | 2018-08-07 15:30 | CP.PCM.PN ---
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 seen and examined at bedside this morning Reports he is hungry/ has appetite ; no complaints of n/v Reports BM yesterday however has not had BM as per nursing No urinary complaints Denies fevers/ chills, cp, sob, cough, sputum, sore throat. Objective - Vital Signs/Intake and Output Vital Signs (last 24 hours): Temp Pulse Resp BP Pulse Ox 98 F 70 18 122/70 94 L 08/07/18 14:00 08/07/18 14:00 08/07/18 14:00 08/07/18 14:00 08/07/18 14:00 Intake and Output: 08/07/18 08/07/18 06:59 18:59 Intake Total 0 Output Total 300 Balance -300 - Medications Medications: Current Medications Acetaminophen (Tylenol 325mg Tab) 650 mg PO Q6H PRN PRN Reason: Fever >100.4 F Last Admin: 08/07/18 05:05 Dose: 650 mg Albuterol/Ipratropium (Duoneb 3 Mg/0.5 Mg (3 Ml) Ud) 3 ml IH Q2H PRN PRN Reason: Shortness of Breath Albuterol/Ipratropium (Duoneb 3 Mg/0.5 Mg (3 Ml) Ud) 3 ml IH [id number] [facility] Last Admin: 08/07/18 13:24 Dose: 3 ml Aspirin (Aspirin Chewable) 81 mg PO DAILY [facility] Last Admin: 08/07/18 12:08 Dose: 81 mg Atorvastatin Calcium (Lipitor) 80 mg PO DAILY [facility] Last Admin: 08/07/18 12:10 Dose: 80 mg Carvedilol (Coreg) 3.125 mg PO BID [facility] Last Admin: 08/06/18 18:18 Dose: 3.125 mg Dextrose (Dextrose 50% Inj) 0 ml IV STAT PRN; Protocol PRN Reason: Hypoglycemia Protocol Digoxin (Lanoxin) 0.25 mg PO 1400 [facility] Last Admin: 08/07/18 14:40 Dose: 0.25 mg Docusate Sodium (Colace) 100 mg PO BID [facility] Last Admin: 08/07/18 12:07 Dose: 100 mg Finasteride (Proscar) 5 mg PO DAILY [facility] Last Admin: 08/07/18 12:08 Dose: 5 mg Glimepiride (Amaryl) 4 mg PO ACBD [facility] Last Admin: 08/07/18 12:10 Dose: 4 mg Heparin Sodium (Porcine) (Heparin) 5,000 units SC Q8 [facility]; Protocol Last Admin: 08/07/18 14:39 Dose: 5,000 units Dextrose (Dextrose 5% In Water 1000 Ml) 1,000 mls @ 0 mls/hr IV .Q0M PRN; Protocol PRN Reason: Hypoglycemia Protocol Meropenem (Merrem Iv 1 Gm Premix) 1 gm in 50 mls @ 100 mls/hr IVPB Q8 [facility]; Protocol Stop: 08/11/18 13:16 Last Admin: 08/07/18 14:39 Dose: 100 mls/hr Doxycycline Hyclate 100 mg/ (Sodium Chloride) 100 mls @ 100 mls/hr IVPB Q12 [facility]; Protocol Last Admin: 08/07/18 12:10 Dose: 100 mls/hr Insulin Detemir (Levemir) 24 unit SC HS [facility] Last Admin: 08/06/18 21:38 Dose: 24 units Insulin Human Lispro (Humalog Low) 0 units SC ACHS [facility]; Protocol Last Admin: 08/07/18 12:11 Dose: Not Given Levetiracetam (Keppra) 250 mg PO Q12 [facility] Last Admin: 08/07/18 12:09 Dose: 250 mg Lisinopril (Zestril) 2.5 mg PO DAILY [facility] Last Admin: 08/06/18 10:02 Dose: 2.5 mg Metformin HCl (Glucophage) 500 mg PO BID [facility] Last Admin: 08/07/18 12:09 Dose: 500 mg Nystatin (Nystop Topical Powder) 0 gm TOP BID [facility] Last Admin: 08/07/18 12:12 Dose: 1 appl Pantoprazole Sodium (Protonix Ec Tab) 40 mg PO 0600 [facility] Last Admin: 08/07/18 05:50 Dose: 40 mg Sertraline HCl (Zoloft) 100 mg PO DAILY [facility] Last Admin: 08/07/18 12:09 Dose: 100 mg Simethicone (Mylicon Chew Tab) 80 mg PO P[facility] PRN PRN Reason: GI distress Tamsulosin HCl (Flomax) 0.4 mg PO DAILY [facility] Last Admin: 08/07/18 12:09 Dose: 0.4 mg - Labs Labs: 08/07/18 06:30 08/07/18 06:30 Assessment and Plan - Assessment and Plan (Free Text) Assessment: 68M PMH of CHF, CAD, CVA w/ R sided deficit, Sz, HTN, HLD; Most signifcantly prostectomy, recurrent UTI [place] [facility] [place] w/ complaints of R sided flank pain. Admitted for pyelonephritis and recurrent UTI Plan: R Sided Pyelonephritis : 08/05 CTAP - BL Perinephric fat thickening; R sided nonobstructive stone; Significant stool noted UA bacteruria/ pyuria UCX growing pseudomonas C/w Merrem Day#3 as per ID; x1 dose amikacin given last night Afebrile overnight; no leukocytosis; BCX 08/05 and 08/06 x2 negative to date C/w Home Finasteride [Proscar] 5 mg PO DAILY C/w Home Tamsulosin [Flomax] 0.4 mg PO DAILY Tylenol PRN fevers Urology Following, Appreciate reccs GI Following, Appreciate reccs ID Following, Appreciate reccs Bibasilar PNA 08/06 CT CAP - Bibasilar infiltrates R>L suggestive of Bibasilar PNA Start doxy as per ID Duonebs PRN Sympomatic management PRN ID Following, Appreciate reccs KAROLINE - 2/2 Hypotension overnight vs Medication induced nephrotoxicity vs Obstructive stone BUN/Cr elevated - Ratio - 14.4 ; possible post obstructive etiology Will monitor overnight; repeat imaging if worsening Hold home lasix Hold Lisinopril Will monitor w/ bladder scan Given CHF will avoid aggressive IVF ressuscitation Monitor urine output / strict IO Hypotension Hold home coreg BID Hold Home Lisinopril Constipation - Chronic vs Gastroparesis Diet advanced this morning Reports having appetite Patient given prune juice Avoid opiate C/w Colace 100 BID C/w simethicone prn No N/V however complains of poor appetite No BM in 2-3 days GI Following, Appreciate reccs Hyperglycemia A1C - 14.3 ; No prior Dx of DM As per endocrinology Start Metformin 500 BID Start Insulin LIspor- Low - ACHS Start Levemir 24 HS STOP ISS Med ACHS Fingerstick ACHS Chronic: SZ C/w Home levETIRAcetam [Keppra] 250 mg PO Q12 C/w Home Sertraline [Zoloft] 100 mg PO DAILY [facility] Resume Clopidogrel [Plavix] 75 mg PO DAILY Hold Home Carvedilol [Coreg] 3.125 mg PO BID [facility]F Hold Home Furosemide [Lasix] 40 mg PO DAILY C/w Home Digoxin [Lanoxin] 0.25 mg PO 1400 HTN Hold Home Lisinopril [Zestril] 2.5 mg PO DAILY [facility] Rx as above CVA C/w Home Aspirin [Aspirin Chewable] 81 mg PO DAILY C/w Home Atorvastatin [Lipitor] 80 mg PO DAILY Patient was seen, examined, discussed w/ attending Dr. Arielle Tompkins DO PGY1 - Internal Medicine [employer] Mist[employer] <Arielle Tompkins R - Last Filed: 08/08/18 12:35> Objective - Vital Signs/Intake and Output Vital Signs (last 24 hours): Temp Pulse Resp BP Pulse Ox 98.5 F 80 18 124/64 95 08/08/18 06:00 08/08/18 06:00 08/08/18 06:00 08/08/18 06:00 08/08/18 06:00 Intake and Output: 08/08/18 08/08/18 06:59 18:59 Intake Total 660 Balance 660 - Medications Medications: Current Medications Acetaminophen (Tylenol 325mg Tab) 650 mg PO Q6H PRN PRN Reason: Fever >100.4 F Last Admin: 08/07/18 05:05 Dose: 650 mg Albuterol/Ipratropium (Duoneb 3 Mg/0.5 Mg (3 Ml) Ud) 3 ml IH Q2H PRN PRN Reason: Shortness of Breath Albuterol/Ipratropium (Duoneb 3 Mg/0.5 Mg (3 Ml) Ud) 3 ml IH [id number] [facility] Last Admin: 08/08/18 08:03 Dose: 3 ml Aspirin (Aspirin Chewable) 81 mg PO DAILY [facility] Last Admin: 08/08/18 10:52 Dose: 81 mg Atorvastatin Calcium (Lipitor) 80 mg PO DAILY [facility] Last Admin: 08/08/18 10:52 Dose: 80 mg Carvedilol (Coreg) 3.125 mg PO BID [facility] Last Admin: 08/06/18 18:18 Dose: 3.125 mg Dextrose (Dextrose 50% Inj) 0 ml IV STAT PRN; Protocol PRN Reason: Hypoglycemia Protocol Digoxin (Lanoxin) 0.25 mg PO 1400 [facility] Last Admin: 08/07/18 14:40 Dose: 0.25 mg Docusate Sodium (Colace) 100 mg PO BID [facility] Last Admin: 08/08/18 10:52 Dose: 100 mg Doxycycline Hyclate (Doryx) 100 mg PO Q12 [facility]; Protocol Stop: 08/13/18 22:01 Finasteride (Proscar) 5 mg PO DAILY [facility] Last Admin: 08/08/18 10:52 Dose: 5 mg Glimepiride (Amaryl) 4 mg PO ACBD [facility] Last Admin: 08/08/18 10:52 Dose: 4 mg Heparin Sodium (Porcine) (Heparin) 5,000 units SC Q8 [facility]; Protocol Last Admin: 08/08/18 05:46 Dose: 5,000 units Dextrose (Dextrose 5% In Water 1000 Ml) 1,000 mls @ 0 mls/hr IV .Q0M PRN; Protocol PRN Reason: Hypoglycemia Protocol Meropenem (Merrem Iv 1 Gm Premix) 1 gm in 50 mls @ 100 mls/hr IVPB Q8 [facility]; Protocol Stop: 08/11/18 13:16 Last Admin: 08/08/18 05:46 Dose: 100 mls/hr Insulin Detemir (Levemir) 20 unit SC HS [facility] Insulin Human Lispro (Humalog Low) 0 units SC ACHS [facility]; Protocol Last Admin: 08/08/18 10:58 Dose: Not Given Levetiracetam (Keppra) 250 mg PO Q12 [facility] Last Admin: 08/08/18 10:52 Dose: 250 mg Lisinopril (Zestril) 2.5 mg PO DAILY [facility] Last Admin: 08/06/18 10:02 Dose: 2.5 mg Metformin HCl (Glucophage) 500 mg PO BID [facility] Last Admin: 08/08/18 10:52 Dose: 500 mg Multivitamins/Minerals (Therapeutic-M Tab) 1 tab PO 0800 [facility] Last Admin: 08/08/18 10:52 Dose: 1 tab Nystatin (Nystop Topical Powder) 0 gm TOP BID [facility] Last Admin: 08/08/18 10:58 Dose: 1 appl Pantoprazole Sodium (Protonix Ec Tab) 40 mg PO 0600 [facility] Last Admin: 08/08/18 05:46 Dose: 40 mg Senna/Docusate Sodium (Senokot S 50 Mg-8.6 Mg) 1 tab PO HS [facility] Sertraline HCl (Zoloft) 100 mg PO DAILY [facility] Last Admin: 08/08/18 10:52 Dose: 100 mg Simethicone (Mylicon Chew Tab) 80 mg PO [facility] PRN PRN Reason: GI distress Tamsulosin HCl (Flomax) 0.4 mg PO DAILY [facility] Last Admin: 08/08/18 10:52 Dose: 0.4 mg - Labs Labs: 08/08/18 06:00 08/08/18 06:00 Attending/Attestation - Attestation I have personally seen and examined this patient.: Yes I have fully participated in the care of the patient.: Yes I have reviewed all pertinent clinical information, including history, physical exam and plan: Yes Notes (Text): Patient seen and examined by me with resident at approximately 11:35AM on 08/07/18. Case including HPI, physical exam, and assessment and plan discussed with resident. Agree with above with following additions/corrections. Patient states that he is feels ok. He states he feels tired. States abdominal pain has improved. Patient states he had a bowel movement, however, no bowel mov ement recorded. Confirmed no bowel movement with patient's nurse. No nausea or vomiting. Patient denies chest pain or shortness of breath. Patient denies fevers or chills. Afebrile today. No dysuria. Physical exam: General: Awake and alert lying in bed in no acute distress HEENT: Normocephalic, atraumatic. Extraocular muscles intact. Pupils equal and reactive, no scleral icterus. Oropharynx is pink and moist. Neck is supple. Cardiovascular: Normal rhythm. Normal S1 and S2. No murmurs, rubs, or gallops appreciated Pulmonary: Normal respiratory effort. No rhonchi, rales, or wheezing appreciated . Gastrointestinal: Soft. Nondistended. Positive right sided abdominal tenderness when palpated (however patient denies when asked). Positive bowel sounds all 4 quadrants. No guarding. Musculoskeletal: Moves all extremities. No calf tenderness. No edema appreciated. Positive right CVA tenderness Central nervous system: Awake and alert. Positive right sided weakness when compared to left (chronic from previous CVA). Dermatologic: Skin warm and dry. Assessment and plan: Patient is a 68 year old male with past medical history significant for chronic systolic CHF, CAD, CVA with right sided deficit, seizure disorder, hypertension, hyperlipidemia, prostectomy, and recurrent UTI that presented with right sided flank pain. 1. Right flank and right abdominal pain. GI recommendations appreciated. Diet advanced. Continue protonix. Patient to have outpatient EGD/Colonoscopy. Continue colace. Monitor for bowel movement. Urology recommendations appreciated. No intervention for now since patient with nonobstructing stones, patient to follow up outpatient CT abd/pelvis on 08/05/18 per radiologist showed right nephrolithasis, nonobstructive; left hydroureter without obstructive calculus; cholelithasis. Abdominal ultrasound per radiologist showed unremarkable abdominal sonogram. 2. Fever. UTI. Bilateral pneumonia. Fever resolved. Positive leukocytosis. Urine culture positive for pseudomonas. Blood cultures with no growth. Continue Merrem and doxycline. ID recommendations appreciated. CT chest/abd/pelvis per radiologist showed bibasilar dense consolidaion consistent with pneumonias, right greater than left. 3. KAROLINE. Maybe secondary to Lasix and hypoperfusion secondary to hypotension. BP medications held. Lasix held. Follow up repeat labs in AM. 4. Constipation. Continue colace. Continue to monitor for bowel movement. 5. DM2, uncontrolled. Hgb A1C 14.3. [place] recommendations appreciated. Continue insulin sliding scale. Continue metformin and Amaryl. Continue to monitor accuchecks. Diabetic education. 6. Seizure disorder. Continue home Keppra 7. Chronic systolic CHF. Not in acute exacerbation. Continue ASA and digoxin. Lisinopril and Coreg held for now secondary to hypotension. Lasix also held. 8. CAD. No acute issues. Continue ASA and Lipitor. Coreg and Lisinopril held for now secondary to hypotension. 9. Hypertension. Coreg and Lisinopril held secondary to hypotension. 10. History of prostectomy. Continue flomax and proscar 11. Depression. Continue Zoloft 12. History of CVA with residual right sided weakness. Continue ASA and Lipitor. 13. GI/DVT prophylaxis. Protonix/heparin. Case was discussed in detail with the patient regarding current diagnosis, study results, and treatment plan. All questions answered. Patient's daughter also updated by team.
--- NOTE | 2018-08-07 15:39 | PN ---
DATE: 08/07/2018 ENDO FOLLOWUP LOCATION: Room 565. SUBJECTIVE: This is a 68-year-old male with recent uncontrolled type 2 insulin-requiring diabetes, presenting here with right flank pain and underlying pyelonephritis with recurrent UTIs and is now being followed closely for metabolic management because of recent hyperglycemic accelerations as noted thereof. His glycemic levels are fluctuating, but much improved as noted overnight with glucose values ranging from 138 to 140 mg/dl. It was 271 at bedtime last night. His chemistries today showed a BUN of 26, sodium 136, potassium 3.9, chloride 102, CO2 of 24 and glucose 139 and creatinine 1.8. ASSESSMENT: This is a 68-year-old male with uncontrolled type 2 insulin-requiring diabetes, presenting here with right flank pain and pyelonephritis with recurrent urinary tract infection on the background of underlying nephrolithiasis and is now being followed closely for metabolic management. He also has diabetic microvascular complications of retinopathy, polyneuropathy and nephropathy with underlying chronic kidney disease. He also has diabetic microvascular complications of cerebrovascular disease with residual right hemiparesis and coronary artery disease and peripheral arterial disease and vasculopathy. PLAN OF MANAGEMENT: We will continue the modified basal and bolus insulin regimen to allow for dose equilibration. We will continue his Levemir given as 24 units subcutaneously at bedtime daily with metformin given 500 mg b.i.d. and Amaryl at 4 mg b.i.d. before meals was ordered. We will obtain serial chemistries and supplement accordingly as needed. We will also initiate diabetic education to include insulin self-administration and home glucose monitoring as he was never even treated for type 2 diabetes prior to this admission. We will also reinforce nutritional counseling with healthier food choices and weight loss efforts if at all possible. We will obtain serial chemistries and supplement accordingly needed. We will follow. Emi Flaherty MD
[2018-08-07] MEDS ORDERED: Oxycodone/Acetaminophen 5/325 mg Tab PO ONE (20:04)
[2018-08-07] MEDS ORDERED: Morphine 2 mg/ml ISec IVP ONE (20:46)
[2018-08-07] MEDS: Insulin Detemir 100 units/ml Vial (Levemir) SC SCH (22:48)
[2018-08-08] MEDS ORDERED: Morphine 2 mg/ml ISec IVP STA (00:50)
[2018-08-08] MEDS: Albuterol-Ipratrop 3 mg / 0.5 (3 ml) UD IH SCH ×3 (01:21→14:00)
[2018-08-08] MEDS: Meropenem IV 1 gm in NS 1 GM/50 ML BAG IVPB SCH ×3 (05:46→21:35)
[2018-08-08] MEDS: Pantoprazole 40 mg EC Tab PO SCH (05:46)
[2018-08-08 07:38] LABS: BASO # 0.01 K/mm3 (0.0-2.0); BASO % 0.1 % (0.0-3.0); EOS # 0.2 (0.0-0.7); EOS % 1.6 % (1.5-5.0); HEMOGLOBIN 11.8 g/dL (14.0-18.0); LYMPH % 9.3 % (22.0-35.0); MEAN CELL VOLUME 86.5 fl (80.0-105.0); MEAN CORPUSCULAR HEMOGLOBIN 27.9 pg (25.0-35.0); MEAN CORPUSCULAR HGB CONC 32.2 g/dl (31.0-37.0); MEAN PLATELET VOLUME 9.7 fl (7.0-11.0); MONO # 1.2 (0.1-0.6); MONO % 11.4 % (1.0-6.0); RBC 4.23 10^6/uL (3.5-6.1); RED CELL DISTRIBUTION WIDTH 14.1 % (11.5-14.5); WHITE BLOOD COUNT 10.8 10^3/uL (4.5-11.0)
[2018-08-08 07:57] LABS: ALBUMIN 3.2 g/dL (3.0-4.8); ALT/SGPT 19 U/L (7-56); AST/SGOT 18 U/L (17-59); BLOOD UREA NITROGEN 22 mg/dL (7-21); CALCIUM 8.8 mg/dL (8.4-10.5); GFR NON-AFRICAN AMERICAN 51
[2018-08-08] MEDS: Multivitamin With Minerals Tab PO SCH (10:52)
[2018-08-08] MEDS: Nystatin 100,000 Units/gm Topical Pow(15 gm) TOP SCH ×2 (10:58→17:25)
[2018-08-08] MEDS: Insulin Lispro (humaLOG) LOW Coverage SC SCH ×3 (10:58→20:34)
[2018-08-08] MEDS: Digoxin 250 mcg (0.25 mg) Tab PO SCH (13:19)
--- NOTE | 2018-08-08 13:40 | CP.PCM.PN ---
<Edson Tompkins - Last Filed: 08/08/18 13:35> Subjective - Date & Time of Evaluation Date of Evaluation: 08/08/18 Time of Evaluation: 09:00 - Subjective Subjective: Edson Tompkins DO PGy1 - Internal Medicine Textbook Associate Pt. was seen and examined at bedside this morning; Overnight no BM reported, Still has complaints of abdominal pain. Denies coughing; no fevers/ chills, chest pain, sob. Objective - Vital Signs/Intake and Output Vital Signs (last 24 hours): Temp Pulse Resp BP Pulse Ox 98.5 F 80 18 124/64 95 08/08/18 06:00 08/08/18 06:00 08/08/18 06:00 08/08/18 06:00 08/08/18 06:00 Intake and Output: 08/08/18 08/08/18 06:59 18:59 Intake Total 660 Balance 660 - Medications Medications: Current Medications Acetaminophen (Tylenol 325mg Tab) 650 mg PO Q6H PRN PRN Reason: Fever >100.4 F Last Admin: 08/07/18 05:05 Dose: 650 mg Albuterol/Ipratropium (Duoneb 3 Mg/0.5 Mg (3 Ml) Ud) 3 ml IH Q2H PRN PRN Reason: Shortness of Breath Albuterol/Ipratropium (Duoneb 3 Mg/0.5 Mg (3 Ml) Ud) 3 ml IH [id number] [facility] Last Admin: 08/08/18 08:03 Dose: 3 ml Aspirin (Aspirin Chewable) 81 mg PO DAILY [facility] Last Admin: 08/08/18 10:52 Dose: 81 mg Atorvastatin Calcium (Lipitor) 80 mg PO DAILY [facility] Last Admin: 08/08/18 10:52 Dose: 80 mg Carvedilol (Coreg) 3.125 mg PO BID [facility] Dextrose (Dextrose 50% Inj) 0 ml IV STAT PRN; Protocol PRN Reason: Hypoglycemia Protocol Digoxin (Lanoxin) 0.25 mg PO 1400 [facility] Last Admin: 08/08/18 13:19 Dose: 0.25 mg Docusate Sodium (Colace) 100 mg PO BID PRN PRN Reason: Constipation Doxycycline Hyclate (Doryx) 100 mg PO Q12 [facility]; Protocol Stop: 08/13/18 22:01 Finasteride (Proscar) 5 mg PO DAILY [facility] Last Admin: 08/08/18 10:52 Dose: 5 mg Glimepiride (Amaryl) 4 mg PO ACBD [facility] Last Admin: 08/08/18 10:52 Dose: 4 mg Heparin Sodium (Porcine) (Heparin) 5,000 units SC Q8 [facility]; Protocol Last Admin: 08/08/18 13:18 Dose: 5,000 units Dextrose (Dextrose 5% In Water 1000 Ml) 1,000 mls @ 0 mls/hr IV .Q0M PRN; Protocol PRN Reason: Hypoglycemia Protocol Meropenem (Merrem Iv 1 Gm Premix) 1 gm in 50 mls @ 100 mls/hr IVPB Q8 [facility]; Protocol Stop: 08/11/18 13:16 Last Admin: 08/08/18 13:18 Dose: 100 mls/hr Insulin Detemir (Levemir) 20 unit SC HS [facility] Insulin Human Lispro (Humalog Low) 0 units SC ACHS [facility]; Protocol Last Admin: 08/08/18 10:58 Dose: Not Given Levetiracetam (Keppra) 250 mg PO Q12 [facility] Last Admin: 08/08/18 10:52 Dose: 250 mg Lisinopril (Zestril) 2.5 mg PO DAILY [facility] Metformin HCl (Glucophage) 500 mg PO BID [facility] Last Admin: 08/08/18 10:52 Dose: 500 mg Multivitamins/Minerals (Therapeutic-M Tab) 1 tab PO 0800 [facility] Last Admin: 08/08/18 10:52 Dose: 1 tab Nystatin (Nystop Topical Powder) 0 gm TOP BID [facility] Last Admin: 08/08/18 10:58 Dose: 1 appl Pantoprazole Sodium (Protonix Ec Tab) 40 mg PO 0600 [facility] Last Admin: 08/08/18 05:46 Dose: 40 mg Sertraline HCl (Zoloft) 100 mg PO DAILY [facility] Last Admin: 08/08/18 10:52 Dose: 100 mg Simethicone (Mylicon Chew Tab) 80 mg PO PCHS PRN PRN Reason: GI distress Tamsulosin HCl (Flomax) 0.4 mg PO DAILY [facility] Last Admin: 08/08/18 10:52 Dose: 0.4 mg Tramadol HCl (Ultram) 50 mg PO TID PRN PRN Reason: Pain, severe (8-10) Last Admin: 08/08/18 13:18 Dose: 50 mg - Labs Labs: 08/08/18 06:00 08/08/18 06:00 - Constitutional Appears: Non-toxic, No Acute Distress - Head Exam Head Exam: ATRAUMATIC, NORMOCEPHALIC - Eye Exam Eye Exam: EOMI, PERRL. absent: Scleral icterus - Respiratory Exam Respiratory Exam: Clear to Ausculation Bilateral - Cardiovascular Exam Cardiovascular Exam: RRR - GI/Abdominal Exam GI & Abdominal Exam: Soft, Tenderness (minimal tenderness ) - Neurological Exam Neurological Exam: Alert, Awake, CN II-XII Intact Additional comments: R sided weakness - Psychiatric Exam Psychiatric exam: Normal Affect, Normal Mood - Skin Skin Exam: Dry, Intact, Warm Assessment and Plan - Assessment and Plan (Free Text) Assessment: 68M PMH of CHF, CAD, CVA w/ R sided deficit, Sz, HTN, HLD; Most signifcantly prostectomy, recurrent UTI presenting to [facility] on 08/05 w/ complaints of R sided flank pain. Admitted for pyelonephritis and recurrent UTI Plan: R Sided Pyelonephritis : 08/05 CTAP - BL Perinephric fat thickening; R sided nonobstructive stone; Significant stool noted; no CVA tenderness on exam UA bacteruria/ pyuria UCX growing pseudomonas Repeat UCX from 08/06 growing yeast C/w Merrem Day#4 Afebrile overnight; no leukocytosis; BCX 08/05 and 08/06 x2 negative to date C/w Home Finasteride [Proscar] 5 mg PO DAILY C/w Home Tamsulosin [Flomax] 0.4 mg PO DAILY Tylenol PRN fevers Tramadol PRN pain Urology - Outpt follow up Urology Following, Appreciate reccs GI Following, Appreciate reccs ID Following, Appreciate reccs Bibasilar PNA 08/06 CT CAP - Bibasilar infiltrates R>L suggestive of Bibasilar PNA; No SOB / Cough C/w doxy day #2 as per ID Duonebs PRN Sympomatic management PRN ID Following, Appreciate reccs Constipation - Chronic vs Gastroparesis Continues tolerating diet; BM today; will make docusate PRN Avoid opiate ; tramadol prn pain C/w simethicone prn GI Following, Appreciate reccs - Will need elective EGD/Colonoscopy as outpt KAROLINE - 2/2 Medication induced nephrotoxicity vs Obstructive stone Lasix held yesterday; BUN/Cr improving; KAROLINE most likely due to lasix Continue Holding lasix Hx CHF - Avoid fluid overload Monitor urine output / strict IO Hypotension - Resolved Today Resume Coreg BID w/ hold parameters SBP <110, HR <60 Resume Lisinopril w/ hold parameters SBP <110, HR <60 Hyperglycemia - BG's improving A1C - 14.3 ; No prior Dx of DM As per endocrinology: Continue Metformin 500 BID Continue Insulin LIspor- Low - ACHS Continue Levemir 24 HS Continue Glimepiride 4mg ACBD Fingerstick ACHS Chronic: SZ C/w Home levETIRAcetam [Keppra] 250 mg PO Q12 C/w Home Sertraline [Zoloft] 100 mg PO DAILY CAD Resume Clopidogrel [Plavix] 75 mg PO DAILY Resume Home Carvedilol [Coreg] 3.125 mg PO BID CHF Resume Home Furosemide [Lasix] 40 mg PO DAILY C/w Home Digoxin [Lanoxin] 0.25 mg PO 1400 HTN Hold Home Lisinopril [Zestril] 2.5 mg PO DAILY BPH Rx as above CVA C/w Home Aspirin [Aspirin Chewable] 81 mg PO DAILY C/w Home Atorvastatin [Lipitor] 80 mg PO DAILY Patient was seen, examined, discussed w/ attending Dr. Arielle Tompkins DO PGY1 - Internal Medicine Textbook Associate <Arielle Tompkins R - Last Filed: 08/08/18 14:51> Objective - Vital Signs/Intake and Output Vital Signs (last 24 hours): Temp Pulse Resp BP Pulse Ox 98.5 F 80 18 124/64 95 08/08/18 06:00 08/08/18 06:00 08/08/18 06:00 08/08/18 06:00 08/08/18 06:00 Intake and Output: 08/08/18 08/08/18 06:59 18:59 Intake Total 660 Balance 660 - Medications Medications: Current Medications Acetaminophen (Tylenol 325mg Tab) 650 mg PO Q6H PRN PRN Reason: Fever >100.4 F Last Admin: 08/07/18 05:05 Dose: 650 mg Albuterol/Ipratropium (Duoneb 3 Mg/0.5 Mg (3 Ml) Ud) 3 ml IH Q2H PRN PRN Reason: Shortness of Breath Albuterol/Ipratropium (Duoneb 3 Mg/0.5 Mg (3 Ml) Ud) 3 ml IH [id number] [facility] Last Admin: 08/08/18 14:00 Dose: 3 ml Aspirin (Aspirin Chewable) 81 mg PO DAILY [facility] Last Admin: 08/08/18 10:52 Dose: 81 mg Atorvastatin Calcium (Lipitor) 80 mg PO DAILY [facility] Last Admin: 08/08/18 10:52 Dose: 80 mg Carvedilol (Coreg) 3.125 mg PO BID [facility] Dextrose (Dextrose 50% Inj) 0 ml IV STAT PRN; Protocol PRN Reason: Hypoglycemia Protocol Digoxin (Lanoxin) 0.25 mg PO 1400 [facility] Last Admin: 08/08/18 13:19 Dose: 0.25 mg Docusate Sodium (Colace) 100 mg PO BID PRN PRN Reason: Constipation Doxycycline Hyclate (Doryx) 100 mg PO Q12 [facility]; Protocol Stop: 08/13/18 22:01 Finasteride (Proscar) 5 mg PO DAILY [facility] Last Admin: 08/08/18 10:52 Dose: 5 mg Glimepiride (Amaryl) 4 mg PO ACBD [facility] Last Admin: 08/08/18 10:52 Dose: 4 mg Heparin Sodium (Porcine) (Heparin) 5,000 units SC Q8 [facility]; Protocol Last Admin: 08/08/18 13:18 Dose: 5,000 units Dextrose (Dextrose 5% In Water 1000 Ml) 1,000 mls @ 0 mls/hr IV .Q0M PRN; Protocol PRN Reason: Hypoglycemia Protocol Meropenem (Merrem Iv 1 Gm Premix) 1 gm in 50 mls @ 100 mls/hr IVPB Q8 [facility]; Protocol Stop: 08/11/18 13:16 Last Admin: 08/08/18 13:18 Dose: 100 mls/hr Insulin Detemir (Levemir) 20 unit SC HS [facility] Insulin Human Lispro (Humalog Low) 0 units SC ACHS [facility]; Protocol Last Admin: 08/08/18 10:58 Dose: Not Given Levetiracetam (Keppra) 250 mg PO Q12 [facility] Last Admin: 08/08/18 10:52 Dose: 250 mg Lisinopril (Zestril) 2.5 mg PO DAILY [facility] Metformin HCl (Glucophage) 500 mg PO BID [facility] Last Admin: 08/08/18 10:52 Dose: 500 mg Multivitamins/Minerals (Therapeutic-M Tab) 1 tab PO 0800 [facility] Last Admin: 08/08/18 10:52 Dose: 1 tab Nystatin (Nystop Topical Powder) 0 gm TOP BID [facility] Last Admin: 08/08/18 10:58 Dose: 1 appl Pantoprazole Sodium (Protonix Ec Tab) 40 mg PO 0600 [facility] Last Admin: 08/08/18 05:46 Dose: 40 mg Sertraline HCl (Zoloft) 100 mg PO DAILY [facility] Last Admin: 08/08/18 10:52 Dose: 100 mg Simethicone (Mylicon Chew Tab) 80 mg PO [facility] PRN PRN Reason: GI distress Tamsulosin HCl (Flomax) 0.4 mg PO DAILY [facility] Last Admin: 08/08/18 10:52 Dose: 0.4 mg Tramadol HCl (Ultram) 50 mg PO TID PRN PRN Reason: Pain, severe (8-10) Last Admin: 08/08/18 13:18 Dose: 50 mg - Labs Labs: 08/08/18 06:00 08/08/18 06:00 Attending/Attestation - Attestation I have personally seen and examined this patient.: Yes I have fully participated in the care of the patient.: Yes I have reviewed all pertinent clinical information, including history, physical exam and plan: Yes Notes (Text): Patient seen and examined by me with resident at approximately 9:50AM on 08/08/18. Case including HPI, physical exam, and assessment and plan discussed with resident. Agree with above with following additions/corrections. Patient states that he is doing ok. Patient states abdominal pain has resolved. However, patient did require morphine overnight for pain. Patient also tender when palpated. Patient tolerating diet. No nausea or vomiting. Patient had liquid bowel movement per nurse. Patient denies chest pain or shortness of hector ath. Patient denies fevers or chills. He is afebrile No dysuria. Physical exam: General: Awake and alert lying in bed in no acute distress HEENT: Normocephalic, atraumatic. Extraocular muscles intact. Pupils equal and reactive, no scleral icterus. Oropharynx is pink and moist. Neck is supple. Cardiovascular: Normal rhythm. Normal S1 and S2. No murmurs, rubs, or gallops appreciated Pulmonary: Normal respiratory effort. No rhonchi, rales, or wheezing appreciated. Gastrointestinal: Soft. Nondistended. Positive right sided abdominal tenderness when palpated. Positive bowel sounds all 4 quadrants. No guarding. Musculoskeletal: Moves all extremities. No calf tenderness. No edema appreciated. No right CVA tenderness today. Central nervous system: Awake and alert. Positive right sided weakness when compared to left (chronic from previous CVA). Dermatologic: Skin warm and dry. Assessment and plan: Patient is a 68 year old male with past medical history significant for chronic systolic CHF, CAD, CVA with right sided deficit, seizure disorder, hypertension, hyperlipidemia, prostectomy, and recurrent UTI that presented with right sided flank pain. 1. Right flank and right abdominal pain. GI recommendations appreciated. Diet advanced and patient tolerating. Continue protonix. Patient to have outpatient EGD/Colonoscopy. Colace changed to prn. Started on tramadol prn for pain. Urology recommendations appreciated. No intervention for now since patient with nonobstructing stones, patient to follow up outpatient CT abd/pelvis on 08/05/18 per radiologist showed right nephrolithasis, nono bstructive; left hydroureter without obstructive calculus; cholelithasis. Abdominal ultrasound per radiologist showed unremarkable abdominal sonogram. 2. Fever. UTI. Bilateral pneumonia. Fever resolved. Leukocytosis resolved. Urine culture positive for pseudomonas. Repeat urine culture positive for yeast. Blood cultures with no growth. Continue Merrem and doxycline. ID recommendations appreciated. CT chest/abd/pelvis per radiologist showed bibasilar dense consolidaion consistent with pneumonias, right greater than left. 3. KAROLINE. Maybe secondary to Lasix and hypoperfusion secondary to hypotension. Improved. Lasix held. Continue to monitor. 4. Constipation. Resolved. Continue colace prn. Continue to monitor 5. DM2, uncontrolled. Hgb A1C 14.3. Computer Installation Engineer recommendations appreciated. Continue insulin sliding scale. Continue metformin and Amaryl. Continue Levemir. Continue to monitor accuchecks. Diabetic education. 6. Seizure disorder. Continue Keppra 7. Chronic systolic CHF. Not in acute exacerbation. Continue ASA and digoxin. Lisinopril and Coreg restarted with hold parameters. Lasix also held. 8. CAD. No acute issues. Continue ASA and Plavix. Continue Lipitor. Coreg and Lisinopril restarted with hold parameters. 9. Hypertension. Coreg and Lisinopril restarted with hold parameters. 10. History of prostectomy. Continue flomax and proscar 11. Depression. Continue Zoloft 12. History of CVA with residual right sided weakness. Continue ASA and Lipitor. 13. GI/DVT prophylaxis. Protonix/heparin. Case was discussed in detail with the patient regarding current diagnosis, study results, and treatment plan. All questions answered.
[2018-08-08] MEDS ORDERED: Albuterol-Ipratrop 3 mg / 0.5 (3 ml) UD IH PRN (15:07)
[2018-08-08] MEDS ORDERED: Insulin Detemir 100 units/ml Vial (Levemir) SC SCH (22:00)
[2018-08-08] MEDS ORDERED: Docusate-Senna 50 mg-8.6 mg Tab PO SCH (22:00)
[2018-08-09] MEDS: Meropenem IV 1 gm in NS 1 GM/50 ML BAG IVPB SCH ×3 (05:42→21:44)
[2018-08-09] MEDS: Pantoprazole 40 mg EC Tab PO SCH (05:43)
[2018-08-09 08:04] LABS: BASO # 0.01 K/mm3 (0.0-2.0); BASO % 0.1 % (0.0-3.0); EOS # 0.1 (0.0-0.7); EOS % 0.7 % (1.5-5.0); HEMOGLOBIN 11.8 g/dL (14.0-18.0); LYMPH # 0.7 (1.2-3.4); LYMPH % 6.3 % (22.0-35.0); MEAN CELL VOLUME 85.7 fl (80.0-105.0); MEAN CORPUSCULAR HEMOGLOBIN 27.6 pg (25.0-35.0); MEAN CORPUSCULAR HGB CONC 32.2 g/dl (31.0-37.0); MEAN PLATELET VOLUME 9.7 fl (7.0-11.0); MONO # 1.3 (0.1-0.6); MONO % 11.2 % (1.0-6.0); RBC 4.27 10^6/uL (3.5-6.1); RED CELL DISTRIBUTION WIDTH 13.9 % (11.5-14.5); WHITE BLOOD COUNT 11.7 10^3/uL (4.5-11.0)
[2018-08-09 08:19] LABS: ALB/GLOB RATIO 0.9 (1.1-1.8); ALBUMIN 3.2 g/dL (3.0-4.8); ALT/SGPT 32 U/L (7-56); AST/SGOT 46 U/L (17-59); BLOOD UREA NITROGEN 17 mg/dL (7-21); CALCIUM 8.8 mg/dL (8.4-10.5); GFR NON-AFRICAN AMERICAN > 60
[2018-08-09] MEDS: Insulin Lispro (humaLOG) LOW Coverage SC SCH ×4 (08:33→21:52)
[2018-08-09] MEDS: Multivitamin With Minerals Tab PO SCH (08:46)
--- NOTE | 2018-08-09 13:00 | CP.PCM.PN ---
<Michelle Marino - Last Filed: 08/09/18 12:57> Subjective - Date & Time of Evaluation Date of Evaluation: 08/09/18 Time of Evaluation: 07:45 - Subjective Subjective: Michelle Marino Y1 [facility] PGY1 Patient seen and examined at bedside this morning. No acute reports overnight. Patient resting comfortably on 2L NC and denies any complaints at this time including CP, SOB, fevers, nausea, vomiting, abdominal pain, diarrhea, cons tipation, urinary complaints, numbness and tingling. Awaiting physical therapy before discharge. Daughter called and updated today of patient's care. Objective - Vital Signs/Intake and Output Vital Signs (last 24 hours): Temp Pulse Resp BP Pulse Ox 97.7 F 73 18 116/73 97 08/09/18 06:00 08/09/18 11:22 08/09/18 06:00 08/09/18 11:22 08/09/18 06:00 Intake and Output: 08/09/18 08/09/18 06:59 18:59 Intake Total 360 Balance 360 - Medications Medications: Current Medications Acetaminophen (Tylenol 325mg Tab) 650 mg PO Q6H PRN PRN Reason: Fever >100.4 F Last Admin: 08/07/18 05:05 Dose: 650 mg Albuterol/Ipratropium (Duoneb 3 Mg/0.5 Mg (3 Ml) Ud) 3 ml IH [id number] PRN PRN Reason: Shortness of Breath Aspirin (Aspirin Chewable) 81 mg PO DAILY [facility] Last Admin: 08/08/18 10:52 Dose: 81 mg Atorvastatin Calcium (Lipitor) 80 mg PO DAILY [facility] Last Admin: 08/09/18 11:21 Dose: 80 mg Carvedilol (Coreg) 3.125 mg PO BID [facility] Last Admin: 08/09/18 11:21 Dose: 3.125 mg Clopidogrel Bisulfate (Plavix) 75 mg PO DAILY [facility] Dextrose (Dextrose 50% Inj) 0 ml IV STAT PRN; Protocol PRN Reason: Hypoglycemia Protocol Digoxin (Lanoxin) 0.25 mg PO 1400 [facility] Last Admin: 08/08/18 13:19 Dose: 0.25 mg Docusate Sodium (Colace) 100 mg PO BID PRN PRN Reason: Constipation Doxycycline Hyclate (Doryx) 100 mg PO Q12 [facility]; Protocol Stop: 08/13/18 22:01 Last Admin: 08/08/18 21:37 Dose: 100 mg Finasteride (Proscar) 5 mg PO DAILY [facility] Last Admin: 08/09/18 11:23 Dose: 5 mg Glimepiride (Amaryl) 4 mg PO ACBD [facility] Last Admin: 08/09/18 08:05 Dose: 4 mg Heparin Sodium (Porcine) (Heparin) 5,000 units SC Q8 [facility]; Protocol Last Admin: 08/09/18 05:43 Dose: 5,000 units Dextrose (Dextrose 5% In Water 1000 Ml) 1,000 mls @ 0 mls/hr IV .Q0M PRN; Protocol PRN Reason: Hypoglycemia Protocol Meropenem (Merrem Iv 1 Gm Premix) 1 gm in 50 mls @ 100 mls/hr IVPB Q8 [facility]; Protocol Stop: 08/11/18 13:16 Last Admin: 08/09/18 05:42 Dose: 100 mls/hr Insulin Detemir (Levemir) 20 unit SC [facility] Last Admin: 08/08/18 21:40 Dose: 20 u Insulin Human Lispro (Humalog Low) [address] [facility]; Protocol Last Admin: 08/09/18 08:33 Dose: Not Given Levetiracetam (Keppra) 250 mg PO Q12 [facility] Last Admin: 08/09/18 11:20 Dose: 250 mg Lisinopril (Zestril) 2.5 mg PO DAILY [facility] Last Admin: 08/09/18 11:22 Dose: 2.5 mg Metformin HCl (Glucophage) 500 mg PO BID [facility] Last Admin: 08/09/18 11:23 Dose: 500 mg Multivitamins/Minerals (Therapeutic-M Tab) 1 tab PO 0800 [facility] Last Admin: 08/09/18 08:46 Dose: 1 tab Nystatin (Nystop Topical Powder) 0 gm TOP BID [facility] Last Admin: 08/08/18 17:25 Dose: 1 appl Pantoprazole Sodium (Protonix Ec Tab) 40 mg PO 0600 [facility] Last Admin: 08/09/18 05:43 Dose: 40 mg Sertraline HCl (Zoloft) 100 mg PO DAILY [facility] Last Admin: 08/09/18 11:20 Dose: 100 mg Simethicone (Mylicon Chew Tab) 80 mg PO PCHS PRN PRN Reason: GI distress Tamsulosin HCl (Flomax) 0.4 mg PO DAILY [facility] Last Admin: 08/09/18 11:23 Dose: 0.4 mg Tramadol HCl (Ultram) 50 mg PO TID PRN PRN Reason: Pain, severe (8-10) Last Admin: 08/09/18 03:42 Dose: 50 mg - Labs Labs: 08/09/18 07:00 08/09/18 07:00 - Constitutional Appears: Non-toxic, No Acute Distress - Head Exam Head Exam: ATRAUMATIC, NORMAL INSPECTION - Eye Exam Eye Exam: EOMI Pupil Exam: PERRL - ENT Exam ENT Exam: Mucous Membranes Moist - Neck Exam Neck Exam: Normal Inspection - Respiratory Exam Respiratory Exam: Clear to Ausculation Bilateral. absent: Accessory Muscle Use, Wheezes, Respiratory Distress - Cardiovascular Exam Cardiovascular Exam: REGULAR RHYTHM, +S1, +S2. absent: Tachycardia - GI/Abdominal Exam GI & Abdominal Exam: Soft, Normal Bowel Sounds. absent: Guarding, Rigid, Tenderness - Extremities Exam Extremities Exam: Normal Inspection. absent: Calf Tenderness, Tenderness - Back Exam Back Exam: NORMAL INSPECTION. absent: CVA tenderness (L), CVA tenderness (R) - Neurological Exam Neurological Exam: Alert, Oriented x3 Additional comments: right sided weakness noted with 4/5 muscle strength in upper and lower extremities - Skin Skin Exam: Normal Color, Warm Assessment and Plan - Assessment and Plan (Free Text) Assessment: 68M PMH of CHF, CAD, CVA w/ R sided deficit, Sz, HTN, HLD; Most signifcantly prostectomy, recurrent UTI presenting to [facility] [place] w/ complaints of R sided flank pain. Admitted for pyelonephritis and recurrent UTI. ID recommends lico nue current antibiotics. Upon discharge, will receive 7 days of cipro 500mg BID and 7 days of augmentin 875mg BID. Awaiting physical therapy before discharge. Plan: PNA -afebrile, mild increase in WBC count -08/06 CT revealed - Bibasilar infiltrates R>L suggestive of Bibasilar PNA -continue doxy day #3 as per ID -Duonebs PRN -ID Following. Recommends 7 days of cipro 500mg BID and 7 days of augmentin 875mg BID upon discharge R Sided Pyelonephritis -08/05 CTAP revealed B/L Perinephric fat thickening; R sided nonobstructive stone; Significant stool noted -urine culture initially grew pseudomonas on 08/05, repeat urine culture grew yeast on 08/06 -continue Merrem Day#5 -blood culture negative for 3 days -Tramadol PRN pain -Urology, GI, ID Following -patient to have outpatient EGD/colonscopy Constipation - 2/2 Chronic vs Gastroparesis -continue simethicone and docusate prn, avoid opiates -GI Following, Will need elective EGD/Colonoscopy as outpt Hyperglycemia - resolved -glimepiride 4mg ABCD, metformin 500mg BID -levemir 15 units HS (from 20 units HS) - due to glucose in the 60s this morning -ISS - low -A1C - 14.3 -endocrinology on consult KAROLINE - imprpving -likely 2/2 lasix -Cr is 1.2 from 1.4 yesterday -holding lasix -Continue Holding lasix Hx of seizure -continue keppra Hx of CHF -hold lasix 40mg daily -continue digoxin 0.25mg daily Hx of HTN -continue coreg, lisinopril with holding parameters CVA -continue ASA, lipitor Hx of CAD -continue plavix 75mg daily, coreg 3.125 mg PO BID Hx of BPH -continue flomax, finasteride PPX -heparin 5k q8 -protonix Patient seen and case discussed with attending, Dr. Brar <Renata Brar - Last Filed: 08/10/18 13:46> Objective - Vital Signs/Intake and Output Vital Signs (last 24 hours): Temp Pulse Resp BP Pulse Ox 98.1 F 92 H 20 124/68 93 L 08/10/18 06:00 08/10/18 09:46 08/10/18 06:00 08/10/18 09:46 08/10/18 06:00 Intake and Output: 08/10/18 08/10/18 06:59 18:59 Intake Total 360 Balance 360 - Medications Medications: Current Medications Albuterol/Ipratropium (Duoneb 3 Mg/0.5 Mg (3 Ml) Ud) 3 ml IH O2AOWAT PRN PRN Reason: Shortness of Breath Amoxicillin/Clavulanate Potassium (Augmentin 875 Mg-125 Mg Tab) 1 tab PO Q12 [facility]; Protocol Stop: 08/13/18 22:01 Aspirin (Aspirin Chewable) 81 mg PO DAILY [facility] Last Admin: 08/10/18 09:37 Dose: 81 mg Atorvastatin Calcium (Lipitor) 80 mg PO DAILY [facility] Last Admin: 08/10/18 09:36 Dose: 80 mg Carvedilol (Coreg) 3.125 mg PO BID [facility] Last Admin: 08/10/18 09:36 Dose: 3.125 mg Ciprofloxacin (Cipro) 500 mg PO Q12 [facility]; Protocol Stop: 08/17/18 22:01 Clopidogrel Bisulfate (Plavix) 75 mg PO DAILY [facility] Last Admin: 08/10/18 09:36 Dose: 75 mg Dextrose (Dextrose 50% Inj) 0 ml IV STAT PRN; Protocol PRN Reason: Hypoglycemia Protocol Digoxin (Lanoxin) 0.25 mg PO 1400 [facility] Last Admin: 08/10/18 13:34 Dose: Not Given Docusate Sodium (Colace) 100 mg PO BID PRN PRN Reason: Constipation Finasteride (Proscar) 5 mg PO DAILY [facility] Last Admin: 08/10/18 09:40 Dose: 5 mg Glimepiride (Amaryl) 2 mg PO ACBD [facility] Heparin Sodium (Porcine) (Heparin) 5,000 units SC Q8 [facility]; Protocol Last Admin: 08/10/18 13:27 Dose: 5,000 units Dextrose (Dextrose 5% In Water 1000 Ml) 1,000 mls @ 0 mls/hr IV .Q0M PRN; Protocol PRN Reason: Hypoglycemia Protocol Insulin Detemir (Levemir) 10 unit SC [facility] Insulin Human Lispro (Humalog Low) [address] [facility]; Protocol Last Admin: 08/10/18 11:55 Dose: Not Given Levetiracetam (Keppra) 250 mg PO Q12 [facility] Last Admin: 08/10/18 09:37 Dose: 250 mg Lisinopril (Zestril) 2.5 mg PO DAILY [facility] Last Admin: 08/10/18 09:36 Dose: 2.5 mg Metformin HCl (Glucophage) 500 mg PO BID [facility] Last Admin: 08/10/18 09:37 Dose: Not Given Multivitamins/Minerals (Therapeutic-M Tab) 1 tab PO 0800 [facility] Last Admin: 08/10/18 08:20 Dose: 1 tab Nystatin (Nystop Topical Powder) 0 gm TOP BID [facility] Last Admin: 08/10/18 09:37 Dose: 1 appl Pantoprazole Sodium (Protonix Ec Tab) 40 mg PO 0600 [facility] Last Admin: 08/10/18 05:18 Dose: 40 mg Sertraline HCl (Zoloft) 100 mg PO DAILY [facility] Last Admin: 08/10/18 09:36 Dose: 100 mg Simethicone (Mylicon Chew Tab) 80 mg PO HS PRN PRN Reason: GI distress Tamsulosin HCl (Flomax) 0.4 mg PO DAILY [facility] Last Admin: 08/10/18 09:36 Dose: 0.4 mg Tramadol HCl (Ultram) 50 mg PO TID PRN PRN Reason: Pain, severe (8-10) Last Admin: 08/10/18 08:23 Dose: 50 mg - Labs Labs: 08/10/18 06:00 08/10/18 06:00 Attending/Attestation - Attestation I have personally seen and examined this patient.: Yes I have fully participated in the care of the patient.: Yes I have reviewed all pertinent clinical information, including history, physical exam and plan: Yes Notes (Text): 08/10/18 13:37 Attending note; Patient seen and examined with resident. Patient is alert and awake. Not in any acute distress. Denies any abdominal pain now. Tolerating diet well. Denies any nausea, vomiting. Did not do physical therapy. Patient is encouraged to do therapy today. Patient is a 68 year old male with past medical history significant for chronic systolic CHF, CAD, CVA with right sided deficit, seizure disorder, hypertension, hyperlipidemia, prostectomy, and recurrent UTI that presented with right sided flank pain. 1. Right flank and right abdominal pain. Currently denies any pain. Tolerating diet well. GI recommendations appreciated. Continue protonix. Patient to have outpatient EGD/Colonoscopy. on tramadol prn for pain. Urology recommendations appreciated. No intervention for now since patient with nonobstructing stones, patient to follow up outpatient CT abd/pelvis on 08/05/18 showed right nephrolithasis, nonobstructive; left hydroureter without obstructive calculus; cholelithasis. Abdominal ultrasound showed unremarkable abdominal sonogram. 2. Fever; secondary to UTI/pneumonia. fever resolved. Leukocytosis resolved. Urine culture positive for pseudomonas. Repeat urine culture positive for yeast. Blood cultures with no growth. Continue Merrem and doxycline. Case discussed with ID in detail. CT chest/abd/pelvis showed bibasilar dense consolidaion consistent with pneumonias, right greater than left. 4. KAROLINE.; Resolved. Creatinine is baseline. 5. DM2, uncontrolled. Hgb A1C 14.3. Roping Machine Tender recommendations appreciated. Continue metformin and Amaryl. Started on insulin. Monitor closely. 5. Seizure disorder. Continue Keppra. 6. CAD. No acute issues. Continue ASA and Plavix. Continue Lipitor. Coreg and Lisinopril restarted with hold parameters. 7. History of prostectomy. Continue flomax and proscar 8. Depression. Continue Zoloft 9.. History of CVA with residual right sided weakness. Continue ASA and Lipitor. GI/DVT prophylaxis. Protonix/heparin. PT evaluation requested.
[2018-08-09] MEDS ORDERED: Insulin Detemir 100 units/ml Vial (Levemir) SC SCH (13:11)
[2018-08-09] MEDS: Nystatin 100,000 Units/gm Topical Pow(15 gm) TOP SCH ×2 (13:38→17:46)
[2018-08-09] MEDS: Digoxin 250 mcg (0.25 mg) Tab PO SCH (13:46)
--- NOTE | 2018-08-09 18:49 | PN ---
DATE: 08/09/2018 ENDOCRINOLOGY FOLLOWUP NOTE LOCATION: Room 565. SUBJECTIVE: This is a 68-year-old male with recent uncontrolled type 2 insulin-requiring diabetes, now being followed closely for metabolic management. His glycemic levels are fluctuating with the variability of his oral intake and the glucose levels today have been low normal shown as with glucose values ranging from 60 to 65 and 110 mg/dL. LABORATORY DATA: His chemistry showed a BUN of 17, sodium 134, potassium 3.9, chloride 101, CO2 of 22, glucose 85 and creatinine 1.2. ASSESSMENT: This is a 68-year-old male with uncontrolled type 2 insulin-requiring diabetes, presenting here with recurrent urinary tract infections and bacteremia and is now being followed closely also for metabolic management. PLAN OF MANAGEMENT: We will concur with the lowering and dose adjustments of his basal insulin with Levemir down to 15 units subcutaneously at bedtime daily as ordered. We will obtain serial chemistries and supplement accordingly as needed. We will continue also the very low-dose correction scale with Humalog insulin as given. Moreover, we will continue the dual oral hypoglycemic therapy as given with Amaryl given as 4 mg b.i.d. before meals and metformin given as 500 mg b.i.d. with meals as given. If fasting hypoglycemic levels persist, then we may actually discontinue the basal insulin and just keep him on a combination of oral hypoglycemic therapy as indicated. We will obtain serial chemistries and supplement accordingly as needed. Emi Flaherty MD
--- NOTE | 2018-08-09 22:24 | PCM.URO ---
Urology Progress Note - Subjective Other: no gu changes - Objective Lab Results Last 24 Hours: Laboratory Results - last 24 hr 08/08/18 08/08/18 08/08/18 22:34 22:45 23:49 WBC RBC Hgb Hct MCV MCH MCHC RDW Plt Count MPV Neut % (Auto) Lymph % (Auto) Wayne % (Auto) Eos % (Auto) Baso % (Auto) Lymph # (Auto) Wayne # (Auto) Eos # (Auto) Baso # (Auto) Absolute Neuts (auto) Sodium Potassium Chloride Carbon Dioxide Anion Gap BUN Creatinine Est GFR ( Amer) Est GFR (Non-Af Amer) POC Glucose (mg/dL) 67 65 Random Glucose Calcium Total Bilirubin AST ALT Alkaline Phosphatase Total Protein Albumin Globulin Albumin/Globulin Ratio Digoxin Ur L.pneumophila Ag Negative 08/09/18 08/09/18 08/09/18 06:25 07:00 07:00 WBC 11.7 H RBC 4.27 Hgb 11.8 L Hct 36.6 L MCV 85.7 MCH 27.6 MCHC 32.2 RDW 13.9 Plt Count 272 MPV 9.7 Neut % (Auto) 81.7 H Lymph % (Auto) 6.3 L Wayne % (Auto) 11.2 H Eos % (Auto) 0.7 L Baso % (Auto) 0.1 Lymph # (Auto) 0.7 L Wayne # (Auto) 1.3 H Eos # (Auto) 0.1 Baso # (Auto) 0.01 Absolute Neuts (auto) 9.58 H Sodium 134 Potassium 3.9 Chloride 101 Carbon Dioxide 22 Anion Gap 15 BUN 17 Creatinine 1.2 Est GFR ( Amer) > 60 Est GFR (Non-Af Amer) > 60 POC Glucose (mg/dL) 60 L Random Glucose 85 Calcium 8.8 Total Bilirubin 0.7 AST 46 ALT 32 Alkaline Phosphatase 76 Total Protein 6.6 Albumin 3.2 Globulin 3.4 Albumin/Globulin Ratio 0.9 L Digoxin Ur L.pneumophila Ag 08/09/18 08/09/18 08/09/18 07:00 11:17 16:01 WBC RBC Hgb Hct MCV MCH MCHC RDW Plt Count MPV Neut % (Auto) Lymph % (Auto) Wayne % (Auto) Eos % (Auto) Baso % (Auto) Lymph # (Auto) Wayne # (Auto) Eos # (Auto) Baso # (Auto) Absolute Neuts (auto) Sodium Potassium Chloride Carbon Dioxide Anion Gap BUN Creatinine Est GFR ( Amer) Est GFR (Non-Af Amer) POC Glucose (mg/dL) 146 H 91 Random Glucose Calcium Total Bilirubin AST ALT Alkaline Phosphatase Total Protein Albumin Globulin Albumin/Globulin Ratio Digoxin 0.6 L Ur L.pneumophila Ag 08/09/18 08/09/18 21:12 22:01 WBC RBC Hgb Hct MCV MCH MCHC RDW Plt Count MPV Neut % (Auto) Lymph % (Auto) Wayne % (Auto) Eos % (Auto) Baso % (Auto) Lymph # (Auto) Wayne # (Auto) Eos # (Auto) Baso # (Auto) Absolute Neuts (auto) Sodium Potassium Chloride Carbon Dioxide Anion Gap BUN Creatinine Est GFR ( Amer) Est GFR (Non-Af Amer) POC Glucose (mg/dL) 51 L 111 H Random Glucose Calcium Total Bilirubin AST ALT Alkaline Phosphatase Total Protein Albumin Globulin Albumin/Globulin Ratio Digoxin Ur L.pneumophila Ag Intake & Output: Intake & Output 08/09/18 08/09/18 08/10/18 06:59 18:59 06:59 Intake Total 360 360 Balance 360 360 Intake: Oral 360 360 Vital Signs: Vital Signs - 24 hr 08/09/18 08/09/18 08/09/18 06:00 11:22 14:00 Temperature 97.7 F 99.0 F Pulse Rate 62 73 77 Respiratory 18 18 Rate Blood Pressure 132/73 116/73 136/74 O2 Sat by Pulse 97 94 L Oximetry 08/09/18 08/09/18 17:44 22:00 Temperature 99 F Pulse Rate 77 71 Respiratory 20 Rate Blood Pressure 136/74 120/66 O2 Sat by Pulse 95 Oximetry
[2018-08-10] MEDS: Meropenem IV 1 gm in NS 1 GM/50 ML BAG IVPB SCH (05:18)
[2018-08-10] MEDS: Pantoprazole 40 mg EC Tab PO SCH (05:18)
[2018-08-10 07:08] LABS: BASO # 0.02 K/mm3 (0.0-2.0); BASO % 0.2 % (0.0-3.0); EOS # 0.4 (0.0-0.7); EOS % 3.9 % (1.5-5.0); HEMOGLOBIN 11.7 g/dL (14.0-18.0); LYMPH # 1.3 (1.2-3.4); LYMPH % 14.3 % (22.0-35.0); MEAN CELL VOLUME 85.4 fl (80.0-105.0); MEAN CORPUSCULAR HEMOGLOBIN 27.9 pg (25.0-35.0); MEAN CORPUSCULAR HGB CONC 32.7 g/dl (31.0-37.0); MEAN PLATELET VOLUME 9.5 fl (7.0-11.0); MONO # 1.2 (0.1-0.6); MONO % 12.4 % (1.0-6.0); RBC 4.19 10^6/uL (3.5-6.1); RED CELL DISTRIBUTION WIDTH 13.8 % (11.5-14.5); WHITE BLOOD COUNT 9.3 10^3/uL (4.5-11.0)
[2018-08-10] MEDS: Insulin Lispro (humaLOG) LOW Coverage SC SCH ×4 (07:50→21:31)
[2018-08-10 07:53] LABS: ALB/GLOB RATIO 0.9 (1.1-1.8); ALBUMIN 3.1 g/dL (3.0-4.8); ALT/SGPT 87 U/L (7-56); AST/SGOT 138 U/L (17-59); BLOOD UREA NITROGEN 19 mg/dL (7-21); CALCIUM 8.8 mg/dL (8.4-10.5); GFR NON-AFRICAN AMERICAN > 60
[2018-08-10] MEDS: Multivitamin With Minerals Tab PO SCH (08:20)
[2018-08-10] MEDS: Nystatin 100,000 Units/gm Topical Pow(15 gm) TOP SCH ×2 (09:37→17:16)
--- NOTE | 2018-08-10 10:28 | PN ---
DATE: 08/10/2018 SUBJECTIVE: The patient is seen in 565, bed 2. No fevers and no chills. PHYSICAL EXAMINATION VITAL SIGNS: On exam, temperature is 99, blood pressure is 120/60, respiratory rate of 20. HEENT: Unremarkable. NECK: Supple. HEART: Normal S1, S2. LUNGS: Have decreased breath sounds. ABDOMEN: Soft and nontender. LABORATORY DATA: Reveals a white count of 9.3, hemoglobin of 11, platelets of 269. BUN of 19, creatinine of 1.1. Urinalysis is noted. Toxicology is noted. MEDICATIONS: Currently on meropenem and doxycycline, maybe able to switch to p.o. Augmentin and p.o. Cipro upon discharge to complete 10 to 14 days of total therapy. ASSESSMENT AND PLAN: This is a 68-year-old male with sepsis and urinary tract infection, high suspicion for pyelonephritis with Pseudomonas and community-acquired pneumonia. Abilio Campos MD
[2018-08-10] MEDS: Digoxin 250 mcg (0.25 mg) Tab PO SCH ×2 (13:28→13:34)
--- NOTE | 2018-08-10 16:36 | CP.PCM.PN ---
<Edson Tompkins - Last Filed: 08/10/18 16:32> Subjective - Date & Time of Evaluation Date of Evaluation: 08/10/18 Time of Evaluation: 16:32 - Subjective Subjective: Edson Tompkins DO PGY1 - Internal Medicine Investigator Narcotics - Medicine Progress Note Patient was seen and examined at bedside this morning No acute events reported overnight Denies any chest pain, sob, abd pain, n/v/d/c, urinary discomfort He did state on examination that he does not want to participate in physical therapy; Patient was counseled on the benefits of PT and importance of getting out of bed. Patient's daughter was called this morning as well to provide patient update. She was notified of plan moving forward regarding placement pending PT evaluation. Objective - Vital Signs/Intake and Output Vital Signs (last 24 hours): Temp Pulse Resp BP Pulse Ox 97.6 F 66 18 137/78 94 L 08/10/18 14:00 08/10/18 14:00 08/10/18 14:00 08/10/18 14:00 08/10/18 14:00 Intake and Output: 08/10/18 08/10/18 06:59 18:59 Intake Total 360 Balance 360 - Medications Medications: Current Medications Albuterol/Ipratropium (Duoneb 3 Mg/0.5 Mg (3 Ml) Ud) 3 ml IH [id number] PRN PRN Reason: Shortness of Breath Amoxicillin/Clavulanate Potassium (Augmentin 875 Mg-125 Mg Tab) 1 tab PO Q12 [facility]; Protocol Stop: 08/13/18 22:01 Aspirin (Aspirin Chewable) 81 mg PO DAILY [facility] Last Admin: 08/10/18 09:37 Dose: 81 mg Atorvastatin Calcium (Lipitor) 80 mg PO DAILY [facility] Last Admin: 08/10/18 09:36 Dose: 80 mg Carvedilol (Coreg) 3.125 mg PO BID [facility] Last Admin: 08/10/18 09:36 Dose: 3.125 mg Ciprofloxacin (Cipro) 500 mg PO Q12 [facility]; Protocol Stop: 08/17/18 22:01 Clopidogrel Bisulfate (Plavix) 75 mg PO DAILY [facility] Last Admin: 08/10/18 09:36 Dose: 75 mg Dextrose (Dextrose 50% Inj) 0 ml IV STAT PRN; Protocol PRN Reason: Hypoglycemia Protocol Digoxin (Lanoxin) 0.25 mg PO 1400 [facility] Last Admin: 08/10/18 13:34 Dose: Not Given Docusate Sodium (Colace) 100 mg PO BID PRN PRN Reason: Constipation Finasteride (Proscar) 5 mg PO DAILY [facility] Last Admin: 08/10/18 09:40 Dose: 5 mg Glimepiride (Amaryl) 2 mg PO ACBD [facility] Last Admin: 08/10/18 16:11 Dose: Not Given Heparin Sodium (Porcine) (Heparin) 5,000 units SC Q8 [facility]; Protocol Last Admin: 08/10/18 13:27 Dose: 5,000 units Dextrose (Dextrose 5% In Water 1000 Ml) 1,000 mls @ 0 mls/hr IV .Q0M PRN; Protocol PRN Reason: Hypoglycemia Protocol Insulin Human Lispro (Humalog Low) 0 units SC ACHS [facility]; Protocol Last Admin: 08/10/18 16:11 Dose: Not Given Levetiracetam (Keppra) 250 mg PO Q12 [facility] Last Admin: 08/10/18 09:37 Dose: 250 mg Lisinopril (Zestril) 2.5 mg PO DAILY [facility] Last Admin: 08/10/18 09:36 Dose: 2.5 mg Metformin HCl (Glucophage) 500 mg PO BID [facility] Last Admin: 08/10/18 09:37 Dose: Not Given Multivitamins/Minerals (Therapeutic-M Tab) 1 tab PO 0800 [facility] Last Admin: 08/10/18 08:20 Dose: 1 tab Nystatin (Nystop Topical Powder) 0 gm TOP BID [facility] Last Admin: 08/10/18 09:37 Dose: 1 appl Pantoprazole Sodium (Protonix Ec Tab) 40 mg PO 0600 [facility] Last Admin: 08/10/18 05:18 Dose: 40 mg Sertraline HCl (Zoloft) 100 mg PO DAILY [facility] Last Admin: 08/10/18 09:36 Dose: 100 mg Simethicone (Mylicon Chew Tab) 80 mg PO PCHS PRN PRN Reason: GI distress Tamsulosin HCl (Flomax) 0.4 mg PO DAILY [facility] Last Admin: 08/10/18 09:36 Dose: 0.4 mg Tramadol HCl (Ultram) 50 mg PO TID PRN PRN Reason: Pain, severe (8-10) Last Admin: 08/10/18 08:23 Dose: 50 mg - Labs Labs: 08/10/18 06:00 08/10/18 06:00 - Constitutional Appears: Non-toxic, No Acute Distress - Head Exam Head Exam: ATRAUMATIC, NORMOCEPHALIC - Eye Exam Eye Exam: EOMI, PERRL. absent: Scleral icterus - Respiratory Exam Respiratory Exam: Clear to Ausculation Bilateral - Cardiovascular Exam Cardiovascular Exam: RRR - GI/Abdominal Exam GI & Abdominal Exam: Soft, Tenderness (minimal tenderness ) - Neurological Exam Neurological Exam: Alert, Awake, CN II-XII Intact Additional comments: R sided weakness - Psychiatric Exam Psychiatric exam: Normal Affect, Normal Mood - Skin Skin Exam: Dry, Intact, Warm Assessment and Plan - Assessment and Plan (Free Text) Assessment: 68M PMH of CHF, CAD, CVA w/ R sided deficit, Sz, HTN, HLD; Most signifcantly prostectomy, recurrent UTI presenting to [facility] on 08/05 w/ complaints of R sided flank pain. Admitted for pyelonephritis and recurrent UTI. Discharge pending at this time based on acceptance to [facility] TCU Plan: R Sided Pyelonephritis : 08/05 CTAP - BL Perinephric fat thickening; R sided nonobstructive stone; Significant stool noted; no CVA tenderness on exam On admission - UA and UCx indicative of UTI 2/2 Pseudomonas Repeat UCX from 08/06 growing yeast Will DC Merrem today (5 days total) Start Ciprofloxacin 500 Q12 ; Patient will need 10-14 days Cipro total Afebrile overnight; no leukocytosis; BCX 08/05 and 08/06 x2 negative to date C/w Home Finasteride [Proscar] 5 mg PO DAILY C/w Home Tamsulosin [Flomax] 0.4 mg PO DAILY Tylenol PRN fevers Tramadol PRN pain Urology - Outpt follow up Urology Following, Appreciate reccs ID Following, Appreciate reccs Bibasilar PNA 08/06 CT CAP - Bibasilar infiltrates R>L suggestive of Bibasilar PNA; No SOB / Cough DC doxycycline (3 days total) Start Augmentin 875 Q12 ; Patient will need 10-14 days augmentin total as per ID Duonebs PRN ID Following, Appreciate reccs Transaminitis Most likely medication/abx induced Will DC merrem/ doxycycline Start on Cipro/Augmentin as above Trend LFTs Constipation - Improving Colace PRN Avoid opiates; tramadol prn pain C/w simethicone prn GI Following, Appreciate reccs - Will need elective EGD/Colonoscopy as outpt KAROLINE - Resolved Continue Holding lasix Hx CHF - Avoid fluid overload Monitor urine output / strict IO DM2 A1C - 14.3 Will stop levemir as this patient cannot self admin insulin as outpt Glimepiride 2mg ACBD Metformin 500 BID ISS LOW ACHS Chronic: SZ C/w Home levETIRAcetam [Keppra] 250 mg PO Q12 C/w Home Sertraline [Zoloft] 100 mg PO DAILY CAD C/w Home Clopidogrel [Plavix] 75 mg PO DAILY C/w Home Home Carvedilol [Coreg] 3.125 mg PO BID CHF Continue holding for KAROLINE - Furosemide [Lasix] 40 mg PO DAILY C/w Home Digoxin [Lanoxin] 0.25 mg PO 1400 HTN C/w Home Lisinopril [Zestril] 2.5 mg PO DAILY [facility] Rx as above CVA C/w Home Aspirin [Aspirin Chewable] 81 mg PO DAILY C/w Home Atorvastatin [Lipitor] 80 mg PO DAILY Patient was seen, examined, and discussed w/ attending Dr. Zonia Tompkins DO PGY1 - Internal Medicine Investigator Narcotics - Medicine Progress Note <Renata Brar - Last Filed: 08/11/18 14:23> Objective - Vital Signs/Intake and Output Vital Signs (last 24 hours): Temp Pulse Resp BP Pulse Ox 98.7 F 70 18 123/61 94 L 08/11/18 06:00 08/11/18 09:55 08/11/18 06:00 08/11/18 09:55 08/11/18 06:00 Intake and Output: 08/11/18 08/11/18 06:59 18:59 Intake Total 500 Balance 500 - Medications Medications: Current Medications Albuterol/Ipratropium (Duoneb 3 Mg/0.5 Mg (3 Ml) Ud) 3 ml IH [id number] PRN PRN Reason: Shortness of Breath Amoxicillin/Clavulanate Potassium (Augmentin 875 Mg-125 Mg Tab) 1 tab PO Q12 [facility]; Protocol Stop: 08/13/18 22:01 Last Admin: 08/11/18 10:44 Dose: 1 tab Aspirin (Aspirin Chewable) 81 mg PO DAILY [facility] Last Admin: 08/10/18 09:37 Dose: 81 mg Atorvastatin Calcium (Lipitor) 80 mg PO DAILY [facility] Last Admin: 08/11/18 09:55 Dose: 80 mg Carvedilol (Coreg) 3.125 mg PO BID [facility] Last Admin: 08/11/18 09:55 Dose: 3.125 mg Ciprofloxacin (Cipro) 500 mg PO Q12 [facility]; Protocol Stop: 08/17/18 22:01 Last Admin: 08/11/18 10:44 Dose: 500 mg Clopidogrel Bisulfate (Plavix) 75 mg PO DAILY [facility] Last Admin: 08/10/18 09:36 Dose: 75 mg Dextrose (Dextrose 50% Inj) 0 ml IV STAT PRN; Protocol PRN Reason: Hypoglycemia Protocol Digoxin (Lanoxin) 0.25 mg PO 1400 [facility] Last Admin: 08/10/18 13:34 Dose: Not Given Docusate Sodium (Colace) 100 mg PO BID PRN PRN Reason: Constipation Finasteride (Proscar) 5 mg PO DAILY [facility] Last Admin: 08/11/18 09:53 Dose: 5 mg Glimepiride (Amaryl) 2 mg PO ACBD [facility] Last Admin: 08/11/18 08:45 Dose: 2 mg Heparin Sodium (Porcine) (Heparin) 5,000 units SC Q8 [facility]; Protocol Last Admin: 08/11/18 05:10 Dose: 5,000 units Dextrose (Dextrose 5% In Water 1000 Ml) 1,000 mls @ 0 mls/hr IV .Q0M PRN; Protocol PRN Reason: Hypoglycemia Protocol Insulin Human Lispro (Humalog Low) 0 units SC ACHS [facility]; Protocol Last Admin: 08/11/18 12:06 Dose: Not Given Levetiracetam (Keppra) 250 mg PO Q12 [facility] Last Admin: 08/11/18 09:55 Dose: 250 mg Lisinopril (Zestril) 2.5 mg PO DAILY [facility] Last Admin: 08/11/18 09:54 Dose: 2.5 mg Metformin HCl (Glucophage) 500 mg PO BID [facility] Last Admin: 08/11/18 09:53 Dose: 500 mg Multivitamins/Minerals (Therapeutic-M Tab) 1 tab PO 0800 [facility] Last Admin: 08/11/18 09:55 Dose: 1 tab Nystatin (Nystop Topical Powder) 0 gm TOP BID [facility] Last Admin: 08/11/18 10:46 Dose: 1 appl Pantoprazole Sodium (Protonix Ec Tab) 40 mg PO 0600 [facility] Last Admin: 08/11/18 05:11 Dose: 40 mg Sertraline HCl (Zoloft) 100 mg PO DAILY [facility] Last Admin: 08/11/18 09:53 Dose: 100 mg Simethicone (Mylicon Chew Tab) 80 mg PO [facility] PRN PRN Reason: GI distress Tamsulosin HCl (Flomax) 0.4 mg PO DAILY [facility] Last Admin: 08/11/18 09:53 Dose: 0.4 mg Tramadol HCl (Ultram) 50 mg PO TID PRN PRN Reason: Pain, severe (8-10) Last Admin: 08/10/18 08:23 Dose: 50 mg - Labs Labs: 08/11/18 06:30 08/11/18 06:30 Attending/Attestation - Attestation I have personally seen and examined this patient.: Yes I have fully participated in the care of the patient.: Yes I have reviewed all pertinent clinical information, including history, physical exam and plan: Yes Notes (Text): 08/11/18 14:19 Attending note; Patient seen and examined with resident. Patient is alert and awake. Not in any acute distress. Patient is complaining of right upper quadrant pain on and off. Tolerating diet well. Denies any nausea, vomiting. Patient is a 68 year old male with past medical history significant for chronic systolic CHF, CAD, CVA with right sided deficit, seizure disorder, hypertension, hyperlipidemia, prostectomy, and recurrent UTI that presented with right sided flank pain. 1. Right flank and right abdominal pain; Continues to have abdominal pain on and off. We will follow-up with GI closely. Continue protonix. on tramadol prn for pain. Plan for endoscopy. Urology recommendations appreciated. No intervention for now since patient with nonobstructing stones, patient to follow up outpatient CT abd/pelvis on 08/05/18 showed right nephrolithasis, nonobstructive; left hydroureter without obstructive calculus; cholelithasis. Abdominal ultrasound showed unremarkable abdominal sonogram. 2. Fever; resolved. secondary to UTI/pneumonia. Urine culture positive for pseudomonas. Repeat urine culture positive for yeast. Blood cultures with no growth. Continue Merrem and doxycline. Case discussed with ID in detail. Can be switched to p.o. Cipro and Augmentin upon discharge. CT chest/abd/pelvis showed bibasilar dense consolidaion consistent with pneumonias, right greater than left. 4. KAROLINE.; Resolved. Creatinine is baseline. 5. DM2, uncontrolled. Hgb A1C 14.3. Working Supervisor recommendations appreciated. Continue metformin and Amaryl. Monitor closely. 5. Seizure disorder. Continue Keppra. 6. CAD. No acute issues. Continue ASA and Plavix. Continue Lipitor, Coreg and Lisinopril. 7. History of prostectomy. Continue flomax and proscar 8. Depression. Continue Zoloft 9.. History of CVA with residual right sided weakness. Continue ASA and Lipitor. 10. Elevated LFTs; mostly secondary to antibiotics treatment. Monitor closely. GI/DVT prophylaxis. Protonix/heparin. PT evaluation appreciated. Subacute rehab recommended. Case discussed with patient's daughter in detail. Upon discharge the patient will follow up with PMD Dr. Pereira.
--- NOTE | 2018-08-10 16:39 | PN ---
DATE: 08/10/2018 ENDOCRINOLOGY FOLLOWUP NOTE LOCATION: In room 565. SUBJECTIVE: This is a 68-year-old male with recent uncontrolled type 2 insulin-requiring diabetes, now being followed closely for metabolic management. His glycemic levels have been in the low normal overnight with also variable oral intake as noted. His glycemic levels have ranged from 83-111 mg/dL. It was 51 at bedtime last night. LABORATORY DATA: His chemistry showed a BUN of 19, sodium 133, potassium 4.2, chloride 100, CO2 of 23, glucose 81, and creatinine 1.1. ASSESSMENT: This is a 68-year-old male with recent uncontrolled type 2 insulin-requiring diabetes, presenting here with recurrent urinary tract infections with underlying nephrolithiasis and is being followed closely for metabolic management because of recent hyperglycemic accelerations as noted thereof. PLAN OF MANAGEMENT: We will modify once again his basal insulin and lower the Levemir to 10 units subcu at bedtime daily as given. We will eventually discontinue the basal insulin if fasting hypoglycemic levels persist accordingly. We will modify also the oral hypoglycemic therapy and lower the Amaryl to 2 mg b.i.d. before meals to start today as ordered. We will continue the metformin given as 500 mg b.i.d. with meals as given. We will obtain serial chemistries and supplement accordingly as needed. We will follow. Emi Flaherty MD
--- NOTE | 2018-08-10 21:01 | CP.PCM.PN ---
<Tres Forrester - Last Filed: 08/10/18 21:05> Subjective - Date & Time of Evaluation Date of Evaluation: 08/10/18 Time of Evaluation: 11:40 - Subjective Subjective: PGY-4 GI Fellow Prog Note Pt in bed when seen this AM. Despite initial improvement in symptoms, abd pain has returned. No f/c, some pain with PO intake. 5 point ROS negative other than stated above Objective - Vital Signs/Intake and Output Vital Signs (last 24 hours): Temp Pulse Resp BP Pulse Ox 97.6 F 81 18 142/73 94 L 08/10/18 14:00 08/10/18 17:20 08/10/18 14:00 08/10/18 17:20 08/10/18 14:00 - Medications Medications: Current Medications Albuterol/Ipratropium (Duoneb 3 Mg/0.5 Mg (3 Ml) Ud) 3 ml IH [id number] PRN PRN Reason: Shortness of Breath Amoxicillin/Clavulanate Potassium (Augmentin 875 Mg-125 Mg Tab) 1 tab PO Q12 [facility]; Protocol Stop: 08/13/18 22:01 Aspirin (Aspirin Chewable) 81 mg PO DAILY [facility] Last Admin: 08/10/18 09:37 Dose: 81 mg Atorvastatin Calcium (Lipitor) 80 mg PO DAILY [facility] Last Admin: 08/10/18 09:36 Dose: 80 mg Carvedilol (Coreg) 3.125 mg PO BID [facility] Last Admin: 08/10/18 17:16 Dose: 3.125 mg Ciprofloxacin (Cipro) 500 mg PO Q12 [facility]; Protocol Stop: 08/17/18 22:01 Clopidogrel Bisulfate (Plavix) 75 mg PO DAILY [facility] Last Admin: 08/10/18 09:36 Dose: 75 mg Dextrose (Dextrose 50% Inj) 0 ml IV STAT PRN; Protocol PRN Reason: Hypoglycemia Protocol Digoxin (Lanoxin) 0.25 mg PO 1400 [facility] Last Admin: 08/10/18 13:34 Dose: Not Given Docusate Sodium (Colace) 100 mg PO BID PRN PRN Reason: Constipation Finasteride (Proscar) 5 mg PO DAILY [facility] Last Admin: 08/10/18 09:40 Dose: 5 mg Glimepiride (Amaryl) 2 mg PO ACBD [facility] Last Admin: 08/10/18 16:11 Dose: Not Given Heparin Sodium (Porcine) (Heparin) 5,000 units SC Q8 [facility]; Protocol Last Admin: 08/10/18 13:27 Dose: 5,000 units Dextrose (Dextrose 5% In Water 1000 Ml) 1,000 mls @ 0 mls/hr IV .Q0M PRN; Protocol PRN Reason: Hypoglycemia Protocol Insulin Human Lispro (Humalog Low) 0 units SC ACHS [facility]; Protocol Last Admin: 08/10/18 16:11 Dose: Not Given Levetiracetam (Keppra) 250 mg PO Q12 [facility] Last Admin: 08/10/18 09:37 Dose: 250 mg Lisinopril (Zestril) 2.5 mg PO DAILY [facility] Last Admin: 08/10/18 09:36 Dose: 2.5 mg Metformin HCl (Glucophage) 500 mg PO BID [facility] Last Admin: 08/10/18 17:16 Dose: Not Given Multivitamins/Minerals (Therapeutic-M Tab) 1 tab PO 0800 [facility] Last Admin: 08/10/18 08:20 Dose: 1 tab Nystatin (Nystop Topical Powder) 0 gm TOP BID [facility] Last Admin: 08/10/18 17:16 Dose: 1 appl Pantoprazole Sodium (Protonix Ec Tab) 40 mg PO 0600 [facility] Last Admin: 08/10/18 05:18 Dose: 40 mg Sertraline HCl (Zoloft) 100 mg PO DAILY [facility] Last Admin: 08/10/18 09:36 Dose: 100 mg Simethicone (Mylicon Chew Tab) 80 mg PO HS PRN PRN Reason: GI distress Tamsulosin HCl (Flomax) 0.4 mg PO DAILY [facility] Last Admin: 08/10/18 09:36 Dose: 0.4 mg Tramadol HCl (Ultram) 50 mg PO TID PRN PRN Reason: Pain, severe (8-10) Last Admin: 08/10/18 08:23 Dose: 50 mg - Labs Labs: 08/10/18 06:00 08/10/18 06:00 - Constitutional Appears: No Acute Distress, Chronically Ill - Head Exam Head Exam: ATRAUMATIC, NORMAL INSPECTION - Eye Exam Eye Exam: EOMI. absent: Scleral icterus - ENT Exam ENT Exam: Mucous Membranes Moist. absent: Mucous Membranes Dry - Respiratory Exam Respiratory Exam: NORMAL BREATHING PATTERN. absent: Accessory Muscle Use - GI/Abdominal Exam GI & Abdominal Exam: Soft, Tenderness (RUQ w/o guarding). absent: Distended (mildly), Firm, Guarding, Rigid Assessment and Plan - Assessment and Plan (Free Text) Assessment: 68 yo WM with CVA (R sided deficits), DM, CHF, CAD, Seizure disorder, HTN, HLD, Recurrent UTIs and Nephrolithiasis presenting with Abd Pain. # Abd/Flank Pain: Suspect related to Nephrolithiasis with UTI with dirty UA and GNR growing on UCx. Abd US with CBD 5.3 mm. CMP unremarkable. Symptoms also concerning for possible PUD given NSAID use. Also, given uncontrolled blood sugar, gastroparesis on the differential. # Transamnitis Plan: - Likely plan for EGD on 08/12 (diagnostic, on ASA+clopigorel) - Abd US w/o stones nor acute findings - Check Viral Hep - Pseudomonas growing in UCx, Cefepime -> Cipro per ID/primary - Urology on consult - PPI QD Pt seen and examined with Dr. Hinds; please see attestation for further recs/changes. <Hema Hinds V - Last Filed: 08/10/18 23:23> Objective - Vital Signs/Intake and Output Vital Signs (last 24 hours): Temp Pulse Resp BP Pulse Ox 98.4 F 62 20 121/70 93 L 08/10/18 21:26 08/10/18 21:26 08/10/18 21:26 08/10/18 21:26 08/10/18 21:26 - Medications Medications: Current Medications Albuterol/Ipratropium (Duoneb 3 Mg/0.5 Mg (3 Ml) Ud) 3 ml IH [id number] PRN PRN Reason: Shortness of Breath Amoxicillin/Clavulanate Potassium (Augmentin 875 Mg-125 Mg Tab) 1 tab PO Q12 [facility]; Protocol Stop: 08/13/18 22:01 Last Admin: 08/10/18 21:12 Dose: 1 tab Aspirin (Aspirin Chewable) 81 mg PO DAILY [facility] Last Admin: 08/10/18 09:37 Dose: 81 mg Atorvastatin Calcium (Lipitor) 80 mg PO DAILY [facility] Last Admin: 08/10/18 09:36 Dose: 80 mg Carvedilol (Coreg) 3.125 mg PO BID [facility] Last Admin: 08/10/18 17:16 Dose: 3.125 mg Ciprofloxacin (Cipro) 500 mg PO Q12 [facility]; Protocol Stop: 08/17/18 22:01 Last Admin: 08/10/18 21:12 Dose: 500 mg Clopidogrel Bisulfate (Plavix) 75 mg PO DAILY [facility] Last Admin: 08/10/18 09:36 Dose: 75 mg Dextrose (Dextrose 50% Inj) 0 ml IV STAT PRN; Protocol PRN Reason: Hypoglycemia Protocol Digoxin (Lanoxin) 0.25 mg PO 1400 [facility] Last Admin: 08/10/18 13:34 Dose: Not Given Docusate Sodium (Colace) 100 mg PO BID PRN PRN Reason: Constipation Finasteride (Proscar) 5 mg PO DAILY [facility] Last Admin: 08/10/18 09:40 Dose: 5 mg Glimepiride (Amaryl) 2 mg PO ACBD [facility] Last Admin: 08/10/18 16:11 Dose: Not Given Heparin Sodium (Porcine) (Heparin) 5,000 units SC Q8 [facility]; Protocol Last Admin: 08/10/18 21:12 Dose: 5,000 units Dextrose (Dextrose 5% In Water 1000 Ml) 1,000 mls @ 0 mls/hr IV .Q0M PRN; Protocol PRN Reason: Hypoglycemia Protocol Insulin Human Lispro (Humalog Low) 0 units SC ACHS [facility]; Protocol Last Admin: 08/10/18 21:31 Dose: Not Given Levetiracetam (Keppra) 250 mg PO Q12 [facility] Last Admin: 08/10/18 21:12 Dose: 250 mg Lisinopril (Zestril) 2.5 mg PO DAILY [facility] Last Admin: 08/10/18 09:36 Dose: 2.5 mg Metformin HCl (Glucophage) 500 mg PO BID [facility] Last Admin: 08/10/18 17:16 Dose: Not Given Multivitamins/Minerals (Therapeutic-M Tab) 1 tab PO 0800 [facility] Last Admin: 08/10/18 08:20 Dose: 1 tab Nystatin (Nystop Topical Powder) 0 gm TOP BID [facility] Last Admin: 08/10/18 17:16 Dose: 1 appl Pantoprazole Sodium (Protonix Ec Tab) 40 mg PO 0600 [facility] Last Admin: 08/10/18 05:18 Dose: 40 mg Sertraline HCl (Zoloft) 100 mg PO DAILY [facility] Last Admin: 08/10/18 09:36 Dose: 100 mg Simethicone (Mylicon Chew Tab) 80 mg PO P[facility]S PRN PRN Reason: GI distress Tamsulosin HCl (Flomax) 0.4 mg PO DAILY [facility] Last Admin: 08/10/18 09:36 Dose: 0.4 mg Tramadol HCl (Ultram) 50 mg PO TID PRN PRN Reason: Pain, severe (8-10) Last Admin: 08/10/18 08:23 Dose: 50 mg - Labs Labs: 08/10/18 06:00 08/10/18 06:00 Attending/Attestation - Attestation I have personally seen and examined this patient.: Yes I have fully participated in the care of the patient.: Yes I have reviewed all pertinent clinical information, including history, physical exam and plan: Yes Notes (Text): This patient was seen and evaluated along with the GI fellow earlier today. This is an addendum to the GI progress report dictated by the fellow. Patient is complaining of significant tenderness in the right upper quadrant area. 8 out of 10. Patient did have significant improvement before. Patient has been treated for urinary tract infection. Urine culture Pseudomonas. Continue the antibiotics as per ID. Patient has been PPI Protonix will continue that. If the patient remains still symptomatic we will consider upper GI endoscopy. Since the patient is on aspirin Plavix will consider initially diagnostic EGD. 08/10/18 23:22
[2018-08-10] MEDS: Amoxicillin-Clav 875-125 mg Tab PO SCH (21:12)
[2018-08-10] MEDS ORDERED: Insulin Detemir 100 units/ml Vial (Levemir) SC SCH (22:00)
[2018-08-11] MEDS: Pantoprazole 40 mg EC Tab PO SCH (05:11)
--- NOTE | 2018-08-11 06:30 | PN ---
DATE: 08/08/2018 SUBJECTIVE: The patient is in bed in no acute distress and overall improved. PHYSICAL EXAMINATION: VITAL SIGNS: Temperature is 98, blood pressure is 124/60, respiratory rate of 18. HEENT: Unremarkable. NECK: Supple. LUNGS: Decreased breath sounds. HEART: Normal S1 and S2. ABDOMEN: Soft. LABORATORY DATA: Reveals a white count is down to 10,800. Chemistries are noted. The patient has creatinine of 1.4, it appears to be improving and the patient also had a procalcitonin which is negative at 0.12. Urinalysis is noted. Microbiology reveals there is pseudomonas in the urine, it is relatively sensitive and yeast in the urine. Repeat blood cultures are negative. The patient now has been afebrile, and Dr. Tompkins's progress note is reviewed. ASSESSMENT AND PLAN: This is a 68-year-old male who appears to be improving, admitted with sepsis secondary to pseudomonas urinary tract infection and pseudomonas pyelonephritis with a community-acquired pneumonia and acute kidney injury, congestive heart failure, coronary artery disease with stents and prostatectomy, history of pyelonephritis, history of cerebrovascular accident with right-sided weakness, on day #4 of meropenem. The patient also on doxycycline. Pseudomonas is sensitive to Cipro. Review of orders reveals the urine Legionella is pending. The patient is currently on meropenem and doxycycline. We will discuss with PMD, may be able to switch to p.o. Levaquin since the Pseudomonas is sensitive to Cipro and that would also treat the pneumonia and will follow with you. Abilio Campos MD
[2018-08-11 06:57] LABS: BASO # 0.03 K/mm3 (0.0-2.0); BASO % 0.3 % (0.0-3.0); EOS # 0.5 (0.0-0.7); EOS % 5.3 % (1.5-5.0); HEMOGLOBIN 11.9 g/dL (14.0-18.0); LYMPH # 1.2 (1.2-3.4); LYMPH % 12.7 % (22.0-35.0); MEAN CORPUSCULAR HEMOGLOBIN 27.9 pg (25.0-35.0); MEAN CORPUSCULAR HGB CONC 32.8 g/dl (31.0-37.0); MEAN PLATELET VOLUME 9.2 fl (7.0-11.0); MONO # 1.1 (0.1-0.6); MONO % 10.8 % (1.0-6.0); RBC 4.27 10^6/uL (3.5-6.1); RED CELL DISTRIBUTION WIDTH 13.7 % (11.5-14.5); WHITE BLOOD COUNT 9.8 10^3/uL (4.5-11.0)
[2018-08-11 07:14] LABS: ALB/GLOB RATIO 0.9 (1.1-1.8); ALBUMIN 3.2 g/dL (3.0-4.8); ALT/SGPT 140 U/L (7-56); AST/SGOT 159 U/L (17-59); BLOOD UREA NITROGEN 22 mg/dL (7-21); CALCIUM 8.8 mg/dL (8.4-10.5); GFR NON-AFRICAN AMERICAN > 60
--- NOTE | 2018-08-11 08:33 | PN ---
DATE: 08/09/2018 SUBJECTIVE: The patient is in bed in no acute distress, nontoxic. PHYSICAL EXAMINATION VITAL SIGNS: Temperature is 97, blood pressure is 116/70, respiratory rate of 18. HEENT: Unremarkable. NECK: Supple. LUNGS: Have decreased breath sounds. HEART: Normal S1, S2. ABDOMEN: Soft, nontender. LABORATORY EXAMINATION: Reveals the patient's white count of 11,700, hemoglobin of 11, BUN of 17, creatinine of 1.2. Procalcitonin 0.27. Urinalysis is noted and toxicology is noted. Microbiology is reviewed. The patient does have Pseudomonas. MEDICATIONS: Review of orders reveals the patient to be on doxycycline and meropenem. ASSESSMENT AND PLAN: This is a 68-year-old male with sepsis secondary to Pseudomonas, urinary tract infection and a community-acquired pneumonia in patient with an acute kidney injury and congestive heart failure, coronary artery disease on meropenem day #4 and doxycycline and may be able to switch to p.o. antibiotics as discussed with the medical secretary teacher's team who is caring for this patient upon discharge. Abilio Campos MD
[2018-08-11] MEDS: Multivitamin With Minerals Tab PO SCH (09:55)
[2018-08-11] MEDS: Insulin Lispro (humaLOG) LOW Coverage SC SCH ×4 (09:59→22:19)
--- NOTE | 2018-08-11 09:59 | CP.PCM.PN ---
<Edson Tompkins - Last Filed: 08/11/18 12:47> Subjective - Date & Time of Evaluation Date of Evaluation: 08/11/18 Time of Evaluation: 12:47 - Subjective Subjective: Edson Tompkins DO PGY1 - Medicine Progress Note Patient was seen and examined at [facility] this morning; no acute events reported overnight NO complaints of cp, sob, abd pain, n/v/d/c, urinary complaints Does complain of mild cough; reports pain is well controlled however still has R sided pain Patient's Daughter was called this morning and notified of patient's status and plan moving forward. Objective - Vital Signs/Intake and Output Vital Signs (last 24 hours): Temp Pulse Resp BP Pulse Ox 98.7 F 70 18 123/61 94 L 08/11/18 06:00 08/11/18 06:00 08/11/18 06:00 08/11/18 06:00 08/11/18 06:00 - Medications Medications: Current Medications Albuterol/Ipratropium (Duoneb 3 Mg/0.5 Mg (3 Ml) Ud) 3 ml IH [id number] PRN PRN Reason: Shortness of Breath Amoxicillin/Clavulanate Potassium (Augmentin 875 Mg-125 Mg Tab) 1 tab PO Q12 S ; Protocol Stop: 08/13/18 22:01 Last Admin: 08/10/18 21:12 Dose: 1 tab Aspirin (Aspirin Chewable) 81 mg PO DAILY [facility] Last Admin: 08/10/18 09:37 Dose: 81 mg Atorvastatin Calcium (Lipitor) 80 mg PO DAILY [facility] Last Admin: 08/10/18 09:36 Dose: 80 mg Carvedilol (Coreg) 3.125 mg PO BID [facility] Last Admin: 08/10/18 17:16 Dose: 3.125 mg Ciprofloxacin (Cipro) 500 mg PO Q12 [facility]; Protocol Stop: 08/17/18 22:01 Last Admin: 08/10/18 21:12 Dose: 500 mg Clopidogrel Bisulfate (Plavix) 75 mg PO DAILY [facility] Last Admin: 08/10/18 09:36 Dose: 75 mg Dextrose (Dextrose 50% Inj) 0 ml IV STAT PRN; Protocol PRN Reason: Hypoglycemia Protocol Digoxin (Lanoxin) 0.25 mg PO 1400 [facility] Last Admin: 08/10/18 13:34 Dose: Not Given Docusate Sodium (Colace) 100 mg PO BID PRN PRN Reason: Constipation Finasteride (Proscar) 5 mg PO DAILY [facility] Last Admin: 08/10/18 09:40 Dose: 5 mg Glimepiride (Amaryl) 2 mg PO ACBD [facility] Last Admin: 08/11/18 08:45 Dose: 2 mg Heparin Sodium (Porcine) (Heparin) 5,000 units SC Q8 [facility]; Protocol Last Admin: 08/11/18 05:10 Dose: 5,000 units Dextrose (Dextrose 5% In Water 1000 Ml) 1,000 mls @ 0 mls/hr IV .Q0M PRN; Protocol PRN Reason: Hypoglycemia Protocol Insulin Human Lispro (Humalog Low) 0 units SC ACHS [facility]; Protocol Last Admin: 08/10/18 21:31 Dose: Not Given Levetiracetam (Keppra) 250 mg PO Q12 [facility] Last Admin: 08/10/18 21:12 Dose: 250 mg Lisinopril (Zestril) 2.5 mg PO DAILY [facility] Last Admin: 08/10/18 09:36 Dose: 2.5 mg Metformin HCl (Glucophage) 500 mg PO BID [facility] Last Admin: 08/10/18 17:16 Dose: Not Given Multivitamins/Minerals (Therapeutic-M Tab) 1 tab PO 0800 [facility] Last Admin: 08/10/18 08:20 Dose: 1 tab Nystatin (Nystop Topical Powder) 0 gm TOP BID [facility] Last Admin: 08/10/18 17:16 Dose: 1 appl Pantoprazole Sodium (Protonix Ec Tab) 40 mg PO 0600 [facility] Last Admin: 08/11/18 05:11 Dose: 40 mg Sertraline HCl (Zoloft) 100 mg PO DAILY [facility] Last Admin: 08/10/18 09:36 Dose: 100 mg Simethicone (Mylicon Chew Tab) 80 mg PO PCHS PRN PRN Reason: GI distress Tamsulosin HCl (Flomax) 0.4 mg PO DAILY [facility] Last Admin: 08/10/18 09:36 Dose: 0.4 mg Tramadol HCl (Ultram) 50 mg PO TID PRN PRN Reason: Pain, severe (8-10) Last Admin: 08/10/18 08:23 Dose: 50 mg - Labs Labs: 08/11/18 06:30 08/11/18 06:30 - Constitutional Appears: Non-toxic, No Acute Distress - Head Exam Head Exam: ATRAUMATIC, NORMOCEPHALIC - Eye Exam Eye Exam: EOMI, PERRL. absent: Scleral icterus - Respiratory Exam Respiratory Exam: Clear to Ausculation Bilateral - Cardiovascular Exam Cardiovascular Exam: RRR - GI/Abdominal Exam GI & Abdominal Exam: Soft, NonTender - Neurological Exam Neurological Exam: Alert, Awake, CN II-XII Intact Additional comments: R sided weakness - Psychiatric Exam Psychiatric exam: Normal Affect, Normal Mood - Skin Skin Exam: Dry, Intact, Warm Assessment and Plan - Assessment and Plan (Free Text) Assessment: 68M PMH of CHF, CAD, CVA w/ R sided deficit, Sz, HTN, HLD; Most signifcantly pro stectomy, recurrent UTI presenting to [facility] on 08/05 w/ complaints of R sided flank pain. Admitted for pyelonephritis and recurrent UTI. Will need EGD as per GI at this time. Plan: R Sided Pyelonephritis : CT w/ stranding and non obstructive stone on admisison UA w/ pyuria/bacteruria Symptoms significantly improving at this time. Repeat UCX from 08/06 growing yeast BCX 08/05 and 08/06 x2 negative to date C/w Ciprofloxacin 500 Q12 Day #2; Patient will need 10-14 days Cipro total C/w Home Finasteride [Proscar] 5 mg PO DAILY C/w Home Tamsulosin [Flomax] 0.4 mg PO DAILY C/w Tylenol PRN fevers C/w Tramadol PRN pain Urology - Outpt follow up ID Following, Appreciate reccs Bibasilar PNA 08/06 CT CAP - Bibasilar infiltrates R>L suggestive of Bibasilar PNA; No SOB / Cough C/w Augmentin 875 Q12 Day #2 ; Patient will need 10-14 days augmentin total as per ID Duonebs PRN ID Following, Appreciate reccs Transaminitis - Worsening Most likely medication/abx induced ; 08/10 - DC merrem/ doxycycline Start on Cipro/Augmentin as above Hepatitis Panel ordered Trend LFTs R sided Abd Pain Constipation has improved; however continues to exhibit pain Will get EGD tomorrow pending cardiac clearance today Colace PRN Avoid opiates; tramadol prn pain C/w simethicone prn GI Following, Appreciate reccs KAROLINE - Resolved Continue Holding lasix Hx CHF - Avoid fluid overload Monitor urine output / strict IO DM2 A1C - 14.3 No injectable medication as patient will be unable to self admin upon DC Glimepiride 2mg ACBD Metformin 500 BID ISS LOW ACHS Chronic: SZ C/w Home levETIRAcetam [Keppra] 250 mg PO Q12 C/w Home Sertraline [Zoloft] 100 mg PO DAILY CAD C/w Home Clopidogrel [Plavix] 75 mg PO DAILY C/w Home Home Carvedilol [Coreg] 3.125 mg PO BID CHF Continue holding for KAROLINE - Furosemide [Lasix] 40 mg PO DAILY C/w Home Digoxin [Lanoxin] 0.25 mg PO 1400 HTN C/w Home Lisinopril [Zestril] 2.5 mg PO DAILY [facility] Rx as above CVA C/w Home Aspirin [Aspirin Chewable] 81 mg PO DAILY C/w Home Atorvastatin [Lipitor] 80 mg PO DAILY PPX: Protonix Heparin Patient was seen, examined, and discussed w/ attending Dr. Zonia Tompkins DO PGY1 - Internal Medicine Assistant Import Manager - Medicine Progress Note <Renata Brar - Last Filed: 08/12/18 13:29> Objective - Vital Signs/Intake and Output Vital Signs (last 24 hours): Temp Pulse Resp BP Pulse Ox 97.3 F L 68 18 118/71 94 L 08/12/18 06:00 08/12/18 10:32 08/12/18 06:00 08/12/18 10:32 08/12/18 06:00 Intake and Output: 08/12/18 08/12/18 06:59 18:59 Intake Total 180 Balance 180 - Medications Medications: Current Medications Albuterol/Ipratropium (Duoneb 3 Mg/0.5 Mg (3 Ml) Ud) 3 ml IH [id number] PRN PRN Reason: Shortness of Breath Amoxicillin/Clavulanate Potassium (Augmentin 875 Mg-125 Mg Tab) 1 tab PO Q12 [facility]; Protocol Stop: 08/13/18 22:01 Last Admin: 08/12/18 11:03 Dose: 1 tab Aspirin (Aspirin Chewable) 81 mg PO DAILY [facility] Last Admin: 08/10/18 09:37 Dose: 81 mg Atorvastatin Calcium (Lipitor) 80 mg PO DAILY [facility] Last Admin: 08/12/18 10:29 Dose: 80 mg Carvedilol (Coreg) 3.125 mg PO BID [facility] Last Admin: 08/12/18 10:32 Dose: 3.125 mg Ciprofloxacin (Cipro) 500 mg PO Q12 [facility]; Protocol Stop: 08/17/18 22:01 Last Admin: 08/12/18 10:29 Dose: 500 mg Clopidogrel Bisulfate (Plavix) 75 mg PO DAILY [facility] Last Admin: 08/10/18 09:36 Dose: 75 mg Dextrose (Dextrose 50% Inj) 0 ml IV STAT PRN; Protocol PRN Reason: Hypoglycemia Protocol Digoxin (Lanoxin) 0.25 mg PO 1400 [facility] Last Admin: 08/11/18 17:15 Dose: 0.25 mg Docusate Sodium (Colace) 100 mg PO BID PRN PRN Reason: Constipation Finasteride (Proscar) 5 mg PO DAILY [facility] Last Admin: 08/12/18 10:28 Dose: 5 mg Glimepiride (Amaryl) 2 mg PO ACBD [facility] Last Admin: 08/12/18 09:17 Dose: Not Given Heparin Sodium (Porcine) (Heparin) 5,000 units SC Q8 [facility]; Protocol Last Admin: 08/12/18 05:55 Dose: 5,000 units Dextrose (Dextrose 5% In Water 1000 Ml) 1,000 mls @ 0 mls/hr IV .Q0M PRN; Protocol PRN Reason: Hypoglycemia Protocol Dextrose/Sodium Chloride (Dextrose 5%/0.9% Ns 1000 Ml) 1,000 mls @ 70 mls/hr IV .[id number] [facility] Insulin Human Lispro (Humalog Low) 0 units SC ACHS [facility]; Protocol Last Admin: 08/12/18 11:45 Dose: Not Given Levetiracetam (Keppra) 250 mg PO Q12 [facility] Last Admin: 08/12/18 11:07 Dose: 250 mg Lisinopril (Zestril) 2.5 mg PO DAILY [facility] Last Admin: 08/12/18 10:30 Dose: 2.5 mg Metformin HCl (Glucophage) 500 mg PO BID [facility] Last Admin: 08/12/18 09:18 Dose: Not Given Multivitamins/Minerals (Therapeutic-M Tab) 1 tab PO 0800 [facility] Last Admin: 08/12/18 09:22 Dose: 1 tab Nystatin (Nystop Topical Powder) 0 gm TOP BID [facility] Last Admin: 08/12/18 11:07 Dose: 1 appl Pantoprazole Sodium (Protonix Ec Tab) 40 mg PO 0600 [facility] Last Admin: 08/12/18 05:55 Dose: 40 mg Sertraline HCl (Zoloft) 100 mg PO DAILY [facility] Last Admin: 08/12/18 10:29 Dose: 100 mg Simethicone (Mylicon Chew Tab) 80 mg PO [facility] PRN PRN Reason: GI distress Tamsulosin HCl (Flomax) 0.4 mg PO DAILY [facility] Last Admin: 08/12/18 10:33 Dose: 0.4 mg Tramadol HCl (Ultram) 50 mg PO TID PRN PRN Reason: Pain, severe (8-10) Last Admin: 08/10/18 08:23 Dose: 50 mg - Labs Labs: 08/12/18 06:30 08/12/18 06:30 PT 15.2 SECONDS (9.4-12.5) H 08/12/18 07:50 INR 1.35 08/12/18 07:50 Attending/Attestation - Attestation I have personally seen and examined this patient.: Yes I have fully participated in the care of the patient.: Yes I have reviewed all pertinent clinical information, including history, physical exam and plan: Yes Notes (Text): 08/12/18 13:24 Attending note; Patient seen and examined with resident. Patient is alert and awake. Not in any acute distress. Patient is complaining of right upper quadrant pain on and off. Tolerating diet well. Denies any nausea, vomiting. Patient is a 68 year old male with past medical history significant for chronic systolic CHF, CAD, CVA with right sided deficit, seizure disorder, hypertension, hyperlipidemia, prostectomy, and recurrent UTI that presented with right sided flank pain. 1. Right flank and right abdominal pain; Continues to have abdominal pain on and off. We will follow-up with GI closely. Continue protonix. on tramadol prn for pain. Plan for endoscopy tomorrow. N.p.o. past midnight. Urology recommendations appreciated. No intervention for now since patient with nonobstructing stones, patient to follow up outpatient CT abd/pelvis on 08/05/18 showed right nephrolithasis, nonobstructive; left hydroureter without obstructive calculus; cholelithasis. Abdominal ultrasound showed unremarkable abdominal sonogram. 2. Fever; resolved. secondary to UTI/pneumonia. Urine culture positive for pseudomonas. Repeat urine culture positive for yeast. Blood cultures with no growth. Treated with Merrem and doxycline. Case discussed with ID in detail. Currently on p.o. Cipro and Augmentin upon discharge. CT chest/abd/pelvis showed bibasilar dense consolidaion consistent with pneumonias, right greater than left. 4. KAROLINE.; Resolved. Creatinine is baseline. 5. DM2, uncontrolled. Hgb A1C 14.3. Floor Scraper recommendations appreciated. Continue metformin and Amaryl. Monitor closely. 5. Seizure disorder. Continue Keppra. 6. CAD. No acute issues. Continue ASA and Plavix. Continue Lipitor, Coreg and Lisinopril. Cardiology evaluation requested. Patient is at moderate risk for planned endoscopic procedure. MUGA scan ordered. 7. History of prostectomy. Continue flomax and proscar 8. Depression. Continue Zoloft 9.. History of CVA with residual right sided weakness. Continue ASA and Lipitor. 10. Elevated LFTs; mostly secondary to antibiotics treatment. Trending down. Abdominal ultrasound is negative for gallstones. GI/DVT prophylaxis. Protonix/heparin. PT evaluation appreciated. Subacute rehab recommended. Case discussed with patient's daughter in detail. Upon discharge the patient will follow up with PMD Dr. Pereira. 08/12/18 13:28
--- NOTE | 2018-08-11 10:00 | PN ---
DATE: 08/08/2018 LOCATION: Room [address], [address] [place] [address]. SUBJECTIVE: This is a 68-year-old male with recent uncontrolled type 2 insulin-requiring diabetes, presenting here with right flank pain and supervening acute pyelonephritis with ongoing IV antibiotic management and is also being followed closely for metabolic management because of recent hyperglycemic accelerations as noted thereof. His glucose levels, however, overnight were low normal with improved metabolic profile thereof. His glucose levels have ranged from 88 to 114 and 181 mg/dL. His chemistry showed a BUN of 22, sodium 135, potassium 3.6, chloride 102, CO2 of 23, glucose 71 and creatinine 1.4. ASSESSMENT: This is a 68-year-old male with recent uncontrolled type 2 insulin-requiring diabetes, now being followed closely for metabolic management as noted. He presented here with an acute pyelonephritis with ongoing intravenous antibiotic management as given with underlying nephrolithiasis and recurrent urinary tract infections as noted. PLAN OF MANAGEMENT: We will modify his basal insulin and lower the Levemir to 20 units subcu at bedtime daily to start tonight and detailed orders have been given. We will continue the oral hypoglycemic drug therapy given in combination with Amaryl given as 4 mg b.i.d. and metformin at 500 mg b.i.d. with meals as ordered. We will also continue the low-dose correction scale using Humalog insulin as given. We will obtain serial chemistries and supplement accordingly as needed. We will follow. Emi Flaherty MD
--- NOTE | 2018-08-11 10:13 | CP.PCM.PCO ---
Additional Comments - Additional Comments Additional Comments: Per primary team, pt is scheduled for EGD in AM and if unremarkable will most likely be discharged [facility] vs. TCU. Will continue to follow.
[2018-08-11] MEDS: Amoxicillin-Clav 875-125 mg Tab PO SCH ×2 (10:44→22:18)
[2018-08-11] MEDS: Nystatin 100,000 Units/gm Topical Pow(15 gm) TOP SCH ×2 (10:46→17:16)
--- NOTE | 2018-08-11 10:57 | CP.PCM.PN ---
<Chepe Tompkins - Last Filed: 08/11/18 10:54> Subjective - Date & Time of Evaluation Date of Evaluation: 08/11/18 Time of Evaluation: 09:40 - Subjective Subjective: Chepe Tompkins Internal Medicine Resident- Progress Note on Behalf of Dr. Hinds Subjective: Patient seen and examined at bedside. No acute events overnight. States abdominal pain has resolved. Tolerating diet. Denies nausea, vomiting, bright red blood per rectum, and black stools. 12 point ROS negative except as indicated in the HPI Physical Examination: - Constitutional Appears: No Acute Distress - Head Exam Head Exam: ATRAUMATIC, NORMAL INSPECTION - Eye Exam Eye Exam: EOMI. absent: Scleral icterus - ENT Exam ENT Exam: Mucous Membranes Moist. absent: Mucous Membranes Dry - Respiratory Exam Respiratory Exam: NORMAL BREATHING PATTERN. absent: Accessory Muscle Use - Cardiovascular Exam Cardiovascular Exam: REGULAR RHYTHM, RRR - GI/Abdominal Exam GI & Abdominal Exam: Normal Bowel Sounds, Soft. absent: Firm, Guarding, Organomegaly, Rebound, Rigid, Tenderness - Extremities Exam Extremities exam: Positive for: normal inspection. Negative for: pedal edema - Neurological Exam Neurological exam: Alert, awake, responds to verbal stimuli, answers questions appropriately - Psychiatric Exam Psychiatric exam: Normal Affect, Normal Mood - Skin Skin Exam: Normal Color, Warm Studies Reviewed 08/06/2018 CT Chest, Abdomen and Pelvis without intravenous contrast- Bibasilar dense consolidation consistent with pneumonias, right greater than left. 08/05/2018 Abd US- CBD 5.3 mm. No stones. No dilatation. Assessment and Plan: Patient is a 68 year old male with a past medical history of CVA (R sided deficits), DM, CHF, CAD, Seizure disorder, HTN, HLD, Recurrent UTIs and Nephrolithiasis who was admitted for evaluation and treatment of abd pain. Abd/Flank Pain likely secondary to Nephrolithiasis with UTI and GNR growing on UCx. Possible PUD given NSAID use Transamnitis - Plan for diagnostic EGD on 08/12 pending cardiology risk stratification - keep NPO after midnight - Hepatitis panel ordered and pending - continue antibiotics as per primary and ID - continue with pantoprazole 40mg PO daily Patient seen, case discussed with and plan approved by attending physician, Dr. Hinds Objective - Vital Signs/Intake and Output Vital Signs (last 24 hours): Temp Pulse Resp BP Pulse Ox 98.7 F 70 18 123/61 94 L 08/11/18 06:00 08/11/18 09:55 08/11/18 06:00 08/11/18 09:55 08/11/18 06:00 - Medications Medications: Current Medications Albuterol/Ipratropium (Duoneb 3 Mg/0.5 Mg (3 Ml) Ud) 3 ml IH [id number] PRN PRN Reason: Shortness of Breath Amoxicillin/Clavulanate Potassium (Augmentin 875 Mg-125 Mg Tab) 1 tab PO Q12 [facility]; Protocol Stop: 08/13/18 22:01 Last Admin: 08/11/18 10:44 Dose: 1 tab Aspirin (Aspirin Chewable) 81 mg PO DAILY [facility] Last Admin: 08/10/18 09:37 Dose: 81 mg Atorvastatin Calcium (Lipitor) 80 mg PO DAILY [facility] Last Admin: 08/11/18 09:55 Dose: 80 mg Carvedilol (Coreg) 3.125 mg PO BID [facility] Last Admin: 08/11/18 09:55 Dose: 3.125 mg Ciprofloxacin (Cipro) 500 mg PO Q12 [facility]; Protocol Stop: 08/17/18 22:01 Last Admin: 08/11/18 10:44 Dose: 500 mg Clopidogrel Bisulfate (Plavix) 75 mg PO DAILY [facility] Last Admin: 08/10/18 09:36 Dose: 75 mg Dextrose (Dextrose 50% Inj) 0 ml IV STAT PRN; Protocol PRN Reason: Hypoglycemia Protocol Digoxin (Lanoxin) 0.25 mg PO 1400 [facility] Last Admin: 08/10/18 13:34 Dose: Not Given Docusate Sodium (Colace) 100 mg PO BID PRN PRN Reason: Constipation Finasteride (Proscar) 5 mg PO DAILY [facility] Last Admin: 08/11/18 09:53 Dose: 5 mg Glimepiride (Amaryl) 2 mg PO ACBD [facility] Last Admin: 08/11/18 08:45 Dose: 2 mg Heparin Sodium (Porcine) (Heparin) 5,000 units SC Q8 [facility]; Protocol Last Admin: 08/11/18 05:10 Dose: 5,000 units Dextrose (Dextrose 5% In Water 1000 Ml) 1,000 mls @ 0 mls/hr IV .Q0M PRN; Protocol PRN Reason: Hypoglycemia Protocol Insulin Human Lispro (Humalog Low) 0 units SC [facility]; Protocol Last Admin: 08/11/18 09:59 Dose: Not Given Levetiracetam (Keppra) 250 mg PO Q12 [facility] Last Admin: 08/11/18 09:55 Dose: 250 mg Lisinopril (Zestril) 2.5 mg PO DAILY [facility] Last Admin: 08/11/18 09:54 Dose: 2.5 mg Metformin HCl (Glucophage) 500 mg PO BID [facility] Last Admin: 08/11/18 09:53 Dose: 500 mg Multivitamins/Minerals (Therapeutic-M Tab) 1 tab PO 0800 [facility] Last Admin: 08/11/18 09:55 Dose: 1 tab Nystatin (Nystop Topical Powder) 0 gm TOP BID [facility] Last Admin: 08/11/18 10:46 Dose: 1 appl Pantoprazole Sodium (Protonix Ec Tab) 40 mg PO 0600 [facility] Last Admin: 08/11/18 05:11 Dose: 40 mg Sertraline HCl (Zoloft) 100 mg PO DAILY [facility] Last Admin: 08/11/18 09:53 Dose: 100 mg Simethicone (Mylicon Chew Tab) 80 mg PO PCHS PRN PRN Reason: GI distress Tamsulosin HCl (Flomax) 0.4 mg PO DAILY [facility] Last Admin: 08/11/18 09:53 Dose: 0.4 mg Tramadol HCl (Ultram) 50 mg PO TID PRN PRN Reason: Pain, severe (8-10) Last Admin: 08/10/18 08:23 Dose: 50 mg - Labs Labs: 08/11/18 06:30 08/11/18 06:30 <Hema Hinds V - Last Filed: 08/11/18 20:34> Objective - Vital Signs/Intake and Output Vital Signs (last 24 hours): Temp Pulse Resp BP Pulse Ox 97.5 F L 66 20 121/65 94 L 08/11/18 14:00 08/11/18 17:23 08/11/18 14:00 08/11/18 17:23 08/11/18 14:00 Intake and Output: 08/11/18 08/12/18 18:59 06:59 Intake Total 500 Balance 500 - Medications Medications: Current Medications Albuterol/Ipratropium (Duoneb 3 Mg/0.5 Mg (3 Ml) Ud) 3 ml IH [id number] PRN PRN Reason: Shortness of Breath Amoxicillin/Clavulanate Potassium (Augmentin 875 Mg-125 Mg Tab) 1 tab PO Q12 [facility]; Protocol Stop: 08/13/18 22:01 Last Admin: 08/11/18 10:44 Dose: 1 tab Aspirin (Aspirin Chewable) 81 mg PO DAILY [facility] Last Admin: 08/10/18 09:37 Dose: 81 mg Atorvastatin Calcium (Lipitor) 80 mg PO DAILY [facility] Last Admin: 08/11/18 09:55 Dose: 80 mg Carvedilol (Coreg) 3.125 mg PO BID [facility] Last Admin: 08/11/18 17:23 Dose: 3.125 mg Ciprofloxacin (Cipro) 500 mg PO Q12 [facility]; Protocol Stop: 08/17/18 22:01 Last Admin: 08/11/18 10:44 Dose: 500 mg Clopidogrel Bisulfate (Plavix) 75 mg PO DAILY [facility] Last Admin: 08/10/18 09:36 Dose: 75 mg Dextrose (Dextrose 50% Inj) 0 ml IV STAT PRN; Protocol PRN Reason: Hypoglycemia Protocol Digoxin (Lanoxin) 0.25 mg PO 1400 [facility] Last Admin: 08/11/18 17:15 Dose: 0.25 mg Docusate Sodium (Colace) 100 mg PO BID PRN PRN Reason: Constipation Finasteride (Proscar) 5 mg PO DAILY [facility] Last Admin: 08/11/18 09:53 Dose: 5 mg Glimepiride (Amaryl) 2 mg PO ACBD [facility] Last Admin: 08/11/18 17:22 Dose: 2 mg Heparin Sodium (Porcine) (Heparin) 5,000 units SC Q8 [facility]; Protocol Last Admin: 08/11/18 15:39 Dose: 5,000 units Dextrose (Dextrose 5% In Water 1000 Ml) 1,000 mls @ 0 mls/hr IV .Q0M PRN; Protocol PRN Reason: Hypoglycemia Protocol Insulin Human Lispro (Humalog Low) 0 units SC ACHS [facility]; Protocol Last Admin: 08/11/18 17:00 Dose: Not Given Levetiracetam (Keppra) 250 mg PO Q12 [facility] Last Admin: 08/11/18 09:55 Dose: 250 mg Lisinopril (Zestril) 2.5 mg PO DAILY [facility] Last Admin: 08/11/18 09:54 Dose: 2.5 mg Metformin HCl (Glucophage) 500 mg PO BID [facility] Last Admin: 08/11/18 17:23 Dose: 500 mg Multivitamins/Minerals (Therapeutic-M Tab) 1 tab PO 0800 [facility] Last Admin: 08/11/18 09:55 Dose: 1 tab Nystatin (Nystop Topical Powder) 0 gm TOP BID [facility] Last Admin: 08/11/18 17:16 Dose: 1 appl Pantoprazole Sodium (Protonix Ec Tab) 40 mg PO 0600 [facility] Last Admin: 08/11/18 05:11 Dose: 40 mg Sertraline HCl (Zoloft) 100 mg PO DAILY [facility] Last Admin: 08/11/18 09:53 Dose: 100 mg Simethicone (Mylicon Chew Tab) 80 mg PO [facility] PRN PRN Reason: GI distress Tamsulosin HCl (Flomax) 0.4 mg PO DAILY [facility] Last Admin: 08/11/18 09:53 Dose: 0.4 mg Tramadol HCl (Ultram) 50 mg PO TID PRN PRN Reason: Pain, severe (8-10) Last Admin: 08/10/18 08:23 Dose: 50 mg - Labs Labs: 08/11/18 06:30 08/11/18 06:30 Attending/Attestation - Attestation I have personally seen and examined this patient.: Yes I have fully participated in the care of the patient.: Yes I have reviewed all pertinent clinical information, including history, physical exam and plan: Yes Notes (Text): The patient was seen and evaluated along with the resident earlier. There is an addendum to the GI progress report dictated by the resident. Patient is on aspirin Plavix. Still complaining of right upper quadrant pain feels slightly better today. In view of the recurrence of the symptoms, would benefit from upper GI endoscopy evaluation. 08/11/18 20:32
[2018-08-11] MEDS: Digoxin 250 mcg (0.25 mg) Tab PO SCH (17:15)
--- NOTE | 2018-08-11 17:22 | CARD ---
APPROVED REPORT Date of service: 08/11/2018 INDICATION S/P PTCA, EVALUATE LV AND RV EF% PROCEDURE The above named patient recieved 28.2 millicuries of Tc99m tagged red blood cells intravenously. After achieving equilibrium, gated imaging of 16/frame/cycle was performed utillizing Gamma camera interfaced with a digital computer and gated device. Gated imaging was then performed in the left anterior oblique, anterior, and the left lateral projections. Findings Calculated LV Ejection Fraction is 41%. Impressions Calculated Ejection Fraction is 41 %.
[2018-08-11 18:28] LABS: HEPATITIS B SURFACE AG Negative (NEGATIVE)
[2018-08-11 18:35] LABS: HEPATITIS A IGM NEGATIVE (NEGATIVE); HEPATITIS B CORE AB NEGATIVE (NEGATIVE)
[2018-08-11 18:47] LABS: HEPATITIS C ANTIBODY NEGATIVE (NEGATIVE)
--- NOTE | 2018-08-11 20:21 | PN ---
DATE: 08/11/2018 ENDOCRINOLOGY FOLLOWUP NOTE LOCATION: Room 565. SUBJECTIVE: This is a 68-year-old male with recent uncontrolled type 2 diabetes, previously insulin-requiring and developed frequent bouts of symptomatic hypoglycemia and has since then been taken off basal insulin with remarkable glycemic improvement overnight as noted. She also is undergoing IV antibiotic management for recurrent urinary tract infection and bacteremia as noted. His glycemic levels overnight have ranged from 112-124 and 152 mg/dL. LABORATORY DATA: His chemistry showed a BUN of 22, sodium 132, potassium 4.2, chloride 101, CO2 of 22, glucose 106 and creatinine 1.1. ASSESSMENT: This is a 68-year-old male with recent uncontrolled type 2 diabetes, previously insulin-requiring and now with remarkable improvement of his metabolic profile off insulin therapy, presenting here with recurrent urinary tract infection and bacteremia and is now being followed closely for metabolic management. PLAN OF MANAGEMENT: We will continue the dual oral hypoglycemic therapy given in combination and also with recent modifications as noted otherwise. We will lower the Amaryl to 2 mg b.i.d. before meals as ordered. We will continue his metformin given as 500 mg b.i.d. after meals as ordered. We will obtain serial chemistries and supplement accordingly needed. We will also discontinue the basal insulin given as Levemir at bedtime as ordered. We will continue also the very low-dose correction scale using Humalog insulin as ordered. We will obtain serial chemistries and supplement accordingly needed. We will follow. Emi Flaherty MD
--- NOTE | 2018-08-11 20:23 | PN ---
DATE: 08/11/2018 SUBJECTIVE: The patient is in bed, in no acute distress, nontoxic. PHYSICAL EXAMINATION: VITAL SIGNS: Temperature is 98, blood pressure is 127/80, respiratory rate of 18. HEENT: Unremarkable. NECK: Supple. LUNGS: Decreased breath sounds. HEART: Normal S1, S2. ABDOMEN: Soft. LABORATORY DATA: Reveals a white count of 9.8. BUN of 22, creatinine of 1.1. Urinalysis is noted and serology is noted. ASSESSMENT AND PLAN: A 68-year-old male with sepsis with urinary tract infection, suspicious for pyelonephritis with Pseudomonas and community-acquired pneumonia. Day #6 of antibiotics. May be able to switch to p.o. Cipro and p.o. Augmentin. We will follow with you. Abilio Campos MD
--- NOTE | 2018-08-11 23:02 | CON ---
DATE OF CONSULTATION: 08/11/2018 CARDIOLOGY CONSULTATION REASON FOR CONSULTATION: Preoperative evaluation and risk stratification for EGD tomorrow. BRIEF CLINICAL HISTORY: This is a 68-year-old male with past medical history significant for congestive heart cardiomyopathy, CHF, recurrent UTIs, nephrolithiasis, prostatectomy, CVA with right-sided residual weakness, seizure disorder, hypertension, hyperlipidemia, coronary artery disease status post stent, came in with abdominal pain. The patient is scheduled for EGD tomorrow, so Cardiology consult was called. The patient denies any chest pain, shortness of breath, any palpitations. The patient's daughter is at the bedside. Information is obtained from the daughter. PAST MEDICAL HISTORY: Past history is significant for CVA, generalized weakness, and history of non-ST segment myocardial infarction and subsequently underwent cardiac catheterization and PTCA of LAD was done with ulcerated plaque with a drug-eluting stent done on 08/06/2018. Previous cardiac workup as follows. The patient had non-ST segment myocardial infarction and subsequently the patient underwent for this acute coronary syndrome, cardiac catheterization and stenting of mid LAD with ulcerated plaque 80%, the drug-eluting stents deployed. The patient had right-sided weakness since January 2013. At that time, the patient underwent MAURICIO. Transesophageal echo was done, found to be arterial sclerotic plaque in the arch of aorta, ejection fraction of 65%. No PFO noted. Transesophageal echo dated 01/06/ . The patient remained year. History of hypertension, CVA and walks with a cane. History of the occlusion of right internal carotid artery and left carotid artery is 80%, seen by Dr. Christian and medical treatment recommended. The patient had a last echocardiography. The patient had a MUGA scan done on 08/07/2016 that shows ejection fraction of 46% where cardiac cath 08/03/2016, ejection fraction reported at 40%, EDP in the range of 15 at that time. Stressful PTCA of LAD was done, followed outpatient, and MUGA scan dated 08/07/2016, ejection fraction reported 46%, normal RV. The patient had a most recent echocardiography done on 12/16/2017 that revealed ejection fraction of 24.6%, systolic function is severely impaired, and no thrombus noted. The patient is noncompliant, did not come for followup. CURRENT MEDICATIONS: The patient is taking at home amlodipine, Flomax, sertraline, Zoloft, Zestril, digoxin, clopidogrel, aspirin, as well as ciprofloxacin. ALLERGIES: . REVIEW OF SYSTEMS: As per HPI. PHYSICAL EXAMINATION: VITAL SIGNS: Temperature afebrile, heart rate 70, blood pressure 123/60. Height of the patient 5 feet 10 inches, weight of the patient 210 pounds, body mass index of 30.1 kg per meter square. HEENT: PERRLA. Extraocular muscles intact. NECK: Supple. No carotid bruit or thyromegaly. CHEST: Clear to auscultation. HEART: S1 and S2 regular. ABDOMEN: Soft. EXTREMITIES: Clubbing and cyanosis, negative. LABORATORY DATA: Blood workup as follows. WBC 9.1, hemoglobin 11.9, hematocrit 36.3, platelet count 292. Chemistry shows sodium 130, potassium 4.2, chloride 101, bicarb 22, anion gap of 14, BUN 22, creatinine 1.1. IMPRESSION: A 68-year-old male with past medical history of cerebrovascular accident with right-sided weakness, history of acute coronary syndrome, status post percutaneous transluminal coronary angioplasty and cardiac catheterization and stenting of eft anterior descending in July 2016, ejection fraction of 40%, at that time, with the MUGA scan followed, his ejection fraction 46%. Recent echo in 12/16/2017, ejection fraction of 25%. The patient is scheduled for esophagogastroduodenoscopy. RECOMMENDATIONS: No absolute contraindication for endoscopy. The patient is at moderate risk and can go for surgery, but the patient is very noncompliant. Discussed with the daughter. We will do the MUGA scan today to reduce his LV function and adjust the medication depending upon the MUGA scan results. We will consider Entresto if his ejection fraction is low and the patient can tolerate. Continue dig. Continue Coreg. We will follow with you. Thank you, Dr. Tompkins, for providing us the opportunity in taking care of Nahid Dick. We will change to Entresto and DC lisinopril after 2 days of washout. We will start Entresto, if his blood pressure the patient can tolerate. Depending upon MUGA scan result, as mentioned, if it is still below 35, we will DC lisinopril and start Entresto. The patient is cleared to go for endoscopy with a moderate risk. No absolute contraindication. We will put in nursing order. Irma Bedoya MD
[2018-08-12] MEDS: Pantoprazole 40 mg EC Tab PO SCH (05:55)
[2018-08-12 07:08] LABS: BASO # 0.03 K/mm3 (0.0-2.0); BASO % 0.3 % (0.0-3.0); EOS # 0.4 (0.0-0.7); EOS % 4.3 % (1.5-5.0); LYMPH # 1.4 (1.2-3.4); LYMPH % 14.4 % (22.0-35.0); MEAN CELL VOLUME 85.6 fl (80.0-105.0); MEAN CORPUSCULAR HEMOGLOBIN 27.8 pg (25.0-35.0); MEAN CORPUSCULAR HGB CONC 32.4 g/dl (31.0-37.0); MEAN PLATELET VOLUME 9.4 fl (7.0-11.0); MONO % 10.4 % (1.0-6.0); RBC 4.32 10^6/uL (3.5-6.1); RED CELL DISTRIBUTION WIDTH 13.8 % (11.5-14.5); WHITE BLOOD COUNT 9.6 10^3/uL (4.5-11.0)
[2018-08-12 07:15] LABS: ALB/GLOB RATIO 0.9 (1.1-1.8); ALBUMIN 3.3 g/dL (3.0-4.8); ALT/SGPT 122 U/L (7-56); AST/SGOT 108 U/L (17-59); BLOOD UREA NITROGEN 23 mg/dL (7-21); CALCIUM 8.9 mg/dL (8.4-10.5); GFR NON-AFRICAN AMERICAN > 60
[2018-08-12 09:18] LABS: INR 1.35; PROTHROMBIN TIME 15.2 SECONDS (9.4-12.5)
[2018-08-12] MEDS: Insulin Lispro (humaLOG) LOW Coverage SC SCH ×3 (09:19→17:58)
[2018-08-12] MEDS: Multivitamin With Minerals Tab PO SCH (09:22)
[2018-08-12] MEDS: Amoxicillin-Clav 875-125 mg Tab PO SCH ×2 (11:03→21:22)
[2018-08-12] MEDS: Nystatin 100,000 Units/gm Topical Pow(15 gm) TOP SCH ×2 (11:07→18:32)
--- NOTE | 2018-08-12 11:07 | CP.PCM.PN ---
<Gray Kruse - Last Filed: 08/12/18 15:32> Subjective - Date & Time of Evaluation Date of Evaluation: 08/12/18 Time of Evaluation: 08:50 - Subjective Subjective: Infectious disease progress note: Patient seen and examined at bedside. No acute events overnight. Patient is currently n.p.o. for possible endoscopy. Complains of mild right upper quadrant epigastric pain. No other complaints. No fevers. 12 Point ROS performed and neg other than stated above Objective - Vital Signs/Intake and Output Vital Signs (last 24 hours): Temp Pulse Resp BP Pulse Ox 97.3 F L 68 18 118/71 94 L 08/12/18 06:00 08/12/18 10:32 08/12/18 06:00 08/12/18 10:32 08/12/18 06:00 Intake and Output: 08/12/18 08/12/18 06:59 18:59 Intake Total 180 Balance 180 - Medications Medications: Current Medications Albuterol/Ipratropium (Duoneb 3 Mg/0.5 Mg (3 Ml) Ud) 3 ml IH [id number] PRN PRN Reason: Shortness of Breath Amoxicillin/Clavulanate Potassium (Augmentin 875 Mg-125 Mg Tab) 1 tab PO Q12 [facility]; Protocol Stop: 08/13/18 22:01 Last Admin: 08/11/18 22:18 Dose: 1 tab Aspirin (Aspirin Chewable) 81 mg PO DAILY [facility] Last Admin: 08/10/18 09:37 Dose: 81 mg Atorvastatin Calcium (Lipitor) 80 mg PO DAILY [facility] Last Admin: 08/12/18 10:29 Dose: 80 mg Carvedilol (Coreg) 3.125 mg PO BID [facility] Last Admin: 08/12/18 10:32 Dose: 3.125 mg Ciprofloxacin (Cipro) 500 mg PO Q12 [facility]; Protocol Stop: 08/17/18 22:01 Last Admin: 08/12/18 10:29 Dose: 500 mg Clopidogrel Bisulfate (Plavix) 75 mg PO DAILY [facility] Last Admin: 08/10/18 09:36 Dose: 75 mg Dextrose (Dextrose 50% Inj) 0 ml IV STAT PRN; Protocol PRN Reason: Hypoglycemia Protocol Digoxin (Lanoxin) 0.25 mg PO 1400 [facility] Last Admin: 08/11/18 17:15 Dose: 0.25 mg Docusate Sodium (Colace) 100 mg PO BID PRN PRN Reason: Constipation Finasteride (Proscar) 5 mg PO DAILY [facility] Last Admin: 08/12/18 10:28 Dose: 5 mg Glimepiride (Amaryl) 2 mg PO ACBD [facility] Last Admin: 08/12/18 09:17 Dose: Not Given Heparin Sodium (Porcine) (Heparin) 5,000 units SC Q8 [facility]; Protocol Last Admin: 08/12/18 05:55 Dose: 5,000 units Dextrose (Dextrose 5% In Water 1000 Ml) 1,000 mls @ 0 mls/hr IV .Q0M PRN; Protocol PRN Reason: Hypoglycemia Protocol Insulin Human Lispro (Humalog Low) 0 units SC ACHS [facility]; Protocol Last Admin: 08/12/18 09:19 Dose: Not Given Levetiracetam (Keppra) 250 mg PO Q12 [facility] Last Admin: 08/11/18 22:18 Dose: 250 mg Lisinopril (Zestril) 2.5 mg PO DAILY [facility] Last Admin: 08/12/18 10:30 Dose: 2.5 mg Metformin HCl (Glucophage) 500 mg PO BID [facility] Last Admin: 08/12/18 09:18 Dose: Not Given Multivitamins/Minerals (Therapeutic-M Tab) 1 tab PO 0800 [facility] Last Admin: 08/12/18 09:22 Dose: 1 tab Nystatin (Nystop Topical Powder) 0 gm TOP BID [facility] Last Admin: 08/11/18 17:16 Dose: 1 appl Pantoprazole Sodium (Protonix Ec Tab) 40 mg PO 0600 [facility] Last Admin: 08/12/18 05:55 Dose: 40 mg Sertraline HCl (Zoloft) 100 mg PO DAILY [facility] Last Admin: 08/12/18 10:29 Dose: 100 mg Simethicone (Mylicon Chew Tab) 80 mg PO PCHS PRN PRN Reason: GI distress Tamsulosin HCl (Flomax) 0.4 mg PO DAILY [facility] Last Admin: 08/12/18 10:33 Dose: 0.4 mg Tramadol HCl (Ultram) 50 mg PO TID PRN PRN Reason: Pain, severe (8-10) Last Admin: 08/10/18 08:23 Dose: 50 mg - Labs Labs: 08/12/18 06:30 08/12/18 06:30 PT 15.2 SECONDS (9.4-12.5) H 08/12/18 07:50 INR 1.35 08/12/18 07:50 - Constitutional Appears: No Acute Distress - Eye Exam Eye Exam: EOMI - ENT Exam ENT Exam: Mucous Membranes Moist - Respiratory Exam Respiratory Exam: Clear to Ausculation Bilateral. absent: Rales, Wheezes - Cardiovascular Exam Cardiovascular Exam: RRR, +S1, +S2 - GI/Abdominal Exam GI & Abdominal Exam: Soft, Tenderness (Epigastric ) - Extremities Exam Extremities Exam: absent: Calf Tenderness - Neurological Exam Neurological Exam: Alert, Awake - Psychiatric Exam Psychiatric exam: Normal Mood - Skin Skin Exam: Dry, Warm Assessment and Plan - Assessment and Plan (Free Text) Assessment: Sepsis secondary to urinary tract infection, with high suspicion of pyelo with pseudomonas Community acquired pneumonia KAROLINE CHF CAD with stents Recurrent UTIs Nephrolithiasis History of pyelonephritis in 2017 Prostatectomy History of CVA with residual right-sided weakness Seizures Hypertension Hyperlipidemia Continue with Augmentin and ciprofloxacin for 5 days Urine cx positive with pseudomonas Follow-up urology consult and recommendations Continue to monitor for any changes Case and plan to be reviewed and discussed with Dr. Campos <Abilio Campos - Last Filed: 08/12/18 15:35> Objective - Vital Signs/Intake and Output Vital Signs (last 24 hours): Temp Pulse Resp BP Pulse Ox 97.8 F 61 16 127/67 95 08/12/18 14:45 08/12/18 15:08 08/12/18 14:45 08/12/18 14:45 08/12/18 15:08 Intake and Output: 08/12/18 08/12/18 06:59 18:59 Intake Total 180 Balance 180 - Medications Medications: Current Medications Albuterol/Ipratropium (Duoneb 3 Mg/0.5 Mg (3 Ml) Ud) 3 ml IH [id number] PRN PRN Reason: Shortness of Breath Amoxicillin/Clavulanate Potassium (Augmentin 875 Mg-125 Mg Tab) 1 tab PO Q12 [facility]; Protocol Stop: 08/13/18 22:01 Last Admin: 08/12/18 11:03 Dose: 1 tab Aspirin (Aspirin Chewable) 81 mg PO DAILY [facility] Last Admin: 08/10/18 09:37 Dose: 81 mg Atorvastatin Calcium (Lipitor) 80 mg PO DAILY [facility] Last Admin: 08/12/18 10:29 Dose: 80 mg Carvedilol (Coreg) 3.125 mg PO BID [facility] Last Admin: 08/12/18 10:32 Dose: 3.125 mg Ciprofloxacin (Cipro) 500 mg PO Q12 [facility]; Protocol Stop: 08/17/18 22:01 Last Admin: 08/12/18 10:29 Dose: 500 mg Clopidogrel Bisulfate (Plavix) 75 mg PO DAILY [facility] Last Admin: 08/10/18 09:36 Dose: 75 mg Dextrose (Dextrose 50% Inj) 0 ml IV STAT PRN; Protocol PRN Reason: Hypoglycemia Protocol Digoxin (Lanoxin) 0.25 mg PO 1400 [facility] Last Admin: 08/11/18 17:15 Dose: 0.25 mg Docusate Sodium (Colace) 100 mg PO BID PRN PRN Reason: Constipation Finasteride (Proscar) 5 mg PO DAILY [facility] Last Admin: 08/12/18 10:28 Dose: 5 mg Glimepiride (Amaryl) 2 mg PO ACBD [facility] Last Admin: 08/12/18 09:17 Dose: Not Given Heparin Sodium (Porcine) (Heparin) 5,000 units SC Q8 [facility]; Protocol Last Admin: 08/12/18 05:55 Dose: 5,000 units Dextrose (Dextrose 5% In Water 1000 Ml) 1,000 mls @ 0 mls/hr IV .Q0M PRN; Protocol PRN Reason: Hypoglycemia Protocol Dextrose/Sodium Chloride (Dextrose 5%/0.9% Ns 1000 Ml) 1,000 mls @ 70 mls/hr IV .[id number] [facility] Last Admin: 08/12/18 13:27 Dose: 70 mls/hr Insulin Human Lispro (Humalog Low) 0 units SC ACHS [facility]; Protocol Last Admin: 08/12/18 11:45 Dose: Not Given Levetiracetam (Keppra) 250 mg PO Q12 [facility] Last Admin: 08/12/18 11:07 Dose: 250 mg Lisinopril (Zestril) 2.5 mg PO DAILY [facility] Last Admin: 08/12/18 10:30 Dose: 2.5 mg Metformin HCl (Glucophage) 500 mg PO BID [facility] Last Admin: 08/12/18 09:18 Dose: Not Given Multivitamins/Minerals (Therapeutic-M Tab) 1 tab PO 0800 [facility] Last Admin: 08/12/18 09:22 Dose: 1 tab Nystatin (Nystop Topical Powder) 0 gm TOP BID [facility] Last Admin: 08/12/18 11:07 Dose: 1 appl Pantoprazole Sodium (Protonix Ec Tab) 40 mg PO 0600 [facility] Last Admin: 08/12/18 05:55 Dose: 40 mg Sertraline HCl (Zoloft) 100 mg PO DAILY [facility] Last Admin: 08/12/18 10:29 Dose: 100 mg Simethicone (Mylicon Chew Tab) [address] [facility] PRN PRN Reason: GI distress Tamsulosin HCl (Flomax) 0.4 mg PO DAILY [facility] Last Admin: 08/12/18 10:33 Dose: 0.4 mg Tramadol HCl (Ultram) 50 mg PO TID PRN PRN Reason: Pain, severe (8-10) Last Admin: 08/10/18 08:23 Dose: 50 mg - Labs Labs: 08/12/18 06:30 08/12/18 06:30 PT 15.2 SECONDS (9.4-12.5) H 08/12/18 07:50 INR 1.35 08/12/18 07:50 Attending/Attestation - Attestation I have personally seen and examined this patient.: Yes I have fully participated in the care of the patient.: Yes I have reviewed all pertinent clinical information, including history, physical exam and plan: Yes
--- NOTE | 2018-08-12 12:27 | PN ---
DATE: 08/12/2018 SUBJECTIVE: The patient is in bed, in no acute distress, nontoxic. PHYSICAL EXAMINATION: VITAL SIGNS: Temperature is 98, blood pressure is 128/70, respirations 16. HEENT: Unremarkable. NECK: Supple. LUNGS: Have decreased breath sounds. HEART: Normal S1, S2. ABDOMEN: Soft. LABORATORY DATA: Laboratory examination reveals a white count of 9.6, hemoglobin of 12 and chemistries are noted. BUN of 23, creatinine of 1. Urinalysis is noted and microbiology is reviewed.. The patient is on p.o. Cipro and p.o. Augmentin. ASSESSMENT AND PLAN: This is a 68-year-old male admitted with sepsis with Pseudomonas pyelonephritis sensitive to Cipro and a community-acquired pneumonia. Today is day #7 of antibiotics. Complete with p.o. Cipro and Augmentin to complete 10 to 14 days' total. Abilio Campos MD
[2018-08-12] MEDS ORDERED: Dextrose 5%/0.9% NS 1,000 ML IV SCH (13:30)
[2018-08-12] MEDS: Digoxin 250 mcg (0.25 mg) Tab PO SCH (15:00)
--- NOTE | 2018-08-12 16:10 | PN ---
DATE: 08/12/2018 REASON FOR CONSULTATION AND FOLLOWUP: Preoperative evaluation and risk stratification for EGD today. SUBJECTIVE: The patient denies any chest pain, shortness of breath, or any palpitation. OBJECTIVE: GENERAL: Not in apparent distress. VITAL SIGNS: Temperature afebrile, heart rate 68, blood pressure 118/81. HEENT: PERRLA. Extraocular muscles intact. NECK: Supple. No carotid bruit or thyromegaly. CHEST: Clear to auscultation. HEART: S1 and S2 regular. ABDOMEN: Soft. EXTREMITIES: Clubbing and cyanosis, negative. LABORATORY DATA: Blood workup as follows. WBC 9.6, hemoglobin 12, hematocrit 36.7, platelet count 339. Chemistry shows sodium 130, potassium 4.3, chloride 101, carbon dioxide 23, anion gap of 13, BUN 23, creatinine 1.0. MUGA scan done yesterday that revealed ejection fraction 41%. IMPRESSION: A 68-year-old male with past medical history significant for cerebrovascular accident with right-sided weakness, history of acute coronary syndrome, status post percutaneous transluminal coronary angioplasty and cardiac catheterization and stenting of left anterior descending artery in 07/2016, ejection fraction of 40%, at that time, the patient had MUGA scan done followed 46%. Recent echo in 12/16/2017, show ejection fraction of 25%. The patient is scheduled for esophagogastroduodenoscopy. Yesterday repeat MUGA scan done that show ejection fraction 41%. RECOMMENDATIONS: The patient cleared to go for endoscopy with [id number] risk level because of underlying comorbidity, no absolute contraindication, no evidence of , no evidence of congestive heart failure, no evidence of arrhythmia. The patient had MUGA scan recently that shows ejection fraction 41%, so we will continue Coreg, continue baby aspirin, continue digoxin and continue lisinopril 2.5. The patient had congestive heart failure. We will continue ROYCE inhibitor therapy. We will hold off Entresto for now. On admission, the patient is okay to go for endoscopy. At this point, the patient does not need AICD MUGA scan result. We will discussed with daughter. Once the patient has endoscopy done, possible discharged home with current medications. We will put in physician as communication, the patient is cleared for EGD. After completion of endoscopy, the patient is okay to be discharged. Thank you Dr. López, for providing us the opportunity in taking care of the patient, Nahid Dick. Irma Bedoya MD
[2018-08-12] MEDS ORDERED: Etomidate 20 mg/10ml Inj IV ONE (16:13)
[2018-08-12 18:21] VITALS: RESP 18
[2018-08-12 18:31] VITALS: PULSE 55
--- NOTE | 2018-08-12 19:15 | CP.PCM.DIS ---
Provider - Provider Date of Admission: 08/06/18 11:40 Attending physician: Renata Brar MD Primary care physician: Temo Pereira MD Consults: 08/05/18 09:10 Infectious Disease Consult Routine Comment: Consulting Provider: Abilio Campos Consulting Physician: Abilio Campos Reason for Consult: UTI/ R sided pyelo 08/05/18 09:50 Physician Consult Routine Comment: Consulting Provider: Feliberto Medina Consulting Physician: Feliberto Medina Reason for Consult: recurrent stones 08/05/18 13:17 Social Work Referral Routine Comment: d/c plan Physician Instructions: Reason For Exam: assess 08/05/18 13:53 Case Management Referral Routine Comment: Physician Instructions: Reason For Exam: Reason for Referral: Discharge Planning Diabetic Education Referral Routine Comment: blood sugar 349 Physician Instructions: Reason For Exam: assess Inpatient DIRECTOR ZONE Core Measures Referral Routine Comment: uti Physician Instructions: Reason For Exam: assess Nursing Referral for Wound Care Routine Comment: buttocks/sacrum redness no openings Physician Instructions: Reason For Exam: assess Transition In Care/Readmission Reduction Routine Comment: uti Physician Instructions: Reason For Exam: assess 08/05/18 18:47 Gastroenterology Consult Routine Comment: Consulting Provider: Hema Hinds V Consulting Physician: Hema Hinds V Reason for Consult: RLQ pain; Decreased Appetite 08/06/18 11:24 Endocrinology Consult Routine Comment: Consulting Provider: Emi Flaherty Consulting Physician: Emi Flaherty Reason for Consult: newly diagnosed with DM 08/10/18 15:49 TCU [Evaluation for TRCU] Routine Comment: Physician Instructions: Reason For Exam: to continue pt 08/11/18 08:54 Cardiology Consult Routine Comment: Consulting Provider: Irma Bedoya Consulting Physician: Irma Bedoya Reason for Consult: risk stratification Time Spent in preparation of Discharge (in minutes): 40 Diagnosis - Discharge Diagnosis (1) Community acquired pneumonia of both lungs Status: Acute (2) Abdominal pain Status: Acute (3) KAROLINE (acute kidney injury) Status: Acute (4) Diabetes Status: Chronic (5) Pyelonephritis Status: Acute Hospital Course - Lab Results Lab Results: Micro Results 08/06/18 09:40 Blood-Venous Blood Culture - Final NO GROWTH AFTER 5 DAYS 08/06/18 09:40 Blood-Venous Gram Stain - Final TEST NOT PERFORMED 08/06/18 09:10 Blood-Venous Blood Culture - Final NO GROWTH AFTER 5 DAYS 08/06/18 09:10 Blood-Venous Gram Stain - Final TEST NOT PERFORMED 08/05/18 10:45 Blood-Venous Blood Culture - Final NO GROWTH AFTER 5 DAYS 08/05/18 10:45 Blood-Venous Gram Stain - Final TEST NOT PERFORMED 08/05/18 10:30 Blood-Venous Blood Culture - Final NO GROWTH AFTER 5 DAYS 08/05/18 10:30 Blood-Venous Gram Stain - Final TEST NOT PERFORMED 08/06/18 10:25 Urine,Clean Catch Urine Culture - Final Yeast Species 08/05/18 05:02 Urine,Clean Catch Urine Culture - Final Pseudomonas Aeruginosa Most Recent Lab Values WBC 9.6 10^3/uL (4.5-11.0) 08/12/18 06:30 RBC 4.32 10^6/uL (3.5-6.1) 08/12/18 06:30 Hgb 12.0 g/dL (14.0-18.0) L 08/12/18 06:30 Hct 37.0 % (42.0-52.0) L 08/12/18 06:30 MCV 85.6 fl (80.0-105.0) 08/12/18 06:30 MCH 27.8 pg (25.0-35.0) 08/12/18 06:30 MCHC 32.4 g/dl (31.0-37.0) 08/12/18 06:30 RDW 13.8 % (11.5-14.5) 08/12/18 06:30 Plt Count 339 10^3/uL (120.0-450.0) 08/12/18 06:30 MPV 9.4 fl (7.0-11.0) 08/12/18 06:30 Neut % (Auto) 70.6 % (50.0-68.0) H 08/12/18 06:30 Lymph % (Auto) 14.4 % (22.0-35.0) L 08/12/18 06:30 [place] % (Auto) 10.4 % (1.0-6.0) H 08/12/18 06:30 Eos % (Auto) 4.3 % (1.5-5.0) 08/12/18 06:30 Baso % (Auto) 0.3 % (0.0-3.0) 08/12/18 06:30 Lymph # (Auto) 1.4 (1.2-3.4) 08/12/18 06:30 [place] # (Auto) 1.0 (0.1-0.6) H 08/12/18 06:30 Eos # (Auto) 0.4 (0.0-0.7) 08/12/18 06:30 Baso # (Auto) 0.03 K/mm3 (0.0-2.0) 08/12/18 06:30 Absolute Neuts (auto) 6.79 (1.4-6.5) H 08/12/18 06:30 PT 15.2 SECONDS (9.4-12.5) H 08/12/18 07:50 INR 1.35 08/12/18 07:50 pO2 51 mm/Hg (30-55) 08/06/18 09:10 VBG pH 7.43 (7.32-7.43) 08/06/18 09:10 VBG pCO2 38.0 (40-60) L 08/06/18 09:10 VBG HCO3 25.2 mmol/l (21-28) 08/06/18 09:10 VBG Total CO2 26.4 mmol.L (22-28) 08/06/18 09:10 VBG O2 Sat (Calc) 90.7 % (40-65) H 08/06/18 09:10 VBG Base Excess 1.0 mmol/L (0.0-2.0) 08/06/18 09:10 VBG Potassium 4.0 mmol/L (3.6-5.2) 08/06/18 09:10 Sodium 133.0 mmol/L (132-148) 08/06/18 09:10 Chloride 101.0 mmol/L (98-107) 08/06/18 09:10 Glucose 221 mg/dl (75-110) H 08/06/18 09:10 Lactate 0.9 mmol/L (0.7-2.1) 08/06/18 09:10 FiO2 21.0 % 08/06/18 09:10 Sodium 133 mmol/L (132-148) 08/12/18 06:30 Potassium 4.3 mmol/L (3.6-5.0) 08/12/18 06:30 Chloride 101 mmol/L (98-107) 08/12/18 06:30 Carbon Dioxide 23 mmol/L (21-33) 08/12/18 06:30 Anion Gap 13 (10-20) 08/12/18 06:30 BUN 23 mg/dL (7-21) H 08/12/18 06:30 Creatinine 1.0 mg/dl (0.8-1.5) 08/12/18 06:30 Est GFR ( Amer) > 60 08/12/18 06:30 Est GFR (Non-Af Amer) > 60 08/12/18 06:30 POC Glucose (mg/dL) 222 mg/dL (65-110) H 08/12/18 17:33 Random Glucose 114 mg/dL (70-110) H 08/12/18 06:30 Hemoglobin A1c 14.3 % (4.2-6.5) H D 08/05/18 05:02 Calcium 8.9 mg/dL (8.4-10.5) 08/12/18 06:30 Total Bilirubin 1.3 mg/dL (0.2-1.3) 08/12/18 06:30 AST 108 U/L (17-59) H D 08/12/18 06:30 ALT 122 U/L (7-56) H 08/12/18 06:30 Alkaline Phosphatase 97 U/L (38-126) 08/12/18 06:30 Total Protein 6.8 g/dL (5.8-8.3) 08/12/18 06:30 Albumin 3.3 g/dL (3.0-4.8) 08/12/18 06:30 Globulin 3.6 gm/dL 08/12/18 06:30 Albumin/Globulin Ratio 0.9 (1.1-1.8) L 08/12/18 06:30 Lipase 124 U/L (23-300) 08/05/18 05:02 Prostate Specific Ag 0.2 ng/mL (0-4.0) 08/05/18 15:30 Procalcitonin 0.27 NG/ML (0.19-0.49) 08/08/18 06:00 Venous Blood Potassium 4.0 mmol/L (3.6-5.2) 08/06/18 09:10 Urine Color Yellow (YELLOW) 08/06/18 10:20 Urine Appearance Cloudy (CLEAR) 08/06/18 10:20 Urine pH 6.5 (4.7-8.0) 08/06/18 10:20 Ur Specific [place] 1.020 (1.005-1.035) 08/06/18 10:20 Urine Protein 100 mg/dL (<30 mg/dL) H 08/06/18 10:20 Urine Glucose (UA) 100 mg/dL (NEGATIVE) H 08/06/18 10:20 Urine Ketones Trace mg/dL (NEGATIVE) H 08/06/18 10:20 Urine Blood Moderate (NEGATIVE) H 08/06/18 10:20 Urine Nitrate Positive (NEGATIVE) H 08/06/18 10:20 Urine Bilirubin Negative (NEGATIVE) 08/06/18 10:20 Urine Urobilinogen 0.2 E.U./dL (<1 E.U./dL) 08/06/18 10:20 Ur Leukocyte Esterase Moderate [place]/uL (NEGATIVE) H 08/06/18 10:20 Urine RBC Tntc /hpf (0-2) H 08/06/18 10:20 Urine WBC Tntc /hpf (0-6) H 08/06/18 10:20 Ur Epithelial Cells None /hpf (0-5) 08/06/18 10:20 Urine Bacteria Large /hpf (NONE) 08/06/18 10:20 Digoxin 0.6 ng/mL (0.8-2.0) L 08/09/18 07:00 Hepatitis A IgM Ab Negative (NEGATIVE) 08/11/18 06:30 Hep Bs Antigen Negative (NEGATIVE) 08/11/18 06:30 Hep B Core IgM Ab Negative (NEGATIVE) 08/11/18 06:30 Hepatitis C Antibody Negative (NEGATIVE) 08/11/18 06:30 Ur L.pneumophila Ag Negative (NEGATIVE) 08/08/18 22:45 - Hospital Course Hospital Course: Edson Tompkins DO Y1 - Hospital DC Summary Upon admission, 68M PMH of CHF, CAD, CVA w/ R sided deficit, Sz, HTN, HLD; Most signifcantly prostectomy, recurrent UTI presenting to [facility] on 08/05 w/ complaints of R sided flank pain on going over the past day. Patient denies any dysuria, hematuria, or changes in urinary frequency. Does not report any fevers/chills, supapubic pain. Pain is sharp in nature, worse w/ movement, radiates towards his R shoulder, 10/10 in severity. Pain is not associated w/ urination. Patient was noted to have a R sided pyelonephritis as well as a bibasilar pneumonia; ID Consulted. 08/06 CT CAP - Bibasilar infiltrates R>L suggestive of Bibasilar PNA; No SOB / Cough ; UA w/ pyuria bacteruria; UCX growing pseudomonas; BCX negative Patient was initially treated w/ merrem + doxycycline however switched to PO CIPRO/Augmentin due to transaminitis. R sided abd pain was also thought to be secondary to GI related causes as patient's CTAP showed significant stool /constipation. GI consulted and bowel regimen started. His constipation resolved however his pain did not; GI subsequently decided to perform EGD 08/13. EGD only resulted in findings of chronic gastritis; no further reccs provided from GI stand point. Patient's home lasix were held due to KAROLINE during admission. Lasix resumed upon discharge. Patient noted to have significant blood glucose elevations on admission; A1C - 14.3 Endocrinology consulted who recommended starting patient on Glimepridie 2 ACBD, and Metformin 500 BID. PT recommended patient go to [facility] upon discharge Prior to discharge patient was seen and examined w/ attending Dr. Brar Pt. still offered mild R sided complaints however overall improved. Discharge instructions and plan reviewed w/ patient's daughter Sherine Ellison Patient's PMD Dr. Temo Pereira notified of hospital course and discharge plan. Patient was seen, examined, and discussed w/ attending Dr. Zonia Tompkins DO PGY1 - Date & Time of H&P Date of H&P: 08/13/18 Time of H&P: 19:01 Discharge Exam - Head Exam Head Exam: ATRAUMATIC, NORMAL INSPECTION - Eye Exam Eye Exam: EOMI, Normal appearance, PERRL - Respiratory Exam Respiratory Exam: Clear to PA & Lateral, UNREMARKABLE - Cardiovascular Exam Cardiovascular Exam: RRR. absent: Systolic Murmur - GI/Abdominal Exam GI & Abdominal Exam: Normal Bowel Sounds, Unremarkable - Extremities Exam Additional comments: R sided weakness - Neurological Exam Neurological exam: Alert - Psychiatric Exam Psychiatric exam: Normal Affect, Normal Mood - Skin Skin Exam: Dry, Intact, Normal Color, Warm Discharge Plan - Discharge Medications Prescriptions: Amoxicillin/Clavulanate [Augmentin 875 MG-125 MG] 1 tab PO Q12 4 Days #8 tab Ciprofloxacin [Cipro] 500 mg PO Q12 4 Days #8 tab - Follow Up Plan Condition: FAIR Disposition: REHAB FACILITY/REHAB UNIT Instructions: Heart Healthy Diet, Pneumonia, Adult (DC), Gastritis (DC), Urinary Tract Infection in Men (DC) Additional Instructions: Take the ciprofloxacin and augmentin for 4 more days. Resume the rest of the medications. Take the tramadol prn for pain. Please return if the symptoms returns or call 911 Referrals: Temo Pereira MD [Primary Care Provider] -
--- NOTE | 2018-08-12 20:40 | PN ---
DATE: 08/12/2018 ENDOCRINOLOGY FOLLOWUP NOTE LOCATION: In room 565. SUBJECTIVE: This is a 68-year-old male with recent uncontrolled type 2 diabetes, currently receiving IV antibiotic management for ongoing urinary tract infection and bacteremia and is also being followed closely for metabolic management. LABORATORY DATA: His glycemic levels have remainder near optimal at this time and the glucose values have ranged from 148 to 183 mg/dL. It was 165 at bedtime last night. His chemistry showed a BUN of 23, sodium 133, potassium 4.3, chloride 101, CO2 of 23, glucose 114 and creatinine 1.0. ASSESSMENT: This is a 68-year-old male with uncontrolled type 2 diabetes, now with improving metabolic profile and near optimal glycemic levels as noted. He has been taken off all insulin therapy at this time as noted. PLAN OF MANAGEMENT: We will continue the modified oral hypoglycemic drug therapy as given with metformin given as 500 mg b.i.d. as ordered. We will continue the Amaryl given as lower dose of 2 mg b.i.d. before meals as ordered. We will obtain serial chemistries and supplement accordingly needed. We will also continue the low-dose correction scale using Humalog insulin as given. We will obtain serial chemistries and supplement accordingly as needed. We will follow and advise accordingly. Emi Flaherty MD
[2018-08-12 21:19] VITALS: BP 119/64; PULSE 57; TEMP 98.1; O2SAT 94
== END 2018-08-12 23:10 | DRG 871 ==
LOC: ED 04:14 → ERH 06:59 → 5RNO 08:52 → OBSVTOIN 08-06 11:40
PROVIDERS: ADMIT Hospitalist; ATTEND Internal Medicine
PROC: 3E0F7GC Introduction of Other Therapeutic Substance into Respiratory Tract, Via Natural or Artificial Opening (ICD-10-PCS; 2018-08-07)
PROC: 0DJ08ZZ Inspection of Upper Intestinal Tract, Via Natural or Artificial Opening Endoscopic (ICD-10-PCS; principal; 2018-08-12 15:15)
DX: A41.9 Sepsis, unspecified organism (principal); J18.9 Pneumonia, unspecified organism; N13.6 Pyonephrosis; I69.351 Hemiplegia and hemiparesis following cerebral infarction affecting right dominant side; J44.0 Chronic obstructive pulmonary disease with (acute) lower respiratory infection; I50.22 Chronic systolic (congestive) heart failure; I13.0 Hypertensive heart and chronic kidney disease with heart failure and stage 1 through stage 4 chronic kidney disease, or unspecified chronic kidney disease; N17.9 Acute kidney failure, unspecified; G40.909 Epilepsy, unspecified, not intractable, without status epilepticus; I25.10 Atherosclerotic heart disease of native coronary artery without angina pectoris; E78.5 Hyperlipidemia, unspecified; E11.65 Type 2 diabetes mellitus with hyperglycemia; N40.0 Benign prostatic hyperplasia without lower urinary tract symptoms; E11.21 Type 2 diabetes mellitus with diabetic nephropathy; E11.319 Type 2 diabetes mellitus with unspecified diabetic retinopathy without macular edema; E11.42 Type 2 diabetes mellitus with diabetic polyneuropathy; N18.9 Chronic kidney disease, unspecified; E11.51 Type 2 diabetes mellitus with diabetic peripheral angiopathy without gangrene; F32.9 Major depressive disorder, single episode, unspecified; K29.70 Gastritis, unspecified, without bleeding; Z87.442 Personal history of urinary calculi; R10.13 Epigastric pain; G47.00 Insomnia, unspecified; F41.1 Generalized anxiety disorder; K59.00 Constipation, unspecified; Z87.440 Personal history of urinary (tract) infections; Z79.02 Long term (current) use of antithrombotics/antiplatelets; Z79.4 Long term (current) use of insulin; Z79.899 Other long term (current) drug therapy; Z87.891 Personal history of nicotine dependence; Z95.5 Presence of coronary angioplasty implant and graft; Z90.79 Acquired absence of other genital organ(s)